=== PATIENT | female | born 1955 | race Caucasian/White ===

== ENCOUNTER 2016-11-13 17:12 | Inpatient (IN) ==
[2016-11-13] MEDS ORDERED: DEXTROSE 50% 25 GM/50 ML VIAL IV PRN (19:58)
[2016-11-13] MEDS ORDERED: GLUCAGON 1 MG VIAL IM PRN (19:58)
[2016-11-13] MEDS ORDERED: guaiFENesin/DM ER 600-30 MG TABLET PO PRN (19:58)
[2016-11-13] MEDS ORDERED: ACETAMINOPHEN 325 MG TABLET PO PRN (19:58)
[2016-11-13] MEDS ORDERED: ALBUTEROL 2.5 MG/3 ML NEB RESP TX PRN (19:58)
[2016-11-13 20:35] LABS: Basophils # 0.1 10*3/uL (0.0-0.2); Basophils % 0.6 % (0.0-0.8); Eosinophils # 0.1 10*3/uL (0.0-0.87); Eosinophils % 1.4 % (0.00-10.9); Hematocrit 41.1 VOL% (35.7-47.0); Hemoglobin 12.6 GM/DL (12.0-16.0); Immature Granulocytes % 0.5 %; Immature Granulocytes Absolute 0.05 #; Lymphocytes # 2.4 10*3/uL (1.4-4.0); Lymphocytes % 25.4 % (21.3-54.2); Mean Corpuscular HGB Conc 30.7 GM/DL (32-36); Mean Corpuscular Hemoglobin 25 PG (27-34); Mean Corpuscular Volume 82.9 FL (87-102); Mean Platelet Volume 9.3 FL (9.6-12.0); Monocytes # 0.7 10*3/uL (0.11-0.8); Monocytes % 7.3 % (1.7-12.7); Neutrophils # 6.2 10*3/uL (1.4-7.4); Neutrophils % 64.8 % (38.7-73.9); Platelet Count 362 T/CUMM (130-400); Red Blood Count 4.96 MC/CUMM (3.8-5.5); Red Cell Distribution Width 13.3 % (9.3-17.3); White Blood Count 9.5 T/CUMM (4-12)
[2016-11-13 21:02] LABS: Calcium 9.8 MG/DL (8.5-10.1); Potassium 4.2 MMOL/L (3.5-5.1)
--- NOTE | 2016-11-13 21:11 | XRay Report ---
XR chest 1V portable Indication: Shortness of breath. Chest one view: Comparison 01/26/16. Mild cardiomegaly, prominent pulmonary vascular structures, tortuous thoracic aorta and pulmonary hypoinflation are noted. No focal infiltrate is seen. There are some degree of atelectasis present. Impression: Bibasilar atelectasis. Mild CHF. PROCEDURE INTERPRETED AT [facility] DEPARTMENT OF RADIOLOGY Final Report Signed by: Ramy Laird M.D.
--- NOTE | 2016-11-13 21:40 | Hospitalist History & Physical ---
Assessment and Plan (1) Hypertension Status: Chronic Current Visit: No (2) Hyperlipidemia Status: Chronic Current Visit: No (3) Chest pain Status: Acute Current Visit: No (4) Diabetes Status: Chronic Current Visit: No (5) Acute exacerbation of chronic obstructive airways disease Status: Chronic Assessment and plan: Plan for this patient #1 the patient service #2 scheduled breathing treatments next #3 low-dose steroids 3 Accu-Cheks #5 sliding scale as needed #6 IV antibiotics 7 cough suppressant #8 check serial cardiac enzymes Current Visit: No History of Present Illness Chief complaint: sent from Dr. Daly's office to hospital History of present illness: Ms. Roy is a 61 year old female past medical history significant for anxiety , cardiomyopathy, congestive heart failure, COPD, coronary artery disease, depression and diabetes who was in her normal state of health until the past 10 days. According to what I can gather from Dr. Daly patient is noncompliant. She's been feeling poorly for at least 10 days and coughing up productive sputum but has not sought medical attention. Patient has prominent wheezing and when she saw Dr. Daly today she could hardly get her words out and Dr. Dr. Daly contacted me and wanted to have patient admitted to the hospital. Patient is being admitted for acute exacerbation of her condition COPD. Patient did give a history of some chest pain that was sharp 3 days ago and did take 3 nitros. I've ordered labs and x-ray and I'm going to admit the patient our service Home Medications Medication Instructions Recorded Confirmed Type ALPRAZolam [Alprazolam] 1 mg PO QID PRN 05/26/15 01/25/16 History FLUoxetine [PROzac] 40 mg PO QAM 05/26/15 01/25/16 History Clopidogrel [Plavix] 75 mg PO DAILY #30 tablet 06/06/15 01/25/16 Rx HYDROcodone/ACETAMIN 10-325 [Solon 10 mg PO Q6HR PRN 07/14/15 01/25/16 History 10-325] Nitroglycerin [Nitroglycerin SL 0.4 mg SL Q5M PRN 07/14/15 01/25/16 History Tab] metFORMIN [Glucophage] 1,000 mg PO BID W/MEALS #0 07/15/15 01/25/16 Rx Biotin 1 mg PO DAILY 10/21/15 01/25/16 History Budesonide/Formoterol 160-4.5 2 puff INH BID 10/21/15 01/25/16 History [Symbicort 160-4.5] FLUoxetine [PROzac] 20 mg PO BEDTIME 10/21/15 01/25/16 History Terbinafine HCl [Terbinafine 1% 1 applic TOP BID 10/21/15 01/25/16 History Cream] Aspirin EC Tab 325 mg PO DAILY tablet 11/02/15 01/25/16 Rx Atorvastatin [Lipitor] 20 mg PO BEDTIME tablet 11/02/15 01/25/16 Rx Benzonatate [Tessalon] 100 mg PO TID capsule 11/02/15 01/25/16 Rx Bisacodyl Tab [Dulcolax Tab] 5 mg PO DAILY tablet 11/02/15 01/25/16 Rx Docusate Sodium Cap [Colace Cap] 200 mg PO DAILY capsule 11/02/15 01/25/16 Rx Fexofenadine [Jordyn] 180 mg PO DAILY tablet 11/02/15 01/25/16 Rx Gabapentin Cap/Tab [Neurontin 600 mg PO Q4HR tablet 11/02/15 01/25/16 Rx Cap/Tab] HYDROcodone/ACETAMIN 10-325 [Solon 1 tablet PO Q6H PRN #0 tablet 11/02/15 Rx 10-325] Insulin Regular [HumuLIN R] See Protocol SUBCUT ACHS injection 11/02/15 Rx Losartan [Cozaar] 25 mg PO DAILY tablet 11/02/15 01/25/16 Rx Magnesium Oxide 400 mg PO BID tablet 11/02/15 01/25/16 Rx Pantoprazole Tab [Protonix Tab] 40 mg PO DAILY tablet 11/02/15 01/25/16 Rx Polyethylene Glycol Powder 17 gm PO DAILY powder 11/02/15 01/25/16 Rx [Miralax] Potassium Iodide Oral Soln [Sski] 600 mg PO TID bottle 11/02/15 01/25/16 Rx Sodium Phosphate Enema [Fleet 133 ml RECTAL DAILY PRN #0 bottle 11/02/15 Rx Enema] Spironolactone [Aldactone] 25 mg PO DAILY tablet 11/02/15 01/25/16 Rx Theophylline ER Tab 300 mg PO BID W/MEALS tablet 11/02/15 01/25/16 Rx Cefuroxime Tab [Ceftin] 500 mg PO BID #8 tablet 01/29/16 Rx Furosemide Tab [Lasix Tab] 80 mg PO BID DIURETIC #60 tablet 01/29/16 Rx Ipratropium/Albuterol Inhaler 1 puff INH QID #1 inhaler 01/29/16 Rx [Combivent Respimat Inhaler] methylPREDNISolone TAB [Medrol] 8 mg PO 0800 #15 tablet 01/29/16 Rx Allergies Allergy/AdvReac Type Severity Reaction Status Date / Time nylon sutures Allergy RASH Uncoded 06/14/15 12:04 plastic tape Allergy RASH Uncoded 06/14/15 12:04 Medical,Surgical,& Family Hx - Medical History Cardio: History of: CHF, CAD, Hypertension, MD, Cardiovascular Problems No history of: Aneurysm, Cardiac Dysrhythmia, Cerebrovascular Disease, Congenital Heart Disease, Pacemaker, PVD, Valvular Heart Disease Psychological: History of: Anxiety Disorders, Depression Neurology: No history of: Seizures Endocrine: History of: Diabetes Mellitus (IDDM), Dyslipidemia Rheumatology: No history of;: Fibromyalgia, Gout, Myasthenia Gravis, Rheumatoid Arthritis, Rheumatological Problems Respiratory: History of: COPD No history of: Asthma, Bronchitis, Intubation, Obstructive Sleep Apnea, Pulmonary Embolism, Pulmonary Hypertension, Pneumonia, Lung Cancer, Respiratory Problems Gastrointestinal: History of: GERD, GI Problems (Peptic Ulcer) No history of: Bowel Obstruction, Clostridium Difficile, Crohn's Disease, Diverticulitis/ Diverticulosis, Esophageal Varices, Gastrointestinal Bleed, Hemorrhoids, Hematochezia, Hepatitis, Liver Problems, Pancreatitis, Polyps, Ulcerative Colitis, Gastrointestinal Cancer Musculoskeletal: History of: Back/Neck Problems (chronic back pain) No history of: Degenerative Disk Disease, Herniated Disk, Osteoporosis, Musculoskeletal Cancer, Musculoskeletal Problems - Surgical History Cardiac Surgeries: Sugical HX of: Cardiac Catheterization (stents) Patient Denies: Femoral-Popliteal Bypass Graft, Cardiac Surgery, Carotid Endarterectomy, Internal Defibrillator, Vascular Access Devices Thoracic Surgeries: Patient denies;: Kidney (Renal Surgery), Lithotripsy, Nephrectomy, Lobectomy Neurologic Surgeries: Patient denies: Neurologic Surgery HEENT Surgeries: Patient denies: Carotid Endarterectomy Abdominal Surgeries: Patient denies: Abdominal Surgery, Appendectomy, Cholecystectomy, Colonoscopy , Gastric Bypass Surgery, EGD, Hernia Repair, Splenectomy Reproductive Surgeries: Surgical HX of;: Breast Surgery (Breast Reduction), Hysterectomy Patient denies;: Section, Cystoscopy, Dilation and Curettage, Genitourinary Surgery, Gynecologic Surgery, Tubal Ligation Orthopedic Surgeries: Surgical HX of;: Orthopedic Surgery (knee surgery) - Family History Family History: Reports;: Family Diabetes (Mother), Family Heart Disease (Mother ), Family Hypertension (Father) - Social History Smoking Status: Former smoker Frequency of Alcohol Use: None Type of Drug Use: None 12 point system: reviewed and no additional remarkable complaints except as stated Exam - Constitutional General appearance: over weight - Head Head exam: Present: normal inspection - Eye Eye exam: Present: EOMI Pupils: Present: ROSETTA - ENT ENT exam: Present: normal exam - Neck Neck exam: Present: normal inspection - Respiratory Respiratory exam: Present: prolonged expiratory phase, wheezes - Cardiovascular Cardiovascular exam: Present: regular rate and rhythm - GI/Abdominal GI/Abdominal exam: Present: normal bowel sounds - Extremities Exam Extremities exam: Present: normal inspection - Back Exam Back exam: Present: normal inspection - Neurological Exam Neurological exam: Present: alert, oriented X3 - Psychiatric Psychiatric exam: Present: normal affect Results - Labs CBC & BMP: 11/13/16 20:13 11/13/16 20:13
[2016-11-13] MEDS ORDERED: SODIUM PHOSPHATE ENEMA 133 ML BOTTLE RECTAL PRN (22:01)
[2016-11-13] MEDS: methylPREDNISolone SOD SUC 40 MG/1 ML VIAL IV SCH (23:02)
[2016-11-13] MEDS: INSULIN REGULAR 100 UNIT/ML SUBCUT SCH (23:02)
[2016-11-13] MEDS: cefTRIAXone 1,000 MG in SODIUM CHLORIDE 0.9% 100 ML IV SCH (23:02)
[2016-11-13 23:33] LABS: Troponin I Only < 0.015 NG/ML (0.00-0.045)
[2016-11-13] MEDS: AZITHROMYCIN INJ 500 MG in SODIUM CHLORIDE 0.9% 250 ML IV SCH (23:44)
[2016-11-13] MEDS: ENOXAPARIN 40 MG/0.4 ML SYRINGE SUBCUT SCH (23:45)
[2016-11-14] MEDS: ALBUTEROL/IPRATROPIUM 3 ML NEB RESP TX SCH ×4 (00:10→20:11)
[2016-11-14] MEDS: traZODone 50 MG TABLET PO PRN (00:18)
[2016-11-14] MEDS: GABAPENTIN 600 MG TABLET PO SCH ×4 (00:18→17:13)
[2016-11-14 03:33] LABS: Basophils % 0.5 % (0.0-0.8); Eosinophils % 0.5 % (0.00-10.9); Hematocrit 39.8 VOL% (35.7-47.0); Hemoglobin 12.3 GM/DL (12.0-16.0); Immature Granulocytes % 0.7 %; Immature Granulocytes Absolute 0.06 #; Lymphocytes # 0.8 10*3/uL (1.4-4.0); Lymphocytes % 9.7 % (21.3-54.2); Mean Corpuscular HGB Conc 30.9 GM/DL (32-36); Mean Corpuscular Hemoglobin 25 PG (27-34); Mean Corpuscular Volume 80.1 FL (87-102); Mean Platelet Volume 9.7 FL (9.6-12.0); Monocytes # 0.2 10*3/uL (0.11-0.8); Monocytes % 1.8 % (1.7-12.7); Neutrophils # 7.3 10*3/uL (1.4-7.4); Neutrophils % 86.8 % (38.7-73.9); Platelet Count 359 T/CUMM (130-400); Red Blood Count 4.97 MC/CUMM (3.8-5.5); Red Cell Distribution Width 13.4 % (9.3-17.3); White Blood Count 8.5 T/CUMM (4-12)
[2016-11-14 03:43] LABS: Risk Ratio 4.43; VLDL CHOLESTEROL 21.2 MG/DL
[2016-11-14 03:48] LABS: Troponin I Only < 0.015 NG/ML (0.00-0.045)
[2016-11-14 03:55] LABS: Calcium 9.7 MG/DL (8.5-10.1); Osmolality,Calculated 287.1 MOS/KG (273-304); Potassium 4.7 MMOL/L (3.5-5.1)
[2016-11-14] MEDS ORDERED: methylPREDNISolone 4 MG TABLET PO SCH (08:00)
--- NOTE | 2016-11-14 08:09 | Ultrasound Report ---
Referring physician: Ramy Adam Exam: Bilateral lower extremity venous ultrasound Date: November 14, 2016 Comparison: Bilateral lower extremity venous ultrasound January 25, 2016 Reason: Edema and pain in legs Technique: Duplex scan of the bilateral lower extremity veins was performed using B-Mode/grayscale imaging and Doppler spectral analysis and color flow. Ultrasound images were captured and stored. Findings: There is no evidence of thrombus within the left or right common femoral veins, saphenous veins, superficial femoral veins or popliteal veins. Normal compression and augmentation are present throughout. Normal color flow and spectral analysis are observed. Impression: No evidence of deep venous thrombosis within either lower extremity. PROCEDURE INTERPRETED AT [facility] DEPARTMENT OF RADIOLOGY Final Report Signed by: Dr. Magaly Nicholas
[2016-11-14] MEDS ORDERED: PANTOPRAZOLE 40 MG TABLET PO SCH (09:00)
[2016-11-14] MEDS: POLYETHYLENE GLYCOL POWDER 17 GM PACK PO SCH (09:01)
[2016-11-14] MEDS: TERBINAFINE 1% CREAM 12 GM TUBE TOP SCH ×2 (09:02→21:23)
[2016-11-14] MEDS: THEOPHYLLINE ER 300 MG TABLET PO SCH ×2 (09:02→17:13)
[2016-11-14] MEDS: methylPREDNISolone SOD SUC 40 MG/1 ML VIAL IV SCH ×2 (09:02→21:23)
[2016-11-14] MEDS: CLOPIDOGREL 75 MG TABLET PO SCH (09:03)
[2016-11-14] MEDS: DOCUSATE SODIUM 100 MG CAPSULE PO SCH (09:03)
[2016-11-14] MEDS: PANTOPRAZOLE 40 MG TABLET PO SCH (09:03)
[2016-11-14] MEDS: FEXOFENADINE 180 MG TABLET PO SCH (09:03)
[2016-11-14] MEDS: ASPIRIN EC 325 MG TABLET PO SCH (09:03)
[2016-11-14] MEDS: LOSARTAN 25 MG TABLET PO SCH (09:03)
[2016-11-14] MEDS: SPIRONOLACTONE 25 MG TABLET PO SCH (09:04)
[2016-11-14] MEDS: BISACODYL 5 MG TABLET PO SCH (09:04)
[2016-11-14] MEDS: MAGNESIUM OXIDE 400 MG TABLET PO SCH ×2 (09:04→21:23)
[2016-11-14] MEDS: FUROSEMIDE 80 MG TABLET PO SCH ×2 (09:04→15:19)
[2016-11-14] MEDS: ESCITALOPRAM 10 MG TABLET PO SCH (09:04)
[2016-11-14] MEDS: NEBIVOLOL 10 MG TABLET PO SCH (09:04)
[2016-11-14] MEDS: POTASSIUM IODIDE ORAL SOLN 1,000 MG/ML BOTTLE PO SCH ×3 (09:06→21:26)
[2016-11-14] MEDS: FLUoxetine 20 MG CAPSULE PO SCH ×2 (09:19→21:23)
[2016-11-14] MEDS: MULTIVITAMIN (BEROCCA) TABLET PO SCH (09:19)
[2016-11-14] MEDS: INSULIN REGULAR 100 UNIT/ML SUBCUT SCH ×4 (09:19→21:22)
[2016-11-14] MEDS: BUDESONIDE/FORMOTEROL 160-4.5 INHALER 6 GM INH SCH ×2 (09:21→21:26)
--- NOTE | 2016-11-14 10:20 | EKG Report ---
Stationary ECG Study [facility] Test Date: 11/14/2016 8:50:37 AM Pat Name: JOSTIN BOWER Department: Room: 277 Gender: F Merchandising Representative: ZULEMA : 1955 Requested by: Ramy Adam Order Number: [id number] Reading MD: BECCA HUBBARD Intervals [place] Rate: 82 P: 66 ND: 210 QRS: 86 QRSD: 105 T: 52 QT: 397 QTc: 436 Interpretive Statements SINUS RHYTHM WITH PROLONGED ND INTERVAL LATERAL MYOCARDIAL INFARCTION, PROBABLY OLD Electronically Signed On 11-14-16 18:12:45 TYPEWRITER OPERATOR AUTOMATIC by BECCA HUBBARD [email or web address]
--- NOTE | 2016-11-14 11:22 | Hospitalist Progress Note ---
Assessment and Plan (1) Hypertension Status: Chronic Current Visit: No (2) Hyperlipidemia Status: Chronic Current Visit: No (3) Chest pain Status: Acute Current Visit: No (4) Diabetes Status: Chronic Current Visit: No (5) Acute exacerbation of chronic obstructive airways disease Status: Chronic Assessment and plan: Plan for this patient #1 the patient service #2 scheduled breathing treatments next #3 low-dose steroids 3 Accu-Cheks #5 sliding scale as needed #6 IV antibiotics 7 cough suppressant #8 check serial cardiac enzymes 11/14/16 and he was standard treatment for COPD including steroids antibiotics and scheduled breathing treatments. She's made a slight improvement since last night. Hopefully she will continue to improve if she doesn't we'll consider consult to pulmonary for assistance Current Visit: No Hospitalist: Subjective Interval history: She reports maybe feeling a little bit better Exam - Constitutional Vitals: Period Temp Pulse Resp BP Sys/Callahan Pulse Ox Last 24 Hr 96.3 F-98.3 F 70-84 18-22 117-136/53-71 88-96 - Constitutional General appearance: over weight - Head Head exam: Present: normal inspection - Eye Eye exam: Present: EOMI Pupils: Present: ROSETTA - ENT ENT exam: Present: normal exam - Neck Neck exam: Present: normal inspection - Respiratory Respiratory exam: Present: prolonged expiratory phase, wheezes - Cardiovascular Cardiovascular exam: Present: regular rate and rhythm - GI/Abdominal GI/Abdominal exam: Present: normal bowel sounds - Extremities Exam Extremities exam: Present: normal inspection - Back Exam Back exam: Present: normal inspection - Neurological Exam Neurological exam: Present: alert, oriented X3 - Psychiatric Psychiatric exam: Present: normal affect Results - Labs CBC & BMP: 11/14/16 02:25 11/14/16 02:25
[2016-11-14] MEDS: ATORVASTATIN 20 MG TABLET PO SCH (21:23)
[2016-11-14] MEDS: ALPRAZolam 0.5 MG TABLET PO PRN (21:23)
[2016-11-14] MEDS: cefTRIAXone 1,000 MG in SODIUM CHLORIDE 0.9% 100 ML IV SCH ×2 (21:24→22:13)
[2016-11-14] MEDS: AZITHROMYCIN INJ 500 MG in SODIUM CHLORIDE 0.9% 250 ML IV SCH (22:45)
[2016-11-14] MEDS: ENOXAPARIN 40 MG/0.4 ML SYRINGE SUBCUT SCH (23:10)
[2016-11-15] MEDS: ALBUTEROL/IPRATROPIUM 3 ML NEB RESP TX SCH ×4 (00:35→19:56)
[2016-11-15] MEDS: GABAPENTIN 600 MG TABLET PO SCH ×4 (00:35→17:09)
[2016-11-15] MEDS: INSULIN REGULAR 100 UNIT/ML SUBCUT SCH ×4 (08:56→21:56)
[2016-11-15] MEDS: POLYETHYLENE GLYCOL POWDER 17 GM PACK PO SCH (09:23)
[2016-11-15] MEDS: POTASSIUM IODIDE ORAL SOLN 1,000 MG/ML BOTTLE PO SCH ×3 (09:25→21:57)
[2016-11-15] MEDS: methylPREDNISolone SOD SUC 40 MG/1 ML VIAL IV SCH ×2 (09:27→21:57)
[2016-11-15] MEDS: BUDESONIDE/FORMOTEROL 160-4.5 INHALER 6 GM INH SCH ×2 (09:27→21:57)
[2016-11-15] MEDS: LOSARTAN 25 MG TABLET PO SCH (09:28)
[2016-11-15] MEDS: NEBIVOLOL 10 MG TABLET PO SCH (09:28)
[2016-11-15] MEDS: THEOPHYLLINE ER 300 MG TABLET PO SCH ×2 (09:28→17:09)
[2016-11-15] MEDS: DOCUSATE SODIUM 100 MG CAPSULE PO SCH (09:28)
[2016-11-15] MEDS: CLOPIDOGREL 75 MG TABLET PO SCH (09:29)
[2016-11-15] MEDS: FLUoxetine 20 MG CAPSULE PO SCH ×2 (09:29→21:55)
[2016-11-15] MEDS: ESCITALOPRAM 10 MG TABLET PO SCH (09:29)
[2016-11-15] MEDS: ASPIRIN EC 325 MG TABLET PO SCH (09:29)
[2016-11-15] MEDS: FEXOFENADINE 180 MG TABLET PO SCH (09:29)
[2016-11-15] MEDS: FUROSEMIDE 80 MG TABLET PO SCH ×2 (09:29→15:43)
[2016-11-15] MEDS: MAGNESIUM OXIDE 400 MG TABLET PO SCH ×2 (09:29→21:56)
[2016-11-15] MEDS: BISACODYL 5 MG TABLET PO SCH (09:29)
[2016-11-15] MEDS: TERBINAFINE 1% CREAM 12 GM TUBE TOP SCH ×2 (09:30→21:57)
[2016-11-15] MEDS: PANTOPRAZOLE 40 MG TABLET PO SCH (09:30)
[2016-11-15] MEDS: SPIRONOLACTONE 25 MG TABLET PO SCH (09:30)
[2016-11-15] MEDS: MULTIVITAMIN (BEROCCA) TABLET PO SCH (09:30)
[2016-11-15] MEDS: ALPRAZolam 0.5 MG TABLET PO PRN ×2 (09:40→15:42)
--- NOTE | 2016-11-15 14:13 | Hospitalist Progress Note ---
Assessment and Plan (1) Hypertension Status: Chronic Current Visit: No (2) Hyperlipidemia Status: Chronic Current Visit: No (3) Chest pain Status: Acute Current Visit: No (4) Diabetes Status: Chronic Current Visit: No (5) Acute exacerbation of chronic obstructive airways disease Status: Chronic Assessment and plan: Plan for this patient #1 the patient service #2 scheduled breathing treatments next #3 low-dose steroids 3 Accu-Cheks #5 sliding scale as needed #6 IV antibiotics 7 cough suppressant #8 check serial cardiac enzymes 11/14/16 and he was standard treatment for COPD including steroids antibiotics and scheduled breathing treatments. She's made a slight improvement since last night. Hopefully she will continue to improve if she doesn't we'll consider consult to pulmonary for assistance 11/15/16 continue with current treatment. If she doesn't make significant improvement tomorrow we will get pulmonary to see her for evaluation Current Visit: No Hospitalist: Subjective Interval history: Patient still has significant wheezing. She says that overall she is improving Exam - Constitutional Vitals: Period Temp Pulse Resp BP Sys/Callahan Pulse Ox Last 24 Hr 96.3 F-97.2 F 67-88 2-20 101-163/46-82 90-98 - Constitutional General appearance: over weight - Head Head exam: Present: normal inspection - Eye Eye exam: Present: EOMI Pupils: Present: ROSETTA - ENT ENT exam: Present: normal exam - Neck Neck exam: Present: normal inspection - Respiratory Respiratory exam: Present: prolonged expiratory phase, wheezes - Cardiovascular Cardiovascular exam: Present: regular rate and rhythm - GI/Abdominal GI/Abdominal exam: Present: normal bowel sounds - Extremities Exam Extremities exam: Present: normal inspection - Back Exam Back exam: Present: normal inspection - Neurological Exam Neurological exam: Present: alert, oriented X3 - Psychiatric Psychiatric exam: Present: normal affect Results - Labs CBC & BMP: 11/14/16 02:25 11/14/16 02:25
[2016-11-15] MEDS: ATORVASTATIN 20 MG TABLET PO SCH (21:55)
[2016-11-15] MEDS: traZODone 50 MG TABLET PO PRN (21:55)
[2016-11-15] MEDS: BENZONATATE 100 MG CAPSULE PO PRN (21:56)
[2016-11-15] MEDS: cefTRIAXone 1,000 MG in SODIUM CHLORIDE 0.9% 100 ML IV SCH (21:56)
[2016-11-15] MEDS: AZITHROMYCIN INJ 500 MG in SODIUM CHLORIDE 0.9% 250 ML IV SCH (21:57)
[2016-11-15] MEDS: ENOXAPARIN 40 MG/0.4 ML SYRINGE SUBCUT SCH (21:57)
[2016-11-16] MEDS: ALPRAZolam 0.5 MG TABLET PO PRN ×4 (00:43→21:50)
[2016-11-16] MEDS: GABAPENTIN 600 MG TABLET PO SCH ×5 (00:43→23:14)
[2016-11-16] MEDS: ALBUTEROL/IPRATROPIUM 3 ML NEB RESP TX SCH ×4 (00:53→19:29)
[2016-11-16] MEDS: BENZONATATE 100 MG CAPSULE PO PRN ×2 (05:57→21:50)
[2016-11-16] MEDS: methylPREDNISolone SOD SUC 40 MG/1 ML VIAL IV SCH ×2 (08:32→21:51)
[2016-11-16] MEDS: BUDESONIDE/FORMOTEROL 160-4.5 INHALER 6 GM INH SCH ×2 (08:33→21:57)
[2016-11-16] MEDS: INSULIN REGULAR 100 UNIT/ML SUBCUT SCH ×4 (08:33→21:51)
[2016-11-16] MEDS: POTASSIUM IODIDE ORAL SOLN 1,000 MG/ML BOTTLE PO SCH ×3 (08:33→21:56)
[2016-11-16] MEDS: POLYETHYLENE GLYCOL POWDER 17 GM PACK PO SCH (08:33)
[2016-11-16] MEDS: NEBIVOLOL 10 MG TABLET PO SCH (08:35)
[2016-11-16] MEDS: CLOPIDOGREL 75 MG TABLET PO SCH (08:36)
[2016-11-16] MEDS: THEOPHYLLINE ER 300 MG TABLET PO SCH ×2 (08:36→17:16)
[2016-11-16] MEDS: MULTIVITAMIN (BEROCCA) TABLET PO SCH (08:36)
[2016-11-16] MEDS: FLUoxetine 20 MG CAPSULE PO SCH ×2 (08:36→21:50)
[2016-11-16] MEDS: DOCUSATE SODIUM 100 MG CAPSULE PO SCH (08:36)
[2016-11-16] MEDS: LOSARTAN 25 MG TABLET PO SCH (08:37)
[2016-11-16] MEDS: ESCITALOPRAM 10 MG TABLET PO SCH (08:37)
[2016-11-16] MEDS: PANTOPRAZOLE 40 MG TABLET PO SCH (08:37)
[2016-11-16] MEDS: TERBINAFINE 1% CREAM 12 GM TUBE TOP SCH ×2 (08:37→21:52)
[2016-11-16] MEDS: FEXOFENADINE 180 MG TABLET PO SCH (08:37)
[2016-11-16] MEDS: BISACODYL 5 MG TABLET PO SCH (08:37)
[2016-11-16] MEDS: MAGNESIUM OXIDE 400 MG TABLET PO SCH ×2 (08:37→21:51)
[2016-11-16] MEDS: ASPIRIN EC 325 MG TABLET PO SCH (08:38)
[2016-11-16] MEDS: SPIRONOLACTONE 25 MG TABLET PO SCH (08:38)
[2016-11-16] MEDS: FUROSEMIDE 80 MG TABLET PO SCH ×2 (08:38→15:39)
--- NOTE | 2016-11-16 11:10 | Hospitalist Progress Note ---
Assessment and Plan - Time spent with patient Time spent with patient: Less than 30 minutes (due to assessment, plan and documentation.) (1) Acute exacerbation of chronic obstructive airways disease Status: Chronic Assessment and plan: continue duonebs, solumedrol, iv abx o2 prn. susan dee Current Visit: No (2) Diabetes Status: Chronic Current Visit: No Hospitalist: Subjective Interval history: Ms. Roy is seen lying in bed today. She still is winded, and looks ill. She states that she gets very dyspneic on exertion and is very weak. Sugars are elevated due to sugars. She is on sliding scale for that. She states that she has not had a BM despite miralax and stool softeners. I will order her some MOM today. She is complaining bitterly of cough. She states Robitussin DM isn't working very much. I will order some tessalon perles to see if this helps. We will continue to follow and monitor her progress. Labs in AM. Exam - Constitutional Vitals: Period Temp Pulse Resp BP Sys/Callahan Pulse Ox Last 24 Hr 96.1 F-98.2 F 66-91 16-28 105-163/43-82 91-100 General appearance: over weight - Head Head exam: Present: normal inspection, normocephalic - Eye Eye exam: Present: EOMI. Absent: scleral icterus Pupils: Present: ROSETTA, normal accommodation - ENT ENT exam: Present: normal exam, normal oropharynx - Neck Neck exam: Present: normal inspection. Absent: lymphadenopathy - Respiratory Respiratory exam: Present: prolonged expiratory phase, wheezes. Absent: accessory muscle use - Cardiovascular Cardiovascular exam: Present: regular rate and rhythm - GI/Abdominal GI/Abdominal exam: Present: normal bowel sounds, soft. Absent: tenderness - Extremities Exam Extremities exam: Present: normal inspection. Absent: edema - Back Exam Back exam: Present: normal inspection. Absent: muscle spasm - Neurological Exam Neurological exam: Present: alert, oriented X3 - Psychiatric Psychiatric exam: Present: normal affect, normal mood - Skin Skin exam: Present: normal color, warm, dry, intact Results - Labs CBC & BMP: 11/14/16 02:25 11/14/16 02:25 Lab Results: I have reviewed the past 24 hour labs
[2016-11-16] MEDS ORDERED: MAGNESIUM HYDROXIDE SUSP 30 ML UDCUP PO PRN (11:12)
[2016-11-16] MEDS: ATORVASTATIN 20 MG TABLET PO SCH (21:51)
[2016-11-16] MEDS: traZODone 50 MG TABLET PO PRN (21:51)
[2016-11-16] MEDS: cefTRIAXone 1,000 MG in SODIUM CHLORIDE 0.9% 100 ML IV SCH (21:52)
[2016-11-16] MEDS: ENOXAPARIN 40 MG/0.4 ML SYRINGE SUBCUT SCH (21:57)
[2016-11-16] MEDS: AZITHROMYCIN INJ 500 MG in SODIUM CHLORIDE 0.9% 250 ML IV SCH (23:14)
[2016-11-17] MEDS: ALBUTEROL/IPRATROPIUM 3 ML NEB RESP TX SCH ×4 (01:16→20:24)
[2016-11-17 04:54] LABS: Basophils % 0.1 % (0.0-0.8); Hemoglobin 12.2 GM/DL (12.0-16.0); Lymphocytes % 9.7 % (21.3-54.2); Mean Corpuscular HGB Conc 32.1 GM/DL (32-36); Mean Corpuscular Hemoglobin 25 PG (27-34); Mean Platelet Volume 9.8 FL (9.6-12.0); Monocytes # 0.4 10*3/uL (0.11-0.8); Monocytes % 3.5 % (1.7-12.7); Neutrophils # 8.6 10*3/uL (1.4-7.4); Neutrophils % 85.7 % (38.7-73.9); Platelet Count 375 T/CUMM (130-400); Red Blood Count 4.81 MC/CUMM (3.8-5.5); Red Cell Distribution Width 13.7 % (9.3-17.3)
[2016-11-17] MEDS: GABAPENTIN 600 MG TABLET PO SCH ×3 (05:03→17:03)
[2016-11-17] MEDS: BENZONATATE 100 MG CAPSULE PO PRN ×2 (05:03→21:25)
[2016-11-17 05:22] LABS: Calcium 9.5 MG/DL (8.5-10.1); Magnesium 2.6 MG/DL (1.8-2.4)
[2016-11-17 05:26] LABS: Albumin 3.4 G/DL (3.4-5.0); Bilirubin,Total 0.8 MG/DL (0.2-1.0); Calcium 9.8 MG/DL (8.5-10.1); Osmolality,Calculated 293.5 MOS/KG (273-304); Potassium 4.8 MMOL/L (3.5-5.1); Total Protein 6.9 G/DL (6.4-8.3)
[2016-11-17] MEDS: DOCUSATE SODIUM 100 MG CAPSULE PO SCH (09:57)
[2016-11-17] MEDS: ASPIRIN EC 325 MG TABLET PO SCH (09:57)
[2016-11-17] MEDS: ALPRAZolam 0.5 MG TABLET PO PRN ×2 (09:57→22:21)
[2016-11-17] MEDS: LOSARTAN 25 MG TABLET PO SCH (09:57)
[2016-11-17] MEDS: NEBIVOLOL 10 MG TABLET PO SCH (09:57)
[2016-11-17] MEDS: CLOPIDOGREL 75 MG TABLET PO SCH (09:57)
[2016-11-17] MEDS: MULTIVITAMIN (BEROCCA) TABLET PO SCH (09:57)
[2016-11-17] MEDS: THEOPHYLLINE ER 300 MG TABLET PO SCH ×2 (09:58→17:03)
[2016-11-17] MEDS: MAGNESIUM OXIDE 400 MG TABLET PO SCH ×2 (09:58→21:25)
[2016-11-17] MEDS: PANTOPRAZOLE 40 MG TABLET PO SCH (09:58)
[2016-11-17] MEDS: SPIRONOLACTONE 25 MG TABLET PO SCH (09:58)
[2016-11-17] MEDS: BISACODYL 5 MG TABLET PO SCH (09:58)
[2016-11-17] MEDS: POLYETHYLENE GLYCOL POWDER 17 GM PACK PO SCH (09:59)
[2016-11-17] MEDS: FUROSEMIDE 80 MG TABLET PO SCH ×2 (09:59→17:02)
[2016-11-17] MEDS: FEXOFENADINE 180 MG TABLET PO SCH (09:59)
[2016-11-17] MEDS: FLUoxetine 20 MG CAPSULE PO SCH ×2 (09:59→21:25)
[2016-11-17] MEDS: INSULIN REGULAR 100 UNIT/ML SUBCUT SCH ×4 (10:01→21:23)
[2016-11-17] MEDS: TERBINAFINE 1% CREAM 12 GM TUBE TOP SCH ×2 (10:02→21:27)
[2016-11-17] MEDS: BUDESONIDE/FORMOTEROL 160-4.5 INHALER 6 GM INH SCH ×2 (10:02→21:23)
[2016-11-17] MEDS: methylPREDNISolone SOD SUC 40 MG/1 ML VIAL IV SCH ×2 (10:02→21:24)
[2016-11-17] MEDS: POTASSIUM IODIDE ORAL SOLN 1,000 MG/ML BOTTLE PO SCH ×3 (10:02→21:23)
[2016-11-17] MEDS: ESCITALOPRAM 10 MG TABLET PO SCH (10:03)
--- NOTE | 2016-11-17 12:09 | Hospitalist Progress Note ---
Assessment and Plan - Time spent with patient Time spent with patient: Less than 30 minutes (1) Acute exacerbation of chronic obstructive airways disease Status: Chronic Assessment and plan: continue duonebs, solumedrol, iv abx o2 prn. add mucinex to help with secretions Current Visit: No (2) Diabetes Status: Chronic Current Visit: No (3) Constipation Status: Acute Assessment and plan: she has had miralax and colace without a good BM I have ordered lactulose for her q 6 hrs prn Current Visit: No Hospitalist: Subjective Interval history: Ms. Roy is seen today sitting in bed writing checks for bills. She looks as though she feels better today than yesterday. She had RT place a water bottle for humidified O2. She states that she is feeling some better. She is still course, and having trouble with her secretions. She has been given stool softeners and Miralax and has not had a BM. She doesn't want MOM. I have ordered lactulose q6 6 PRN for constipation. Will add Mucinex to see if this will help. Hope for discharge in next 2-3 days. Labs in AM. Exam - Constitutional Vitals: Period Temp Pulse Resp BP Sys/Clalahan Pulse Ox Last 24 Hr 96.4 F-97.7 F 71-89 16-22 120-157/57-89 92-99 General appearance: no acute distress, over weight - Head Head exam: Present: normal inspection, normocephalic - Eye Eye exam: Present: EOMI. Absent: scleral icterus Pupils: Present: ROSETTA, normal accommodation - ENT ENT exam: Present: normal exam, normal oropharynx - Neck Neck exam: Present: normal inspection. Absent: lymphadenopathy - Respiratory Respiratory exam: Present: other (course). Absent: accessory muscle use - Cardiovascular Cardiovascular exam: Present: regular rate and rhythm - GI/Abdominal GI/Abdominal exam: Present: normal bowel sounds, soft. Absent: tenderness - Extremities Exam Extremities exam: Present: normal inspection. Absent: edema - Back Exam Back exam: Present: normal inspection. Absent: muscle spasm - Neurological Exam Neurological exam: Present: alert, oriented X3 - Psychiatric Psychiatric exam: Present: normal affect, normal mood - Skin Skin exam: Present: normal color, warm, dry, intact Results - Labs CBC & BMP: 11/17/16 04:15 11/17/16 04:15 Lab Results: I have reviewed the past 24 hour labs
[2016-11-17] MEDS: LACTULOSE 20 GM/30 ML UDCUP PO SCH ×2 (12:27→18:19)
[2016-11-17] MEDS: ENOXAPARIN 40 MG/0.4 ML SYRINGE SUBCUT SCH (21:24)
[2016-11-17] MEDS: ATORVASTATIN 20 MG TABLET PO SCH (21:25)
[2016-11-17] MEDS: traZODone 50 MG TABLET PO PRN (21:25)
[2016-11-17] MEDS: cefTRIAXone 1,000 MG in SODIUM CHLORIDE 0.9% 100 ML IV SCH (21:26)
[2016-11-17] MEDS: AZITHROMYCIN INJ 500 MG in SODIUM CHLORIDE 0.9% 250 ML IV SCH (22:38)
[2016-11-18] MEDS: LACTULOSE 20 GM/30 ML UDCUP PO SCH ×5 (00:32→23:21)
[2016-11-18] MEDS: GABAPENTIN 600 MG TABLET PO SCH ×5 (00:32→23:21)
[2016-11-18] MEDS: ALBUTEROL/IPRATROPIUM 3 ML NEB RESP TX SCH ×4 (01:02→20:52)
[2016-11-18] MEDS: ONDANSETRON 4 MG/2 ML VIAL IV PRN (05:08)
[2016-11-18 05:25] LABS: Basophils % 0.2 % (0.0-0.8); Hematocrit 42.2 VOL% (35.7-47.0); Hemoglobin 13.1 GM/DL (12.0-16.0); Immature Granulocytes % 0.8 %; Immature Granulocytes Absolute 0.15 #; Lymphocytes # 0.5 10*3/uL (1.4-4.0); Lymphocytes % 2.7 % (21.3-54.2); Mean Corpuscular Hemoglobin 25 PG (27-34); Mean Corpuscular Volume 80.4 FL (87-102); Mean Platelet Volume 9.6 FL (9.6-12.0); Monocytes # 0.8 10*3/uL (0.11-0.8); Monocytes % 4.3 % (1.7-12.7); Neutrophils # 16.4 10*3/uL (1.4-7.4); Platelet Count 369 T/CUMM (130-400); Red Blood Count 5.25 MC/CUMM (3.8-5.5); Red Cell Distribution Width 13.7 % (9.3-17.3); White Blood Count 17.8 T/CUMM (4-12)
[2016-11-18 05:58] LABS: Albumin 3.5 G/DL (3.4-5.0); Bilirubin,Total 0.8 MG/DL (0.2-1.0); Calcium 9.9 MG/DL (8.5-10.1); Osmolality,Calculated 293.3 MOS/KG (273-304); Potassium 4.5 MMOL/L (3.5-5.1)
[2016-11-18 06:00] LABS: Lymphocytes 3 % (20-55); Segmented Neutrophils 96 % (50-85); Total Cells Counted 100
[2016-11-18 06:01] LABS: Hypochromasia 1+; Ovalocytes Slight; Platelet Estimate Adequate
[2016-11-18] MEDS: POTASSIUM IODIDE ORAL SOLN 1,000 MG/ML BOTTLE PO SCH ×3 (09:17→21:40)
[2016-11-18] MEDS: MULTIVITAMIN (BEROCCA) TABLET PO SCH (09:18)
[2016-11-18] MEDS: POLYETHYLENE GLYCOL POWDER 17 GM PACK PO SCH (09:18)
[2016-11-18] MEDS: THEOPHYLLINE ER 300 MG TABLET PO SCH ×2 (09:18→17:16)
[2016-11-18] MEDS: INSULIN REGULAR 100 UNIT/ML SUBCUT SCH ×4 (09:18→21:37)
[2016-11-18] MEDS: methylPREDNISolone SOD SUC 40 MG/1 ML VIAL IV SCH ×2 (09:18→21:35)
[2016-11-18] MEDS: DOCUSATE SODIUM 100 MG CAPSULE PO SCH (09:19)
[2016-11-18] MEDS: LOSARTAN 25 MG TABLET PO SCH (09:19)
[2016-11-18] MEDS: PANTOPRAZOLE 40 MG TABLET PO SCH (09:19)
[2016-11-18] MEDS: NEBIVOLOL 10 MG TABLET PO SCH (09:19)
[2016-11-18] MEDS: FUROSEMIDE 80 MG TABLET PO SCH ×2 (09:19→15:49)
[2016-11-18] MEDS: CLOPIDOGREL 75 MG TABLET PO SCH (09:19)
[2016-11-18] MEDS: FLUoxetine 20 MG CAPSULE PO SCH ×2 (09:19→21:34)
[2016-11-18] MEDS: FEXOFENADINE 180 MG TABLET PO SCH (09:19)
[2016-11-18] MEDS: ASPIRIN EC 325 MG TABLET PO SCH (09:20)
[2016-11-18] MEDS: ESCITALOPRAM 10 MG TABLET PO SCH (09:20)
[2016-11-18] MEDS: BUDESONIDE/FORMOTEROL 160-4.5 INHALER 6 GM INH SCH ×2 (09:20→21:40)
[2016-11-18] MEDS: MAGNESIUM OXIDE 400 MG TABLET PO SCH ×2 (09:20→21:33)
[2016-11-18] MEDS: BISACODYL 5 MG TABLET PO SCH (09:20)
[2016-11-18] MEDS: SPIRONOLACTONE 25 MG TABLET PO SCH (09:20)
--- NOTE | 2016-11-18 16:53 | Hospitalist Progress Note ---
Assessment and Plan (1) Acute exacerbation of chronic obstructive airways disease Status: Chronic Current Visit: No (2) Chronic systolic CHF (congestive heart failure) Status: Acute Current Visit: Yes (3) Insulin dependent diabetes mellitus Status: Acute Current Visit: Yes (4) Hypertension Status: Acute Assessment and plan: Plan: 11/18: Taper steroids, likely change her antibiotics to by mouth in the morning and possibly discharge. Encourage out of bed to chair/ambulation as tolerated. Current Visit: Yes Hospitalist: Subjective Interval history: Ms. Roy is breathing more comfortably. She is able to take her oxygen off and ambulate to the bathroom. She had some concern about a "knot on the belly. " This seems to coincide with the location where she is receiving Lovenox injections. Otherwise she has no complaints. Exam - Constitutional Vitals: Period Temp Pulse Resp BP Sys/Callahan Pulse Ox Last 24 Hr 96.4 F-99.5 F 72-86 18-22 114-148/58-76 90-97 Exam: EXAM: CONSTITUTIONAL: Morbidly obese, non toxic, NAD HEENT: NC, AT, OP benign, ROSETTA, EOMI CV: RRR no m/g/r RESP: Distant breath sounds, prolonged Phase, otherwise clear GI: abd soft, NT, ND, +bowel sounds INTEGUMENTARY: no lesions or rash EXTREMITIES: no c/c/e NEURO: no focal deficits PSYCH: unremarkable, A/O x3 Results - Labs CBC & BMP: 11/18/16 04:35 11/18/16 04:35 Lab Results: I have reviewed the past 24 hour labs
[2016-11-18] MEDS: TERBINAFINE 1% CREAM 12 GM TUBE TOP SCH ×2 (17:18→21:41)
[2016-11-18] MEDS: ATORVASTATIN 20 MG TABLET PO SCH (21:34)
[2016-11-18] MEDS: cefTRIAXone 1,000 MG in SODIUM CHLORIDE 0.9% 100 ML IV SCH (21:37)
[2016-11-18] MEDS: ENOXAPARIN 40 MG/0.4 ML SYRINGE SUBCUT SCH (21:38)
[2016-11-18] MEDS: AZITHROMYCIN INJ 500 MG in SODIUM CHLORIDE 0.9% 250 ML IV SCH (22:14)
[2016-11-19] MEDS: ALBUTEROL/IPRATROPIUM 3 ML NEB RESP TX SCH ×4 (00:57→20:37)
[2016-11-19 06:00] LABS: Basophils % 0.1 % (0.0-0.8); Hematocrit 41.5 VOL% (35.7-47.0); Hemoglobin 13.2 GM/DL (12.0-16.0); Immature Granulocytes % 1.7 %; Immature Granulocytes Absolute 0.16 #; Lymphocytes # 0.8 10*3/uL (1.4-4.0); Lymphocytes % 7.8 % (21.3-54.2); Mean Corpuscular HGB Conc 31.8 GM/DL (32-36); Mean Corpuscular Hemoglobin 25 PG (27-34); Mean Corpuscular Volume 78.6 FL (87-102); Mean Platelet Volume 9.7 FL (9.6-12.0); Monocytes # 0.5 10*3/uL (0.11-0.8); Monocytes % 4.8 % (1.7-12.7); Neutrophils # 8.2 10*3/uL (1.4-7.4); Neutrophils % 85.6 % (38.7-73.9); Platelet Count 356 T/CUMM (130-400); Red Blood Count 5.28 MC/CUMM (3.8-5.5); White Blood Count 9.6 T/CUMM (4-12)
[2016-11-19 06:22] LABS: Calcium 9.5 MG/DL (8.5-10.1); Magnesium 2.5 MG/DL (1.8-2.4); Osmolality,Calculated 286.7 MOS/KG (273-304)
[2016-11-19] MEDS: LACTULOSE 20 GM/30 ML UDCUP PO SCH ×2 (06:34→13:43)
[2016-11-19] MEDS: GABAPENTIN 600 MG TABLET PO SCH ×3 (06:35→17:57)
[2016-11-19] MEDS: methylPREDNISolone SOD SUC 40 MG/1 ML VIAL IV SCH (10:35)
[2016-11-19] MEDS: INSULIN REGULAR 100 UNIT/ML SUBCUT SCH ×4 (10:36→21:41)
[2016-11-19] MEDS: TERBINAFINE 1% CREAM 12 GM TUBE TOP SCH ×2 (10:41→22:41)
[2016-11-19] MEDS: BUDESONIDE/FORMOTEROL 160-4.5 INHALER 6 GM INH SCH ×2 (10:41→22:33)
[2016-11-19] MEDS: ONDANSETRON 4 MG/2 ML VIAL IV PRN ×3 (10:45→21:34)
[2016-11-19] MEDS: THEOPHYLLINE ER 300 MG TABLET PO SCH ×2 (11:47→17:57)
[2016-11-19] MEDS: NEBIVOLOL 10 MG TABLET PO SCH (11:47)
[2016-11-19] MEDS: FLUoxetine 20 MG CAPSULE PO SCH ×2 (11:47→21:41)
[2016-11-19] MEDS: MULTIVITAMIN (BEROCCA) TABLET PO SCH (11:47)
[2016-11-19] MEDS: LOSARTAN 25 MG TABLET PO SCH (11:48)
[2016-11-19] MEDS: SPIRONOLACTONE 25 MG TABLET PO SCH (11:48)
[2016-11-19] MEDS: PANTOPRAZOLE 40 MG TABLET PO SCH (11:48)
[2016-11-19] MEDS: FEXOFENADINE 180 MG TABLET PO SCH (11:48)
[2016-11-19] MEDS: ASPIRIN EC 325 MG TABLET PO SCH (11:49)
[2016-11-19] MEDS: DOCUSATE SODIUM 100 MG CAPSULE PO SCH (11:49)
[2016-11-19] MEDS: FUROSEMIDE 80 MG TABLET PO SCH ×2 (11:49→17:57)
[2016-11-19] MEDS: BISACODYL 5 MG TABLET PO SCH (11:49)
[2016-11-19] MEDS: ESCITALOPRAM 10 MG TABLET PO SCH (11:50)
[2016-11-19] MEDS: CLOPIDOGREL 75 MG TABLET PO SCH (11:50)
[2016-11-19] MEDS: MAGNESIUM OXIDE 400 MG TABLET PO SCH ×2 (11:50→21:41)
[2016-11-19] MEDS: POLYETHYLENE GLYCOL POWDER 17 GM PACK PO SCH (11:51)
[2016-11-19] MEDS: POTASSIUM IODIDE ORAL SOLN 1,000 MG/ML BOTTLE PO SCH (11:51)
--- NOTE | 2016-11-19 14:00 | Hospitalist Progress Note ---
Assessment and Plan (1) Acute exacerbation of chronic obstructive airways disease Status: Chronic Current Visit: No (2) Chronic systolic CHF (congestive heart failure) Status: Acute Current Visit: Yes (3) Insulin dependent diabetes mellitus Status: Acute Current Visit: Yes (4) Acute worsening of stage 3 chronic kidney disease Status: Acute Current Visit: Yes (5) Nausea Status: Acute Current Visit: Yes (6) Hypertension Status: Acute Assessment and plan: Plan: 11/18: Taper steroids, likely change her antibiotics to by mouth in the morning and possibly discharge. Encourage out of bed to chair/ambulation as tolerated. 11/19: Change to oral steroids in the morning. Tomorrow she will of had 7 days of IV antibiotics which time we can discontinue. We'll check an abdominal x- ray regarding her nausea vomiting abdominal pain, and recent constipation. Nausea may be in part due to medication. We'll stop her potassium iodide solution for now. Continue laxative as needed. We'll hold off Chronulac for now as a spray be contributing to increased gas and bloating. Current Visit: Yes Hospitalist: Subjective Interval history: Ms. Rosenbaum does not complain about shortness of breath. Her complaint today is nausea and vomiting with mild abdominal pain, as well as constipation. She did have a bowel movement yesterday and is passing gas. She denies shortness of breath or chest pain. Exam - Constitutional Vitals: Period Temp Pulse Resp BP Sys/Callahan Pulse Ox Last 24 Hr 96.6 F-97.9 F 72-88 18-20 105-144/57-95 91-97 Exam: EXAM: CONSTITUTIONAL: Morbidly obese, non toxic, NAD HEENT: NC, AT, OP benign, ROSETTA, EOMI CV: RRR no m/g/r RESP: Distant breath sounds, prolonged expiratory phase, otherwise clear GI: abd soft, NT, ND, +bowel sounds INTEGUMENTARY: no lesions or rash EXTREMITIES: no c/c/e NEURO: no focal deficits PSYCH: unremarkable, A/O x3 Results - Labs CBC & BMP: 11/19/16 05:30 11/19/16 05:30 Lab Results: I have reviewed the past 24 hour labs - Diagnostic Findings Procedure: X-ray: pending
--- NOTE | 2016-11-19 14:51 | XRay Report ---
Exam: XR abdomen complete w decub Date: 11/19/2016 2:14 PM Comparison: 10/28/2015 Indication: Generalized abdominal pain, nausea Technique: Supine and erect abdomen Findings: Progressive gaseous distention of bowel especially the colon where there is increased fecal material. No free air is identified. Degenerative changes are noted. Impression: Progressive gaseous distention of bowel especially colon which may be related to increased fecal material consistent with constipation. It is difficult to exclude ileus, etc. PROCEDURE INTERPRETED AT [facility] DEPARTMENT OF RADIOLOGY Final Report Signed by: Dr. Stacey Bettencourt
[2016-11-19] MEDS: cefTRIAXone 1,000 MG in SODIUM CHLORIDE 0.9% 100 ML IV SCH (21:38)
[2016-11-19] MEDS: ENOXAPARIN 40 MG/0.4 ML SYRINGE SUBCUT SCH (21:41)
[2016-11-19] MEDS: ATORVASTATIN 20 MG TABLET PO SCH (21:41)
[2016-11-19] MEDS: ALPRAZolam 0.5 MG TABLET PO PRN (21:41)
[2016-11-19] MEDS: AZITHROMYCIN INJ 500 MG in SODIUM CHLORIDE 0.9% 250 ML IV SCH (22:40)
[2016-11-20] MEDS: GABAPENTIN 600 MG TABLET PO SCH ×5 (01:05→23:59)
[2016-11-20] MEDS: ALBUTEROL/IPRATROPIUM 3 ML NEB RESP TX SCH ×4 (02:34→20:28)
[2016-11-20] MEDS: ONDANSETRON 4 MG/2 ML VIAL IV PRN ×3 (02:52→20:19)
[2016-11-20 05:45] LABS: PT Patient Result 10.2 SECS
[2016-11-20 06:05] LABS: Calcium 9.8 MG/DL (8.5-10.1); Osmolality,Calculated 287.3 MOS/KG (273-304); Potassium 3.9 MMOL/L (3.5-5.1)
[2016-11-20] MEDS: INSULIN REGULAR 100 UNIT/ML SUBCUT SCH ×4 (09:11→20:18)
[2016-11-20] MEDS: DOCUSATE SODIUM 100 MG CAPSULE PO SCH (09:13)
[2016-11-20] MEDS: NEBIVOLOL 10 MG TABLET PO SCH (09:13)
[2016-11-20] MEDS: CLOPIDOGREL 75 MG TABLET PO SCH (09:13)
[2016-11-20] MEDS: MULTIVITAMIN (BEROCCA) TABLET PO SCH (09:13)
[2016-11-20] MEDS: SPIRONOLACTONE 25 MG TABLET PO SCH (09:14)
[2016-11-20] MEDS: predniSONE 20 MG TABLET PO SCH (09:14)
[2016-11-20] MEDS: FLUoxetine 20 MG CAPSULE PO SCH ×2 (09:14→20:18)
[2016-11-20] MEDS: THEOPHYLLINE ER 300 MG TABLET PO SCH ×2 (09:14→17:16)
[2016-11-20] MEDS: LOSARTAN 25 MG TABLET PO SCH (09:15)
[2016-11-20] MEDS: ASPIRIN EC 325 MG TABLET PO SCH (09:15)
[2016-11-20] MEDS: FUROSEMIDE 80 MG TABLET PO SCH ×2 (09:15→17:16)
[2016-11-20] MEDS: PANTOPRAZOLE 40 MG TABLET PO SCH (09:15)
[2016-11-20] MEDS: FEXOFENADINE 180 MG TABLET PO SCH (09:16)
[2016-11-20] MEDS: TERBINAFINE 1% CREAM 12 GM TUBE TOP SCH ×2 (09:16→20:19)
[2016-11-20] MEDS: MAGNESIUM OXIDE 400 MG TABLET PO SCH ×2 (09:16→20:18)
[2016-11-20] MEDS: BISACODYL 5 MG TABLET PO SCH (09:16)
[2016-11-20] MEDS: ESCITALOPRAM 10 MG TABLET PO SCH (09:16)
[2016-11-20] MEDS: ALPRAZolam 0.5 MG TABLET PO PRN ×2 (09:17→20:18)
[2016-11-20] MEDS: POLYETHYLENE GLYCOL POWDER 17 GM PACK PO SCH (09:17)
[2016-11-20] MEDS: BUDESONIDE/FORMOTEROL 160-4.5 INHALER 6 GM INH SCH ×2 (09:17→20:19)
[2016-11-20] MEDS ORDERED: METOCLOPRAMIDE 10 MG/2 ML VIAL IV ONE (12:40)
--- NOTE | 2016-11-20 12:41 | Hospitalist Progress Note ---
Assessment and Plan (1) Acute exacerbation of chronic obstructive airways disease Status: Chronic Current Visit: No (2) Chronic systolic CHF (congestive heart failure) Status: Acute Current Visit: Yes (3) Insulin dependent diabetes mellitus Status: Acute Current Visit: Yes (4) Acute worsening of stage 3 chronic kidney disease Status: Acute Current Visit: Yes (5) Nausea Status: Acute Current Visit: Yes (6) Constipation Status: Acute Current Visit: Yes (7) Hypertension Status: Acute Assessment and plan: Plan: 11/18: Taper steroids, likely change her antibiotics to by mouth in the morning and possibly discharge. Encourage out of bed to chair/ambulation as tolerated. 11/19: Change to oral steroids in the morning. Tomorrow she will of had 7 days of IV antibiotics which time we can discontinue. We'll check an abdominal x- ray regarding her nausea vomiting abdominal pain, and recent constipation. Nausea may be in part due to medication. We'll stop her potassium iodide solution for now. Continue laxative as needed. We'll hold off Chronulac for now as a spray be contributing to increased gas and bloating. 11/20: DC antibiotics as she's had a week of treatment. Continue steroid taper. Continue fleets enema and if needed can try soapsuds enema. We'll change to clear liquid diet to see if this is more tolerable for her. Current Visit: Yes Hospitalist: Subjective Interval history: His Kirill continues to have nausea and constipation. From a respiratory standpoint she seems to be doing well. She is sitting comfortably on the chair without oxygen appears comfortable. We will try enema to see if this relieves some constipation seen on her abdominal film. I think once this resolves we can consider discharge. Exam - Constitutional Vitals: Period Temp Pulse Resp BP Sys/Callahan Pulse Ox Last 24 Hr 96.0 F-98 F 68-84 18-25 102-143/60-80 92-100 Exam: EXAM: CONSTITUTIONAL: Morbidly obese, non toxic, NAD HEENT: NC, AT, OP benign, ROSETTA, EOMI CV: RRR no m/g/r RESP: Distant breath sounds, prolonged expiratory phase, otherwise clear GI: abd soft, NT, ND, +bowel sounds INTEGUMENTARY: no lesions or rash EXTREMITIES: no c/c/e NEURO: no focal deficits PSYCH: unremarkable, A/O x3 Results - Labs CBC & BMP: 11/19/16 05:30 11/20/16 05:08 Lab Results: I have reviewed the past 24 hour labs - Diagnostic Findings Procedure: X-ray: image reviewed by me, report reviewed by me
[2016-11-20] MEDS ORDERED: SODIUM PHOSPHATE ENEMA 133 ML BOTTLE RECTAL ONE (12:42)
[2016-11-20] MEDS ORDERED: PROMETHAZINE 25 MG/1 ML VIAL IM PRN (15:50)
[2016-11-20] MEDS: BENZONATATE 100 MG CAPSULE PO PRN (20:18)
[2016-11-20] MEDS: ATORVASTATIN 20 MG TABLET PO SCH (20:18)
[2016-11-20] MEDS: traZODone 50 MG TABLET PO PRN (20:18)
[2016-11-20] MEDS: ENOXAPARIN 40 MG/0.4 ML SYRINGE SUBCUT SCH ×2 (20:19→21:38)
[2016-11-21] MEDS: ALBUTEROL/IPRATROPIUM 3 ML NEB RESP TX SCH ×3 (00:30→12:14)
[2016-11-21 05:24] LABS: Basophils % 0.2 % (0.0-0.8); Eosinophils # 0.1 10*3/uL (0.0-0.87); Eosinophils % 0.5 % (0.00-10.9); Hematocrit 41.3 VOL% (35.7-47.0); Immature Granulocytes % 1.4 %; Lymphocytes # 3.3 10*3/uL (1.4-4.0); Lymphocytes % 22.3 % (21.3-54.2); Mean Corpuscular HGB Conc 31.5 GM/DL (32-36); Mean Corpuscular Hemoglobin 25 PG (27-34); Mean Corpuscular Volume 79.1 FL (87-102); Mean Platelet Volume 9.8 FL (9.6-12.0); Monocytes # 1.2 10*3/uL (0.11-0.8); Monocytes % 8.3 % (1.7-12.7); Neutrophils % 67.3 % (38.7-73.9); Platelet Count 368 T/CUMM (130-400); Red Blood Count 5.22 MC/CUMM (3.8-5.5); White Blood Count 14.8 T/CUMM (4-12)
[2016-11-21 06:00] LABS: Calcium 9.3 MG/DL (8.5-10.1); Osmolality,Calculated 281.5 MOS/KG (273-304); Potassium 3.4 MMOL/L (3.5-5.1)
[2016-11-21] MEDS: GABAPENTIN 600 MG TABLET PO SCH ×2 (06:42→13:02)
[2016-11-21] MEDS: INSULIN REGULAR 100 UNIT/ML SUBCUT SCH ×2 (08:25→12:37)
[2016-11-21] MEDS: FEXOFENADINE 180 MG TABLET PO SCH (08:47)
[2016-11-21] MEDS: ASPIRIN EC 325 MG TABLET PO SCH (08:48)
[2016-11-21] MEDS: NEBIVOLOL 10 MG TABLET PO SCH (08:48)
[2016-11-21] MEDS: THEOPHYLLINE ER 300 MG TABLET PO SCH (08:48)
[2016-11-21] MEDS: MULTIVITAMIN (BEROCCA) TABLET PO SCH (08:48)
[2016-11-21] MEDS: predniSONE 20 MG TABLET PO SCH (08:49)
[2016-11-21] MEDS: ALPRAZolam 0.5 MG TABLET PO PRN (08:49)
[2016-11-21] MEDS: DOCUSATE SODIUM 100 MG CAPSULE PO SCH (08:49)
[2016-11-21] MEDS: CLOPIDOGREL 75 MG TABLET PO SCH (08:49)
[2016-11-21] MEDS: FLUoxetine 20 MG CAPSULE PO SCH (08:49)
[2016-11-21] MEDS: LOSARTAN 25 MG TABLET PO SCH (08:50)
[2016-11-21] MEDS: FUROSEMIDE 80 MG TABLET PO SCH (08:50)
[2016-11-21] MEDS: MAGNESIUM OXIDE 400 MG TABLET PO SCH (08:50)
[2016-11-21] MEDS: TERBINAFINE 1% CREAM 12 GM TUBE TOP SCH (08:50)
[2016-11-21] MEDS: SPIRONOLACTONE 25 MG TABLET PO SCH (08:50)
[2016-11-21] MEDS: BISACODYL 5 MG TABLET PO SCH (08:50)
[2016-11-21] MEDS: ESCITALOPRAM 10 MG TABLET PO SCH (08:50)
[2016-11-21] MEDS: BUDESONIDE/FORMOTEROL 160-4.5 INHALER 6 GM INH SCH (08:51)
[2016-11-21] MEDS: POLYETHYLENE GLYCOL POWDER 17 GM PACK PO SCH (08:51)
[2016-11-21] MEDS: PANTOPRAZOLE 40 MG TABLET PO SCH (08:51)
[2016-11-21 12:45] VITALS: BP 134/84
--- NOTE | 2016-11-21 13:08 | Discharge Summary ---
Hospital Course - Hospital Course Hospital Course: Ms. Roy was admitted with an acute COPD exacerbation. She completed 7 days of IV antibiotics and will go home on a steroid taper. He her courses, K by abdominal pain caused by market constipation, to which she responded well to cathartics and enemas. On the day of discharge we discussed the importance of smoking cessation and adherence to her medical regimen. She is already on home oxygen. She has enough of her home medicines. We will provide her prescription for a steroid taper. - Time spent with patient Time with patient DS: Greater than 30 minutes Time spent discussing smoking cessation with patient: 3 to 10 minutes Diagnosis - Discharge Diagnosis (1) Acute exacerbation of chronic obstructive airways disease Status: Chronic (2) Chronic systolic CHF (congestive heart failure) Status: Acute (3) Insulin dependent diabetes mellitus Status: Acute (4) Acute worsening of stage 3 chronic kidney disease Status: Resolved (5) Nausea Status: Resolved (6) Constipation Status: Resolved (7) Hypertension Status: Acute Specialty Discharge - Follow Up or Referrals Follow up with: Krysta Celaya M.D. [Primary Care Provider] - (As needed) - Speciality Discharge Instructions Hospitalist Instructions: Stop smoking Discharge Plan - Discharge Data Disposition: Disch To Home/Self Care Condition at Discharge: Stable - Discharge Medications New Albuterol Neb [Proventil Neb] 2.5 mg RESP TX BID #0 nebulization solution predniSONE TAB [PredniSONE] 10 mg PO DAILY #9 tablet Continue FLUoxetine [PROzac] 40 mg PO QAM ALPRAZolam [Alprazolam] 1 mg PO QID PRN PRN Reason: Anxiety Clopidogrel [Plavix] 75 mg PO DAILY #30 tablet Nitroglycerin [Nitroglycerin SL Tab] 0.4 mg SL Q5M PRN PRN Reason: Chest Pain HYDROcodone/ACETAMIN 10-325 [Picher 10-325] 10 mg PO Q6HR PRN PRN Reason: Pain metFORMIN [Glucophage] 1,000 mg PO BID W/MEALS #0 Terbinafine HCl [Terbinafine 1% Cream] 1 applic TOP BID Budesonide/Formoterol 160-4.5 [Symbicort 160-4.5] 2 puff INH BID Biotin 1 mg PO DAILY FLUoxetine [PROzac] 20 mg PO BEDTIME Spironolactone [Aldactone] 25 mg PO DAILY tablet Fexofenadine [Jordyn] 180 mg PO DAILY tablet Aspirin EC Tab 325 mg PO DAILY tablet Docusate Sodium Cap [Colace Cap] 200 mg PO DAILY capsule Losartan [Cozaar] 25 mg PO DAILY tablet Bisacodyl Tab [Dulcolax Tab] 5 mg PO DAILY tablet Sodium Phosphate Enema [Fleet Enema] 133 ml RECTAL DAILY PRN #0 bottle PRN Reason: Constipation Insulin Regular [HumuLIN R] See Protocol SUBCUT ACHS injection Atorvastatin [Lipitor] 20 mg PO BEDTIME tablet Magnesium Oxide 400 mg PO BID tablet Polyethylene Glycol Powder [Miralax] 17 gm PO DAILY powder Gabapentin Cap/Tab [Neurontin Cap/Tab] 600 mg PO Q4HR tablet HYDROcodone/ACETAMIN 10-325 [Picher 10-325] 1 tablet PO Q6H PRN #0 tablet PRN Reason: Pain Moderate (4-7) Pantoprazole Tab [Protonix Tab] 40 mg PO DAILY tablet Benzonatate [Tessalon] 100 mg PO TID capsule Theophylline ER Tab 300 mg PO BID W/MEALS tablet Furosemide Tab [Lasix Tab] 80 mg PO BID DIURETIC #60 tablet Ipratropium/Albuterol Inhaler [Combivent Respimat Inhaler] 1 puff INH QID #1 inhaler Escitalopram [Lexapro] 10 mg PO DAILY Nebivolol HCl [Bystolic] 20 mg PO DAILY Discontinued Potassium Iodide Oral Soln [Sski] 600 mg PO TID bottle methylPREDNISolone TAB [Medrol] 8 mg PO 0800 #15 tablet Cefuroxime Tab [Ceftin] 500 mg PO BID #8 tablet - Follow Up or Referral - Forms/Instructions Exam - Constitutional Vitals: Period Temp Pulse Resp BP Sys/Callahan Pulse Ox Last 24 Hr 96.9 F-99.6 F 62-81 16-22 89-134/54-84 90-99 Exam: EXAM: CONSTITUTIONAL: Morbidly obese, non toxic, NAD HEENT: NC, AT, OP benign, ROSETTA, EOMI CV: RRR no m/g/r RESP: Distant breath sounds, prolonged expiratory phase, otherwise clear GI: abd soft, NT, ND, +bowel sounds INTEGUMENTARY: no lesions or rash EXTREMITIES: no c/c/e NEURO: no focal deficits PSYCH: unremarkable, A/O x3 Discharge Results Labs on day of discharge: Labs from last 24 hours 11/21/16 11/21/16 11/21/16 12:13 07:29 04:41 WBC RBC Hgb Hct MCV MCH MCHC RDW Plt Count MPV Neut % (Auto) Lymph % (Auto) [place] % (Auto) Eos % (Auto) Baso % (Auto) Neut # (Auto) Lymph # (Auto) [place] # (Auto) Eos # (Auto) Baso # (Auto) Immature Gran % Nucleated RBC % Immature Gran # Nucleated RBCs # Sodium 139 Potassium 3.4 L Chloride 97 L Carbon Dioxide 31 Anion Gap 14.4 BUN 22 H Creatinine 1.10 H GFR Calculation 62 BUN/Creatinine Ratio 20.00 Glucose 141 H POC Glucose 183 H 120 H Calculated Osmolality 281.5 Calcium 9.3 11/21/16 11/20/16 11/20/16 04:41 19:56 16:28 WBC 14.8 H D RBC 5.22 Hgb 13.0 Hct 41.3 MCV 79.1 L MCH 25 L MCHC 31.5 L RDW 14.0 Plt Count 368 MPV 9.8 Neut % (Auto) 67.3 Lymph % (Auto) 22.3 [place] % (Auto) 8.3 Eos % (Auto) 0.5 Baso % (Auto) 0.2 Neut # (Auto) 10.0 H Lymph # (Auto) 3.3 [place] # (Auto) 1.2 H Eos # (Auto) 0.1 Baso # (Auto) 0.0 Immature Gran % 1.4 Nucleated RBC % 0.0 Immature Gran # 0.20 Nucleated RBCs # 0.00 Sodium Potassium Chloride Carbon Dioxide Anion Gap BUN Creatinine GFR Calculation BUN/Creatinine Ratio Glucose POC Glucose 181 H 220 H Calculated Osmolality Calcium DS: Provider Date of admission: 11/13/16 19:58 Primary care physician: Krysta Celaya M.D. Attending physician on admission: Ramy Adam MD Discharging clinician: Estuardo Steward DO Expected date of discharge: 11/21/16
== END 2016-11-21 14:06 | disposition home or self-care (01) | DRG 140 ==
LOC: N.TELES 19:18 → SUATTDRO 19:18
PROVIDERS: ADMIT Internal Medicine; ATTEND Internal Medicine

== ENCOUNTER 2017-04-30 16:18 | Inpatient (IN) ==
--- NOTE | 2017-04-30 17:36 | Emergency Department Note ---
Matthew Zabala Brittany, am scribing for, and in the presence of, Stephanie Whelan DO 17:33. ITip Debra, DO, personally performed the services described in this documentation, ascribed by Yvonne Castro in my presence, and it is both accurate and complete [id number] . Arrival - Arrival Chief Complaint: Shortness of Breath Stated Complaint: SOB ED Nursing Triage Note: Patient to ER 10 with a complaint of shortness of breath. Started around 1400 this afternoon. Productive cough with thick white sputum. Rales noted. Patient also complains of right lower quadrant pain. Patient sent to the ER from Dr Wooten office. Mode of Arrival: Stretcher Limitations: No Limitations Source: Patient, RN Notes Reviewed - History of Present Illness HPI Narrative: Patient is a 61 y/o white female presenting to the ED by EMS from Dr. Celaya's office for further evaluation of SOB. Patient c/o SOB which onset around 1400 this afternoon. Patient reports having an associated productive cough, with thick white sputum. She states that while being evaluated at Dr. Celaya's office she was found to have a weight gain of 20 lbs. She notes that she has been noncompliant with taking her Lasix. She was instructed to take 80 mg BID, but only has been taking once a day. Patient states that she has been having some weakness and sleeping more than usual. Patient denies having any chest pain , N/V, diaphoresis, or fever,chills. She has no other complaint/pain. PMHx significant for HTN, LA, CHF, CAD, Anxiety Disorders, Depression, IDDM, Dyslipidemia, COPD, GERD, Peptic Ulcer, Chronic Back Pain, Cardiac Catheterization. Onset (ago): hour(s) (3) Consistency: constant Date of Last Menstrual Period: Hysterectomy Allergies/Adverse Reactions: Allergies Allergy/AdvReac Type Severity Reaction Status Date / Time nylon sutures Allergy RASH Uncoded 06/14/15 12:04 plastic tape Allergy RASH Uncoded 06/14/15 12:04 Home Medications: Home Medications Medication Instructions Recorded Confirmed Type ALPRAZolam [Alprazolam] 1 mg PO QID PRN 05/26/15 11/13/16 History FLUoxetine [PROzac] 40 mg PO QAM 05/26/15 11/13/16 History Clopidogrel [Plavix] 75 mg PO DAILY #30 tablet 06/06/15 11/13/16 Rx HYDROcodone/ACETAMIN 10-325 [[place] 10 mg PO Q6HR PRN 07/14/15 11/13/16 History 10-325] Nitroglycerin [Nitroglycerin SL 0.4 mg SL Q5M PRN 07/14/15 11/13/16 History Tab] metFORMIN [Glucophage] 1,000 mg PO BID W/MEALS #0 07/15/15 11/13/16 Rx Biotin 1 mg PO DAILY 10/21/15 11/13/16 History Budesonide/Formoterol 160-4.5 2 puff INH BID 10/21/15 11/13/16 History [Symbicort 160-4.5] FLUoxetine [PROzac] 20 mg PO BEDTIME 10/21/15 11/13/16 History Terbinafine HCl [Terbinafine 1% 1 applic TOP BID 10/21/15 11/13/16 History Cream] Aspirin EC Tab 325 mg PO DAILY tablet 11/02/15 11/13/16 Rx Atorvastatin [Lipitor] 20 mg PO BEDTIME tablet 11/02/15 11/13/16 Rx Benzonatate [Tessalon] 100 mg PO TID capsule 11/02/15 11/13/16 Rx Bisacodyl Tab [Dulcolax Tab] 5 mg PO DAILY tablet 11/02/15 11/13/16 Rx Docusate Sodium Cap [Colace Cap] 200 mg PO DAILY capsule 11/02/15 11/13/16 Rx Fexofenadine [Jordyn] 180 mg PO DAILY tablet 11/02/15 11/13/16 Rx Gabapentin Cap/Tab [Neurontin 600 mg PO Q4HR tablet 11/02/15 11/13/16 Rx Cap/Tab] HYDROcodone/ACETAMIN 10-325 [[place] 1 tablet PO Q6H PRN #0 tablet 11/02/15 Rx 10-325] Insulin Regular [HumuLIN R] See Protocol SUBCUT ACHS injection 11/02/15 Rx Losartan [Cozaar] 25 mg PO DAILY tablet 11/02/15 11/13/16 Rx Magnesium Oxide 400 mg PO BID tablet 11/02/15 11/13/16 Rx Pantoprazole Tab [Protonix Tab] 40 mg PO DAILY tablet 11/02/15 11/13/16 Rx Polyethylene Glycol Powder 17 gm PO DAILY powder 11/02/15 11/13/16 Rx [Miralax] Sodium Phosphate Enema [Fleet 133 ml RECTAL DAILY PRN #0 bottle 11/02/15 Rx Enema] Spironolactone [Aldactone] 25 mg PO DAILY tablet 11/02/15 11/13/16 Rx Theophylline ER Tab 300 mg PO BID W/MEALS tablet 11/02/15 11/13/16 Rx Furosemide Tab [Lasix Tab] 80 mg PO BID DIURETIC #60 tablet 01/29/16 11/13/16 Rx Ipratropium/Albuterol Inhaler 1 puff INH QID #1 inhaler 01/29/16 11/13/16 Rx [Combivent Respimat Inhaler] Escitalopram [Lexapro] 10 mg PO DAILY 11/13/16 11/13/16 History Nebivolol HCl [Bystolic] 20 mg PO DAILY 11/13/16 11/13/16 History Albuterol Neb [Proventil Neb] 2.5 mg RESP TX BID #0 nebulization 11/21/16 Rx solution predniSONE TAB [PredniSONE] 10 mg PO DAILY #9 tablet 11/21/16 Rx Review of System - Review of System 12 point system: reviewed and no additional remarkable complaints except as stated - Review of System Constitutional: Absent: chills, fever Eyes: Absent: vision change Head/Ears/Nose/Throat: Absent: nasal drainage, sore throat Respiratory: Present: cough, respiratory distress Cardiovascular: Absent: chest pain, palpitations Gastrointestinal: Absent: abdominal pain, nausea, vomiting, diarrhea, constipation Genitourinary female: Absent: dysuria, frequency, urgency Musculoskeletal: Absent: arm pain, back pain, leg pain, neck pain Skin: Absent: rash Neurological: Absent: headache Psychiatric: Absent: anxiety, depression Medical,Surgical,& Family Hx - Medical History Cardio: History of: CHF, CAD, Hypertension, LA, Cardiovascular Problems No history of: Aneurysm, Cardiac Dysrhythmia, Cerebrovascular Disease, Congenital Heart Disease, Pacemaker, PVD, Valvular Heart Disease Psychological: History of: Anxiety Disorders, Depression Neurology: No history of: Seizures Endocrine: History of: Diabetes Mellitus (IDDM), Dyslipidemia Rheumatology: No history of;: Fibromyalgia, Gout, Myasthenia Gravis, Rheumatoid Arthritis, Rheumatological Problems Respiratory: History of: COPD No history of: Asthma, Bronchitis, Intubation, Obstructive Sleep Apnea, Pulmonary Embolism, Pulmonary Hypertension, Pneumonia, Lung Cancer, Respiratory Problems Gastrointestinal: History of: GERD, GI Problems (Peptic Ulcer) No history of: Bowel Obstruction, Clostridium Difficile, Crohn's Disease, Diverticulitis/ Diverticulosis, Esophageal Varices, Gastrointestinal Bleed, Hemorrhoids, Hematochezia, Hepatitis, Liver Problems, Pancreatitis, Polyps, Ulcerative Colitis, Gastrointestinal Cancer Musculoskeletal: History of: Back/Neck Problems (chronic back pain) No history of: Degenerative Disk Disease, Herniated Disk, Osteoporosis, Musculoskeletal Cancer, Musculoskeletal Problems - Surgical History Cardiac Surgeries: Sugical HX of: Cardiac Catheterization (stents) Patient Denies: Femoral-Popliteal Bypass Graft, Cardiac Surgery, Carotid Endarterectomy, Internal Defibrillator, Vascular Access Devices Thoracic Surgeries: Patient denies;: Kidney (Renal Surgery), Lithotripsy, Nephrectomy, Lobectomy Neurologic Surgeries: Patient denies: Neurologic Surgery HEENT Surgeries: Patient denies: Carotid Endarterectomy Abdominal Surgeries: Patient denies: Abdominal Surgery, Appendectomy, Cholecystectomy, Colonoscopy , Gastric Bypass Surgery, EGD, Hernia Repair, Splenectomy Reproductive Surgeries: Surgical HX of;: Breast Surgery (Breast Reduction), Hysterectomy Patient denies;: Section, Cystoscopy, Dilation and Curettage, Genitourinary Surgery, Gynecologic Surgery, Tubal Ligation Orthopedic Surgeries: Surgical HX of;: Orthopedic Surgery (knee surgery) - Family History Family History: Reports;: Family Diabetes (Mother), Family Heart Disease (Mother ), Family Hypertension (Father) - Social History Smoking Status: Former smoker Exam Vital Signs: Vital Signs Temperature 97.5 F L 04/30/17 16:30 Pulse Rate 64 04/30/17 16:35 Respiratory Rate 20 04/30/17 16:35 Blood Pressure 152/94 04/30/17 16:30 - General General appearance: alert, in no apparent distress, obese - Head Head exam: Present: atraumatic, normocephalic, normal inspection - Eye Eye exam: Present: normal appearance, PERRL, EOMI - ENT ENT exam: Present: normal exam, normal oropharynx - Neck Neck exam: Present: normal inspection, full ROM, trachea midline - Chest Chest inspection: Present: normal inspection, symmetric chest wall rise - Respiratory Respiratory exam: Present: wheezes (inspiratory and expiratory wheezes bilaterally). Absent: normal lung sounds bilaterally - Cardiovascular Cardiovascular exam: Present: regular rate, normal rhythm, normal heart sounds - Abdominal Exam Abdominal exam: Present: soft, normal bowel sounds. Absent: tenderness - Extremities Exam Extremities exam: Present: pedal edema (+1 to +2 pitting edema bilaterally). Absent: normal inspection - Back Exam Back exam: Present: normal inspection - Neurological Exam Neurological exam: Present: alert, oriented X3, CN II-XII intact. Absent: motor sensory deficit - Psychiatric Psychiatric exam: Present: normal affect, normal mood - Skin Skin exam: Present: warm, dry Course Course Narrative: spoke with hospitalist who will admit pt Results - Labs CBC & BMP: 04/30/17 18:05 04/30/17 18:05 Lab Results: I have reviewed the patients labs Labs: Laboratory Tests 04/30/17 04/30/17 18:05 18:05 WBC 7.7 RBC 4.45 Hgb 11.6 L Hct 35.7 MCV 80.2 L MCH 26 L Plt Count 270 MPV 9.4 L INR 1.0 PT Patient/Control Mix 10.0 Circ Anticoag PTT 26.3 - EKG EKG results: interpreted by ERMD - Diagnostic Findings Procedure: Chest x-ray: report reviewed by me (Stable moderate cardiomegaly. There is mild nonspecific reticular pattern throughout the bilateral lungs suspicious for interstitial pulmonary edema. Interstitial pneumonia and other interstitial lung disease may have similar appearance. Visualized osseous and surrounding soft tissue structures appear grossly unchanged.) Disposition Clinical Impression: Congestive heart failure, Asthma with exacerbation Case discussed with: patient, patient's family Disposition: Still a Patient Condition: Stable Time of Disposition: 18:00
[2017-04-30 18:10] LABS: Basophils # 0.1 10*3/uL (0.0-0.2); Basophils % 0.7 % (0.0-0.8); Eosinophils # 0.2 10*3/uL (0.0-0.87); Eosinophils % 2.2 % (0.00-10.9); Hematocrit 35.7 VOL% (35.7-47.0); Hemoglobin 11.6 GM/DL (12.0-16.0); Immature Granulocytes % 0.4 %; Immature Granulocytes Absolute 0.03 #; Lymphocytes # 2.4 10*3/uL (1.4-4.0); Lymphocytes % 31.6 % (21.3-54.2); Mean Corpuscular HGB Conc 32.5 GM/DL (32-36); Mean Corpuscular Hemoglobin 26 PG (27-34); Mean Corpuscular Volume 80.2 FL (87-102); Mean Platelet Volume 9.4 FL (9.6-12.0); Monocytes # 0.6 10*3/uL (0.11-0.8); Neutrophils # 4.4 10*3/uL (1.4-7.4); Neutrophils % 57.1 % (38.7-73.9); Platelet Count 270 T/CUMM (130-400); Red Blood Count 4.45 MC/CUMM (3.8-5.5); Red Cell Distribution Width 14.2 % (9.3-17.3); White Blood Count 7.7 T/CUMM (4-12)
[2017-04-30 18:21] LABS: Partial Thromboplastin Time 26.3 SECS (0-40)
--- NOTE | 2017-04-30 18:28 | XRay Report ---
XR chest 1V portable Indication: SOB Comparison: Chest x-ray dated November 13, 2016 Technique: Single frontal view of the chest. Findings: Stable moderate cardiomegaly. There is mild nonspecific reticular pattern throughout the bilateral lungs suspicious for interstitial pulmonary edema. Interstitial pneumonia and other interstitial lung disease may have similar appearance. Visualized osseous and surrounding soft tissue structures appear grossly unchanged. IMPRESSION: As above. PROCEDURE INTERPRETED AT [facility] DEPARTMENT OF RADIOLOGY Final Report Signed by: Dr Alexander Merchant
[2017-04-30] MEDS ORDERED: FUROSEMIDE 40 MG/4 ML VIAL IV STA (18:34)
[2017-04-30] MEDS ORDERED: ASPIRIN EC 325 MG TABLET PO STA (18:40)
[2017-04-30 18:44] LABS: Albumin 3.2 G/DL (3.4-5.0); Bilirubin,Total 0.4 MG/DL (0.2-1.0); Calcium 9.2 MG/DL (8.5-10.1); Osmolality,Calculated 277.5 MOS/KG (273-304); Potassium 4.3 MMOL/L (3.5-5.1)
[2017-04-30] MEDS ORDERED: FUROSEMIDE 100 MG/10 ML VIAL ONE (18:53)
[2017-04-30] MEDS ORDERED: ASPIRIN 325 MG TABLET ONE (18:53)
[2017-04-30 18:55] LABS: Troponin I Only < 0.015 NG/ML (0.00-0.045)
--- NOTE | 2017-04-30 18:55 | Hospitalist History & Physical ---
<Kimani Myrick - Last Filed: 04/30/17 18:42> Assessment and Plan - Time spent with patient Time spent with patient: Less than 30 minutes Time spent discussing smoking cessation with patient: 3 to 10 minutes (1) Chronic systolic CHF (congestive heart failure) Status: Acute Assessment and plan: Chest x-ray shows evidence supportive of interstitial pulmonary edema. BNP is pending. Admit to telemetry. Diurese with IV Lasix. Consult cardiology. Current Visit: No (2) Chest pain Status: Resolved Assessment and plan: Intermittent chest pain radiates to back. EKG is unremarkable for any ST elevations. Troponins are pending. Current Visit: No (3) s/p coronary PCI Problem details: PCI with stenting and some POBA of the left anterior descending artery Status: Acute Current Visit: No (4) Peripheral edema Status: Acute Assessment and plan: Bilateral lower extremity edema. IV Lasix. Current Visit: No (5) Hypertension Status: Acute Assessment and plan: Continue home meds. Current Visit: No (6) Insulin dependent diabetes mellitus Status: Acute Assessment and plan: Sliding-scale insulin per protocol. Continue home meds. Current Visit: No (7) Tobacco use Status: Chronic Assessment and plan: Patient reports smoking 1 pack per week. She does voice a desire to quit. Current Visit: No (8) Medical non-compliance Status: Chronic Current Visit: No History of Present Illness Chief complaint: Shortness of breath, chest pain History of present illness: Ms. Roy is a 61 year old obese white female with past medical history significant for hypertension, diabetes mellitus, CAD with stent placement, CHF and tobacco use who presents to the [place] ED from her primary care doctor for further evaluation of shortness of breath and chest pain with onset this morning. The patient is reportedly noncompliant with her medications. She was seen at Dr. Celaya's office this morning for routine follow-up when she was found to be severely short of breath. Patient reports that she was initially short of breath at the office, then developed intermittent chest pain which radiated to her back. She confirms shortness of breath, intermittent chest pain with continued radiation that is reproducible to palpation, bilateral lower extremity edema. She denies blurry vision, change in appetite, abdominal pain, dysuria. Labs are remarkable for glucose 108, alk phos 125. EKG is unremarkable. CXR is suspicious for interstitial pulmonary edema. After discussion with Dr. Whelan and Dr. Gil, the patient will be admitted to the hospital medicine service for further evaluation and treatment. She is a full code. Home meds have been reviewed and reconciled. Home Medications Medication Instructions Recorded Confirmed Type ALPRAZolam [Alprazolam] 1 mg PO QID PRN 05/26/15 11/13/16 History Clopidogrel [Plavix] 75 mg PO DAILY #30 tablet 06/06/15 11/13/16 Rx Nitroglycerin [Nitroglycerin SL 0.4 mg SL Q5M PRN 07/14/15 11/13/16 History Tab] metFORMIN [Glucophage] 1,000 mg PO BID W/MEALS #0 07/15/15 11/13/16 Rx Budesonide/Formoterol 160-4.5 2 puff INH BID 10/21/15 11/13/16 History [Symbicort 160-4.5] FLUoxetine [PROzac] 20 mg PO BEDTIME 10/21/15 11/13/16 History Aspirin EC Tab 325 mg PO DAILY tablet 11/02/15 11/13/16 Rx Atorvastatin [Lipitor] 20 mg PO BEDTIME tablet 11/02/15 11/13/16 Rx Gabapentin Cap/Tab [Neurontin 600 mg PO Q4HR tablet 11/02/15 11/13/16 Rx Cap/Tab] HYDROcodone/ACETAMIN 10-325 [[place] 1 tablet PO Q6H PRN #0 tablet 11/02/15 Rx 10-325] Insulin Regular [HumuLIN R] See Protocol SUBCUT ACHS injection 11/02/15 Rx Losartan [Cozaar] 25 mg PO DAILY tablet 11/02/15 11/13/16 Rx Magnesium Oxide 400 mg PO BID tablet 11/02/15 11/13/16 Rx Pantoprazole Tab [Protonix Tab] 40 mg PO DAILY tablet 11/02/15 11/13/16 Rx Furosemide Tab [Lasix Tab] 80 mg PO BID DIURETIC #60 tablet 01/29/16 11/13/16 Rx Ipratropium/Albuterol Inhaler 1 puff INH QID #1 inhaler 01/29/16 11/13/16 Rx [Combivent Respimat Inhaler] Nebivolol HCl [Bystolic] 20 mg PO DAILY 11/13/16 11/13/16 History Albuterol Neb [Proventil Neb] 2.5 mg RESP TX BID #0 nebulization 11/21/16 Rx solution predniSONE TAB [PredniSONE] 10 mg PO QAM 04/30/17 History Allergies Allergy/AdvReac Type Severity Reaction Status Date / Time nylon sutures Allergy RASH Uncoded 06/14/15 12:04 plastic tape Allergy RASH Uncoded 06/14/15 12:04 Medical,Surgical,& Family Hx - Medical History Cardio: History of: CHF, CAD, Hypertension, PA, Cardiovascular Problems No history of: Aneurysm, Cardiac Dysrhythmia, Cerebrovascular Disease, Congenital Heart Disease, Pacemaker, PVD, Valvular Heart Disease Psychological: History of: Anxiety Disorders, Depression Neurology: No history of: Seizures Endocrine: History of: Diabetes Mellitus (IDDM), Dyslipidemia Rheumatology: No history of;: Fibromyalgia, Gout, Myasthenia Gravis, Rheumatoid Arthritis, Rheumatological Problems Respiratory: History of: COPD No history of: Asthma, Bronchitis, Intubation, Obstructive Sleep Apnea, Pulmonary Embolism, Pulmonary Hypertension, Pneumonia, Lung Cancer, Respiratory Problems Gastrointestinal: History of: GERD, GI Problems (Peptic Ulcer) No history of: Bowel Obstruction, Clostridium Difficile, Crohn's Disease, Diverticulitis/ Diverticulosis, Esophageal Varices, Gastrointestinal Bleed, Hemorrhoids, Hematochezia, Hepatitis, Liver Problems, Pancreatitis, Polyps, Ulcerative Colitis, Gastrointestinal Cancer Musculoskeletal: History of: Back/Neck Problems (chronic back pain) No history of: Degenerative Disk Disease, Herniated Disk, Osteoporosis, Musculoskeletal Cancer, Musculoskeletal Problems - Surgical History Cardiac Surgeries: Sugical HX of: Cardiac Catheterization (stents) Patient Denies: Femoral-Popliteal Bypass Graft, Cardiac Surgery, Carotid Endarterectomy, Internal Defibrillator, Vascular Access Devices Thoracic Surgeries: Patient denies;: Kidney (Renal Surgery), Lithotripsy, Nephrectomy, Lobectomy Neurologic Surgeries: Patient denies: Neurologic Surgery HEENT Surgeries: Patient denies: Carotid Endarterectomy Abdominal Surgeries: Patient denies: Abdominal Surgery, Appendectomy, Cholecystectomy, Colonoscopy , Gastric Bypass Surgery, EGD, Hernia Repair, Splenectomy Reproductive Surgeries: Surgical HX of;: Breast Surgery (Breast Reduction), Hysterectomy Patient denies;: Section, Cystoscopy, Dilation and Curettage, Genitourinary Surgery, Gynecologic Surgery, Tubal Ligation Orthopedic Surgeries: Surgical HX of;: Orthopedic Surgery (knee surgery) - Family History Family History: Reports;: Family Diabetes (Mother), Family Heart Disease (Mother ), Family Hypertension (Father) - Social History Smoking Status: Current some day smoker (1 pk per week) Time spent discussing smoking cessation with patient: 3 to 10 minutes Frequency of Alcohol Use: None Type of Drug Use: None Marital Status: Single Lives With:: Alone Functional capacity: independent ambulation 12 point system: reviewed and no additional remarkable complaints except as stated Exam - Constitutional Vitals: Period Temp Pulse Resp BP Sys/Callahan Pulse Ox Last 24 Hr 97.5 F-97.5 F 63-64 18-20 152-152/94-94 Exam: General appearance: morbidly obese, no acute distress - Head Head exam: Present: normocephalic, atraumatic - Eye Eye exam: Present: EOMI. Absent: conjunctival injection, nystagmus Pupils: Present: ROSETTA, normal accommodation - ENT ENT exam: Present: normal exam, normal external ear exam - Neck Neck exam: Present: normal inspection. Absent: lymphadenopathy, tenderness, thyromegaly - Respiratory Respiratory exam: Present: decreased breath sounds, wheezing - Cardiovascular Cardiovascular exam: Present: regular rate and rhythm. Absent: carotid bruit, gallop, rubs - GI/Abdominal GI/Abdominal exam: Present: normal bowel sounds. Absent: ascites, distended, mass - Extremities Exam Extremities exam: Present: normal inspection, normal capillary refill, bilateral LE edema - Back Exam Back exam: Absent: CVA tenderness (L), CVA tenderness (R) - Neurological Exam Neurological exam: Present: alert, oriented X3, CN II-XII intact, reflexes normal - Psychiatric Psychiatric exam: Present: normal affect, normal mood - Skin Skin exam: Present: normal color, warm, dry Results - Labs CBC & BMP: 04/30/17 18:05 Lab Results: I have reviewed the past 24 hour labs - EKG EKG results: interpreted by ERMD - Diagnostic Findings Procedure: Chest x-ray: image reviewed by me, report reviewed by me ( interstitial pulmonary edema) <Tamie Gil - Last Filed: 04/30/17 20:49> Assessment and Plan (1) COPD exacerbation Status: Acute Assessment and plan: duoneb, IV steroids, levaquin Current Visit: Yes (2) Chest pain Status: Acute Assessment and plan: serial troponins, ekg NSR no st changes, consult Cardiology in am Current Visit: No (3) Chronic systolic CHF (congestive heart failure) Status: Acute Assessment and plan: BNP within normal range. Lasix given in ER, echo from 01/2016 ef 40% with grade 1/4 diastolic dysfunction, PAP 44, needs to be compliant with cpap. Current Visit: No (4) Hypertension Status: Acute Assessment and plan: cont losartan and bystolic Current Visit: No (5) YOSHI (obstructive sleep apnea) Status: Acute Assessment and plan: cpap at night Current Visit: Yes (6) Morbid obesity Status: Acute Assessment and plan: needs to lose weight Current Visit: Yes (7) Diabetes Status: Chronic Assessment and plan: hold metformin ISC, Current Visit: No History of Present Illness History of present illness: Ms. Roy is a 61 year old female seen and examined. Agree with above. History and physical reviewed and edited. - Constitutional Constitutional: Present: fatigue. Absent: fever(s), headache(s) - EENT Eyes: Absent: blurry vision, diplopia Ears: Absent: decreased hearing, ear discharge Nose, mouth and throat: Present: sore throat. Absent: headache(s) - Cardiovascular Cardiovascular: Present: chest pain at rest, chest pain with activity, dyspnea, dyspnea on exertion, edema - Respiratory Respiratory: Present: cough, dyspnea, dyspnea on exertion, wheezing, snoring. Absent: change in phlegm color - Gastrointestinal Gastrointestinal: Absent: abdominal pain, constipation, diarrhea, nausea, vomiting - Genitourinary Genitourinary: Absent: difficulty urinating, dysuria - Musculoskeletal Musculoskeletal: Absent: arthralgias, joint swelling - Neurological Neurological: Absent: headache(s), syncope - Psychiatric Psychiatric: Present: anxiety, depression - Endocrine Endocrine: Present: fatigue, heat intolerance. Absent: cold intolerance - Hematologic/Lymphatic Hematologic/Lymphatic: Absent: easy bleeding, easy bruising Exam - Constitutional Vitals: Period Temp Pulse Resp BP Sys/Callahan Pulse Ox Last 24 Hr 97.5 F-97.5 F 60-64 18-22 141-152/72-94 100-100 Results - Labs CBC & BMP: 04/30/17 18:05 04/30/17 18:05 - Diagnostic Findings Procedure: Ultrasound: report reviewed by me (no dvt )
--- NOTE | 2017-04-30 19:47 | Ultrasound Report ---
US venous doppler LE BI Indication: Swelling. Comparison: November 14, 2016. Technique: Grayscale, spectral, and color Doppler interrogation of the bilateral lower extremity veins was performed. Augmentation and compression was performed. Findings: Grayscale, color Doppler, and pulsed Doppler evaluation of the veins of the bilateral lower extremity demonstrates no evidence of deep venous thrombosis. IMPRESSION: No evidence of deep venous thrombosis in either lower extremity. PROCEDURE INTERPRETED AT [facility] DEPARTMENT OF RADIOLOGY Final Report Signed by: Dr Alexander Merchant
[2017-04-30] MEDS ORDERED: ONDANSETRON 4 MG/2 ML VIAL IV PRN (20:15)
[2017-04-30] MEDS ORDERED: GLUCAGON 1 MG VIAL IM PRN (20:15)
[2017-04-30] MEDS ORDERED: DEXTROSE 50% 25 GM/50 ML VIAL IV PRN (20:15)
[2017-04-30] MEDS ORDERED: ALPRAZolam 0.5 MG TABLET PO PRN (20:15)
[2017-04-30] MEDS ORDERED: ACETAMINOPHEN 325 MG TABLET PO PRN (20:15)
[2017-04-30] MEDS: ALBUTEROL/IPRATROPIUM 3 ML NEB RESP TX SCH (20:31)
[2017-04-30 20:40] LABS: Magnesium 1.9 MG/DL (1.8-2.4); Thyroid Stimulating Hormone 0.839 uIU/ml (0.358-3.74)
[2017-04-30] MEDS ORDERED: ATORVASTATIN 20 MG TABLET PO SCH (21:00)
[2017-04-30] MEDS ORDERED: ALBUTEROL 2.5 MG/3 ML NEB RESP TX SCH (21:00)
[2017-04-30 21:20] LABS: Apearance,Urine CLEAR (Clear); Bilirubin,Urine Negative (Negative); Blood, Urine Negative (Negative); Glucose,Urine (UA) Negative (Negative); Hyaline Casts,Urine 4 /LPF (0-3); Ketones,Urine Negative (Negative); Nitrite,Urine Negative (Negative); Protein,Urine Negative; Urine Color Colorless (Yellow); Urine Specific Gravity 1.003 (1.001-1.035); Urine Urobilinogen < 2.0 EU/DL (0.2-1.0); WBC,Urine 1 /HPF (0-6)
[2017-04-30] MEDS ORDERED: ALBUTEROL 2.5 MG/3 ML NEB RESP TX PRN (21:23)
[2017-04-30] MEDS: THEOPHYLLINE ER 300 MG TABLET PO SCH (21:49)
[2017-04-30] MEDS: FLUoxetine 20 MG CAPSULE PO SCH (21:49)
[2017-04-30] MEDS: MAGNESIUM OXIDE 400 MG TABLET PO SCH (21:49)
[2017-04-30] MEDS: GABAPENTIN 600 MG TABLET PO SCH (21:49)
[2017-04-30] MEDS: ENOXAPARIN 40 MG/0.4 ML SYRINGE SUBCUT SCH (21:49)
[2017-04-30] MEDS: methylPREDNISolone SOD SUC 40 MG/1 ML VIAL IV SCH (21:50)
[2017-04-30] MEDS: LEVOFLOXACIN INJ 750 MG in PREMIX 1 EACH IV SCH (21:51)
[2017-04-30] MEDS ORDERED: GABAPENTIN 600 MG TABLET PO SCH (22:00)
[2017-04-30 22:24] LABS: Basophils # 0.1 10*3/uL (0.0-0.2); Basophils % 0.8 % (0.0-0.8); Eosinophils # 0.2 10*3/uL (0.0-0.87); Eosinophils % 2.2 % (0.00-10.9); Hematocrit 38.4 VOL% (35.7-47.0); Hemoglobin 12.6 GM/DL (12.0-16.0); Immature Granulocytes % 0.4 %; Immature Granulocytes Absolute 0.03 #; Lymphocytes # 2.8 10*3/uL (1.4-4.0); Lymphocytes % 35.3 % (21.3-54.2); Mean Corpuscular HGB Conc 32.8 GM/DL (32-36); Mean Corpuscular Hemoglobin 26 PG (27-34); Mean Corpuscular Volume 80.3 FL (87-102); Mean Platelet Volume 9.8 FL (9.6-12.0); Monocytes # 0.7 10*3/uL (0.11-0.8); Monocytes % 8.5 % (1.7-12.7); Neutrophils # 4.1 10*3/uL (1.4-7.4); Neutrophils % 52.8 % (38.7-73.9); Platelet Count 309 T/CUMM (130-400); Red Blood Count 4.78 MC/CUMM (3.8-5.5); Red Cell Distribution Width 14.3 % (9.3-17.3); White Blood Count 7.8 T/CUMM (4-12)
[2017-04-30] MEDS: INSULIN REGULAR 100 UNIT/ML SUBCUT SCH (22:27)
[2017-04-30] MEDS: BUDESONIDE/FORMOTEROL 160-4.5 INHALER 6 GM INH SCH (22:32)
[2017-04-30] MEDS: TERBINAFINE 1% CREAM 12 GM TUBE TOP SCH (22:32)
[2017-05-01] MEDS: ALBUTEROL/IPRATROPIUM 3 ML NEB RESP TX SCH ×4 (00:48→19:50)
[2017-05-01] MEDS: methylPREDNISolone SOD SUC 40 MG/1 ML VIAL IV SCH ×4 (02:23→20:39)
--- NOTE | 2017-05-01 02:34 | EKG Report ---
Please refer to the EKG image. Final interpretation is pending.
--- NOTE | 2017-05-01 02:37 | EKG Report ---
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
--- NOTE | 2017-05-01 02:38 | EKG Report ---
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
[2017-05-01 05:17] LABS: Basophils % 0.4 % (0.0-0.8); Eosinophils % 0.2 % (0.00-10.9); Hematocrit 38.4 VOL% (35.7-47.0); Hemoglobin 12.5 GM/DL (12.0-16.0); Immature Granulocytes % 0.6 %; Immature Granulocytes Absolute 0.05 #; Lymphocytes # 0.6 10*3/uL (1.4-4.0); Lymphocytes % 7.6 % (21.3-54.2); Mean Corpuscular HGB Conc 32.6 GM/DL (32-36); Mean Corpuscular Hemoglobin 26 PG (27-34); Mean Platelet Volume 10.1 FL (9.6-12.0); Monocytes # 0.2 10*3/uL (0.11-0.8); Monocytes % 1.9 % (1.7-12.7); Neutrophils # 7.4 10*3/uL (1.4-7.4); Neutrophils % 89.3 % (38.7-73.9); Platelet Count 299 T/CUMM (130-400); Red Blood Count 4.86 MC/CUMM (3.8-5.5); Red Cell Distribution Width 14.1 % (9.3-17.3); White Blood Count 8.3 T/CUMM (4-12)
[2017-05-01 05:54] LABS: Risk Ratio 5.26; VLDL CHOLESTEROL 23.8 MG/DL
[2017-05-01] MEDS: INSULIN REGULAR 100 UNIT/ML SUBCUT SCH ×4 (08:37→20:38)
[2017-05-01] MEDS: POLYETHYLENE GLYCOL POWDER 17 GM PACK PO SCH (08:37)
[2017-05-01] MEDS: BISACODYL 5 MG TABLET PO SCH (08:38)
[2017-05-01] MEDS: DOCUSATE SODIUM 100 MG CAPSULE PO SCH (08:38)
[2017-05-01] MEDS: FUROSEMIDE 40 MG/4 ML VIAL IV SCH ×2 (08:38→16:41)
[2017-05-01] MEDS: CLOPIDOGREL 75 MG TABLET PO SCH (08:38)
[2017-05-01] MEDS: GABAPENTIN 600 MG TABLET PO SCH ×4 (08:39→20:41)
[2017-05-01] MEDS: ESCITALOPRAM 10 MG TABLET PO SCH (08:39)
[2017-05-01] MEDS: FEXOFENADINE 180 MG TABLET PO SCH (08:39)
[2017-05-01] MEDS: THEOPHYLLINE ER 300 MG TABLET PO SCH ×2 (08:39→17:30)
[2017-05-01] MEDS: LOSARTAN 25 MG TABLET PO SCH (08:39)
[2017-05-01] MEDS: MAGNESIUM OXIDE 400 MG TABLET PO SCH ×3 (08:39→20:41)
[2017-05-01] MEDS: NEBIVOLOL 10 MG TABLET PO SCH (08:39)
[2017-05-01] MEDS: ASPIRIN EC 325 MG TABLET PO SCH (08:40)
[2017-05-01] MEDS: PANTOPRAZOLE 40 MG TABLET PO SCH (08:40)
[2017-05-01] MEDS: TERBINAFINE 1% CREAM 12 GM TUBE TOP SCH ×2 (08:44→21:00)
[2017-05-01] MEDS: BUDESONIDE/FORMOTEROL 160-4.5 INHALER 6 GM INH SCH ×2 (08:44→21:47)
--- NOTE | 2017-05-01 10:53 | Hospitalist Progress Note ---
<Kimani Myrick - Last Filed: 05/01/17 10:46> Assessment and Plan - Time spent with patient Time spent with patient: Less than 30 minutes (1) COPD exacerbation Status: Acute Assessment and plan: Continue duonebs, IV steroids and levaquin Current Visit: Yes (2) Chronic systolic CHF (congestive heart failure) Status: Chronic Assessment and plan: 05/01- BNP wnl. Contiue lasix and CPAP compliance. Chest x-ray shows evidence supportive of interstitial pulmonary edema. BNP is pending. Admit to telemetry. Diurese with IV Lasix. Consult cardiology. Current Visit: Yes (3) Hypertension Status: Acute Assessment and plan: 05/01 -continue losartan and Bystolic Continue home meds. Current Visit: No (4) Peripheral edema Status: Acute Assessment and plan: 05/01 - this is better today with diuresis and CALLIE hoses. Bilateral lower extremity edema. IV Lasix. Current Visit: No (5) Insulin dependent diabetes mellitus Status: Acute Assessment and plan: 05/01 - continue SSI and hold metformin Sliding-scale insulin per protocol. Continue home meds. Current Visit: No (6) Chest pain Status: Resolved Assessment and plan: 05/01 -this is now resolved Intermittent chest pain radiates to back. EKG is unremarkable for any ST elevations. Troponins are pending. Current Visit: No (7) YOSHI (obstructive sleep apnea) Status: Chronic Assessment and plan: Continue home CPAP at night. Current Visit: Yes (8) Morbid obesity Status: Chronic Assessment and plan: Patient needs to lose weight Current Visit: Yes (9) Tobacco use Status: Chronic Assessment and plan: Patient reports smoking 1 pack per week. She does voice a desire to quit. Current Visit: No (10) Medical non-compliance Status: Chronic Current Visit: No Hospitalist: Subjective Interval history: Patient was seen and examined today in her room. She was awake, alert and sitting up in bed in no apparent distress. She reports no acute events overnight. Her son was not able to bring her home CPAP last night, but she did use a loaner CPAP. On exam, she is still wheezing. We have encouraged her to use her Symbicort and to continue breathing treatments along with IV steroids and levaquin. Exam - Constitutional Vitals: Period Temp Pulse Resp BP Sys/Callahan Pulse Ox Last 24 Hr 96.4 F-97.9 F 55-79 16-22 116-156/50-94 88-100 Exam: General appearance: morbidly obese, no acute distress - Head Head exam: Present: normocephalic, atraumatic - Eye Eye exam: Present: EOMI. Absent: conjunctival injection, nystagmus Pupils: Present: ROSETTA, normal accommodation - ENT ENT exam: Present: normal exam, normal external ear exam - Neck Neck exam: Present: normal inspection. Absent: lymphadenopathy, tenderness, thyromegaly - Respiratory Respiratory exam: Present: decreased breath sounds, wheezing - Cardiovascular Cardiovascular exam: Present: regular rate and rhythm. Absent: carotid bruit, gallop, rubs - GI/Abdominal GI/Abdominal exam: Present: normal bowel sounds. Absent: ascites, distended, mass - Extremities Exam Extremities exam: Present: normal inspection, normal capillary refill, bilateral LE edema - Back Exam Back exam: Absent: CVA tenderness (L), CVA tenderness (R) - Neurological Exam Neurological exam: Present: alert, oriented X3, CN II-XII intact, reflexes normal - Psychiatric Psychiatric exam: Present: normal affect, normal mood - Skin Skin exam: Present: normal color, warm, dry Results - Labs CBC & BMP: 05/01/17 03:14 04/30/17 18:05 Lab Results: I have reviewed the past 24 hour labs <Tamie Gil - Last Filed: 05/01/17 16:56> Assessment and Plan (1) COPD exacerbation Status: Acute Assessment and plan: patient improving, less sob today Current Visit: Yes (2) Chest pain Status: Acute Assessment and plan: serial troponins negative, Cardiology will do heart cath in am Current Visit: Yes (3) Chronic systolic CHF (congestive heart failure) Status: Chronic Assessment and plan: BNP 223. decrease lasix 40 mg IV once a day. Echo ordered. Current Visit: Yes (4) Hypertension Status: Acute Assessment and plan: controlled Current Visit: No (5) YOSHI (obstructive sleep apnea) Status: Chronic Assessment and plan: Dr Bellamy has seen patient Current Visit: Yes (6) Morbid obesity Status: Chronic Current Visit: Yes (7) Diabetes Status: Chronic Assessment and plan: bs not controlled due to steroids, hgb A1c 6.4 Current Visit: Yes Hospitalist: Subjective Interval history: patient seen and examined. Note reviewed and edited. Exam - Constitutional Vitals: Period Temp Pulse Resp BP Sys/Callahan Pulse Ox Last 24 Hr 96.4 F-97.9 F 55-87 16-22 116-156/50-94 88-100 Exam: no back exam, no neck exam, no ENT. Results - Labs CBC & BMP: 05/01/17 03:14 04/30/17 18:05
--- NOTE | 2017-05-01 12:43 | Sleep Medicine Progress Note ---
Assessment and Plan (1) YOSHI (obstructive sleep apnea) Status: Chronic Assessment and plan: This patient has excellent compliance with her current BiPAP therapy and has good control documented on compliance follow-up. She will continue on present BiPAP therapy. No further intervention necessary from a sleep medicine standpoint. Call if needed. Thank you for notifying us of her admission. Current Visit: Yes Sleep Medicine Subjective Interval history: Sleep medicine was notified of Ms. Roy's admission. We follow her in the sleep clinic for moderate obstructive sleep apnea, previously been diagnosed with an AHI of 20.5. She had undergone titration with BiPAP in January of this year and had good results at /. She was just recently seen in sleep clinic follow-up on 04/18/2017 and did have excellent compliance at 93% for over 4 hours and a 96% nightly usage rate. Her average AHI was 4. She was admitted with chest pain and shortness of breath. She did not bring her BiPAP machine with her for this hospitalization but a BiPAP machine was provided for her and was placed on her regular settings of . She did sleep with it last night for over 7 hours and had an average AHI of 3.1. She will just need to continue to use BiPAP with these settings while hospitalized and if her family brings her machine, she can switch to using her BiPAP machine. Exam (Progress Note) - Constitutional Vitals: Period Temp Pulse Resp BP Sys/Callahan Pulse Ox Last 24 Hr 96.4 F-97.9 F 55-80 16-22 116-156/50-94 88-100 Exam: Patient alert and responsive. She recognized me and answered all questions appropriately. She does sound hoarse. Results - Labs CBC & BMP: 05/01/17 03:14 04/30/17 18:05 Lab Results: I have reviewed the past 24 hour labs
[2017-05-01] MEDS ORDERED: POTASSIUM CHLORIDE RIDER 10 MEQ in PREMIX 1 EACH IV PRN (15:00)
[2017-05-01] MEDS ORDERED: MAGNESIUM SULF RIDER 2 GM in PREMIX 1 EACH IV PRN (15:00)
--- NOTE | 2017-05-01 15:03 | Cardiology Consult Note ---
I, Dominga Camacho RN, am scribing for, and in the presence of, Emir Velazquez MD 15:03. Assessment and Plan - Time spent with patient Time spent with patient: Greater than 30 minutes (Due to assessment, planning, documentation, medication review) (1) Chest pain Status: Acute Assessment and plan: 1. 61-year-old BMI 51 WF smoker with hypertension, diabetes, untreated dyslipidemia, YOSHI, ischemic cardiomyopathy status post mid LAD stent occlusion due to noncompliance with Plavix, with several months of increased dyspnea on exertion episodes of chest discomfort with exertional component. She has been out of Plavix for some time (first she said she took her last pill yesterday then she said a few days ago, that her family said was longer than that) 2. I addressed her LDL in the 160s and she then reported that she thought she was out of her cholesterol medicine for over a month. Restart high intensity statin therapy. 3. Given her chest discomfort is "just like I had before my stent but not as bad", and her increasing dyspnea on exertion I think heart catheterization is indicated to define her coronary anatomy with intervention is appropriate. 4. Active wheezing on examination; I discussed with her at length rapidly to stop all smoking. I shared my concern for her that she will be confined to wheelchair or worse within a year or 2 due to advancement of COPD or catastrophic vascular event, if she does not stop all smoking. 5. Long history of noncompliance; she reports she is missed multiple doctor appointments "because I only have 12 visits" 6. She is essentially ruled out for myocardial infarction is no acute EKG changes. 7. Ejection fraction was severely reduced after LAD stent thrombosis May 2015, but her EF improved to about 40% by echo in 2016. 8. She is followed by Dr. Daly Current Visit: Yes (2) Chronic systolic CHF (congestive heart failure) Status: Chronic Current Visit: Yes (3) Morbid obesity Status: Chronic Current Visit: Yes (4) YOSHI (obstructive sleep apnea) Status: Chronic Current Visit: Yes (5) Diabetes Status: Chronic Current Visit: Yes (6) Dyslipidemia Status: Chronic Current Visit: Yes (7) Hypertension Status: Chronic Current Visit: Yes History of Present Illness - Data of Consult Patient: known to practice within the last 3 years Consult date: 04/30/17 Requesting Physician: Tamie Gil Primary care physician: Krysta Celaya - Consult Narrative Reason for consult: Chest pain History of present illness: 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 Daly PCP: Dr. Celaya Ms. Roy is a 61 year old female who is routinely followed by Dr. Daly. She most recently saw her in the office in October of this year. She has a history of anxiety, ischemic cardiomyopathy, CHF, COPD, CAD, depression, YOSHI ( uses CPAP nightly), IDDM, GERD, dyslipidemia, and hypertension. She had a heart cath May 26, 2015 with PCI of the proximal and mid left anterior descending artery and balloon angioplasty of the more mid to distal left anterior descending artery. Her most recent heart cath July 15, 2015, showed patent LAD stents with residual moderate coronary artery disease. Echocardiogram done January 25, 2016 with ejection fraction 40%. Other surgical history includes breast reduction, hysterectomy, tonsillectomy, left knee, and left ankle. Family history is positive for father with hypertension, mother with heart disease hypertension and diabetes, and siblings with hypertension heart disease and diabetes. She reports she currently smokes 3 cigarettes a day and has smoked for about 15 years. Ms. Rosenbaum reports she has not been following up with her primary doctor because she was out of visits and not have money for office visits. Her visits started over this month and she saw her primary doctor April 30 who sent her to the emergency department. She reports about 2 months ago the equipment [employer] picked up her portable oxygen tank because she did have a prescription for it. She has continued to use her CPAP since that time. Over the last 2 months her shortness of breath has increased from her normal state. She has been extremely short of breath even at rest. She reports since her last heart cath in 2014 she has continued to have ongoing left-sided sharp chest pain. It radiates down her left arm and she rates it usually an 8 on a scale of 1-10. She notes no triggers that bring it on, but states usually she can rest and it will go away. Last week she had an episode that was worse than normal and she did take nitroglycerin 2 and lay down to rest. She states at that time it did go away. Her most recent chest pain was yesterday. She describes it as being the same as described above and states that it did go away with rest. She also reports that she has had a good bit of swelling to her lower extremities bilaterally. She was given Lasix 80 mg IV 1 dose in the emergency department and started on 40 mg IV twice daily. She reports she had good urine output from this and says that her legs are less swollen than on admission. Her blood pressure was elevated on admission at 152/94, it has improved throughout the night, this morning it is 116/67. Troponin has been negative 3. BNP was 223. EKG on admission showed sinus bradycardia with heart rate of 58. Chest x-ray showed stable moderate cardiomegaly with bilateral lung myers being suspicious for interstitial pulmonary edema or interstitial pneumonia. Venous Doppler was negative for DVT in either lower extremity. This morning she is seen sitting up in bed with oxygen in use via nasal cannula. She is noted to be quite tachypneic, but states her breathing is improved from yesterday. She denies any chest pain, palpitations, or dizziness at this time. monitor tech currently shows sinus rhythm with heart rates in the 70s. CC: Tamie Gil MD - Home Medications and Allergies Home Medications: Home Medications Medication Instructions Recorded Confirmed Type Clopidogrel [Plavix] 75 mg PO DAILY #30 tablet 06/06/15 05/01/17 Rx Nitroglycerin [Nitroglycerin SL 0.4 mg SL Q5M PRN 07/14/15 05/01/17 History Tab] metFORMIN [Glucophage] 1,000 mg PO BID W/MEALS #0 07/15/15 05/01/17 Rx Budesonide/Formoterol 160-4.5 2 puff INH BID 10/21/15 05/01/17 History [Symbicort 160-4.5] FLUoxetine [PROzac] 20 mg PO BEDTIME 10/21/15 05/01/17 History Aspirin EC Tab 325 mg PO DAILY tablet 11/02/15 05/01/17 Rx Atorvastatin [Lipitor] 20 mg PO BEDTIME tablet 11/02/15 11/13/16 Rx HYDROcodone/ACETAMIN 10-325 [Kuna 1 tablet PO Q6H PRN #0 tablet 11/02/15 Rx 10-325] Insulin Regular [HumuLIN R] See Protocol SUBCUT ACHS injection 11/02/15 Rx Losartan [Cozaar] 25 mg PO DAILY tablet 11/02/15 05/01/17 Rx Pantoprazole Tab [Protonix Tab] 40 mg PO DAILY tablet 11/02/15 11/13/16 Rx Furosemide Tab [Lasix Tab] 80 mg PO BID DIURETIC #60 tablet 01/29/16 05/01/17 Rx Ipratropium/Albuterol Inhaler 1 puff INH QID #1 inhaler 01/29/16 11/13/16 Rx [Combivent Respimat Inhaler] Nebivolol HCl [Bystolic] 20 mg PO DAILY 11/13/16 05/01/17 History Albuterol Neb [Proventil Neb] 2.5 mg RESP TX BID #0 nebulization 11/21/16 Rx solution predniSONE TAB [PredniSONE] 10 mg PO QAM 04/30/17 History ALPRAZolam [Xanax] 0.5 mg PO BID 05/01/17 05/01/17 History Cyanocobalamin (Vitamin B-12) 2,000 mcg PO DAILY 05/01/17 05/01/17 History [Vitamin B-12] Cyclobenzaprine [Flexeril] 10 mg PO TID 05/01/17 05/01/17 History Escitalopram [Lexapro] 10 mg PO DAILY 05/01/17 05/01/17 History Gabapentin Cap/Tab [Neurontin 600 mg PO QID 05/01/17 05/01/17 History Cap/Tab] Glimepiride 2 mg PO DAILY 05/01/17 05/01/17 History Insulin Glargine [Lantus] 10 unit SUBCUT BID 05/01/17 05/01/17 History Magnesium Oxide 400 mg PO DAILY 05/01/17 05/01/17 History Omeprazole 20 mg PO AC BREAKFAST 05/01/17 05/01/17 History Potassium Chloride [K-Tab ER] 20 meq PO DAILY W/BREAKFAST 05/01/17 05/01/17 History Theophylline ER Cap (24 Hr) 300 mg PO BID 05/01/17 05/01/17 History [Elian-24] Allergies/Adverse Reactions: Allergies Allergy/AdvReac Type Severity Reaction Status Date / Time nylon sutures Allergy RASH Uncoded 06/14/15 12:04 plastic tape Allergy RASH Uncoded 06/14/15 12:04 - Constitutional Constitutional: Present: as per HPI - EENT Eyes: Present: blurry vision, requires corrective lense Ears: Present: decreased hearing. Absent: ear pain, tinnitus Nose, mouth and throat: Present: headache(s), hoarseness, neck pain. Absent: dysphagia, epistaxis, sore throat - Cardiovascular Cardiovascular: Present: chest pain with activity, diaphoresis, dyspnea, dyspnea on exertion, edema, radiating jaw, neck or arm pain, orthopnea. Absent : lightheadedness, palpitations - Respiratory Respiratory: Present: dyspnea, dyspnea on exertion. Absent: cough, hemoptysis, wheezing - Gastrointestinal Gastrointestinal: Absent: abdominal pain, constipation, diarrhea, hematemesis, hematochezia, melena, nausea, vomiting - Genitourinary Genitourinary: Present: dysuria, hematuria - Musculoskeletal Musculoskeletal: Present: back pain, limited range of motion, muscle weakness - Neurological Neurological: Present: frequent falls, headache(s). Absent: abnormal gait, confusion, syncope - Psychiatric Psychiatric: Present: anxiety, depression - Endocrine Endocrine: Present: fatigue - Hematologic/Lymphatic Hematologic/Lymphatic: Present: easy bruising. Absent: easy bleeding Medical,Surgical,& Family Hx - Medical History Cardio: History of: CHF, CAD, Hypertension, NE Psychological: History of: Anxiety Disorders, Depression Endocrine: History of: Diabetes Mellitus (IDDM), Dyslipidemia Respiratory: History of: COPD Gastrointestinal: History of: GERD, GI Problems (Peptic Ulcer) Musculoskeletal: History of: Back/Neck Problems (chronic back pain) - Surgical History Cardiac Surgeries: Sugical HX of: Cardiac Catheterization (stents) HEENT Surgeries: Surgical HX of: Tonsilectomy & Adenoidectomy Reproductive Surgeries: Surgical HX of;: Breast Surgery (Breast Reduction), Hysterectomy Orthopedic Surgeries: Surgical HX of;: Orthopedic Surgery (Left knee, left ankle ) - Family History Family History: Reports;: Family Diabetes (Mother's siblings), Family Heart Disease (Mother's siblings), Family Hypertension (Father mother siblings) - Social History Smoking Status: Current every day smoker (Smokes 3 cigarettes a day for about 15 years) Have you smoked in the last 12 months: Yes Time spent discussing smoking cessation with patient: 3 to 10 minutes Frequency of Alcohol Use: None Type of Drug Use: None Marital Status: Lives With:: Children Functional capacity: uses cane/walker Physical Examination Vital Signs Temp Pulse Resp BP 97.5 F L 63 18 152/94 04/30/17 16:20 04/30/17 16:20 04/30/17 16:20 04/30/17 16:20 General: Present: Appears Well, No Apparent Distress HEENT: Present: PERRL, Mucus Membranes Moist Neck: Present: Supple Neck, Midline Trachea, No Bruit Cardiac: Present: Reg Rate and Rhythm, No Murmur, Bradycardia Lungs: Present: Decreased Breath Sounds, Oxygen (Via nasal cannula) Neuro: Absent: Resting Tremor, Essential Tremor Abdomen: Present: Soft, Active Bowel Sounds, Non-Tender. Absent: Distended Skin: Present: Rash (Heat rash under breasts and around abdomen). Absent: Suspicious Lesions, Wound Gait: Present: Poor Gait Extremities: Present: Normal Upper Extr. Pulses, Normal Lower Extr. Pulses, +2 Edema (Bilateral lower extremity). Absent: Normal Gait Result/EKG - Labs CBC & BMP: 05/01/17 03:14 04/30/17 18:05 Lab Results: I have reviewed the past 24 hour labs Labs: Laboratory Results - last 24 hr 04/30/17 04/30/17 04/30/17 18:05 18:05 18:05 WBC 7.7 RBC 4.45 Hgb 11.6 L Hct 35.7 MCV 80.2 L MCH 26 L MCHC 32.5 RDW 14.2 Plt Count 270 MPV 9.4 L Neut % (Auto) 57.1 Lymph % (Auto) 31.6 Garrett % (Auto) 8.0 Eos % (Auto) 2.2 Baso % (Auto) 0.7 Neut # (Auto) 4.4 Lymph # (Auto) 2.4 Garrett # (Auto) 0.6 Eos # (Auto) 0.2 Baso # (Auto) 0.1 Immature Gran % 0.4 Nucleated RBC % 0.0 Immature Gran # 0.03 Nucleated RBCs # 0.00 INR 1.0 PT Patient/Control Mix 10.0 Circ Anticoag PTT 26.3 Sodium 139 Potassium 4.3 Chloride 106 Carbon Dioxide 26 Anion Gap 11.3 BUN 13 Creatinine 0.90 GFR Calculation 82 BUN/Creatinine Ratio 14.00 Glucose 108 H POC Glucose Hemoglobin A1c Calculated Osmolality 277.5 Calcium 9.2 Magnesium Total Bilirubin 0.40 AST 13 ALT 19 Alkaline Phosphatase 125 H Total Creatine Kinase CK-MB (CK-2) Troponin I B-Natriuretic Peptide Total Protein 6.0 L Albumin 3.2 L Globulin 2.8 Albumin/Globulin Ratio 1.1 Triglycerides Cholesterol LDL Cholesterol VLDL Cholesterol HDL Cholesterol Heart Disease Risk Ratio Free T4 TSH 3rd Generation Urine Color Urine Appearance Urine pH Ur Specific Belen Urine Protein Urine Glucose (UA) Urine Ketones Urine Blood Urine Nitrate Urine Bilirubin Urine Urobilinogen Urine Leukocytes Urine WBC Hyaline Casts Ur Culture Indicated? 04/30/17 04/30/17 04/30/17 18:05 18:05 18:05 WBC RBC Hgb Hct MCV MCH MCHC RDW Plt Count MPV Neut % (Auto) Lymph % (Auto) Garrett % (Auto) Eos % (Auto) Baso % (Auto) Neut # (Auto) Lymph # (Auto) Garrett # (Auto) Eos # (Auto) Baso # (Auto) Immature Gran % Nucleated RBC % Immature Gran # Nucleated RBCs # INR PT Patient/Control Mix Circ Anticoag PTT Sodium Potassium Chloride Carbon Dioxide Anion Gap BUN Creatinine GFR Calculation BUN/Creatinine Ratio Glucose POC Glucose Hemoglobin A1c Calculated Osmolality Calcium Magnesium Total Bilirubin AST ALT Alkaline Phosphatase Total Creatine Kinase 62 CK-MB (CK-2) < 1.0 Troponin I < 0.015 B-Natriuretic Peptide 223 H Total Protein Albumin Globulin Albumin/Globulin Ratio Triglycerides Cholesterol LDL Cholesterol VLDL Cholesterol HDL Cholesterol Heart Disease Risk Ratio Free T4 1.02 TSH 3rd Generation Urine Color Urine Appearance Urine pH Ur Specific Belen Urine Protein Urine Glucose (UA) Urine Ketones Urine Blood Urine Nitrate Urine Bilirubin Urine Urobilinogen Urine Leukocytes Urine WBC Hyaline Casts Ur Culture Indicated? 04/30/17 04/30/17 04/30/17 18:05 20:24 20:54 WBC RBC Hgb Hct MCV MCH MCHC RDW Plt Count MPV Neut % (Auto) Lymph % (Auto) Garrett % (Auto) Eos % (Auto) Baso % (Auto) Neut # (Auto) Lymph # (Auto) Garrett # (Auto) Eos # (Auto) Baso # (Auto) Immature Gran % Nucleated RBC % Immature Gran # Nucleated RBCs # INR PT Patient/Control Mix Circ Anticoag PTT Sodium Potassium Chloride Carbon Dioxide Anion Gap BUN Creatinine GFR Calculation BUN/Creatinine Ratio Glucose POC Glucose 113 H Hemoglobin A1c Calculated Osmolality Calcium Magnesium 1.9 Total Bilirubin AST ALT Alkaline Phosphatase Total Creatine Kinase CK-MB (CK-2) Troponin I B-Natriuretic Peptide Total Protein Albumin Globulin Albumin/Globulin Ratio Triglycerides Cholesterol LDL Cholesterol VLDL Cholesterol HDL Cholesterol Heart Disease Risk Ratio Free T4 TSH 3rd Generation 0.839 Urine Color Colorless Urine Appearance Clear Urine pH 5.0 Ur Specific Belen 1.003 Urine Protein Negative Urine Glucose (UA) Negative Urine Ketones Negative Urine Blood Negative Urine Nitrate Negative Urine Bilirubin Negative Urine Urobilinogen < 2.0 H Urine Leukocytes Negative Urine WBC 1 Hyaline Casts 4 Ur Culture Indicated? Not indicated 04/30/17 04/30/17 04/30/17 21:27 21:27 21:27 WBC 7.8 RBC 4.78 Hgb 12.6 Hct 38.4 MCV 80.3 L MCH 26 L MCHC 32.8 RDW 14.3 Plt Count 309 MPV 9.8 Neut % (Auto) 52.8 Lymph % (Auto) 35.3 Garrett % (Auto) 8.5 Eos % (Auto) 2.2 Baso % (Auto) 0.8 Neut # (Auto) 4.1 Lymph # (Auto) 2.8 Garrett # (Auto) 0.7 Eos # (Auto) 0.2 Baso # (Auto) 0.1 Immature Gran % 0.4 Nucleated RBC % 0.0 Immature Gran # 0.03 Nucleated RBCs # 0.00 INR PT Patient/Control Mix Circ Anticoag PTT Sodium Potassium Chloride Carbon Dioxide Anion Gap BUN Creatinine GFR Calculation BUN/Creatinine Ratio Glucose POC Glucose Hemoglobin A1c 6.4 H Calculated Osmolality Calcium Magnesium Total Bilirubin AST ALT Alkaline Phosphatase Total Creatine Kinase CK-MB (CK-2) Troponin I < 0.015 B-Natriuretic Peptide Total Protein Albumin Globulin Albumin/Globulin Ratio Triglycerides Cholesterol LDL Cholesterol VLDL Cholesterol HDL Cholesterol Heart Disease Risk Ratio Free T4 TSH 3rd Generation Urine Color Urine Appearance Urine pH Ur Specific Belen Urine Protein Urine Glucose (UA) Urine Ketones Urine Blood Urine Nitrate Urine Bilirubin Urine Urobilinogen Urine Leukocytes Urine WBC Hyaline Casts Ur Culture Indicated? 04/30/17 05/01/17 05/01/17 23:42 03:14 03:14 WBC 8.3 RBC 4.86 Hgb 12.5 Hct 38.4 MCV 79.0 L MCH 26 L MCHC 32.6 RDW 14.1 Plt Count 299 MPV 10.1 Neut % (Auto) 89.3 H Lymph % (Auto) 7.6 L Garrett % (Auto) 1.9 Eos % (Auto) 0.2 Baso % (Auto) 0.4 Neut # (Auto) 7.4 Lymph # (Auto) 0.6 L Garrett # (Auto) 0.2 Eos # (Auto) 0.0 Baso # (Auto) 0.0 Immature Gran % 0.6 Nucleated RBC % 0.0 Immature Gran # 0.05 Nucleated RBCs # 0.00 INR PT Patient/Control Mix Circ Anticoag PTT Sodium Potassium Chloride Carbon Dioxide Anion Gap BUN Creatinine GFR Calculation BUN/Creatinine Ratio Glucose POC Glucose Hemoglobin A1c Calculated Osmolality Calcium Magnesium Total Bilirubin AST ALT Alkaline Phosphatase Total Creatine Kinase CK-MB (CK-2) Troponin I < 0.015 B-Natriuretic Peptide Total Protein Albumin Globulin Albumin/Globulin Ratio Triglycerides 119 Cholesterol 242 H LDL Cholesterol 166.0 VLDL Cholesterol 23.8 HDL Cholesterol 46 Heart Disease Risk Ratio 5.26 Free T4 TSH 3rd Generation Urine Color Urine Appearance Urine pH Ur Specific Belen Urine Protein Urine Glucose (UA) Urine Ketones Urine Blood Urine Nitrate Urine Bilirubin Urine Urobilinogen Urine Leukocytes Urine WBC Hyaline Casts Ur Culture Indicated? 05/01/17 07:22 WBC RBC Hgb Hct MCV MCH MCHC RDW Plt Count MPV Neut % (Auto) Lymph % (Auto) Garrett % (Auto) Eos % (Auto) Baso % (Auto) Neut # (Auto) Lymph # (Auto) Garrett # (Auto) Eos # (Auto) Baso # (Auto) Immature Gran % Nucleated RBC % Immature Gran # Nucleated RBCs # INR PT Patient/Control Mix Circ Anticoag PTT Sodium Potassium Chloride Carbon Dioxide Anion Gap BUN Creatinine GFR Calculation BUN/Creatinine Ratio Glucose POC Glucose 231 H Hemoglobin A1c Calculated Osmolality Calcium Magnesium Total Bilirubin AST ALT Alkaline Phosphatase Total Creatine Kinase CK-MB (CK-2) Troponin I B-Natriuretic Peptide Total Protein Albumin Globulin Albumin/Globulin Ratio Triglycerides Cholesterol LDL Cholesterol VLDL Cholesterol HDL Cholesterol Heart Disease Risk Ratio Free T4 TSH 3rd Generation Urine Color Urine Appearance Urine pH Ur Specific Belen Urine Protein Urine Glucose (UA) Urine Ketones Urine Blood Urine Nitrate Urine Bilirubin Urine Urobilinogen Urine Leukocytes Urine WBC Hyaline Casts Ur Culture Indicated? - Diagnostic Findings Procedure: Chest x-ray: report reviewed by me - EKG EKG results: interpreted by me EKG shows: sinus rhythm Marcus Zabala Randall Scott, MD, personally performed the services described in this documentation, ascribed by Dominga aCmacho RN in my presence, and it is both accurate and complete 503 .
[2017-05-01] MEDS ORDERED: metFORMIN 500 MG TABLET PO SCH (17:00)
[2017-05-01] MEDS: CYANOCOBALAMIN 500 MCG TABLET PO SCH (17:29)
[2017-05-01] MEDS: THEOPHYLLINE ER (24 HR) 300 MG CAPSULE PO SCH (20:40)
[2017-05-01] MEDS: ENOXAPARIN 40 MG/0.4 ML SYRINGE SUBCUT SCH (20:40)
[2017-05-01] MEDS: ATORVASTATIN 80 MG TABLET PO SCH (20:41)
[2017-05-01] MEDS: CYCLOBENZAPRINE 10 MG TABLET PO SCH (20:41)
[2017-05-01] MEDS: FLUoxetine 20 MG CAPSULE PO SCH (20:41)
[2017-05-01] MEDS: LEVOFLOXACIN INJ 750 MG in PREMIX 1 EACH IV SCH (20:52)
[2017-05-01] MEDS: ALPRAZolam 0.5 MG TABLET PO SCH (21:26)
[2017-05-01] MEDS: INSULIN GLARGINE 100 UNIT/ML SUBCUT SCH (21:26)
[2017-05-02] MEDS: ALBUTEROL/IPRATROPIUM 3 ML NEB RESP TX SCH ×4 (01:06→18:58)
[2017-05-02] MEDS: methylPREDNISolone SOD SUC 40 MG/1 ML VIAL IV SCH ×4 (02:07→20:50)
[2017-05-02 04:55] LABS: Basophils % 0.1 % (0.0-0.8); Hemoglobin 11.8 GM/DL (12.0-16.0); Immature Granulocytes Absolute 0.14 #; Lymphocytes # 0.8 10*3/uL (1.4-4.0); Lymphocytes % 5.6 % (21.3-54.2); Mean Corpuscular HGB Conc 32.8 GM/DL (32-36); Mean Corpuscular Hemoglobin 26 PG (27-34); Mean Corpuscular Volume 78.8 FL (87-102); Mean Platelet Volume 10.2 FL (9.6-12.0); Monocytes # 0.4 10*3/uL (0.11-0.8); Monocytes % 3.3 % (1.7-12.7); Neutrophils # 12.2 10*3/uL (1.4-7.4); Platelet Count 330 T/CUMM (130-400); Red Blood Count 4.57 MC/CUMM (3.8-5.5); Red Cell Distribution Width 14.1 % (9.3-17.3); White Blood Count 13.5 T/CUMM (4-12)
[2017-05-02 05:27] LABS: Calcium 9.7 MG/DL (8.5-10.1); Magnesium 2.2 MG/DL (1.8-2.4); Osmolality,Calculated 282.1 MOS/KG (273-304); Potassium 4.1 MMOL/L (3.5-5.1)
[2017-05-02] MEDS ORDERED: SODIUM CHLORIDE 0.45% 1,000 ML IV SCH (07:00)
[2017-05-02] MEDS: ASPIRIN EC 325 MG TABLET PO SCH ×2 (07:48→08:07)
[2017-05-02] MEDS: LOSARTAN 25 MG TABLET PO SCH ×2 (07:48→08:08)
[2017-05-02] MEDS: CLOPIDOGREL 75 MG TABLET PO SCH ×2 (07:49→08:09)
[2017-05-02] MEDS: NEBIVOLOL 10 MG TABLET PO SCH ×2 (07:49→08:07)
[2017-05-02] MEDS: PANTOPRAZOLE 40 MG TABLET PO SCH ×2 (07:50→08:09)
--- NOTE | 2017-05-02 07:56 | EKG Report ---
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
[2017-05-02] MEDS ORDERED: DIAZEPAM 5 MG TABLET PO ONE (08:00)
[2017-05-02] MEDS ORDERED: diphenhydrAMINE CAP 25 MG CAPSULE PO ONE (08:00)
[2017-05-02] MEDS: INSULIN REGULAR 100 UNIT/ML SUBCUT SCH ×4 (08:07→20:50)
[2017-05-02] MEDS: CYCLOBENZAPRINE 10 MG TABLET PO SCH ×3 (08:08→20:52)
[2017-05-02] MEDS: MAGNESIUM OXIDE 400 MG TABLET PO SCH ×2 (08:09→10:30)
[2017-05-02] MEDS: GABAPENTIN 600 MG TABLET PO SCH ×4 (08:09→20:52)
[2017-05-02] MEDS: THEOPHYLLINE ER (24 HR) 300 MG CAPSULE PO SCH (08:10)
[2017-05-02] MEDS ORDERED: HEPARIN/NACL 0.9% 2 UNITS/ML 1,000 ML IV ONE (08:12)
[2017-05-02] MEDS ORDERED: VERAPAMIL 5 MG/2 ML VIAL ONE (08:12)
[2017-05-02] MEDS ORDERED: LIDOCAINE 1% 20 ML VIAL ONE (08:12)
[2017-05-02] MEDS ORDERED: NITROGLYCERIN DRIP 50 MG/250 ML BOTTLE IV ONE (08:12)
[2017-05-02] MEDS ORDERED: MIDAZOLAM 2 MG/2 ML VIAL ONE (08:17)
[2017-05-02] MEDS ORDERED: HYDROmorphone 2 MG/1 ML VIAL ONE ×2 (08:17→09:18)
[2017-05-02] MEDS ORDERED: ENOXAPARIN 60 MG/0.6 ML SYRINGE ONE (08:22)
[2017-05-02] MEDS ORDERED: BIVALIRUDIN 250 MG VIAL IV ONE (08:59)
[2017-05-02] MEDS ORDERED: PANTOPRAZOLE 40 MG TABLET PO SCH (09:00)
[2017-05-02] MEDS: INSULIN GLARGINE 100 UNIT/ML SUBCUT SCH ×2 (09:31→20:51)
[2017-05-02] MEDS ORDERED: CLOPIDOGREL 300 MG TABLET ONE (09:39)
[2017-05-02] MEDS ORDERED: SODIUM CHLORIDE 0.9% 1,000 ML IV SCH (10:00)
--- NOTE | 2017-05-02 10:03 | Cardiac Catheterization ---
Date of Procedure:: 05/02/17 Procedure: CLINICAL HISTORY: The patient has a history of known coronary artery disease with previous stenting. She has had recurrent anginal symptoms and increasing dyspnea recently and is now undergoing cardiac catheterization for definitive coronary artery assessment possible revascularization. PROCEDURES PERFORMED: 1. Right radial percutaneous arteriotomy 2. Left heart catheterization 3. Resting hemodynamics 4. Left ventriculography. 5. Coronary arteriography 6. Hemoband placement 7. Successful percutaneous coronary intervention to the proximal right coronary artery with a 3.0 x 12 mm Xience alpine drug-eluting stent. 8. Successful percutaneous coronary intervention to the mid right coronary artery with a 3.0 x 18 mm Xience alpine drug-eluting stent. 9. Intracoronary nitroglycerin administration. DESCRIPTION OF PROCEDURE: After obtaining informed consent, the patient was taken to the screedman/laborer, prepped and draped in the usual sterile manner. We accessed the right radial artery using modified Seldinger technique in the usual fashion. We placed a 6-Yi slim sheath without difficulty. We then used a Tig catheter to engage the left main coronary artery to perform angiography in multiple orthogonal views. We had to use a AR-1 to engage the right coronary artery to perform angiography. We exchanged catheters over a long J-wire because the patient had very tortuous and difficult brachiocephalic anatomy. There appeared to be high-grade lesion in the proximal right coronary artery. I did give a dose of 200 mcg of intracoronary nitroglycerin to make sure this was not spasm. There was no improvement with nitroglycerin. We then proceeded to percutaneous coronary intervention on the right coronary artery. We engage this vessel with a WRP interventional guide. We then passed a PT Graphix wire beyond the area of stenosis in the vessel. We then perform primary stenting of the proximal vessel with a 3.0 x 12 mm Xience alpine drug- eluting stent. Follow-up angiography showed an excellent result, but there was significant residual stenosis in the mid vessel. We attempted to perform primary stenting with a 3.0 x 18 mm Xience alpine drug-eluting stent but could not cross the lesion. We performed balloon angioplasty with a 2.5 x 20 mm trek angioplasty balloon. We again tried to cross with the stent but were unable to cross. There appeared to be a waste on the angioplasty balloon, so we went back in and inflated to approximately 20 naif of pressure which finally opened the vessel adequately. We were then able to place a 3.0 x 18 mm Xience alpine drug-eluting stent. An excellent angiographic result was achieved. There were no problems or complications during the procedure. We then used an angled pigtail catheter to perform a left heart catheterization with left ventriculogram and pressure measurement in the usual fashion. After removing the catheter, we placed a HemoBand and removed the sheath without difficulty. There were no problems during the case. HEMODYNAMICS: Please see the accompanying data sheet. CORONARIES: The left main coronary artery is a large-caliber vessel which bifurcates into the left anterior descending left circumflex was coronary arteries. The left main coronary artery is angiographically free of significant obstructive disease. The left circumflex coronary artery is a moderate-sized vessel which gives off a moderate size bifurcating first obtuse marginal and a small to moderate-sized posterior lateral branch. There is a 40% stenosis in the midsegment of the circumflex coronary artery. The inferior branch of the obtuse marginal has a long area of up to 80% stenosis. This is unchanged from previous catheterizations. The left anterior descending is a moderate caliber vessel which gives off a moderate-sized diagonal branch. The previously placed stent in the LAD is widely patent. There is some diffuse moderate disease in the mid to distal vessel of up to 40-50% but this is stable from previous catheterization. The first diagonal branch is quite tortuous and has an area of high-grade stenosis of 80-90%. I think this would be a difficult vessel for intervention. The right coronary artery is a moderate-sized vessel which gives off the posterior descending artery and the posterior lateral branch. There is a 80-90 % stenosis in the proximal vessel which did not improve with intracoronary nitroglycerin. There is also a long area of up to 80% stenosis in the mid vessel. LEFT VENTRICULOGRAPHY: Left ventriculogram shows left ventricular ejection fraction of approximately 30-35% with anteroapical hypokinesis IMPRESSION: 1. Successful percutaneous coronary intervention to the proximal and right coronary artery with a 3.0 x 12 mm Xience alpine drug-eluting stent. 2. Successful percutaneous coronary intervention to the mid right coronary artery with a 3.0 x 18 mm Xience alpine drug-eluting stent. 3. The previously placed left anterior descending stent is widely patent. 4. There is residual disease in the branch of the obtuse marginal and the diagonal as described above. I suspect both of these would be somewhat difficult interventions. 5. Severe ischemic cardiomyopathy. PLAN: The patient will be transferred back to her room for recovery in postintervention monitoring and management. We will continue medical therapy and risk factor modification. Anesthesia: minimal conscious sedation Surgeon / Physician: Ruddy Mensah Estimated blood loss: minimal Condition: stable Disposition: floor - Medications / Follow-up
[2017-05-02] MEDS: FUROSEMIDE 40 MG/4 ML VIAL IV SCH (10:28)
[2017-05-02] MEDS: THEOPHYLLINE ER 300 MG TABLET PO SCH ×2 (10:28→16:03)
[2017-05-02] MEDS: DOCUSATE SODIUM 100 MG CAPSULE PO SCH (10:29)
[2017-05-02] MEDS: CYANOCOBALAMIN 500 MCG TABLET PO SCH (10:29)
[2017-05-02] MEDS: ALPRAZolam 0.5 MG TABLET PO SCH ×2 (10:30→22:06)
[2017-05-02] MEDS: ESCITALOPRAM 10 MG TABLET PO SCH (10:30)
[2017-05-02] MEDS: GLIMEPIRIDE 2 MG TABLET PO SCH (10:30)
[2017-05-02] MEDS: BISACODYL 5 MG TABLET PO SCH (10:31)
[2017-05-02] MEDS: POLYETHYLENE GLYCOL POWDER 17 GM PACK PO SCH (10:31)
[2017-05-02] MEDS: FEXOFENADINE 180 MG TABLET PO SCH (10:31)
[2017-05-02] MEDS: TERBINAFINE 1% CREAM 12 GM TUBE TOP SCH ×2 (10:34→20:53)
[2017-05-02] MEDS: BUDESONIDE/FORMOTEROL 160-4.5 INHALER 6 GM INH SCH ×2 (10:34→20:56)
--- NOTE | 2017-05-02 10:47 | EKG Report ---
Stationary ECG Study [facility] Test Date: 05/02/2017 10:48:53 AM Pat Name: JOSTIN BOWER Department: Room: 265 Gender: F Dump Grader: : 1955 Requested by: Erica Fox Order Number: [id number] Reading MD: SHEELA GUILLEN Intervals [place] Rate: 65 P: 56 [place]: 197 QRS: 75 QRSD: 96 T: 53 QT: 412 QTc: 423 Interpretive Statements SINUS RHYTHM POSSIBLE CANNOT RULE OUT ANTERIOR MYOCARDIAL INFARCTION, PROBABLY OLD Electronically Signed On 05-04-17 15:48:15 CDT by SHEELA GUILLEN [email or web address]
--- NOTE | 2017-05-02 11:30 | ECHO Report ---
Laura Roy Exam Date: 05/02/2017 07:13 Referring Physician: Technologist: cherrie Mabry ARDMS, RVT Age: 61 Ht (in): 59 Wt (lb): 252 Gender: F Exam Location: [facility] Echo Indications: Chest pain, unspecified, Essential (primary) hypertension, COPD, YOSHI, IDDM, Edema, Morbid obesity, Smoker BP: 106 / 60 HR: 78 Rhythm: Sinus Technical Quality: Very difficult IMPRESSIONS Technically very difficult study Probably normal chamber sizes Reasonable LV function with ejection fraction estimated to be 45-65% (apex not well seen) No significant valvular abnormality noted MEASUREMENTS (Male / Female) Normal Values 2D ECHO LV Diastolic Diameter PLAX 4.6 cm 4.2 - 5.9 / 3.9 - 5.3 cm LV Systolic Diameter PLAX 2.8 cm LV Fractional Shortening PLAX 39.0 % IVS Diastolic Thickness 1.1 cm 0.6 - 1.0 / 0.6 - 0.9 cm LVPW Diastolic Thickness 1.1 cm 0.6 - 1.0 / 0.6 - 0.9 cm RV Internal Dim ED PLAX 3.1 cm Aortic Root Diameter 3.8 cm LA Systolic Diameter LX 3.5 cm 3.0 - 4.0 / 2.7 - 3.8 cm FINDINGS Left Ventricle Normal left ventricular cavity size. Mild left ventricular hypertrophy. Left ventricular ejection fraction is estimated at 55%. Right Ventricle The right ventricle is normal in size and function. Right Atrium The right atrium is normal in size. Left Atrium The left atrium is normal in size. Mitral Valve Morphologically normal mitral valve. Trace mitral valve regurgitation. Aortic Valve Morphologically normal aortic valve without significant sclerosis or stenosis. There is no aortic regurgitation. Tricuspid Valve Morphologically normal tricuspid valve without significant stenosis or regurgitation. Pulmonary artery systolic pressure is normal. Pulmonic Valve Pulmonic valve not well visualized. Pericardium Normal pericardium without effusion. Aorta Normal ascending aorta dimension. Emir Velazquez (Electronically Signed) Final Date: 02 May 2017 11:29
--- NOTE | 2017-05-02 15:20 | Hospitalist Progress Note ---
Assessment and Plan (1) COPD exacerbation Status: Acute Assessment and plan: cont duonebs, steroids, Levaquin Current Visit: Yes (2) Chest pain Status: Acute Assessment and plan: Status post heart cath put 2 stents in RCA Current Visit: Yes (3) Chronic systolic CHF (congestive heart failure) Status: Chronic Assessment and plan: Echocardiogram showed an EF of 55% with no diastolic dysfunction. Current Visit: Yes (4) Hypertension Status: Acute Assessment and plan: controlled Current Visit: No (5) YOSHI (obstructive sleep apnea) Status: Chronic Assessment and plan: cont bipap at night Current Visit: Yes (6) Morbid obesity Status: Chronic Assessment and plan: needs to lose weight Current Visit: Yes (7) Diabetes Status: Chronic Assessment and plan: bs alittle high due to steroids, hgb A1c 6.4 Current Visit: Yes Hospitalist: Subjective Interval history: Dr. Mensah a heart cath today in place 2 stents to the right coronary artery. Patient feels a little better today but still very out of breath. We talked a little bit more about weight loss but it will be difficult for her to lose weight. Dr. Bellamy has seen her and reported that she was very compliant with her BiPAP therapy. Exam - Constitutional Vitals: Period Temp Pulse Resp BP Sys/Callahan Pulse Ox Last 24 Hr 96.7 F-97.9 F 58-87 16-20 105-149/51-79 92-99 Exam: Heart Rate-[RRR] Lungs-[diminished, tight some wheezing] GI-[+bs soft, NT] Ext-[trace edema] Neuro [Motor 5/5], [alert and oriented times 3] psych [normal mood and affect] General [no acute distress] Results - Labs CBC & BMP: 05/02/17 03:39 05/02/17 03:39 Lab Results: I have reviewed the past 24 hour labs
[2017-05-02] MEDS: LEVOFLOXACIN INJ 750 MG in PREMIX 1 EACH IV SCH (20:50)
[2017-05-02] MEDS: FLUoxetine 20 MG CAPSULE PO SCH (20:52)
[2017-05-02] MEDS: ATORVASTATIN 80 MG TABLET PO SCH (20:52)
[2017-05-02] MEDS: ENOXAPARIN 40 MG/0.4 ML SYRINGE SUBCUT SCH (20:53)
[2017-05-03] MEDS: ALBUTEROL/IPRATROPIUM 3 ML NEB RESP TX SCH ×4 (00:38→20:48)
[2017-05-03] MEDS: methylPREDNISolone SOD SUC 40 MG/1 ML VIAL IV SCH ×2 (02:09→09:21)
[2017-05-03 05:27] LABS: Basophils % 0.1 % (0.0-0.8); Hematocrit 34.1 VOL% (35.7-47.0); Immature Granulocytes % 1.2 %; Immature Granulocytes Absolute 0.17 #; Lymphocytes # 0.6 10*3/uL (1.4-4.0); Lymphocytes % 4.3 % (21.3-54.2); Mean Corpuscular HGB Conc 32.3 GM/DL (32-36); Mean Corpuscular Hemoglobin 26 PG (27-34); Mean Corpuscular Volume 80.2 FL (87-102); Monocytes # 0.5 10*3/uL (0.11-0.8); Monocytes % 3.8 % (1.7-12.7); Neutrophils # 12.7 10*3/uL (1.4-7.4); Neutrophils % 90.6 % (38.7-73.9); Platelet Count 352 T/CUMM (130-400); Red Blood Count 4.25 MC/CUMM (3.8-5.5); Red Cell Distribution Width 14.5 % (9.3-17.3); White Blood Count 14.1 T/CUMM (4-12)
[2017-05-03 05:53] LABS: Band Neutrophils 1 % (0-10); Hypochromasia 1+; Lymphocytes 3 % (20-55); Segmented Neutrophils 95 % (50-85); Total Cells Counted 100
[2017-05-03 05:54] LABS: Microcytosis 1+; Ovalocytes Slight; Platelet Estimate Normal
[2017-05-03 06:09] LABS: Blood Urea Nitrogen 35 MG/DL (7-18); Calcium 9.5 MG/DL (8.5-10.1); Glucose 277 MG/DL (74-106); Osmolality,Calculated 285.2 MOS/KG (273-304); Potassium 4.4 MMOL/L (3.5-5.1); Sodium 134 MMOL/L (136-145)
[2017-05-03 06:10] LABS: Troponin I Only 0.106 NG/ML (0.00-0.045)
--- NOTE | 2017-05-03 07:19 | EKG Report ---
Stationary ECG Study [facility] Test Date: 05/03/2017 7:20:55 AM Pat Name: JOSTIN BOWER Department: Room: 265 Gender: F Route Cdl Driver: ODALIS : 1955 Requested by: Erica Fox Order Number: [id number] Reading MD: SEHELA GUILLEN Intervals [place] Rate: 75 P: 72 [place]: 192 QRS: 80 QRSD: 113 T: 71 QT: 425 QTc: 453 Interpretive Statements SINUS RHYTHM Electronically Signed On 05-04-17 16:01:32 CDT by SHEELA GUILLEN [email or web address]
[2017-05-03] MEDS: INSULIN GLARGINE 100 UNIT/ML SUBCUT SCH ×2 (09:19→21:39)
[2017-05-03] MEDS: INSULIN REGULAR 100 UNIT/ML SUBCUT SCH ×4 (09:19→21:39)
[2017-05-03] MEDS: CYANOCOBALAMIN 500 MCG TABLET PO SCH (09:21)
[2017-05-03] MEDS: FUROSEMIDE 40 MG/4 ML VIAL IV SCH (09:21)
[2017-05-03] MEDS: NEBIVOLOL 10 MG TABLET PO SCH (09:22)
[2017-05-03] MEDS: DOCUSATE SODIUM 100 MG CAPSULE PO SCH (09:22)
[2017-05-03] MEDS: ESCITALOPRAM 10 MG TABLET PO SCH (09:22)
[2017-05-03] MEDS: THEOPHYLLINE ER 300 MG TABLET PO SCH ×2 (09:22→16:53)
[2017-05-03] MEDS: FEXOFENADINE 180 MG TABLET PO SCH (09:22)
[2017-05-03] MEDS: MAGNESIUM OXIDE 400 MG TABLET PO SCH (09:23)
[2017-05-03] MEDS: GLIMEPIRIDE 2 MG TABLET PO SCH (09:23)
[2017-05-03] MEDS: CLOPIDOGREL 75 MG TABLET PO SCH (09:23)
[2017-05-03] MEDS: GABAPENTIN 600 MG TABLET PO SCH ×4 (09:23→21:37)
[2017-05-03] MEDS: PANTOPRAZOLE 40 MG TABLET PO SCH (09:23)
[2017-05-03] MEDS: CYCLOBENZAPRINE 10 MG TABLET PO SCH ×3 (09:23→21:37)
[2017-05-03] MEDS: LOSARTAN 25 MG TABLET PO SCH (09:23)
[2017-05-03] MEDS: ALPRAZolam 0.5 MG TABLET PO SCH ×2 (09:23→21:36)
[2017-05-03] MEDS: BISACODYL 5 MG TABLET PO SCH (09:23)
[2017-05-03] MEDS: TERBINAFINE 1% CREAM 12 GM TUBE TOP SCH ×2 (09:24→21:40)
[2017-05-03] MEDS: ASPIRIN EC 325 MG TABLET PO SCH (09:24)
[2017-05-03] MEDS: POLYETHYLENE GLYCOL POWDER 17 GM PACK PO SCH (09:24)
[2017-05-03] MEDS: BUDESONIDE/FORMOTEROL 160-4.5 INHALER 6 GM INH SCH ×2 (09:25→21:40)
[2017-05-03] MEDS ORDERED: BISACODYL 5 MG TABLET PO PRN (10:51)
[2017-05-03] MEDS ORDERED: MAGNESIUM HYDROXIDE SUSP 30 ML UDCUP PO ONE (10:51)
--- NOTE | 2017-05-03 12:24 | Cardiology Progress Note ---
<Moriah Prescott E - Last Filed: 05/03/17 12:24> Assessment and Plan - Time spent with patient Time spent with patient: Less than 30 minutes (1) Chest pain Status: Acute Assessment and plan: See plan of care listed below. Current Visit: Yes (2) Coronary artery disease involving [place] coronary artery Problem details: Status post PCI to mid LAD with subsequent in stent thrombosis from medication noncompliance. Status: Chronic Assessment and plan: See plan of care listed below. Current Visit: Yes (3) Chronic systolic CHF (congestive heart failure) Status: Chronic Current Visit: Yes (4) Hypertension Status: Chronic Assessment and plan: See plan of care listed below. Current Visit: Yes (5) Dyslipidemia Status: Chronic Assessment and plan: See plan of care listed below. Current Visit: Yes (6) Diabetes Status: Chronic Assessment and plan: See plan of care listed below. Current Visit: Yes (7) YOSHI (obstructive sleep apnea) Status: Chronic Assessment and plan: See plan of care listed below. Current Visit: Yes (8) Morbid obesity Status: Chronic Assessment and plan: See plan of care listed below. Current Visit: Yes (9) COPD exacerbation Status: Acute Assessment and plan: See plan of care listed below. Current Visit: Yes Cardiology - PN: Subj Interval history: [employer] Science Teacher: Dr. Daly PCP: Dr. Celaya SUMMARY: Ms. Roy is a 61 year old female who has a history of anxiety, ischemic cardiomyopathy, CHF, COPD, CAD, depression, YOSHI (uses CPAP nightly), IDDM, GERD, dyslipidemia, and hypertension. She was sent to the emergency department by her primary doctor on April 30 for further evaluation of increased dyspnea on exertion, episodes of chest discomfort with exertional component. She has been out of her Plavix for quite some time. She has a long history of noncompliance. She ruled out for OK but given her chest discomfort and increasing dyspnea on exertion, she was taken for left heart cath where she received successful drug-eluting stents to the proximal and mid RCA. She was found to have an EF of approximately 30-35% with anteroapical hypokinesis. MAY 03, 2017 UPDATE: She is somewhat improved but still very out of breath. Her right radial cath site is open to air and looks good. Right radial pulse is 2+. Vital signs are stable. Creatinine 1.4 today, troponin mildly bumped following PCI. ASSESSMENT/PLAN: 1. CHEST PAIN - She is now status post proximal and mid RCA stents. 2. CAD - Continue DAPT with aspirin and plavix. Continue beta alistair, ARB, and statin. 3. CHRONIC SYSTOLIC CHF - Echocardiogram from 05/02/2017 reveals EF 55% with mild LVH, much improved from previous. Ejection fraction was severely reduced after LAD stent thrombosis May 2015, but her EF improved to about 40% by echo in 2016. 4. HYPERTENSION - Currently well controlled. Will continue to monitor and adjust accordingly. 5. DYSLIPIDEMIA - Continue lipid lowering agent. 6. DIABETES MELLITUS - She is on Accu-Cheks before meals and at bedtime with sliding scale insulin. Will defer further management to hospital medicine. 7. OBSTRUCTIVE SLEEP APNEA - She has been seen by sleep medicine and is reported to have excellent compliance with her current BiPAP therapy has good control documented on compliance follow-up. 8. MORBID OBESITY - Chronic. 9. COPD EXACERBATION - She is on duonebs, steroids, and Levaquin. Exam (Progress Note) - Constitutional Vitals: Period Temp Pulse Resp BP Sys/Callahan Pulse Ox Last 24 Hr 96.3 F-97.9 F 68-86 16-20 97-127/47-75 94-99 Exam: General: Present: Appears Well, No Apparent Distress. Pleasant and cooperative. Appears comfortable. HEENT: Present: PERRL, Normocephaly, atraumatic. Mucus Membranes Moist. No jaundice noted. Conjunctiva moist and clear, sclerae anicteric Neck: Present: Supple Neck, Midline Trachea, No Masses, No Bruit, No tenderness Cardiac: Present: Regular Rate and Rhythm, No Murmur Lungs: Present: mild expiratory wheezes, otherwise clear to auscultation bilaterally, no rhonchi, rales. Neuro: Present: Awake, alert, and oriented x3. Moves all extremities well without hemiparesis or paralysis. Grossly Intact. Absent: Resting Tremor, Essential Tremor Abdomen: Present: Soft, Active Bowel Sounds, No Masses, Non-Tender, nondistended. No abdominal bruit or thrill noted. Skin: Present: Clear. Absent: Rash, No skin breakdown. Back: Normal inspection, no vertebral tenderness. Musculoskeletal: Present: No Fluid Collection, No Pain, Normal Range of Motion Extremities: Present: Normal Gait, No Clubbing, No Cyanosis, Upper Extr. Pulses 2+, Lower Extr. Pulses 2+, No edema. Capillary refill less than 3 seconds. Right radial cath site: no active bleeding or bruising, open to air, pulse 2+. Result/EKG - Labs CBC & BMP: 05/03/17 03:30 05/03/17 03:30 Lab Results: I have reviewed the past 24 hour labs Labs: Laboratory Results - last 24 hr 05/02/17 05/02/17 05/03/17 15:27 19:14 03:30 WBC 14.1 H RBC 4.25 Hgb 11.0 L Hct 34.1 L MCV 80.2 L MCH 26 L MCHC 32.3 RDW 14.5 Plt Count 352 MPV 10.0 Neut % (Auto) 90.6 H Lymph % (Auto) 4.3 L [place] % (Auto) 3.8 Eos % (Auto) 0.0 Baso % (Auto) 0.1 Neut # (Auto) 12.7 H Lymph # (Auto) 0.6 L [place] # (Auto) 0.5 Eos # (Auto) 0.0 Baso # (Auto) 0.0 Total Counted 100 Immature Gran % 1.2 Nucleated RBC % 0.0 Immature Gran # 0.17 Segmented Neutrophils 95 H Band Neutrophils 1 Lymphocytes 3 L Monocytes 1 L Nucleated RBCs # 0.00 Platelet Estimate Normal Hypochromasia 1+ Microcytosis 1+ Ovalocytes Slight Sodium Potassium Chloride Carbon Dioxide Anion Gap BUN Creatinine GFR Calculation BUN/Creatinine Ratio Glucose POC Glucose 185 H 292 H Calculated Osmolality Calcium Total Creatine Kinase CK-MB (CK-2) Troponin I 05/03/17 05/03/17 05/03/17 03:30 07:29 11:51 WBC RBC Hgb Hct MCV MCH MCHC RDW Plt Count MPV Neut % (Auto) Lymph % (Auto) [place] % (Auto) Eos % (Auto) Baso % (Auto) Neut # (Auto) Lymph # (Auto) [place] # (Auto) Eos # (Auto) Baso # (Auto) Total Counted Immature Gran % Nucleated RBC % Immature Gran # Segmented Neutrophils Band Neutrophils Lymphocytes Monocytes Nucleated RBCs # Platelet Estimate Hypochromasia Microcytosis Ovalocytes Sodium 134 L Potassium 4.4 Chloride 96 L Carbon Dioxide 26 Anion Gap 16.4 H BUN 35 H D Creatinine 1.40 H GFR Calculation 48 BUN/Creatinine Ratio 25.00 H Glucose 277 H POC Glucose 245 H 305 H Calculated Osmolality 285.2 Calcium 9.5 Total Creatine Kinase 151 D CK-MB (CK-2) 3.1 Troponin I 0.106 H D - EKG EKG results: interpreted by me, sinus rhythm <Emir Velazquez - Last Filed: 05/03/17 15:19> Assessment and Plan (1) Chest pain Status: Acute Current Visit: Yes (2) Chronic systolic CHF (congestive heart failure) Status: Chronic Current Visit: Yes (3) Morbid obesity Status: Chronic Current Visit: Yes (4) YOSHI (obstructive sleep apnea) Status: Chronic Current Visit: Yes (5) Diabetes Status: Chronic Current Visit: Yes (6) Dyslipidemia Status: Chronic Current Visit: Yes (7) Hypertension Status: Chronic Current Visit: Yes Exam (Progress Note) - Constitutional Vitals: Period Temp Pulse Resp BP Sys/Callahan Pulse Ox Last 24 Hr 96.3 F-97.8 F 74-86 16-20 97-126/47-75 94-99 Result/EKG - Labs CBC & BMP: 05/03/17 03:30 05/03/17 03:30 Labs: Laboratory Results - last 24 hr 05/02/17 05/02/17 05/03/17 15:27 19:14 03:30 WBC 14.1 H RBC 4.25 Hgb 11.0 L Hct 34.1 L MCV 80.2 L MCH 26 L MCHC 32.3 RDW 14.5 Plt Count 352 MPV 10.0 Neut % (Auto) 90.6 H Lymph % (Auto) 4.3 L [place] % (Auto) 3.8 Eos % (Auto) 0.0 Baso % (Auto) 0.1 Neut # (Auto) 12.7 H Lymph # (Auto) 0.6 L [place] # (Auto) 0.5 Eos # (Auto) 0.0 Baso # (Auto) 0.0 Total Counted 100 Immature Gran % 1.2 Nucleated RBC % 0.0 Immature Gran # 0.17 Segmented Neutrophils 95 H Band Neutrophils 1 Lymphocytes 3 L Monocytes 1 L Nucleated RBCs # 0.00 Platelet Estimate Normal Hypochromasia 1+ Microcytosis 1+ Ovalocytes Slight Sodium Potassium Chloride Carbon Dioxide Anion Gap BUN Creatinine GFR Calculation BUN/Creatinine Ratio Glucose POC Glucose 185 H 292 H Calculated Osmolality Calcium Total Creatine Kinase CK-MB (CK-2) Troponin I 05/03/17 05/03/17 05/03/17 03:30 07:29 11:51 WBC RBC Hgb Hct MCV MCH MCHC RDW Plt Count MPV Neut % (Auto) Lymph % (Auto) [place] % (Auto) Eos % (Auto) Baso % (Auto) Neut # (Auto) Lymph # (Auto) [place] # (Auto) Eos # (Auto) Baso # (Auto) Total Counted Immature Gran % Nucleated RBC % Immature Gran # Segmented Neutrophils Band Neutrophils Lymphocytes Monocytes Nucleated RBCs # Platelet Estimate Hypochromasia Microcytosis Ovalocytes Sodium 134 L Potassium 4.4 Chloride 96 L Carbon Dioxide 26 Anion Gap 16.4 H BUN 35 H D Creatinine 1.40 H GFR Calculation 48 BUN/Creatinine Ratio 25.00 H Glucose 277 H POC Glucose 245 H 305 H Calculated Osmolality 285.2 Calcium 9.5 Total Creatine Kinase 151 D CK-MB (CK-2) 3.1 Troponin I 0.106 H D
--- NOTE | 2017-05-03 13:58 | Hospitalist Progress Note ---
Assessment and Plan (1) COPD exacerbation Status: Acute Assessment and plan: cont duonebs, increased steroids, Levaquin, asking Dr. Bryson to see her. Also on her p.o. theophylline Current Visit: Yes (2) Chest pain Status: Acute Assessment and plan: Status post heart cath put 2 stents in RCA Current Visit: Yes (3) Chronic systolic CHF (congestive heart failure) Status: Chronic Assessment and plan: Echocardiogram showed an EF of 55% with no diastolic dysfunction, doubt she really has congestive heart failure. Had to stop Lasix due to dehydration to the kidneys.. Current Visit: Yes (4) Hypertension Status: Acute Assessment and plan: controlled Current Visit: No (5) YOSHI (obstructive sleep apnea) Status: Chronic Assessment and plan: cont bipap at night Current Visit: Yes (6) Morbid obesity Status: Chronic Assessment and plan: needs to lose weight Current Visit: Yes (7) Diabetes Status: Chronic Assessment and plan: bs alittle high due to steroids, hgb A1c 6.4 Current Visit: Yes Hospitalist: Subjective Interval history: Patient seems worse today. She does not feel good she does not seem to be able to breathe well. She did wear her bPAP last night. I have asked Dr. Bryson from pulmonary to see her. I will also increase her steroids. She is still very constipated and has not had a bowel movement in several days. Exam - Constitutional Vitals: Period Temp Pulse Resp BP Sys/Callahan Pulse Ox Last 24 Hr 96.3 F-97.8 F 74-86 16-20 97-126/47-75 94-99 Exam: Heart Rate-[RRR] Lungs-[diminished, tight some wheezing] GI-[+bs soft, NT] Ext-[no edema] Neuro [Motor 5/5], [alert and oriented times 3] psych [normal mood and affect] General [mild acute distress] Results - Labs CBC & BMP: 05/03/17 03:30 05/03/17 03:30 Lab Results: I have reviewed the past 24 hour labs
--- NOTE | 2017-05-03 14:08 | EKG Report ---
Stationary ECG Study [facility] Test Date: 05/03/2017 2:10:10 PM Pat Name: JOSTIN BOWER Department: Room: 265 Gender: F Campus Administrator: : 1955 Requested by: Tamie Liriano Order Number: [id number] Reading MD: SHEELA GUILLEN Intervals [place] Rate: 77 P: 51 [place]: 185 QRS: 55 QRSD: 105 T: 46 QT: 432 QTc: 464 Interpretive Statements SINUS RHYTHM LOW QRS VOLTAGE IN PRECORDIAL LEADS Electronically Signed On 05-04-17 16:10:53 CDT by SHEELA GUILLEN [email or web address]
[2017-05-03] MEDS: methylPREDNISolone SOD SUC 125 MG/2 ML VIAL IV SCH ×2 (14:55→21:37)
--- NOTE | 2017-05-03 15:44 | Pulmonology Consult Note ---
Assessment and Plan (1) Ischemic cardiomyopathy Status: Acute Assessment and plan: The patient had a cardiac catheterization and has an ischemic cardiomyopathy. Ejection fraction was about 35%. Current Visit: Yes (2) Hypertension Status: Chronic Assessment and plan: The patient's blood pressure is under control. Current Visit: Yes (3) Hyperlipidemia Status: Chronic Assessment and plan: She will continue present medicines. Current Visit: No (4) Diabetes Status: Chronic Assessment and plan: Her glucose is around 300 while she is on steroids. Current Visit: Yes (5) Tobacco use Status: Chronic Assessment and plan: I will put her on a nicotine patch. Current Visit: No (6) YOSHI (obstructive sleep apnea) Status: Chronic Assessment and plan: The patient apparently was using BiPAP fairly regularly. Current Visit: Yes (7) COPD exacerbation Status: Acute Assessment and plan: The patient is having more shortness of breath and this certainly may be related to her COPD. She says she was taken Breo at one time and it helped a lot. She can probably start this back up when she goes home. She is getting some steroids and bronchodilators now. Current Visit: Yes History of Present Illness Chief complaint: Shortness of breath History of present illness: Ms. Roy is a 61 year old white female that has a history of having COPD along with coronary artery disease and is obese with obstructive sleep apnea she is a diabetic with hypertension and hyperlipidemia. She came into the emergency room with worsening shortness of breath and some vague chest pain. She went to the catheterization lab and had 2 stents placed in her right coronary artery. She has had a previous stent in the LAD that was open. She has an ejection fraction of 35%. She did fairly well with the procedure. She is still short of breath. She has continues to smoke up until admission. I think she may run out of some of her medicines also. She used to see Dr. Nguyễn but has not seen anybody since last year. She apparently has used oxygen in the past and feels like she needs it when she exerts herself any. Home Medications Medication Instructions Recorded Confirmed Type Clopidogrel [Plavix] 75 mg PO DAILY #30 tablet 06/06/15 05/01/17 Rx Nitroglycerin [Nitroglycerin SL 0.4 mg SL Q5M PRN 07/14/15 05/01/17 History Tab] metFORMIN [Glucophage] 1,000 mg PO BID W/MEALS #0 07/15/15 05/01/17 Rx Budesonide/Formoterol 160-4.5 2 puff INH BID 10/21/15 05/01/17 History [Symbicort 160-4.5] FLUoxetine [PROzac] 20 mg PO BEDTIME 10/21/15 05/01/17 History Aspirin EC Tab 325 mg PO DAILY tablet 11/02/15 05/01/17 Rx Atorvastatin [Lipitor] 20 mg PO BEDTIME tablet 11/02/15 11/13/16 Rx HYDROcodone/ACETAMIN 10-325 [[place] 1 tablet PO Q6H PRN #0 tablet 11/02/15 Rx 10-325] Insulin Regular [HumuLIN R] See Protocol SUBCUT ACHS injection 11/02/15 Rx Losartan [Cozaar] 25 mg PO DAILY tablet 11/02/15 05/01/17 Rx Pantoprazole Tab [Protonix Tab] 40 mg PO DAILY tablet 11/02/15 11/13/16 Rx Furosemide Tab [Lasix Tab] 80 mg PO BID DIURETIC #60 tablet 01/29/16 05/01/17 Rx Ipratropium/Albuterol Inhaler 1 puff INH QID #1 inhaler 01/29/16 11/13/16 Rx [Combivent Respimat Inhaler] Nebivolol HCl [Bystolic] 20 mg PO DAILY 11/13/16 05/01/17 History Albuterol Neb [Proventil Neb] 2.5 mg RESP TX BID #0 nebulization 11/21/16 Rx solution predniSONE TAB [PredniSONE] 10 mg PO QAM 04/30/17 History ALPRAZolam [Xanax] 0.5 mg PO BID 05/01/17 05/01/17 History Cyanocobalamin (Vitamin B-12) 2,000 mcg PO DAILY 05/01/17 05/01/17 History [Vitamin B-12] Cyclobenzaprine [Flexeril] 10 mg PO TID 05/01/17 05/01/17 History Escitalopram [Lexapro] 10 mg PO DAILY 05/01/17 05/01/17 History Gabapentin Cap/Tab [Neurontin 600 mg PO QID 05/01/17 05/01/17 History Cap/Tab] Glimepiride 2 mg PO DAILY 05/01/17 05/01/17 History Insulin Glargine [Lantus] 10 unit SUBCUT BID 05/01/17 05/01/17 History Magnesium Oxide 400 mg PO DAILY 05/01/17 05/01/17 History Omeprazole 20 mg PO AC BREAKFAST 05/01/17 05/01/17 History Potassium Chloride [K-Tab ER] 20 meq PO DAILY W/BREAKFAST 05/01/17 05/01/17 History Theophylline ER Cap (24 Hr) 300 mg PO BID 05/01/17 05/01/17 History [Elian-24] Allergies Allergy/AdvReac Type Severity Reaction Status Date / Time nylon sutures Allergy RASH Uncoded 06/14/15 12:04 plastic tape Allergy RASH Uncoded 06/14/15 12:04 - Constitutional Constitutional: Present: chills, fatigue, weight gain. Absent: night sweats - EENT Eyes: Absent: loss of vision Ears: Present: decreased hearing Nose, mouth and throat: Absent: dysphagia, headache(s), sinus pressure - Cardiovascular Cardiovascular: Present: chest pain at rest, chest pain with activity, dyspnea, dyspnea on exertion, edema, orthopnea - Respiratory Respiratory: Present: cough, dyspnea, wheezing. Absent: hemoptysis, change in phlegm color - Gastrointestinal Gastrointestinal: Present: abdominal pain, constipation. Absent: dysphagia, heartburn, nausea, vomiting - Genitourinary Genitourinary: Absent: difficulty urinating, dysuria, hematuria, urinary frequency - Musculoskeletal Musculoskeletal: Present: arthralgias, back pain. Absent: muscle weakness - Neurological Neurological: Absent: abnormal speech, focal weakness, paresthesias - Psychiatric Psychiatric: Absent: anxiety, depression - Endocrine Endocrine: Absent: cold intolerance, heat intolerance, polydipsia - Hematologic/Lymphatic Hematologic/Lymphatic: Absent: easy bruising Exam (Pulmonay) H&P - Constitutional Vitals: Period Temp Pulse Resp BP Sys/Callahan Pulse Ox Last 24 Hr 96.3 F-97.8 F 74-86 16-20 99-126/47-75 94-99 General appearance: no acute distress (She is mildly tachypneic lying in bed.), over weight - Head Head exam: Present: normal inspection, normocephalic - Eye Eye exam: Present: EOMI. Absent: nystagmus, scleral icterus Pupils: Present: ROSETTA - ENT ENT exam: Present: normal exam - Neck Neck exam: Present: normal inspection. Absent: lymphadenopathy, thyromegaly - Respiratory Respiratory exam: Present: decreased breath sounds, prolonged expiratory phase, rhonchi - Cardiovascular Cardiovascular exam: Present: regular rate and rhythm. Absent: gallop, systolic murmur - GI/Abdominal GI/Abdominal exam: Present: distended, hypoactive bowel sounds, soft. Absent: organomegaly, tenderness - Extremities Exam Extremities exam: Present: edema (She has trace ankle edema). Absent: calf tenderness - Neurological Exam Neurological exam: Present: alert, oriented X3, CN II-XII intact - Psychiatric Psychiatric exam: Present: normal affect, normal mood - Skin Skin exam: Present: warm, dry Medical,Surgical,& Family Hx - Medical History Cardio: History of: CHF, CAD, Hypertension, MA, Cardiovascular Problems No history of: Aneurysm, Cardiac Dysrhythmia, Cerebrovascular Disease, Congenital Heart Disease, Pacemaker, PVD, Valvular Heart Disease Psychological: History of: Anxiety Disorders, Depression Neurology: No history of: Seizures Endocrine: History of: Diabetes Mellitus (IDDM), Dyslipidemia Rheumatology: No history of;: Fibromyalgia, Gout, Myasthenia Gravis, Rheumatoid Arthritis, Rheumatological Problems Respiratory: History of: COPD No history of: Asthma, Bronchitis, Intubation, Obstructive Sleep Apnea, Pulmonary Embolism, Pulmonary Hypertension, Pneumonia, Lung Cancer, Respiratory Problems Gastrointestinal: History of: GERD, GI Problems (Peptic Ulcer) No history of: Bowel Obstruction, Clostridium Difficile, Crohn's Disease, Diverticulitis/ Diverticulosis, Esophageal Varices, Gastrointestinal Bleed, Hemorrhoids, Hematochezia, Hepatitis, Liver Problems, Pancreatitis, Polyps, Ulcerative Colitis, Gastrointestinal Cancer Musculoskeletal: History of: Back/Neck Problems (chronic back pain) No history of: Amputation, Degenerative Disk Disease, Herniated Disk, Osteoporosis, Musculoskeletal Cancer, Musculoskeletal Problems - Surgical History Cardiac Surgeries: Sugical HX of: Cardiac Catheterization (stents) Patient Denies: Femoral-Popliteal Bypass Graft, Cardiac Surgery, Carotid Endarterectomy, Internal Defibrillator, Vascular Access Devices Thoracic Surgeries: Patient denies;: Kidney (Renal Surgery), Lithotripsy, Nephrectomy, Lobectomy Neurologic Surgeries: Patient denies: Neurologic Surgery HEENT Surgeries: Surgical HX of: Tonsilectomy & Adenoidectomy Patient denies: Carotid Endarterectomy Abdominal Surgeries: Patient denies: Abdominal Surgery, Appendectomy, Cholecystectomy, Colonoscopy , Gastric Bypass Surgery, EGD, Hernia Repair, Splenectomy Reproductive Surgeries: Surgical HX of;: Breast Surgery (Breast Reduction), Hysterectomy Patient denies;: Section, Cystoscopy, Dilation and Curettage, Genitourinary Surgery, Gynecologic Surgery, Tubal Ligation Orthopedic Surgeries: Surgical HX of;: Orthopedic Surgery (Left knee, left ankle ) Patient denies;: Implanted Devices - Family History Family History: Reports;: Family Diabetes (Mother's siblings), Family Heart Disease (Mother's siblings), Family Hypertension (Father mother siblings) - Social History Smoking Status: Current every day smoker (Smokes 3 cigarettes a day for about 15 years) Frequency of Alcohol Use: None Type of Drug Use: None Results - Labs CBC & BMP: 05/03/17 03:30 05/03/17 03:30 - Diagnostic Findings Procedure: Chest x-ray: image reviewed by me, report reviewed by me (Chest x- ray shows mild cardiomegaly but no overt heart failure. There does not like COPD changes)
[2017-05-03] MEDS: NICOTINE 14 MG/24 HR PATCH TRANSDERM SCH (16:52)
[2017-05-03] MEDS: ENOXAPARIN 40 MG/0.4 ML SYRINGE SUBCUT SCH (21:36)
[2017-05-03] MEDS: ATORVASTATIN 80 MG TABLET PO SCH (21:37)
[2017-05-03] MEDS: LEVOFLOXACIN INJ 750 MG in PREMIX 1 EACH IV SCH (21:38)
[2017-05-04] MEDS: ALBUTEROL/IPRATROPIUM 3 ML NEB RESP TX SCH ×3 (01:04→12:59)
[2017-05-04] MEDS: methylPREDNISolone SOD SUC 125 MG/2 ML VIAL IV SCH ×3 (02:19→14:20)
[2017-05-04] MEDS: POLYETHYLENE GLYCOL POWDER 17 GM PACK PO SCH (08:29)
[2017-05-04] MEDS: NICOTINE 14 MG/24 HR PATCH TRANSDERM SCH (08:29)
[2017-05-04] MEDS: NEBIVOLOL 10 MG TABLET PO SCH (08:31)
[2017-05-04] MEDS: PANTOPRAZOLE 40 MG TABLET PO SCH (08:31)
[2017-05-04] MEDS: GABAPENTIN 600 MG TABLET PO SCH ×2 (08:31→12:57)
[2017-05-04] MEDS: CYANOCOBALAMIN 500 MCG TABLET PO SCH (08:31)
[2017-05-04] MEDS: GLIMEPIRIDE 2 MG TABLET PO SCH (08:31)
[2017-05-04] MEDS: LOSARTAN 25 MG TABLET PO SCH (08:32)
[2017-05-04] MEDS: ALPRAZolam 0.5 MG TABLET PO SCH (08:32)
[2017-05-04] MEDS: THEOPHYLLINE ER 300 MG TABLET PO SCH (08:32)
[2017-05-04] MEDS: CLOPIDOGREL 75 MG TABLET PO SCH (08:32)
[2017-05-04] MEDS: ESCITALOPRAM 10 MG TABLET PO SCH (08:32)
[2017-05-04] MEDS: MAGNESIUM OXIDE 400 MG TABLET PO SCH (08:32)
[2017-05-04] MEDS: ASPIRIN EC 325 MG TABLET PO SCH (08:32)
[2017-05-04] MEDS: FEXOFENADINE 180 MG TABLET PO SCH (08:32)
[2017-05-04] MEDS: INSULIN REGULAR 100 UNIT/ML SUBCUT SCH ×2 (08:34→12:57)
[2017-05-04] MEDS: TERBINAFINE 1% CREAM 12 GM TUBE TOP SCH (08:34)
[2017-05-04] MEDS: BUDESONIDE/FORMOTEROL 160-4.5 INHALER 6 GM INH SCH (08:35)
[2017-05-04] MEDS: INSULIN GLARGINE 100 UNIT/ML SUBCUT SCH (08:48)
[2017-05-04] MEDS: CYCLOBENZAPRINE 10 MG TABLET PO SCH (08:48)
[2017-05-04] MEDS: BISACODYL 5 MG TABLET PO SCH (08:48)
--- NOTE | 2017-05-04 11:03 | Pulmonology Progress Note ---
Pulmonary - PN: Subj Interval history: The patient is a 61-year-old white lady that has COPD she is overweight with sleep apnea. She is a diabetic with hypertension and hyperlipidemia. She has no heart disease. She had some stents done this week has an ejection fraction of 35%. She comes in with shortness of breath but she seems better today. She still is short of breath at times but is stable. She says she wants to try to go home. Exam (Progress Note) - Constitutional Vitals: Period Temp Pulse Resp BP Sys/Callahan Pulse Ox Last 24 Hr 96.6 F-97.9 F 78-97 16-20 96-126/48-67 92-99 Exam: General appearance: no acute distress (She looks more comfortable today with less shortness of breath. ) - Head Head exam: Present: normal inspection, normocephalic - Eye Eye exam: Present: EOMI. Absent: nystagmus, scleral icterus Pupils: Present: ROSETTA - ENT ENT exam: Present: normal exam - Neck Neck exam: Present: normal inspection. Absent: lymphadenopathy, thyromegaly - Respiratory Respiratory exam: Present: She has fair breath sounds bilaterally but she is not wheezing. She is moving air okay. - Cardiovascular Cardiovascular exam: Present: regular rate and rhythm. Absent: gallop, systolic murmur - GI/Abdominal GI/Abdominal exam: Present: distended, hypoactive bowel sounds, soft. Absent: organomegaly, tenderness - Extremities Exam Extremities exam: Present: edema (She has trace ankle edema). Absent: calf tenderness - Neurological Exam Neurological exam: Present: alert, oriented X3, CN II-XII intact - Psychiatric Psychiatric exam: Present: normal affect, normal mood - Skin Skin exam: Present: warm, dry Results - Labs CBC & BMP: 05/03/17 03:30 05/03/17 03:30 Assessment and Plan (1) Ischemic cardiomyopathy Status: Acute Assessment and plan: The patient had a cardiac catheterization and has an ischemic cardiomyopathy. Ejection fraction was about 35%. She certainly will need to watch for heart failure. Current Visit: Yes (2) Hypertension Status: Chronic Assessment and plan: The patient's blood pressure is under control. Current Visit: Yes (3) Hyperlipidemia Status: Chronic Assessment and plan: She will continue present medicines. Current Visit: No (4) Diabetes Status: Chronic Assessment and plan: Her glucose is around 288 and she is getting some steroids. Current Visit: Yes (5) Tobacco use Status: Chronic Assessment and plan: I will put her on a nicotine patch. Current Visit: No (6) YOSHI (obstructive sleep apnea) Status: Chronic Assessment and plan: The patient apparently was using BiPAP fairly regularly. Current Visit: Yes (7) COPD exacerbation Status: Acute Assessment and plan: The patient is having more shortness of breath and this certainly may be related to her COPD. She says she was taken Breo at one time and it helped a lot. She can probably start this back up when she goes home. She is getting some steroids and bronchodilators now. She says she is feeling better and she can go home and we can follow her in the office. Current Visit: Yes Specialty Discharge - Follow Up or Referrals
--- NOTE | 2017-05-04 11:19 | Discharge Summary ---
<Kimani Myrick - Last Filed: 05/04/17 11:09> Hospital Course - Hospital Course Hospital Course: Ms. Alegria is a 61-year-old obese white female with past medical history significant for hypertension, diabetes, CAD with stent placement, COPD and tobacco use who presented to the [facility] ED on 04/30/2017 from her primary care doctor for further evaluation of shortness of breath and chest pain with onset that morning. Patient is notoriously noncompliant with her medications. At a doctor's visit that morning she was found to be severely short of breath and transferred to our service for further evaluation and treatment. On admission, chest x-ray was suspicious for interstitial pulmonary edema consistent with acute on chronic systolic congestive heart failure, labs were remarkable for glucose of 108, however her EKG was unremarkable. During hospitalization she was seen by cardiology, pulmonology and sleep medicine. Given her chest discomfort and increasing NAM the patient underwent a left heart catheterization on 05/02/2017. [facility] impressions were as follows: 1. Successful percutaneous coronary intervention to the proximal and right coronary artery with a 3.0 x 12 mm Xience alpine drug-eluting stent. 2. Successful percutaneous coronary intervention to the mid right coronary artery with a 3.0 x 18 mm Xience alpine drug-eluting stent. 3. The previously placed left anterior descending stent is widely patent. 4. There is residual disease in the branch of the obtuse marginal and the diagonal as described above. I suspect both of these would be somewhat difficult interventions. 5. Severe ischemic cardiomyopathy with ef of 30%. Echocardiogram revealed reasonable LV function with ejection fraction estimated to be 45-65% without any significant valvular abnormalities present. Patient was evaluated by sleep medicine who commented that the patient has excellent compliance with her current BiPAP therapy and has good control documented on compliance follow-up. She should continue on present BiPAP therapy. Pulmonology saw the patient for management of COPD exacerbation. Patient was continued on steroids and bronchodilators while hospitalized. She can restart symbicort once discharged. Patient blood sugar was noted to be little elevated due to steroid usage. Hemoglobin A1c was documented to be 6.4. Dr. Pearson was consulted and has seen her. Venous Dopplers were negative. Patient continues to be extremely short of breath. We had to stop her Lasix due to dehydration affecting her kidneys. She will continue on Lasix tomorrow. I am doing a chest CT just to make sure she does not have a PE and to look at the architecture of her lungs. She is morbidly obese which is contributing to her shortness of breath. at this time the patient has reached maximum benefit from hospitalization and is stable for discharge. She is to follow-up with cardiology in 1-2 weeks for incision check. She is to follow with her PCP in 1- 2 weeks. Patient seen and examined hospital course reviewed and edited. - Time spent with patient Time with patient DS: Greater than 30 minutes Diagnosis - Discharge Diagnosis (1) COPD exacerbation Status: Acute (2) Chronic systolic CHF (congestive heart failure) Status: Chronic (3) Hypertension Status: Acute (4) Peripheral edema Status: Acute (5) Insulin dependent diabetes mellitus Status: Acute (6) YOSHI (obstructive sleep apnea) Status: Chronic (7) Morbid obesity Status: Chronic (8) Tobacco use Status: Chronic (9) Medical non-compliance Status: Chronic Specialty Discharge - Follow Up or Referrals Discharge Plan - Discharge Data Disposition: Home Health Service - Discharge Medications New Albuterol/Ipratropium Neb [Duoneb] 3 ml RESP TX RT Q6H #120 vial Continue Clopidogrel [Plavix] 75 mg PO DAILY #30 tablet Budesonide/Formoterol 160-4.5 [Symbicort 160-4.5] 2 puff INH BID FLUoxetine [PROzac] 20 mg PO BEDTIME Aspirin EC Tab 325 mg PO DAILY tablet Losartan [Cozaar] 25 mg PO DAILY tablet Atorvastatin [Lipitor] 20 mg PO BEDTIME tablet HYDROcodone/ACETAMIN 10-325 [[place] 10-325] 1 tablet PO Q6H PRN #0 tablet PRN Reason: Pain Moderate (4-7) Pantoprazole Tab [Protonix Tab] 40 mg PO DAILY tablet Ipratropium/Albuterol Inhaler [Combivent Respimat Inhaler] 1 puff INH QID #1 inhaler Nebivolol HCl [Bystolic] 20 mg PO DAILY Cyclobenzaprine [Flexeril] 10 mg PO TID Potassium Chloride [K-Tab ER] 20 meq PO DAILY W/BREAKFAST Theophylline ER Cap (24 Hr) [Elian-24] 300 mg PO BID Cyanocobalamin (Vitamin B-12) [Vitamin B-12] 2,000 mcg PO DAILY Magnesium Oxide 400 mg PO DAILY Gabapentin Cap/Tab [Neurontin Cap/Tab] 600 mg PO QID ALPRAZolam [Xanax] 0.5 mg PO BID Escitalopram [Lexapro] 10 mg PO DAILY Glimepiride 2 mg PO DAILY Changed Insulin Glargine [Lantus] 15 unit SUBCUT BID #100 ml predniSONE TAB [PredniSONE] 20 mg PO QAM #20 tablet Furosemide Tab [Lasix Tab] 40 mg PO BID DIURETIC #60 tablet Discontinued Nitroglycerin [Nitroglycerin SL Tab] 0.4 mg SL Q5M PRN PRN Reason: Chest Pain metFORMIN [Glucophage] 1,000 mg PO BID W/MEALS #0 Insulin Regular [HumuLIN R] See Protocol SUBCUT ACHS injection Albuterol Neb [Proventil Neb] 2.5 mg RESP TX BID #0 nebulization solution Omeprazole 20 mg PO AC BREAKFAST - Follow Up or Referral Follow Up: Krysta Celaya M.D. [Primary Care Provider] - 1 Week Lee Pearson MD [Physician] - 2 Weeks - Forms/Instructions Instructions: Heart Failure (INNA)[facility] Cardiac Catheterization Instructions -Radial Artery Exam - Constitutional Vitals: Period Temp Pulse Resp BP Sys/Callahan Pulse Ox Last 24 Hr 96.6 F-97.9 F 78-97 16-20 96-126/48-67 92-99 Discharge Results Labs on day of discharge: Labs from last 24 hours 05/04/17 05/03/17 05/03/17 07:58 19:38 15:31 POC Glucose 288 H 257 H 263 H 05/03/17 11:51 POC Glucose 305 H DS: Provider Date of admission: 04/30/17 18:27 Primary care physician: Krysta Celaya M.D. Attending physician on admission: Ramy Adam MD Consults: 04/30/17 20:15 Consult to Physician [CONS] Routine Comment: chest pain Consulting Provider: Emir Velazquez When should Consulting Provider be notified: In am Consult to Specialist Group: Cardiology Person Notified: autumn Date Notified: 05/01/17 Time Notified: 08:55 04/30/17 20:48 Consult to Sleep Center [CONS] Routine Reason for Sleep Center: Technologist Assist Consult Comment: verify compliance 05/03/17 10:52 Consult to Physician [CONS] Routine Comment: copd exacerbation Consulting Provider: Lee Pearson When should Consulting Provider be notified: Now Consult Notification Comment: left message at 10:35 05/04/17 11:14 Consult to Case Mgmt/Social Srvs [CONS] Routine Reason for Case Mgmt/Social Srvs: Home Health 05/04/17 11:15 Consult to Case Mgmt/Social Srvs [CONS] Routine Reason for Case Mgmt/Social Srvs: Equipment Consult Comment: bedside commode,shower chair, lightweight wheel chair for home use 05/04/17 11:16 Consult to Case Mgmt/Social Srvs [CONS] Routine Reason for Case Mgmt/Social Srvs: Equipment Consult Comment: O2 at 2lpm for home use Discharging clinician: Kimani GOMEZ Expected date of discharge: 05/04/17 <Tamie Gil - Last Filed: 05/04/17 12:34> Hospital Course - Time spent with patient Time with patient DS: Greater than 30 minutes (50 min) Diagnosis - Discharge Diagnosis (1) COPD exacerbation Status: Acute (2) Chest pain Status: Acute (3) Chronic systolic CHF (congestive heart failure) Status: Chronic (4) Hypertension Status: Acute (5) YOSHI (obstructive sleep apnea) Status: Chronic (6) Morbid obesity Status: Chronic (7) Diabetes Status: Chronic Discharge Plan - Discharge Data Condition at Discharge: Stable Discharge Diet: diabetic diet Activity: resume usual activities as tolerated, wear oxygen at all times Hygiene: no restrictions Weight Bearing at Discharge: full weight bearing - Forms/Instructions Additional Discharge Instructions: discharge home after I review chest ct. Fluid restrictions 1500 ml daily, no salt. Oxygen at 2 liters NC Exam - Constitutional General appearance: no acute distress, morbidly obese - Respiratory Respiratory exam: Present: clear to auscultation bilaterally, decreased breath sounds, wheezes - Cardiovascular Cardiovascular exam: Present: regular rate and rhythm. Absent: systolic murmur - GI/Abdominal GI/Abdominal exam: Present: normal bowel sounds, soft. Absent: tenderness - Extremities Exam Extremities exam: Present: normal capillary refill, edema - Neurological Exam Neurological exam: Present: alert, oriented X3 - Psychiatric Psychiatric exam: Present: normal affect, normal mood
[2017-05-04 12:28] VITALS: BP 133/79
--- NOTE | 2017-05-04 14:01 | CT Report ---
History: Shortness of breath Date: 05/04/2017 Study: CT chest with IV contrast with pulmonary embolus technique Comparison exam: No previous similar study Spiral CT sections were obtained through the lungs following the IV administration of 80 mL of Omnipaque 350 without immediate complication. Multiplanar reconstruction images are also evaluated. There is no discrete filling defect within the pulmonary arterial tree to suggest acute pulmonary embolic disease. There is no thoracic aortic aneurysm or dissection. There is prominent coronary artery calcification with calcification of the left main, left anterior descending, left circumflex, and right coronary arteries. There is no pleural or pericardial effusion. There is no mediastinal mass. There is no mediastinal lymphadenopathy. There is some occasional mild scattered bilateral strandy and hazy subsegmental atelectasis or scarring. There is a calcified granuloma measuring 8 mm in the right lower lobe. There is mild to moderate thoracic spondylosis. There is no definite acute abnormality of the partially visualized upper abdomen. Impression: No evidence of acute pulmonary embolic disease. There is prominent coronary artery calcification Minor scattered subsegmental atelectasis and/or scarring in the lungs PROCEDURE INTERPRETED AT [facility] DEPARTMENT OF RADIOLOGY Final Report Signed by: Dr. Danette Santana
== END 2017-05-04 16:10 | disposition home health service (06) | DRG 175 ==
LOC: EDUNIT# → EDBD → N.ED 16:18 → SUATTDRO 18:27 → N.EDINP 18:27 → N.TELES 19:34
PROVIDERS: ADMIT Internal Medicine; ATTEND Internal Medicine
PROC: CLCCHCL (ICD-10-PCS; 2017-05-02 08:45)

== ENCOUNTER 2017-06-05 15:59 | Inpatient (IN) ==
[2017-06-05] MEDS ORDERED: ONDANSETRON 4 MG/2 ML VIAL IV STA (16:52)
[2017-06-05] MEDS ORDERED: ASPIRIN 325 MG TABLET PO STA (16:52)
[2017-06-05] MEDS ORDERED: METOPROLOL TARTRATE 5 MG/5 ML VIAL IV STA (16:52)
[2017-06-05] MEDS ORDERED: NITROGLYCERIN 2% OINT 1 INCH/GM PACK TOP STA (16:54)
--- NOTE | 2017-06-05 16:57 | EKG Report ---
Stationary ECG Study [facility] ER Test Date: 06/05/2017 4:52:44 PM Pat Name: JOSTIN BOWER Department: Room: Gender: F Respiratory Physician: ANOOP Cohen : [id number] Requested by: Baljinder Roberts Order Number: [id number] Reading MD: BETHANY AWAD Intervals Webb Rate: 65 P: 58 MI: 192 QRS: 28 QRSD: 108 T: 18 QT: 397 QTc: 409 Interpretive Statements SINUS RHYTHM WITH SINUS ARRHYTHMIA POSSIBLE ANTEROLATERAL MYOCARDIAL INFARCTION, OLD Electronically Signed On 06-06-17 07:11:45 CDT by BETHANY AWAD [email or web address]
--- NOTE | 2017-06-05 16:58 | Emergency Department Note ---
Arrival - Arrival Chief Complaint: Chest Pain Stated Complaint: chest pains/sob/left arm pain ED Nursing Triage Note: CP OFF/ON FOR PAST WEEK WITH INCREASED SOB, +NAUSEA,+ DIAPHORESIS Mode of Arrival: Wheelchair Limitations: No Limitations Source: Patient Time Seen by Provider: 06/05/17 16:52 - History of Present Illness HPI Narrative: This 61-year-old white female presents with a history of high left chest pain associated with shortness of breath and diaphoresis. Patient denies nausea or vomiting in association with this nor any wheezing, cough, chills, fever, or purulence. Patient has a history of coronary artery disease with multiple stents most recently per Dr. Mensah in the last month. She states she has been compliant with her medication but has had increasing breathlessness over the last several days leading up to the incident today. At no time has she had any chest pain since the stent was placed until today. Onset (ago): hour(s) (Patient presents 8 hours post onset of symptoms) Allergies/Adverse Reactions: Allergies Allergy/AdvReac Type Severity Reaction Status Date / Time nylon sutures Allergy RASH Uncoded 06/05/17 16:38 plastic tape Allergy RASH Uncoded 06/05/17 16:38 Home Medications: Home Medications Medication Instructions Recorded Confirmed Type Budesonide/Formoterol 160-4.5 2 puff INH BID 10/21/15 06/05/17 History [Symbicort 160-4.5] Ipratropium/Albuterol Inhaler 1 puff INH QID #1 inhaler 01/29/16 06/05/17 Rx [Combivent Respimat Inhaler] Nebivolol HCl [Bystolic] 20 mg PO QAM 11/13/16 06/05/17 History Cyanocobalamin (Vitamin B-12) 2,000 mcg PO QAM 05/01/17 06/05/17 History [Vitamin B-12] Cyclobenzaprine [Flexeril] 10 mg PO TID PRN 05/01/17 06/05/17 History Gabapentin Cap/Tab [Neurontin 600 mg PO QID 05/01/17 06/05/17 History Cap/Tab] Glimepiride 2 mg PO QAM 05/01/17 06/05/17 History Albuterol/Ipratropium Neb [Duoneb] 3 ml RESP TX RT Q6H #120 vial 05/04/17 Rx Furosemide Tab [Lasix Tab] 40 mg PO BID DIURETIC #60 tablet 05/04/17 06/05/17 Rx Albuterol Inhaler [Proventil 2 puff INH Q4H PRN 06/05/17 06/05/17 History Inhaler] Aspirin EC Tab 325 mg PO QAM 06/05/17 06/05/17 History Atorvastatin [Lipitor] 40 mg PO BEDTIME 06/05/17 06/05/17 History Clopidogrel [Plavix] 75 mg PO QAM 06/05/17 06/05/17 History Fluoxetine HCl [Prozac] 40 mg PO BEDTIME 06/05/17 06/05/17 History HYDROcodone/ACETAMIN 10-325 [[place] 1 tablet PO BID 06/05/17 06/05/17 History 10-325] Insulin Glargine [Lantus] 15 unit SUBCUT QPM 06/05/17 06/05/17 History Insulin Glargine,Hum.rec.anlog 10 unit SUBCUT QAM 06/05/17 06/05/17 History [Lantus SoloStar] Losartan Potassium 100 mg PO QAM 06/05/17 06/05/17 History Omeprazole 20 mg PO QAM 06/05/17 06/05/17 History Potassium Chloride Cap/Tab [K Dur] 20 meq PO QAM 06/05/17 06/05/17 History Review of System - Review of System 12 point system: reviewed and no additional remarkable complaints except as stated - Review of System Constitutional: Present: as per HPI Respiratory: Present: as per HPI Cardiovascular: Present: as per HPI Gastrointestinal: Present: as per HPI Medical,Surgical,& Family Hx - Medical History Cardio: History of: CHF, CAD, Hypertension, GA, Cardiovascular Problems No history of: Aneurysm, Cardiac Dysrhythmia, Cerebrovascular Disease, Congenital Heart Disease, Pacemaker, PVD, Valvular Heart Disease Psychological: History of: Anxiety Disorders, Depression Neurology: No history of: Seizures Endocrine: History of: Diabetes Mellitus (IDDM), Dyslipidemia Rheumatology: No history of;: Fibromyalgia, Gout, Myasthenia Gravis, Rheumatoid Arthritis, Rheumatological Problems Respiratory: History of: COPD No history of: Asthma, Bronchitis, Intubation, Obstructive Sleep Apnea, Pulmonary Embolism, Pulmonary Hypertension, Pneumonia, Lung Cancer, Respiratory Problems Gastrointestinal: History of: GERD, GI Problems (Peptic Ulcer) No history of: Bowel Obstruction, Clostridium Difficile, Crohn's Disease, Diverticulitis/ Diverticulosis, Esophageal Varices, Gastrointestinal Bleed, Hemorrhoids, Hematochezia, Hepatitis, Liver Problems, Pancreatitis, Polyps, Ulcerative Colitis, Gastrointestinal Cancer Musculoskeletal: History of: Back/Neck Problems (chronic back pain) No history of: Amputation, Degenerative Disk Disease, Herniated Disk, Osteoporosis, Musculoskeletal Cancer, Musculoskeletal Problems - Surgical History Cardiac Surgeries: Sugical HX of: Cardiac Catheterization (stents) Patient Denies: Femoral-Popliteal Bypass Graft, Cardiac Surgery, Carotid Endarterectomy, Internal Defibrillator, Vascular Access Devices Thoracic Surgeries: Patient denies;: Kidney (Renal Surgery), Lithotripsy, Nephrectomy, Lobectomy Neurologic Surgeries: Patient denies: Neurologic Surgery HEENT Surgeries: Surgical HX of: Tonsilectomy & Adenoidectomy Patient denies: Carotid Endarterectomy Abdominal Surgeries: Patient denies: Abdominal Surgery, Appendectomy, Cholecystectomy, Colonoscopy , Gastric Bypass Surgery, EGD, Hernia Repair, Splenectomy Reproductive Surgeries: Surgical HX of;: Breast Surgery (Breast Reduction), Hysterectomy Patient denies;: Section, Cystoscopy, Dilation and Curettage, Genitourinary Surgery, Gynecologic Surgery, Tubal Ligation Orthopedic Surgeries: Surgical HX of;: Orthopedic Surgery (Left knee, left ankle ) Patient denies;: Implanted Devices - Family History Family History: Reports;: Family Diabetes (Mother's siblings), Family Heart Disease (Mother's siblings), Family Hypertension (Father mother siblings) - Social History Smoking Status: Current every day smoker Exam Physical Examination: GENERAL: Morbidly obese white female in no acute distress. HEENT: Normocephalic. No trauma. Moist mucous membranes. EOMI. PERRLA. ENT NML NECK: Supple. No adenopathy. CARDIAC: Regular. No murmurs. Heart rate 85 CHEST: Clear to auscultation. No respiratory distress. O2 sat 97% ABDOMEN: Soft. Nontender. Active bowel sounds. EXTREMITIES: No trauma. Normal ROM. No pedal edema. SKIN: No diaphoresis. No rash. NEURO: Alert. Neuro intact no focal deficits. Vital Signs: Vital Signs Temperature 98.1 F 06/05/17 17:10 Pulse Rate 64 06/05/17 17:10 Respiratory Rate 18 06/05/17 17:11 Blood Pressure 139/104 06/05/17 17:10 O2 Sat by Pulse Oximetry 94 L 06/05/17 17:35 Course - Reevaluation(s) Reevaluation #1: Discussed with patient need for hospitalization given her symptoms. - Consultations Consultation #1: Discussed with Dr. Cantu who will admit per Dr. Mensah for further evaluation and treatment. Results - Labs CBC & BMP: 06/05/17 17:56 06/05/17 17:56 Labs: I reviewed the laboratory noted the negative cardiac's excepting for the elevated BMP. - Impressions EKG: Sinus rhythm at 65 with normal [place] interval and QRS duration with diffuse nonspecific ST changes but no acute injury pattern noted. 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 - Diagnostic Findings Procedure: Chest x-ray: image reviewed by me, report reviewed by me ( Cardiomegaly with basilar atelectasis.) Disposition Clinical Impression: Angina, Coronary atherosclerosis, Asthma, Congestive failure, Diabetes Case discussed with: patient, patient's family Disposition: Still a Patient Condition: Guarded Time of Disposition: 19:30
[2017-06-05] MEDS ORDERED: METOPROLOL TARTRATE 5 MG/5 ML VIAL IV ONE (17:03)
[2017-06-05] MEDS ORDERED: ONDANSETRON 4 MG/2 ML VIAL ONE (17:03)
[2017-06-05] MEDS ORDERED: ASPIRIN 325 MG TABLET ONE (17:03)
[2017-06-05] MEDS ORDERED: NITROGLYCERIN 2% OINT 1 INCH/GM PACK TOP ONE (17:03)
--- NOTE | 2017-06-05 17:31 | XRay Report ---
XR chest 2V Indication: Chest pain. Chest 2 views: Comparison 04/30/2017. Morbid obesity, mild cardiomegaly, tortuous thoracic aorta, left perihilar and bibasilar atelectasis appears unchanged. No new infiltrates are shown. Pleural spaces remain clear. Impression: Left perihilar and bibasilar atelectasis. Cardiomegaly without overt CHF. These findings are chronic. PROCEDURE INTERPRETED AT [facility] DEPARTMENT OF RADIOLOGY Final Report Signed by: Ramy Laird M.D.
[2017-06-05 18:06] LABS: Basophils # 0.1 10*3/uL (0.0-0.2); Basophils % 0.7 % (0.0-0.8); Eosinophils # 0.1 10*3/uL (0.0-0.87); Eosinophils % 1.5 % (0.00-10.9); Hematocrit 36.4 VOL% (35.7-47.0); Immature Granulocytes % 0.5 %; Immature Granulocytes Absolute 0.04 #; Lymphocytes # 2.2 10*3/uL (1.4-4.0); Lymphocytes % 29.5 % (21.3-54.2); Mean Corpuscular Hemoglobin 26 PG (27-34); Mean Corpuscular Volume 80.2 FL (87-102); Mean Platelet Volume 9.3 FL (9.6-12.0); Monocytes # 0.6 10*3/uL (0.11-0.8); Monocytes % 7.9 % (1.7-12.7); Neutrophils # 4.5 10*3/uL (1.4-7.4); Neutrophils % 59.9 % (38.7-73.9); Platelet Count 301 T/CUMM (130-400); Red Blood Count 4.54 MC/CUMM (3.8-5.5); Red Cell Distribution Width 14.6 % (9.3-17.3); White Blood Count 7.5 T/CUMM (4-12)
[2017-06-05 18:27] LABS: PT Patient Result 10.7 SECS; Partial Thromboplastin Time 27.3 SECS (0-40)
[2017-06-05 18:33] LABS: Alanine Aminotransferase 19 U/L (13-56); Albumin 3.7 G/DL (3.4-5.0); Alkaline Phosphatase 132 U/L (45-117); Aspartate Amino Transferase 12 U/L (0-37); Blood Urea Nitrogen 12 MG/DL (7-18); Calcium 9.2 MG/DL (8.5-10.1); Glucose 63 MG/DL (74-106); Osmolality,Calculated 278.3 MOS/KG (273-304); Potassium 3.6 MMOL/L (3.5-5.1); Sodium 141 MMOL/L (136-145); Total Protein 6.9 G/DL (6.4-8.3); Troponin I Only < 0.015 NG/ML (0.00-0.045)
[2017-06-05 18:52] LABS: Apearance,Urine CLEAR (Clear); Bilirubin,Urine Negative (Negative); Blood, Urine Negative (Negative); Glucose,Urine (UA) Negative (Negative); Ketones,Urine Negative (Negative); Mucus,Urine Occasional /LPF (Occasional); Nitrite,Urine Negative (Negative); Protein,Urine Negative; RBC,Urine <1 /HPF (0-4); Urine Color Colorless (Yellow); Urine Specific Gravity 1.004 (1.001-1.035); Urine Urobilinogen < 2.0 EU/DL (0.2-1.0); WBC,Urine <1 /HPF (0-6)
[2017-06-05] MEDS ORDERED: FUROSEMIDE 40 MG/4 ML VIAL IV STA (19:36)
[2017-06-05] MEDS ORDERED: HYDROmorphone 2 MG/1 ML VIAL IV PRN (19:42)
[2017-06-05] MEDS ORDERED: ONDANSETRON 4 MG/2 ML VIAL IV PRN (19:42)
[2017-06-05] MEDS ORDERED: GLUCAGON 1 MG VIAL IM PRN (19:42)
[2017-06-05] MEDS ORDERED: DEXTROSE 50% 25 GM/50 ML SYRINGE IV PRN (19:42)
[2017-06-05] MEDS ORDERED: ALBUTEROL/IPRATROPIUM 3 ML NEB RESP TX PRN (19:42)
[2017-06-05] MEDS ORDERED: FUROSEMIDE 40 MG/4 ML VIAL ONE (20:55)
[2017-06-05] MEDS: THEOPHYLLINE ER (24 HR) 300 MG CAPSULE PO SCH (22:40)
[2017-06-05] MEDS: GABAPENTIN 600 MG TABLET PO SCH (22:40)
[2017-06-05] MEDS: ALPRAZolam 0.5 MG TABLET PO PRN (22:40)
[2017-06-05] MEDS: INSULIN REGULAR 100 UNIT/ML SUBCUT SCH (22:41)
[2017-06-05] MEDS: ESCITALOPRAM 10 MG TABLET PO SCH (22:41)
--- NOTE | 2017-06-06 06:51 | EKG Report ---
Stationary ECG Study [facility] Test Date: 06/06/2017 5:27:15 AM Pat Name: JOSTIN BOWER Department: Room: 286 Gender: F Sand Mixer: : [id number] Requested by: Baljinder Roberts Order Number: [id number] Reading MD: KYLIE BROWN Intervals [place] Rate: 61 P: 27 DE: 199 QRS: 17 QRSD: 101 T: -2 QT: 420 QTc: 423 Interpretive Statements SINUS RHYTHM NONSPECIFIC T WAVE ABNORMALITY Electronically Signed On 06-06-17 12:21:27 CDT by KYLIE BROWN [email or web address]
[2017-06-06] MEDS: NEBIVOLOL 10 MG TABLET PO SCH (08:14)
[2017-06-06] MEDS: THEOPHYLLINE ER (24 HR) 300 MG CAPSULE PO SCH ×2 (08:14→20:33)
[2017-06-06] MEDS: GABAPENTIN 600 MG TABLET PO SCH ×3 (08:14→20:33)
[2017-06-06] MEDS: CLOPIDOGREL 75 MG TABLET PO SCH (08:15)
[2017-06-06] MEDS: GLIMEPIRIDE 2 MG TABLET PO SCH (08:15)
[2017-06-06] MEDS: ASPIRIN 325 MG TABLET PO SCH (08:15)
[2017-06-06] MEDS: INSULIN REGULAR 100 UNIT/ML SUBCUT SCH ×4 (08:15→20:32)
--- NOTE | 2017-06-06 10:11 | Cardiology History & Physical ---
<Christine Stephens - Last Filed: 06/06/17 10:19> Assessment and Plan - Time spent with patient Time spent with patient: Greater than 30 minutes (1) Chest pain Status: Acute Assessment and plan: SEE PLAN OF CARE LISTED BELOW. Current Visit: Yes (2) Shortness of breath Status: Acute Assessment and plan: SEE PLAN OF CARE LISTED BELOW. Current Visit: Yes (3) CAD (coronary artery disease) Status: Chronic Assessment and plan: SEE PLAN OF CARE LISTED BELOW. Current Visit: Yes (4) Tobacco abuse Status: Chronic Assessment and plan: SEE PLAN OF CARE LISTED BELOW. Current Visit: Yes (5) Ischemic cardiomyopathy Status: Chronic Assessment and plan: SEE PLAN OF CARE LISTED BELOW. Current Visit: Yes (6) COPD (chronic obstructive pulmonary disease) Status: Chronic Assessment and plan: SEE PLAN OF CARE LISTED BELOW. Current Visit: Yes (7) GERD (gastroesophageal reflux disease) Status: Chronic Assessment and plan: SEE PLAN OF CARE LISTED BELOW. Current Visit: Yes (8) Diabetes Status: Chronic Assessment and plan: SEE PLAN OF CARE LISTED BELOW. Current Visit: No (9) Hyperlipidemia Status: Chronic Assessment and plan: SEE PLAN OF CARE LISTED BELOW. Current Visit: No (10) Hypertension Status: Chronic Assessment and plan: SEE PLAN OF CARE LISTED BELOW. Current Visit: No (11) YOSHI (obstructive sleep apnea) Status: Chronic Assessment and plan: SEE PLAN OF CARE LISTED BELOW. Current Visit: No (12) Obesity Status: Chronic Assessment and plan: SEE PLAN OF CARE LISTED BELOW. Current Visit: No (13) On home oxygen therapy Status: Chronic Assessment and plan: SEE PLAN OF CARE LISTED BELOW. 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 Celaya Ms. Roy is a 61 year old female with known history of coronary artery disease, routinely followed by Dr. Daly. She has cardiac risk factors significant for known CAD, hypertension, diabetes, dyslipidemia, obesity, sedentary lifestyle, family history of coronary artery disease (mother and siblings) and current every day smoker. She has a history of anxiety, ischemic cardiomyopathy, CHF, COPD, CAD, depression, YOSHI (uses CPAP nightly), IDDM, GERD , dyslipidemia, and hypertension. She had a heart cath May 26, 2015 with PCI of the proximal and mid left anterior descending artery and balloon angioplasty of the more mid to distal left anterior descending artery. Echocardiogram done January 25, 2016 with ejection fraction 40%. She was just recently hospitalized and underwent heart catheterization May 02, 2017. At that time, she received successful PCI to proximal RCA and PCI to mid RCA. The previously placed LAD stent widely patent. Severe ischemic cardiopathy noted with ejection fraction 30-35% with anterior apical hypokinesis. She was discharged home on dual antiplatelet therapy, aspirin and Plavix. She reports absolute compliance with both of these medications since discharge. Patient presented to [facility] yesterday with complaints of shortness of breath and intermittent chest pain. Patient reports that her home health nurse came to see her yesterday. She apparently did not look well and was encouraged to come to the emergency department for further evaluation. She reports that she was very diaphoretic and short of breath. She reports that she has had worsening dyspnea on exertion over the past couple of weeks. She reports that she can only walk a few steps without becoming very short of breath and having to take a rest break. She does have chronic dyspnea and has home oxygen. However, she has noted a significant decline. She complains of intermittent chest pain over the past week. She reports that this has occurred with both rest and exertion. Only the last 2-3 minutes. Usually relieved with rest, oxygen and/or nitroglycerin. Accompanied by shortness of breath. She is unable to characterize her pain. Radiates to left arm. Reports arm numbness. She does report absolute compliance with dual antiplatelet therapy. She reports on Sunday she attempted to mop her kitchen. She developed chest pain and shortness of breath. She was unable to complete her task. After resting and laying down this pain was relieved. She also confirms bilateral lower extremity swelling and chronic orthopnea. Upon exam, her chest is very tender to palpation. However, she reports is not the same pain she came to the emergency room with. She reports that her chest discomfort is very different from when she underwent PCI in April. Patient has been admitted to cardiology service. She has been housed on the telemetry unit. Patient was seen and examined on the telemetry unit. She is currently without complaints of chest pain, heaviness and tightness. EKG does not reveal VA. Cardiac biomarkers negative thus far. She continues to be mildly short of breath. Upon exam, no wheezing auscultated. Chest x-ray reveals chronic cardiomegaly without overt heart failure. BNP only mildly elevated at 200. She does have edema to bilateral lower extremities. I will order venous Dopplers of lower extremities. Patient symptoms are concerning for angina. EKG does not reveal VA. Cardiac biomarkers negative so far. Patient just recently received PCI in April. After discussing with Dr. Daly, we will set patient up for repeat catheterization in order to formally rule out in- stent thrombosis. Risk and benefits of this procedure were reviewed with the patient. We will keep patient n.p.o. and perform heart catheterization this afternoon. Continue dual antiplatelet therapy, beta blockade, nitrates and lipid-lowering agent. Continue to cycle cardiac biomarkers and EKGs. Will further discuss with Dr. Daly in aware additional recommendations. ASSESSMENT/PLAN: 1. SHORTNESS OF BREATH - No overt heart failure noted. Patient will undergo heart catheterization later today per Dr. Jordana Daly. N.p.o. D-dimer ordered. Continue breathing treatments. 2. CHEST PAIN - Patient symptoms are concerning for angina. EKG does not reveal VA. Cardiac biomarkers negative so far. Patient just recently received PCI in April. After discussing with Dr. Daly, we will set patient up for repeat catheterization in order to formally rule out in-stent thrombosis. Risk and benefits of this procedure were reviewed with the patient. We will keep patient n.p.o. and perform heart catheterization this afternoon. Continue dual antiplatelet therapy, beta blockade, nitrates and lipid-lowering agent. Continue to cycle cardiac biomarkers and EKGs. 3. HISTORY OF CAD - As above. 4. CURRENT EVERYDAY SMOKER - Smoking cessation encouraged. 5. DYSLIPIDEMIA - We will continue lipid-lowering agent. Lipid panel in the morning. 6. HYPERTENSION - Under well control. Continue current plan of care. 7. DIABETES - Sliding scale insulin. Accu-Cheks before meals and at bedtime. 8. OBESITY - Weight loss encouraged via dietary restriction and regular exercise. 9. ISCHEMIC CARDIOMYOPATHY - Most recent heart catheterization revealed EF of 30-35%. Continue ARB and beta blockade. No overt heart failure noted this hospitalization. 10. COPD - No wheezing auscultated. Continue breathing treatments. 11. OBSTRUCTIVE SLEEP APNEA - Continue CPAP nightly. 12. GERD - Continue PPI. Home Medications Medication Instructions Recorded Confirmed Type Budesonide/Formoterol 160-4.5 2 puff INH BID 10/21/15 06/05/17 History [Symbicort 160-4.5] Ipratropium/Albuterol Inhaler 1 puff INH QID #1 inhaler 01/29/16 06/05/17 Rx [Combivent Respimat Inhaler] Nebivolol HCl [Bystolic] 20 mg PO QAM 11/13/16 06/05/17 History Cyanocobalamin (Vitamin B-12) 2,000 mcg PO QAM 05/01/17 06/05/17 History [Vitamin B-12] Cyclobenzaprine [Flexeril] 10 mg PO TID PRN 05/01/17 06/05/17 History Gabapentin Cap/Tab [Neurontin 600 mg PO QID 05/01/17 06/05/17 History Cap/Tab] Glimepiride 2 mg PO QAM 05/01/17 06/05/17 History Albuterol/Ipratropium Neb [Duoneb] 3 ml RESP TX RT Q6H #120 vial 05/04/17 Rx Furosemide Tab [Lasix Tab] 40 mg PO BID DIURETIC #60 tablet 05/04/17 06/05/17 Rx Albuterol Inhaler [Proventil 2 puff INH Q4H PRN 06/05/17 06/05/17 History Inhaler] Aspirin EC Tab 325 mg PO QAM 06/05/17 06/05/17 History Atorvastatin [Lipitor] 40 mg PO BEDTIME 06/05/17 06/05/17 History Clopidogrel [Plavix] 75 mg PO QAM 06/05/17 06/05/17 History Fluoxetine HCl [Prozac] 40 mg PO BEDTIME 06/05/17 06/05/17 History HYDROcodone/ACETAMIN 10-325 [[place] 1 tablet PO BID 06/05/17 06/05/17 History 10-325] Insulin Glargine [Lantus] 15 unit SUBCUT QPM 06/05/17 06/05/17 History Insulin Glargine,Hum.rec.anlog 10 unit SUBCUT QAM 06/05/17 06/05/17 History [Lantus SoloStar] Losartan Potassium 100 mg PO QAM 06/05/17 06/06/17 History Omeprazole 20 mg PO QAM 06/05/17 06/05/17 History Potassium Chloride Cap/Tab [K Dur] 20 meq PO QAM 06/05/17 06/05/17 History Allergies Allergy/AdvReac Type Severity Reaction Status Date / Time nylon sutures Allergy RASH Uncoded 06/05/17 16:38 plastic tape Allergy RASH Uncoded 06/05/17 16:38 - Constitutional Constitutional: Present: as per HPI, excessive sweating, fatigue, lethargy, malaise, weakness. Absent: fever(s), frequent falls - Cardiovascular Cardiovascular: Present: as per HPI, chest pain at rest, chest pain with activity, diaphoresis, dyspnea, dyspnea on exertion, edema, radiating jaw, neck or arm pain, orthopnea, PND. Absent: palpitations - Respiratory Respiratory: Present: as per HPI, cough, dyspnea, dyspnea on exertion, wheezing. Absent: pain on inspiration, change in phlegm color - Gastrointestinal Gastrointestinal: Present: as per HPI. Absent: abdominal pain, change in bowel habits, coffee ground emesis, hematemesis, hematochezia, loose stools, melena, nausea, vomiting - Neurological Neurological: Present: as per HPI, numbness. Absent: abnormal gait, abnormal speech, behavioral changes, dizziness, syncope Medical,Surgical,& Family Hx - Medical History Cardio: History of: CHF, CAD, Hypertension, VA, Cardiovascular Problems Psychological: History of: Anxiety Disorders, Depression Endocrine: History of: Diabetes Mellitus (IDDM), Dyslipidemia Respiratory: History of: COPD, Obstructive Sleep Apnea Gastrointestinal: History of: GERD, GI Problems (Peptic Ulcer) Musculoskeletal: History of: Back/Neck Problems (chronic back pain) - Surgical History Cardiac Surgeries: Sugical HX of: Cardiac Catheterization (stents) HEENT Surgeries: Surgical HX of: Tonsilectomy & Adenoidectomy Reproductive Surgeries: Surgical HX of;: Breast Surgery (Breast Reduction), Hysterectomy Orthopedic Surgeries: Surgical HX of;: Orthopedic Surgery (Left knee, left ankle ) - Family History Family History: Reports;: Family Diabetes (Mother's siblings), Family Heart Disease (Mother's siblings), Family Hypertension (Father mother siblings) - Social History Smoking Status: Current every day smoker Frequency of Alcohol Use: None Type of Drug Use: Unknown Lives With:: Alone Functional capacity: independent ambulation Cardiology Physical Exam - Constitutional Vitals: Vital Signs Temp Pulse Resp BP Pulse Ox 98.4 F 62 19 143/73 95 06/06/17 08:00 06/06/17 08:00 06/06/17 07:32 06/06/17 08:00 06/05/17 21:08 Intake and Output 06/05/17 06/06/17 06/06/17 22:59 06:59 14:59 Output Total 1000 / 1000 Balance -1000 / -1000 Output: Urine 1000 / 1000 Other: Voiding Method Bedside Commode Weight 263 lb 4 oz Exam: General: Appears well with no apparent distress. Pleasant and cooperative. Appears comfortable. HEENT: PERRL, normocephalic, atraumatic. Mucous membranes moist. No jaundice noted. Conjunctiva moist and clear, sclerae anicteric Neck: No JVD/HJR, no thyromegaly or lymphadenopathy noted. No carotid bruit appreciated Cardiac: Regular rate and rhythm. Lungs: Decreased breath sounds. Oxygen via nasal cannula Abdomen: Soft, bowel sounds normoactive. Nontender and nondistended. No abdominal bruit or thrill noted. No masses noted. Extremities: No clubbing, cyanosis noted. 1+ lower extremity edema. Upper extremity pulses 2+. Lower extremity pulses 2+. Capillary refill less than 3 seconds. Skin: No unusual lesions or rashes. No skin breakdown appreciated. Neuro: Awake, alert and oriented 3. Moves all extremities well without hemiparesis or paralysis. No essential tremor is appreciated. Result/EKG - Labs CBC & BMP: 06/05/17 17:56 06/05/17 17:56 Lab Results: I have reviewed the past 24 hour labs Labs: Laboratory Results - last 24 hr 06/05/17 06/05/17 06/05/17 17:22 17:56 17:56 WBC RBC Hgb Hct MCV MCH MCHC RDW Plt Count MPV Neut % (Auto) Lymph % (Auto) Kerr % (Auto) Eos % (Auto) Baso % (Auto) Neut # (Auto) Lymph # (Auto) Kerr # (Auto) Eos # (Auto) Baso # (Auto) Immature Gran % Nucleated RBC % Immature Gran # Nucleated RBCs # Immature Plt Fraction INR 1.0 PT Patient/Control Mix 10.7 Circ Anticoag PTT 27.3 Sodium Potassium Chloride Carbon Dioxide Anion Gap BUN Creatinine GFR Calculation BUN/Creatinine Ratio Glucose POC Glucose Calculated Osmolality Calcium Total Bilirubin AST ALT Alkaline Phosphatase Total Creatine Kinase CK-MB (CK-2) Troponin I B-Natriuretic Peptide 283 H Total Protein Albumin Globulin Albumin/Globulin Ratio Urine Color Colorless Urine Appearance Clear Urine pH 5.0 Ur Specific [place] 1.004 Urine Protein Negative Urine Glucose (UA) Negative Urine Ketones Negative Urine Blood Negative Urine Nitrate Negative Urine Bilirubin Negative Urine Urobilinogen < 2.0 H Urine Leukocytes Negative Urine RBC <1 Urine WBC <1 Urine Mucus Occasional Ur Culture Indicated? Not indicated 06/05/17 06/05/17 06/05/17 17:56 17:56 22:24 WBC 7.5 RBC 4.54 Hgb 12.0 Hct 36.4 MCV 80.2 L MCH 26 L MCHC 33.0 RDW 14.6 Plt Count 301 MPV 9.3 L Neut % (Auto) 59.9 Lymph % (Auto) 29.5 Kerr % (Auto) 7.9 Eos % (Auto) 1.5 Baso % (Auto) 0.7 Neut # (Auto) 4.5 Lymph # (Auto) 2.2 Kerr # (Auto) 0.6 Eos # (Auto) 0.1 Baso # (Auto) 0.1 Immature Gran % 0.5 Nucleated RBC % 0.0 Immature Gran # 0.04 Nucleated RBCs # 0.00 Immature Plt Fraction 0.0 INR PT Patient/Control Mix Circ Anticoag PTT Sodium 141 Potassium 3.6 Chloride 106 Carbon Dioxide 28 Anion Gap 10.6 BUN 12 Creatinine 0.90 GFR Calculation 80 BUN/Creatinine Ratio 13.00 Glucose 63 L POC Glucose 187 H Calculated Osmolality 278.3 Calcium 9.2 Total Bilirubin 1.50 H AST 12 ALT 19 Alkaline Phosphatase 132 H Total Creatine Kinase 53 CK-MB (CK-2) < 1.0 Troponin I < 0.015 B-Natriuretic Peptide Total Protein 6.9 Albumin 3.7 Globulin 3.2 Albumin/Globulin Ratio 1.1 Urine Color Urine Appearance Urine pH Ur Specific [place] Urine Protein Urine Glucose (UA) Urine Ketones Urine Blood Urine Nitrate Urine Bilirubin Urine Urobilinogen Urine Leukocytes Urine RBC Urine WBC Urine Mucus Ur Culture Indicated? 06/06/17 06/06/17 06/06/17 00:24 05:58 08:07 WBC RBC Hgb Hct MCV MCH MCHC RDW Plt Count MPV Neut % (Auto) Lymph % (Auto) Kerr % (Auto) Eos % (Auto) Baso % (Auto) Neut # (Auto) Lymph # (Auto) Kerr # (Auto) Eos # (Auto) Baso # (Auto) Immature Gran % Nucleated RBC % Immature Gran # Nucleated RBCs # Immature Plt Fraction INR PT Patient/Control Mix Circ Anticoag PTT Sodium Potassium Chloride Carbon Dioxide Anion Gap BUN Creatinine GFR Calculation BUN/Creatinine Ratio Glucose POC Glucose 132 H 87 107 H Calculated Osmolality Calcium Total Bilirubin AST ALT Alkaline Phosphatase Total Creatine Kinase CK-MB (CK-2) Troponin I B-Natriuretic Peptide Total Protein Albumin Globulin Albumin/Globulin Ratio Urine Color Urine Appearance Urine pH Ur Specific [place] Urine Protein Urine Glucose (UA) Urine Ketones Urine Blood Urine Nitrate Urine Bilirubin Urine Urobilinogen Urine Leukocytes Urine RBC Urine WBC Urine Mucus Ur Culture Indicated? 06/06/17 08:24 WBC RBC Hgb Hct MCV MCH MCHC RDW Plt Count MPV Neut % (Auto) Lymph % (Auto) Kerr % (Auto) Eos % (Auto) Baso % (Auto) Neut # (Auto) Lymph # (Auto) Kerr # (Auto) Eos # (Auto) Baso # (Auto) Immature Gran % Nucleated RBC % Immature Gran # Nucleated RBCs # Immature Plt Fraction INR PT Patient/Control Mix Circ Anticoag PTT Sodium Potassium Chloride Carbon Dioxide Anion Gap BUN Creatinine GFR Calculation BUN/Creatinine Ratio Glucose POC Glucose Calculated Osmolality Calcium Total Bilirubin AST ALT Alkaline Phosphatase Total Creatine Kinase CK-MB (CK-2) Troponin I B-Natriuretic Peptide 200 H Total Protein Albumin Globulin Albumin/Globulin Ratio Urine Color Urine Appearance Urine pH Ur Specific [place] Urine Protein Urine Glucose (UA) Urine Ketones Urine Blood Urine Nitrate Urine Bilirubin Urine Urobilinogen Urine Leukocytes Urine RBC Urine WBC Urine Mucus Ur Culture Indicated? <Jordana Daly - Last Filed: 06/06/17 13:16> History of Present Illness History of present illness: I have personally interviewed and examined the patient, reviewed the chart and discussed medical decision-making with practitioner Angelo. I have read this note and agree with the documentation herein. Cardiology Physical Exam - Constitutional Vitals: Vital Signs Temp Pulse Resp BP Pulse Ox 98.4 F 62 19 143/73 95 06/06/17 08:00 06/06/17 08:00 06/06/17 07:32 06/06/17 08:00 06/05/17 21:08 Intake and Output 06/05/17 06/06/17 06/06/17 23:59 07:59 15:59 Output Total 1000 / 1000 Balance -1000 / -1000 Output: Urine 1000 / 1000 Other: Voiding Method Bedside Commode Weight 119.408 kg Result/EKG - Labs CBC & BMP: 06/05/17 17:56 06/05/17 17:56 Labs: Laboratory Results - last 24 hr 06/05/17 06/05/17 06/05/17 17:22 17:56 17:56 WBC RBC Hgb Hct MCV MCH MCHC RDW Plt Count MPV Neut % (Auto) Lymph % (Auto) Kerr % (Auto) Eos % (Auto) Baso % (Auto) Neut # (Auto) Lymph # (Auto) Kerr # (Auto) Eos # (Auto) Baso # (Auto) Immature Gran % Nucleated RBC % Immature Gran # Nucleated RBCs # Immature Plt Fraction INR 1.0 PT Patient/Control Mix 10.7 D-Dimer, Quantitative Circ Anticoag PTT 27.3 Sodium Potassium Chloride Carbon Dioxide Anion Gap BUN Creatinine GFR Calculation BUN/Creatinine Ratio Glucose POC Glucose Calculated Osmolality Calcium Total Bilirubin AST ALT Alkaline Phosphatase Total Creatine Kinase CK-MB (CK-2) Troponin I B-Natriuretic Peptide 283 H Total Protein Albumin Globulin Albumin/Globulin Ratio Triglycerides Cholesterol LDL Cholesterol VLDL Cholesterol HDL Cholesterol Heart Disease Risk Ratio Urine Color Colorless Urine Appearance Clear Urine pH 5.0 Ur Specific [place] 1.004 Urine Protein Negative Urine Glucose (UA) Negative Urine Ketones Negative Urine Blood Negative Urine Nitrate Negative Urine Bilirubin Negative Urine Urobilinogen < 2.0 H Urine Leukocytes Negative Urine RBC <1 Urine WBC <1 Urine Mucus Occasional Ur Culture Indicated? Not indicated Blood Type Antibody Screen 06/05/17 06/05/17 06/05/17 17:56 17:56 22:24 WBC 7.5 RBC 4.54 Hgb 12.0 Hct 36.4 MCV 80.2 L MCH 26 L MCHC 33.0 RDW 14.6 Plt Count 301 MPV 9.3 L Neut % (Auto) 59.9 Lymph % (Auto) 29.5 Kerr % (Auto) 7.9 Eos % (Auto) 1.5 Baso % (Auto) 0.7 Neut # (Auto) 4.5 Lymph # (Auto) 2.2 Kerr # (Auto) 0.6 Eos # (Auto) 0.1 Baso # (Auto) 0.1 Immature Gran % 0.5 Nucleated RBC % 0.0 Immature Gran # 0.04 Nucleated RBCs # 0.00 Immature Plt Fraction 0.0 INR PT Patient/Control Mix D-Dimer, Quantitative Circ Anticoag PTT Sodium 141 Potassium 3.6 Chloride 106 Carbon Dioxide 28 Anion Gap 10.6 BUN 12 Creatinine 0.90 GFR Calculation 80 BUN/Creatinine Ratio 13.00 Glucose 63 L POC Glucose 187 H Calculated Osmolality 278.3 Calcium 9.2 Total Bilirubin 1.50 H AST 12 ALT 19 Alkaline Phosphatase 132 H Total Creatine Kinase 53 CK-MB (CK-2) < 1.0 Troponin I < 0.015 B-Natriuretic Peptide Total Protein 6.9 Albumin 3.7 Globulin 3.2 Albumin/Globulin Ratio 1.1 Triglycerides Cholesterol LDL Cholesterol VLDL Cholesterol HDL Cholesterol Heart Disease Risk Ratio Urine Color Urine Appearance Urine pH Ur Specific [place] Urine Protein Urine Glucose (UA) Urine Ketones Urine Blood Urine Nitrate Urine Bilirubin Urine Urobilinogen Urine Leukocytes Urine RBC Urine WBC Urine Mucus Ur Culture Indicated? Blood Type Antibody Screen 06/06/17 06/06/17 06/06/17 00:24 05:58 08:07 WBC RBC Hgb Hct MCV MCH MCHC RDW Plt Count MPV Neut % (Auto) Lymph % (Auto) Kerr % (Auto) Eos % (Auto) Baso % (Auto) Neut # (Auto) Lymph # (Auto) Kerr # (Auto) Eos # (Auto) Baso # (Auto) Immature Gran % Nucleated RBC % Immature Gran # Nucleated RBCs # Immature Plt Fraction INR PT Patient/Control Mix D-Dimer, Quantitative Circ Anticoag PTT Sodium Potassium Chloride Carbon Dioxide Anion Gap BUN Creatinine GFR Calculation BUN/Creatinine Ratio Glucose POC Glucose 132 H 87 107 H Calculated Osmolality Calcium Total Bilirubin AST ALT Alkaline Phosphatase Total Creatine Kinase CK-MB (CK-2) Troponin I B-Natriuretic Peptide Total Protein Albumin Globulin Albumin/Globulin Ratio Triglycerides Cholesterol LDL Cholesterol VLDL Cholesterol HDL Cholesterol Heart Disease Risk Ratio Urine Color Urine Appearance Urine pH Ur Specific [place] Urine Protein Urine Glucose (UA) Urine Ketones Urine Blood Urine Nitrate Urine Bilirubin Urine Urobilinogen Urine Leukocytes Urine RBC Urine WBC Urine Mucus Ur Culture Indicated? Blood Type Antibody Screen 06/06/17 06/06/17 06/06/17 08:24 11:14 11:14 WBC RBC Hgb Hct MCV MCH MCHC RDW Plt Count MPV Neut % (Auto) Lymph % (Auto) Kerr % (Auto) Eos % (Auto) Baso % (Auto) Neut # (Auto) Lymph # (Auto) Kerr # (Auto) Eos # (Auto) Baso # (Auto) Immature Gran % Nucleated RBC % Immature Gran # Nucleated RBCs # Immature Plt Fraction INR PT Patient/Control Mix D-Dimer, Quantitative <= 0.5 Circ Anticoag PTT Sodium Potassium Chloride Carbon Dioxide Anion Gap BUN Creatinine GFR Calculation BUN/Creatinine Ratio Glucose POC Glucose Calculated Osmolality Calcium Total Bilirubin AST ALT Alkaline Phosphatase Total Creatine Kinase CK-MB (CK-2) Troponin I B-Natriuretic Peptide 200 H Total Protein Albumin Globulin Albumin/Globulin Ratio Triglycerides Cholesterol LDL Cholesterol VLDL Cholesterol HDL Cholesterol Heart Disease Risk Ratio Urine Color Urine Appearance Urine pH Ur Specific [place] Urine Protein Urine Glucose (UA) Urine Ketones Urine Blood Urine Nitrate Urine Bilirubin Urine Urobilinogen Urine Leukocytes Urine RBC Urine WBC Urine Mucus Ur Culture Indicated? Blood Type O POSITIVE Antibody Screen Negative 06/06/17 06/06/17 11:15 11:20 WBC RBC Hgb Hct MCV MCH MCHC RDW Plt Count MPV Neut % (Auto) Lymph % (Auto) [place] % (Auto) Eos % (Auto) Baso % (Auto) Neut # (Auto) Lymph # (Auto) Kerr # (Auto) Eos # (Auto) Baso # (Auto) Immature Gran % Nucleated RBC % Immature Gran # Nucleated RBCs # Immature Plt Fraction INR PT Patient/Control Mix D-Dimer, Quantitative Circ Anticoag PTT Sodium Potassium Chloride Carbon Dioxide Anion Gap BUN Creatinine GFR Calculation BUN/Creatinine Ratio Glucose POC Glucose Calculated Osmolality Calcium Total Bilirubin AST ALT Alkaline Phosphatase Total Creatine Kinase 49 CK-MB (CK-2) < 1.0 Troponin I < 0.015 B-Natriuretic Peptide Total Protein Albumin Globulin Albumin/Globulin Ratio Triglycerides 139 Cholesterol 164 LDL Cholesterol 103.0 VLDL Cholesterol 27.8 HDL Cholesterol 47 Heart Disease Risk Ratio 3.49 Urine Color Urine Appearance Urine pH Ur Specific [place] Urine Protein Urine Glucose (UA) Urine Ketones Urine Blood Urine Nitrate Urine Bilirubin Urine Urobilinogen Urine Leukocytes Urine RBC Urine WBC Urine Mucus Ur Culture Indicated? Blood Type Antibody Screen
[2017-06-06] MEDS ORDERED: DIAZEPAM 5 MG TABLET PO ONE ×2 (10:41→12:00)
[2017-06-06] MEDS ORDERED: MAGNESIUM SULF RIDER 2 GM in PREMIX 1 EACH IV PRN (10:41)
[2017-06-06] MEDS ORDERED: diphenhydrAMINE CAP 25 MG CAPSULE PO ONE ×2 (10:41→12:00)
[2017-06-06] MEDS ORDERED: POTASSIUM CHLORIDE RIDER 10 MEQ in PREMIX 1 EACH IV PRN (10:41)
--- NOTE | 2017-06-06 10:44 | History and Physical Update ---
Sedation H&P Update - History and Physical H&P was reviewed, the patient examined and there: are no changes in the patients condition since last H&P was completed. - Dictation Physical: refer to H&P completed by admitting physician - Physical Exam Mental Status: alert and oriented Heart: regular rate and rhythm Lung: clear to auscultation Abdomen: within normal limits Vitals: within normal limits - Sedation Plan for Sedation: moderate Patient Consent: Procedure disscussed with patient and patinet has consented., Risks and benefits were discussed with patient,including infection,, bleeding, injury to surrounding structures, seizure, temporary nerve, Patient understands and accepts potential risks/benefits and agrees to, proceed. ASA Class: IV Airway Assessment: Class II: Soft palate, uvula, fauces visible
[2017-06-06] MEDS ORDERED: CYCLOBENZAPRINE 10 MG TABLET PO PRN (11:01)
[2017-06-06] MEDS ORDERED: NITROGLYCERIN SL 0.4 MG TABLET SL PRN (11:08)
[2017-06-06] MEDS: PANTOPRAZOLE 40 MG TABLET PO SCH (11:51)
[2017-06-06] MEDS ORDERED: LIDOCAINE 1% 20 ML VIAL ONE (12:16)
[2017-06-06] MEDS ORDERED: HEPARIN/NACL 0.9% 2 UNITS/ML 1,000 ML IV ONE (12:16)
[2017-06-06 12:17] LABS: Risk Ratio 3.49; VLDL CHOLESTEROL 27.8 MG/DL
[2017-06-06 12:19] LABS: Troponin I Only < 0.015 NG/ML (0.00-0.045)
[2017-06-06] MEDS ORDERED: MIDAZOLAM 2 MG/2 ML VIAL ONE ×2 (12:20→12:53)
[2017-06-06] MEDS ORDERED: fentaNYL 100 MCG/2 ML VIAL ONE (12:20)
[2017-06-06] MEDS: SODIUM CHLORIDE 0.45% 1,000 ML IV SCH (12:23)
[2017-06-06] MEDS ORDERED: MORPHINE 10 MG/1 ML VIAL ONE (13:10)
--- NOTE | 2017-06-06 13:33 | Cardiology Operative Report ---
Date of Procedure:: 06/06/17 Pre-op diagnosis: Coronary artery disease, shortness of breath, chest pain Post-op diagnosis: other (Stable coronary artery disease) Procedure: 1. Selective left and right coronary angiography. 2. Left heart catheterization with left ventriculogram. 3. Right iliac angiography to rule out vascular complications. 4. Application of mynx to the right femoral arteriotomy site. Impression: 1. Stable coronary artery disease with patent stents in the mid LAD, proximal and mid right coronary arteries. 2. Right dominant coronary arteries. 3. Ejection fraction 40-45 %. 4. Mild atherosclerotic vascular disease of the right iliac artery without evidence of vascular complications. 5. Of note, the right subclavian artery was noted to be tortuous on prior radial approach. Plan: 1. Medical management. 2. Noncardiac workup if symptoms. Equipment: Diagnostic 6 Mexican JL4, JR4, pigtail catheters. Hemodynamics: Aortic pressure 125/72 mmHg, left ventricular pressure 124/4 mmHg, LVEDP 9 mmHg Sedation: Versed 3 Milgram's, fentanyl 75 mcg Procedure: After informed consent was obtained the patient was prepped and draped in sterile fashion. The right groin was infiltrated with 1% lidocaine and the right femoral artery was accessed via modified Seldinger technique using a micropuncture needle and a 6 Mexican femoral arterial sheath was placed. All catheter exchanges were performed over a guidewire under fluoroscopic guidance. Diagnostic 6 Mexican JL4 and JR4 catheters were advanced to the left and right coronary arteries respectively and multiple cineangiograms were performed in varying degrees of obliquity and angulation. Thereafter a pigtail catheter was advanced into the left ventricle where hemodynamics were obtained followed by left ventriculogram. At conclusion of the procedure right iliac angiography was performed to rule out vascular complications. A mynx hemostasis device was then applied to the right femoral arteriotomy site. Findings: 1. The left main artery is angiographically normal. 2. The left anterior descending artery extends to the apex and wraps around. There is a stent in the mid segment that is patent. There is perivascular calcification of the proximal segment. The remainder of the vessel has mild to moderate luminal irregularities with up to 50% stenosis in the mid segment. 3. There is an intermediate ramus branch that is small, free of significant disease. 4. The circumflex artery is a nondominant vessel. It gives rise to a single branching marginal artery. There is perivascular calcification of the proximal to mid segment. There are mild to moderate luminal irregularities throughout the vessel. 5. The right coronary artery is a dominant vessel. There are patent stents in the proximal and mid segments. There is mild residual coronary atherosclerosis. 6. Ejection fraction is 40-45 % with inferior wall hypokinesis. 7. No significant mitral regurgitation. 8. No significant aortic stenosis. 9. The right iliac artery has mild atheromatous disease but is without evidence of vascular complications. Contrast use: Omnipaque 64 cc Fluoro time: 1.6 minutes Complications: none Specimens removed: none Devices implanted: Mynx Anesthesia: moderate conscious sedation Surgeon / Physician: Jordana Daly Drawer In Jacquard Loom: none (Elizabeth lund) Estimated blood loss: minimal Specimens: none sent Condition: stable Disposition: floor
[2017-06-06] MEDS: FUROSEMIDE 80 MG TABLET PO SCH (16:38)
--- NOTE | 2017-06-06 19:15 | Ultrasound Report ---
US venous doppler LE BI Indication: Lower extremity edema. BILATERAL LOWER EXTREMITY VENOUS ULTRASOUND Comparison: At least 8 prior negative ultrasounds, most recent 04/30/2017. Findings: Graded grayscale compression, color Doppler and pulsed Doppler ultrasound evaluation of the venous structures performed. Normal compressibility, augmentation and color saturation is present within bilateral common femoral, superficial femoral, popliteal and proximal greater saphenous veins. Impression: No evidence of DVT either lower extremity. PROCEDURE INTERPRETED AT [facility] DEPARTMENT OF RADIOLOGY Final Report Signed by: Ramy Laird M.D.
[2017-06-06 20:16] LABS: Troponin I Only < 0.015 NG/ML (0.00-0.045)
[2017-06-06] MEDS: ESCITALOPRAM 10 MG TABLET PO SCH (20:33)
[2017-06-06] MEDS: ALPRAZolam 0.5 MG TABLET PO PRN (20:33)
[2017-06-06] MEDS: BUDESONIDE/FORMOTEROL 160-4.5 INHALER 6 GM INH SCH (20:34)
[2017-06-06] MEDS ORDERED: ATORVASTATIN 80 MG TABLET PO SCH (21:00)
[2017-06-06] MEDS ORDERED: ATORVASTATIN 40 MG TABLET PO SCH (21:00)
[2017-06-07 05:31] LABS: Basophils # 0.1 10*3/uL (0.0-0.2); Basophils % 0.8 % (0.0-0.8); Eosinophils # 0.1 10*3/uL (0.0-0.87); Eosinophils % 1.7 % (0.00-10.9); Hematocrit 35.4 VOL% (35.7-47.0); Hemoglobin 11.4 GM/DL (12.0-16.0); Immature Granulocytes % 0.5 %; Immature Granulocytes Absolute 0.03 #; Lymphocytes % 30.9 % (21.3-54.2); Mean Corpuscular HGB Conc 32.2 GM/DL (32-36); Mean Corpuscular Hemoglobin 26 PG (27-34); Mean Corpuscular Volume 80.5 FL (87-102); Mean Platelet Volume 9.4 FL (9.6-12.0); Monocytes # 0.6 10*3/uL (0.11-0.8); Monocytes % 9.8 % (1.7-12.7); Neutrophils # 3.6 10*3/uL (1.4-7.4); Neutrophils % 56.3 % (38.7-73.9); Platelet Count 295 T/CUMM (130-400); Red Cell Distribution Width 14.4 % (9.3-17.3); White Blood Count 6.4 T/CUMM (4-12)
[2017-06-07 05:59] LABS: Calcium 9.3 MG/DL (8.5-10.1); Magnesium 2.1 MG/DL (1.8-2.4); Osmolality,Calculated 280.4 MOS/KG (273-304); Potassium 4.2 MMOL/L (3.5-5.1)
[2017-06-07] MEDS ORDERED: ENOXAPARIN 40 MG/0.4 ML SYRINGE SUBCUT SCH (07:30)
--- NOTE | 2017-06-07 08:22 | EKG Report ---
Stationary ECG Study [facility] Test Date: 06/07/2017 7:49:01 AM Pat Name: JOSTIN BOWER Department: Room: 286 Gender: F Utilization Review Coordinator: ZULEMA : 1955 Requested by: Christine Stephens Order Number: [id number] Reading MD: KYLIE BROWN Intervals [place] Rate: 63 P: 49 SD: 190 QRS: 58 QRSD: 108 T: 23 QT: 449 QTc: 456 Interpretive Statements SINUS RHYTHM LOW QRS VOLTAGE IN PRECORDIAL LEADS POSSIBLE LATERAL MYOCARDIAL INFARCTION, OF INDETERMINATE AGE YEARS Electronically Signed On 06-08-17 07:00:32 CDT by KYLIE BROWN [email or web address]
[2017-06-07] MEDS ORDERED: POTASSIUM CHLORIDE 20 MEQ TABLET PO SCH (09:00)
[2017-06-07] MEDS ORDERED: CYANOCOBALAMIN 500 MCG TABLET PO SCH (09:00)
[2017-06-07] MEDS ORDERED: NON-FORMULARY MEDICATION (Nebivolol Hcl [Bystolic] 20 MG) PO SCH (09:00)
[2017-06-07] MEDS ORDERED: LOSARTAN 50 MG TABLET PO SCH (09:00)
[2017-06-07] MEDS: NEBIVOLOL 10 MG TABLET PO SCH (09:02)
[2017-06-07] MEDS: GLIMEPIRIDE 2 MG TABLET PO SCH (09:02)
[2017-06-07] MEDS: INSULIN REGULAR 100 UNIT/ML SUBCUT SCH ×3 (09:02→16:35)
[2017-06-07] MEDS: CLOPIDOGREL 75 MG TABLET PO SCH (09:03)
[2017-06-07] MEDS: FUROSEMIDE 80 MG TABLET PO SCH ×2 (09:03→16:34)
[2017-06-07] MEDS: ASPIRIN 325 MG TABLET PO SCH (09:03)
[2017-06-07] MEDS: GABAPENTIN 600 MG TABLET PO SCH ×2 (09:03→14:55)
[2017-06-07] MEDS: BUDESONIDE/FORMOTEROL 160-4.5 INHALER 6 GM INH SCH (09:04)
[2017-06-07] MEDS: PANTOPRAZOLE 40 MG TABLET PO SCH (09:04)
[2017-06-07] MEDS: THEOPHYLLINE ER (24 HR) 300 MG CAPSULE PO SCH (09:04)
[2017-06-07] MEDS: SODIUM CHLORIDE 0.45% 1,000 ML IV SCH (09:04)
--- NOTE | 2017-06-07 11:00 | Cardiology Progress Note ---
<Christine Stephens - Last Filed: 06/07/17 10:48> Assessment and Plan (1) Chest pain Status: Acute Assessment and plan: SEE PLAN OF CARE LISTED BELOW. Current Visit: Yes (2) Shortness of breath Status: Acute Assessment and plan: SEE PLAN OF CARE LISTED BELOW. Current Visit: Yes (3) CAD (coronary artery disease) Status: Chronic Assessment and plan: SEE PLAN OF CARE LISTED BELOW. Current Visit: Yes (4) Tobacco abuse Status: Chronic Assessment and plan: SEE PLAN OF CARE LISTED BELOW. Current Visit: Yes (5) Ischemic cardiomyopathy Status: Chronic Assessment and plan: SEE PLAN OF CARE LISTED BELOW. Current Visit: Yes (6) COPD (chronic obstructive pulmonary disease) Status: Chronic Assessment and plan: SEE PLAN OF CARE LISTED BELOW. Current Visit: Yes (7) GERD (gastroesophageal reflux disease) Status: Chronic Assessment and plan: SEE PLAN OF CARE LISTED BELOW. Current Visit: Yes (8) Diabetes Status: Chronic Assessment and plan: SEE PLAN OF CARE LISTED BELOW. Current Visit: No (9) Hyperlipidemia Status: Chronic Assessment and plan: SEE PLAN OF CARE LISTED BELOW. Current Visit: No (10) Hypertension Status: Chronic Assessment and plan: SEE PLAN OF CARE LISTED BELOW. Current Visit: No (11) YOSHI (obstructive sleep apnea) Status: Chronic Assessment and plan: SEE PLAN OF CARE LISTED BELOW. Current Visit: No (12) Obesity Status: Chronic Assessment and plan: SEE PLAN OF CARE LISTED BELOW. Current Visit: No (13) On home oxygen therapy Status: Chronic Assessment and plan: SEE PLAN OF CARE LISTED BELOW. Current Visit: Yes (14) Allergic reaction to contrast dye Status: Chronic Assessment and plan: SEE PLAN OF CARE LISTED BELOW. Current Visit: Yes (15) Tenderness of lower extremity Status: Acute Assessment and plan: SEE PLAN OF CARE LISTED BELOW. Current Visit: Yes (16) Abdominal bloating Status: Acute Assessment and plan: SEE PLAN OF CARE LISTED BELOW. Current Visit: Yes Cardiology - PN: Subj Interval history: Recreation Facility Manager: Dr. Daly PCP: Dr. Belia LUTHER Ms. Roy is a 61 year old female with known history of coronary artery disease, routinely followed by Dr. Daly. She has cardiac risk factors significant for known CAD, hypertension, diabetes, dyslipidemia, obesity, sedentary lifestyle, family history of coronary artery disease (mother and siblings) and current every day smoker. She has a history of anxiety, ischemic cardiomyopathy, CHF, COPD, CAD, depression, YOSHI (uses CPAP nightly), IDDM, GERD , dyslipidemia, and hypertension. She had a heart cath May 26, 2015 with PCI of the proximal and mid left anterior descending artery and balloon angioplasty of the more mid to distal left anterior descending artery. Echocardiogram done January 25, 2016 with ejection fraction 40%. She was just recently hospitalized and underwent heart catheterization May 02, 2017. At that time, she received successful PCI to proximal RCA and PCI to mid RCA. The previously placed LAD stent widely patent. Severe ischemic cardiopathy noted with ejection fraction 30-35% with anterior apical hypokinesis. She was discharged home on dual antiplatelet therapy, aspirin and Plavix. She reports absolute compliance with both of these medications since discharge. Patient presented to [facility] yesterday with complaints of shortness of breath and intermittent chest pain. Patient's chest pain was concerning for angina. Therefore, she underwent repeat heart catheterization yesterday evening with Dr. Jordana Daly with the following impressions noted: IMPRESSION: 1. Stable coronary artery disease with patent stents in the mid LAD, proximal and mid right coronary arteries. 2. Right dominant coronary arteries. 3. Ejection fraction 40-45 %. 4. Mild atherosclerotic vascular disease of the right iliac artery without evidence of vascular complications. 5. Of note, the right subclavian artery was noted to be tortuous on prior radial approach. PLAN: 1. Medical management. 2. Noncardiac workup if symptoms. JUNE 07, 2017 UPDATE: I have seen and examined Ms. Roy along with Dr. Jordana Daly. She is doing well post catheterization. Right groin soft without bleeding, hematoma and bruit. Distal pulses present. Right groin precautions reviewed with the patient. She verbalizes understanding. Patient is complaining of abdominal bloating and tenderness after meals. At this point, we will order abdominal ultrasound and KUB. Patient may be candidate for follow-up with GI as an outpatient. She also had complaints of severe itching yesterday and overnight. She now reports that this is resolved. Suspect that patient did have reaction to contrast yesterday. This will need to be noted for future procedures that require IV contrast. Dr. Percy Pearson was consulted today for her worsening dyspnea. She is well known to him. She continues to complain of shortness of breath, significantly with exertion. D-dimer was negative. No overt heart failure noted. Heart catheterization yesterday did not reveal any obstructive coronary artery disease. We will await pulmonary's recommendations. Patient may be eligible for discharge later this afternoon. ASSESSMENT/PLAN: 1. SHORTNESS OF BREATH - Etiology undetermined. No overt heart failure noted. Negative d-dimer. Coronary arteries unchanged per heart catheterization yesterday. Patient is well-known to Dr. Pearson. He will be consulted today. Will await his recommendations. She may be eligible for discharge later this afternoon. 2. CHEST PAIN - No ACS. Heart catheterization yesterday did not reveal any changes from previous catheterization. Continue dual antiplatelet therapy, beta blockade, nitrates and lipid-lowering agent. 3. HISTORY OF CAD - As above. 4. CURRENT EVERYDAY SMOKER - Smoking cessation encouraged. 5. DYSLIPIDEMIA - Lipid panel reviewed. LDL not at goal. LDL 103. Will increase lipid-lowering agent. Repeat lipid panel in 4-6 weeks. 6. HYPERTENSION - Under well control. Continue current plan of care. 7. DIABETES - Sliding scale insulin. Accu-Cheks before meals and at bedtime. 8. OBESITY - Weight loss encouraged via dietary restriction and regular exercise. 9. ISCHEMIC CARDIOMYOPATHY - Most recent heart catheterization revealed EF of 30-35%. Continue ARB and beta blockade. No overt heart failure noted this hospitalization. 10. COPD, HOME OXYGEN- No wheezing auscultated. Continue breathing treatments. 11. OBSTRUCTIVE SLEEP APNEA - Continue CPAP nightly. 12. GERD - Continue PPI. 13. CONTRAST ALLERGY - Suspect that patient had reaction to contrast yesterday. This has now resolved. This needs to be noted for future procedures and IV contrast. 14. BILATERAL LOWER EXTREMITY TENDERNESS - Venous Doppler ultrasound of lower extremities was negative for DVT. 15. ABDOMINAL BLOATING - KUB and abdominal ultrasound ordered. Consider follow with GI as an outpatient. Exam (Progress Note) - Constitutional Vitals: Period Temp Pulse Resp BP Sys/Callahan Pulse Ox Last 24 Hr 97.2 F-98.4 F 55-66 17-20 106-132/55-86 92-100 Exam: General: Appears well with no apparent distress. Pleasant and cooperative. Appears comfortable. HEENT: PERRL, normocephalic, atraumatic. Mucous membranes moist. No jaundice noted. Conjunctiva moist and clear, sclerae anicteric Neck: No JVD/HJR, no thyromegaly or lymphadenopathy noted. No carotid bruit appreciated Cardiac: Regular rate and rhythm. Lungs: Decreased breath sounds, Clear. Oxygen via nasal cannula Abdomen: Bowel sounds normoactive. Tender to light palpation. No abdominal bruit or thrill noted. No masses noted. Extremities: No clubbing, cyanosis noted. 1+ lower extremity edema. Upper extremity pulses 2+. Lower extremity pulses 2+. Capillary refill less than 3 seconds. Right groin soft without bleeding, hematoma and bruit. Distal pulses 2+. Skin: No unusual lesions or rashes. No skin breakdown appreciated. Neuro: Awake, alert and oriented 3. Moves all extremities well without hemiparesis or paralysis. No essential tremor is appreciated. Result/EKG - Labs CBC & BMP: 06/07/17 04:45 06/07/17 04:45 Lab Results: I have reviewed the past 24 hour labs Labs: Laboratory Results - last 24 hr 06/06/17 06/06/17 06/06/17 11:14 11:14 11:15 WBC RBC Hgb Hct MCV MCH MCHC RDW Plt Count MPV Neut % (Auto) Lymph % (Auto) [place] % (Auto) Eos % (Auto) Baso % (Auto) Neut # (Auto) Lymph # (Auto) [place] # (Auto) Eos # (Auto) Baso # (Auto) Immature Gran % Nucleated RBC % Immature Gran # Nucleated RBCs # Immature Plt Fraction D-Dimer, Quantitative <= 0.5 Sodium Potassium Chloride Carbon Dioxide Anion Gap BUN Creatinine GFR Calculation BUN/Creatinine Ratio Glucose POC Glucose Calculated Osmolality Calcium Magnesium Total Creatine Kinase 49 CK-MB (CK-2) < 1.0 Troponin I < 0.015 Triglycerides Cholesterol LDL Cholesterol VLDL Cholesterol HDL Cholesterol Heart Disease Risk Ratio Blood Type O POSITIVE Antibody Screen Negative 06/06/17 06/06/17 06/06/17 11:20 15:53 19:13 WBC RBC Hgb Hct MCV MCH MCHC RDW Plt Count MPV Neut % (Auto) Lymph % (Auto) [place] % (Auto) Eos % (Auto) Baso % (Auto) Neut # (Auto) Lymph # (Auto) [place] # (Auto) Eos # (Auto) Baso # (Auto) Immature Gran % Nucleated RBC % Immature Gran # Nucleated RBCs # Immature Plt Fraction D-Dimer, Quantitative Sodium Potassium Chloride Carbon Dioxide Anion Gap BUN Creatinine GFR Calculation BUN/Creatinine Ratio Glucose POC Glucose 89 Calculated Osmolality Calcium Magnesium Total Creatine Kinase 46 CK-MB (CK-2) < 1.0 Troponin I < 0.015 Triglycerides 139 Cholesterol 164 LDL Cholesterol 103.0 VLDL Cholesterol 27.8 HDL Cholesterol 47 Heart Disease Risk Ratio 3.49 Blood Type Antibody Screen 06/06/17 06/07/17 06/07/17 19:51 04:45 04:45 WBC 6.4 RBC 4.40 Hgb 11.4 L Hct 35.4 L MCV 80.5 L MCH 26 L MCHC 32.2 RDW 14.4 Plt Count 295 MPV 9.4 L Neut % (Auto) 56.3 Lymph % (Auto) 30.9 [place] % (Auto) 9.8 Eos % (Auto) 1.7 Baso % (Auto) 0.8 Neut # (Auto) 3.6 Lymph # (Auto) 2.0 [place] # (Auto) 0.6 Eos # (Auto) 0.1 Baso # (Auto) 0.1 Immature Gran % 0.5 Nucleated RBC % 0.0 Immature Gran # 0.03 Nucleated RBCs # 0.00 Immature Plt Fraction 0.0 D-Dimer, Quantitative Sodium 140 Potassium 4.2 Chloride 101 Carbon Dioxide 31 Anion Gap 12.2 BUN 13 Creatinine 1.00 GFR Calculation 72 BUN/Creatinine Ratio 13.00 Glucose 140 H POC Glucose 216 H Calculated Osmolality 280.4 Calcium 9.3 Magnesium 2.1 Total Creatine Kinase CK-MB (CK-2) Troponin I Triglycerides Cholesterol LDL Cholesterol VLDL Cholesterol HDL Cholesterol Heart Disease Risk Ratio Blood Type Antibody Screen 06/07/17 07:29 WBC RBC Hgb Hct MCV MCH MCHC RDW Plt Count MPV Neut % (Auto) Lymph % (Auto) [place] % (Auto) Eos % (Auto) Baso % (Auto) Neut # (Auto) Lymph # (Auto) [place] # (Auto) Eos # (Auto) Baso # (Auto) Immature Gran % Nucleated RBC % Immature Gran # Nucleated RBCs # Immature Plt Fraction D-Dimer, Quantitative Sodium Potassium Chloride Carbon Dioxide Anion Gap BUN Creatinine GFR Calculation BUN/Creatinine Ratio Glucose POC Glucose 142 H Calculated Osmolality Calcium Magnesium Total Creatine Kinase CK-MB (CK-2) Troponin I Triglycerides Cholesterol LDL Cholesterol VLDL Cholesterol HDL Cholesterol Heart Disease Risk Ratio Blood Type Antibody Screen Specialty Discharge - Follow Up or Referrals Follow up with: Jordana Daly MD [Physician] - (2-3 weeks) <Jordana Daly - Last Filed: 06/07/17 11:46> Cardiology - PN: Subj Interval history: I have personally interviewed and examined the patient, reviewed the chart and discussed medical decision-making with practitioner Angelo. I have read this note and agree with the documentation herein. Exam (Progress Note) - Constitutional Vitals: Period Temp Pulse Resp BP Sys/Callahan Pulse Ox Last 24 Hr 97.2 F-98.4 F 55-66 17-20 106-132/55-86 92-100 Result/EKG - Labs CBC & BMP: 06/07/17 04:45 06/07/17 04:45 Labs: Laboratory Results - last 24 hr 06/06/17 06/06/17 06/06/17 11:14 11:14 11:15 WBC RBC Hgb Hct MCV MCH MCHC RDW Plt Count MPV Neut % (Auto) Lymph % (Auto) [place] % (Auto) Eos % (Auto) Baso % (Auto) Neut # (Auto) Lymph # (Auto) [place] # (Auto) Eos # (Auto) Baso # (Auto) Immature Gran % Nucleated RBC % Immature Gran # Nucleated RBCs # Immature Plt Fraction D-Dimer, Quantitative <= 0.5 Sodium Potassium Chloride Carbon Dioxide Anion Gap BUN Creatinine GFR Calculation BUN/Creatinine Ratio Glucose POC Glucose Calculated Osmolality Calcium Magnesium Total Creatine Kinase 49 CK-MB (CK-2) < 1.0 Troponin I < 0.015 Triglycerides Cholesterol LDL Cholesterol VLDL Cholesterol HDL Cholesterol Heart Disease Risk Ratio Blood Type O POSITIVE Antibody Screen Negative 06/06/17 06/06/17 06/06/17 11:20 15:53 19:13 WBC RBC Hgb Hct MCV MCH MCHC RDW Plt Count MPV Neut % (Auto) Lymph % (Auto) [place] % (Auto) Eos % (Auto) Baso % (Auto) Neut # (Auto) Lymph # (Auto) [place] # (Auto) Eos # (Auto) Baso # (Auto) Immature Gran % Nucleated RBC % Immature Gran # Nucleated RBCs # Immature Plt Fraction D-Dimer, Quantitative Sodium Potassium Chloride Carbon Dioxide Anion Gap BUN Creatinine GFR Calculation BUN/Creatinine Ratio Glucose POC Glucose 89 Calculated Osmolality Calcium Magnesium Total Creatine Kinase 46 CK-MB (CK-2) < 1.0 Troponin I < 0.015 Triglycerides 139 Cholesterol 164 LDL Cholesterol 103.0 VLDL Cholesterol 27.8 HDL Cholesterol 47 Heart Disease Risk Ratio 3.49 Blood Type Antibody Screen 06/06/17 06/07/17 06/07/17 19:51 04:45 04:45 WBC 6.4 RBC 4.40 Hgb 11.4 L Hct 35.4 L MCV 80.5 L MCH 26 L MCHC 32.2 RDW 14.4 Plt Count 295 MPV 9.4 L Neut % (Auto) 56.3 Lymph % (Auto) 30.9 [place] % (Auto) 9.8 Eos % (Auto) 1.7 Baso % (Auto) 0.8 Neut # (Auto) 3.6 Lymph # (Auto) 2.0 [place] # (Auto) 0.6 Eos # (Auto) 0.1 Baso # (Auto) 0.1 Immature Gran % 0.5 Nucleated RBC % 0.0 Immature Gran # 0.03 Nucleated RBCs # 0.00 Immature Plt Fraction 0.0 D-Dimer, Quantitative Sodium 140 Potassium 4.2 Chloride 101 Carbon Dioxide 31 Anion Gap 12.2 BUN 13 Creatinine 1.00 GFR Calculation 72 BUN/Creatinine Ratio 13.00 Glucose 140 H POC Glucose 216 H Calculated Osmolality 280.4 Calcium 9.3 Magnesium 2.1 Total Creatine Kinase CK-MB (CK-2) Troponin I Triglycerides Cholesterol LDL Cholesterol VLDL Cholesterol HDL Cholesterol Heart Disease Risk Ratio Blood Type Antibody Screen 06/07/17 06/07/17 07:29 11:28 WBC RBC Hgb Hct MCV MCH MCHC RDW Plt Count MPV Neut % (Auto) Lymph % (Auto) [place] % (Auto) Eos % (Auto) Baso % (Auto) Neut # (Auto) Lymph # (Auto) [place] # (Auto) Eos # (Auto) Baso # (Auto) Immature Gran % Nucleated RBC % Immature Gran # Nucleated RBCs # Immature Plt Fraction D-Dimer, Quantitative Sodium Potassium Chloride Carbon Dioxide Anion Gap BUN Creatinine GFR Calculation BUN/Creatinine Ratio Glucose POC Glucose 142 H 160 H Calculated Osmolality Calcium Magnesium Total Creatine Kinase CK-MB (CK-2) Troponin I Triglycerides Cholesterol LDL Cholesterol VLDL Cholesterol HDL Cholesterol Heart Disease Risk Ratio Blood Type Antibody Screen
--- NOTE | 2017-06-07 11:39 | Pulmonology Consult Note ---
Assessment and Plan (1) Coronary artery disease involving [place] coronary artery Problem details: Status post PCI to mid LAD with subsequent in stent thrombosis from medication noncompliance. Status: Chronic Assessment and plan: Patient had a repeat cath and everything looked okay. Current Visit: No (2) s/p coronary PCI Problem details: PCI with stenting and some POBA of the left anterior descending artery Status: Acute Assessment and plan: She recently had stents placed. Current Visit: No (3) Hypertension Status: Chronic Assessment and plan: Her blood pressure and heart rate have been stable. Current Visit: No (4) Diabetes Status: Chronic Assessment and plan: Her glucose is 160. Current Visit: No (5) Obesity Status: Chronic Assessment and plan: She certainly needs to try to lose weight. Current Visit: No (6) Tobacco use Status: Chronic Assessment and plan: She certainly needs to quit smoking if she thinks she is going to breathe better. Current Visit: No (7) Chronic obstructive pulmonary disease with bronchospasm Status: Acute Assessment and plan: We will continue with bronchodilator therapy. Will add steroids as she really has trouble. Actually she looks reasonably comfortable at present. She can probably go home and follow-up as an outpatient. Current Visit: No (8) YOSHI (obstructive sleep apnea) Status: Chronic Assessment and plan: She needs to use her CPAP at night. Current Visit: No History of Present Illness Chief complaint: Shortness of breath History of present illness: Ms. Roy is a 61 year old white female but does have a history of COPD along with coronary artery disease. She is overweight and deconditioned and has obstructive sleep apnea. In April she came in and had 2 stents placed. She came back with shortness of breath and chest aching and went to the [facility] yesterday. Apparently everything went well and her vessels are open. She has been a lifelong smoker. She says she is using her bronchodilators okay. Her shortness of breath is about like it usually is. She says she coughs and wheezes some. She has been having some epigastric discomfort. Otherwise she seems to be doing about the same. Home Medications Medication Instructions Recorded Confirmed Type Budesonide/Formoterol 160-4.5 2 puff INH BID 10/21/15 06/05/17 History [Symbicort 160-4.5] Ipratropium/Albuterol Inhaler 1 puff INH QID #1 inhaler 01/29/16 06/05/17 Rx [Combivent Respimat Inhaler] Nebivolol HCl [Bystolic] 20 mg PO QAM 11/13/16 06/05/17 History Cyanocobalamin (Vitamin B-12) 2,000 mcg PO QAM 05/01/17 06/05/17 History [Vitamin B-12] Cyclobenzaprine [Flexeril] 10 mg PO TID PRN 05/01/17 06/05/17 History Gabapentin Cap/Tab [Neurontin 600 mg PO QID 05/01/17 06/05/17 History Cap/Tab] Glimepiride 2 mg PO QAM 05/01/17 06/05/17 History Albuterol/Ipratropium Neb [Duoneb] 3 ml RESP TX RT Q6H #120 vial 05/04/17 Rx Furosemide Tab [Lasix Tab] 40 mg PO BID DIURETIC #60 tablet 05/04/17 06/05/17 Rx Albuterol Inhaler [Proventil 2 puff INH Q4H PRN 06/05/17 06/05/17 History Inhaler] Aspirin EC Tab 325 mg PO QAM 06/05/17 06/05/17 History Atorvastatin [Lipitor] 40 mg PO BEDTIME 06/05/17 06/05/17 History Clopidogrel [Plavix] 75 mg PO QAM 06/05/17 06/05/17 History Fluoxetine HCl [Prozac] 40 mg PO BEDTIME 06/05/17 06/05/17 History HYDROcodone/ACETAMIN 10-325 [Ray 1 tablet PO BID 06/05/17 06/05/17 History 10-325] Insulin Glargine [Lantus] 15 unit SUBCUT QPM 06/05/17 06/05/17 History Insulin Glargine,Hum.rec.anlog 10 unit SUBCUT QAM 06/05/17 06/05/17 History [Lantus SoloStar] Losartan Potassium 100 mg PO QAM 06/05/17 06/06/17 History Omeprazole 20 mg PO QAM 06/05/17 06/05/17 History Potassium Chloride Cap/Tab [K Dur] 20 meq PO QAM 06/05/17 06/05/17 History Allergies Allergy/AdvReac Type Severity Reaction Status Date / Time nylon sutures Allergy RASH Uncoded 06/05/17 16:38 plastic tape Allergy RASH Uncoded 06/05/17 16:38 - Constitutional Constitutional: Present: fatigue, weight gain. Absent: chills, fever(s) - EENT Eyes: Absent: loss of vision Ears: Present: decreased hearing Nose, mouth and throat: Absent: dysphagia, headache(s), nasal congestion, sinus pressure - Cardiovascular Cardiovascular: Present: chest pain at rest, dyspnea, edema, orthopnea. Absent : palpitations - Respiratory Respiratory: Present: cough, wheezing. Absent: hemoptysis, change in phlegm color - Gastrointestinal Gastrointestinal: Present: abdominal pain, constipation. Absent: dysphagia, nausea, vomiting - Genitourinary Genitourinary: Absent: difficulty urinating, dysuria, hematuria, urinary frequency - Musculoskeletal Musculoskeletal: Present: arthralgias, muscle weakness - Neurological Neurological: Absent: abnormal speech, focal weakness Exam (Pulmonay) H&P - Constitutional Vitals: Period Temp Pulse Resp BP Sys/Callahan Pulse Ox Last 24 Hr 97.2 F-98.4 F 55-66 17-20 106-132/55-86 92-100 General appearance: no acute distress (She looks comfortable sitting up in chair.), over weight - Head Head exam: Present: normal inspection, normocephalic - Eye Eye exam: Present: EOMI. Absent: scleral icterus Pupils: Present: ROSETTA - ENT ENT exam: Present: normal exam - Neck Neck exam: Present: normal inspection. Absent: lymphadenopathy, thyromegaly - Respiratory Respiratory exam: Present: decreased breath sounds, prolonged expiratory phase, rhonchi - Cardiovascular Cardiovascular exam: Present: regular rate and rhythm. Absent: gallop, JVD, systolic murmur - GI/Abdominal GI/Abdominal exam: Present: normal bowel sounds, soft, other (Obese). Absent: distended, organomegaly, tenderness - Extremities Exam Extremities exam: Present: edema (She has mild edema.). Absent: calf tenderness - Neurological Exam Neurological exam: Present: alert, oriented X3. Absent: CN II-XII intact - Psychiatric Psychiatric exam: Present: normal affect, normal mood - Skin Skin exam: Present: warm, dry Medical,Surgical,& Family Hx - Medical History Cardio: History of: CHF, CAD, Hypertension, [place], Cardiovascular Problems No history of: Aneurysm, Cardiac Dysrhythmia, Cerebrovascular Disease, Congenital Heart Disease, Pacemaker, PVD, Valvular Heart Disease Psychological: History of: Anxiety Disorders, Depression Neurology: No history of: Seizures Endocrine: History of: Diabetes Mellitus (IDDM), Dyslipidemia Rheumatology: No history of;: Fibromyalgia, Gout, Myasthenia Gravis, Rheumatoid Arthritis, Rheumatological Problems Respiratory: History of: COPD, Obstructive Sleep Apnea No history of: Asthma, Bronchitis, Intubation, Pulmonary Embolism, Pulmonary Hypertension, Pneumonia, Lung Cancer, Respiratory Problems Gastrointestinal: History of: GERD, GI Problems (Peptic Ulcer) No history of: Bowel Obstruction, Clostridium Difficile, Crohn's Disease, Diverticulitis/ Diverticulosis, Esophageal Varices, Gastrointestinal Bleed, Hemorrhoids, Hematochezia, Hepatitis, Liver Problems, Pancreatitis, Polyps, Ulcerative Colitis, Gastrointestinal Cancer Musculoskeletal: History of: Back/Neck Problems (chronic back pain) No history of: Amputation, Degenerative Disk Disease, Herniated Disk, Osteoporosis, Musculoskeletal Cancer, Musculoskeletal Problems - Surgical History Cardiac Surgeries: Sugical HX of: Cardiac Catheterization (stents) Patient Denies: Femoral-Popliteal Bypass Graft, Cardiac Surgery, Carotid Endarterectomy, Internal Defibrillator, Vascular Access Devices Thoracic Surgeries: Patient denies;: Kidney (Renal Surgery), Lithotripsy, Nephrectomy, Lobectomy Neurologic Surgeries: Patient denies: Neurologic Surgery HEENT Surgeries: Surgical HX of: Tonsilectomy & Adenoidectomy Patient denies: Carotid Endarterectomy Abdominal Surgeries: Patient denies: Abdominal Surgery, Appendectomy, Cholecystectomy, Colonoscopy , Gastric Bypass Surgery, EGD, Hernia Repair, Splenectomy Reproductive Surgeries: Surgical HX of;: Breast Surgery (Breast Reduction), Hysterectomy Patient denies;: Section, Cystoscopy, Dilation and Curettage, Genitourinary Surgery, Gynecologic Surgery, Tubal Ligation Orthopedic Surgeries: Surgical HX of;: Orthopedic Surgery (Left knee, left ankle ) Patient denies;: Implanted Devices - Family History Family History: Reports;: Family Diabetes (Mother's siblings), Family Heart Disease (Mother's siblings), Family Hypertension (Father mother siblings) - Social History Smoking Status: Current every day smoker Frequency of Alcohol Use: None Type of Drug Use: Unknown Results - Labs CBC & BMP: 06/07/17 04:45 06/07/17 04:45 - Diagnostic Findings Procedure: Chest x-ray: image reviewed by me, report reviewed by me (Chest x- ray shows COPD changes but no acute changes.) Specialty Discharge - Follow Up or Referrals Follow up with: Jordana Daly MD [Physician] - (2-3 weeks)
[2017-06-07 11:49] VITALS: BP 125/76
--- NOTE | 2017-06-07 12:42 | XRay Report ---
XR KUB Clinical Information: Abdominal Pain constipation Comparison: None Findings: Bowel gas pattern is nonspecific and within normal limits. No abnormally dilated small bowel loops are identified to suggest obstruction. There is no free air identified. Scattered fecal material is noted throughout colon, which is otherwise nondilated. No abnormal focal soft tissue masses or calcific densities are identified in the abdomen or pelvis. Calcified phleboliths noted within the pelvis. Lung bases appear predominantly clear. There is no acute osseous abnormality. No suspicious osseous lesions are identified. Impression: No acute radiographic abnormality in the abdomen. A moderate degree of fecal stasis/constipation is suspected. PROCEDURE INTERPRETED AT [facility] DEPARTMENT OF RADIOLOGY Final Report Signed by: Jus Jimenes
--- NOTE | 2017-06-07 12:48 | Ultrasound Report ---
History is abdominal pain Hepatic and splenic size and echotexture is normal. No gallstones or biliary ductal dilatation seen. The visualized pancreas is normal in size. The visualized IVC and aorta are normal in size. No renal hydronephrosis identified bilaterally. Impression: Unremarkable abdominal ultrasound. The Ultrasound images were captured and stored. PROCEDURE INTERPRETED AT [facility] [place] DEPARTMENT OF RADIOLOGY Final Report Signed by: Dr. Kimberly Marin
[2017-06-07] MEDS ORDERED: POLYETHYLENE GLYCOL POWDER 17 GM PACK PO SCH (14:00)
--- NOTE | 2017-06-07 14:13 | Discharge Summary ---
Hospital Course - Hospital Course Hospital Course: Assistant Nurse Manager: Dr. Daly PCP: Dr. Celaya JUNE 06, 2017: Ms. Roy is a 61 year old female with known history of coronary artery disease, routinely followed by Dr. Daly. She has cardiac risk factors significant for known CAD, hypertension, diabetes, dyslipidemia, obesity, sedentary lifestyle, family history of coronary artery disease (mother and siblings) and current every day smoker. She has a history of anxiety, ischemic cardiomyopathy, CHF, COPD, CAD, depression, YOSHI (uses CPAP nightly), IDDM, GERD, dyslipidemia, and hypertension. She had a heart cath May 26, 2015 with PCI of the proximal and mid left anterior descending artery and balloon angioplasty of the more mid to distal left anterior descending artery. Echocardiogram done January 25, 2016 with ejection fraction 40%. She was just recently hospitalized and underwent heart catheterization May 02, 2017. At that time, she received successful PCI to proximal RCA and PCI to mid RCA. The previously placed LAD stent widely patent. Severe ischemic cardiopathy noted with ejection fraction 30-35% with anterior apical hypokinesis. She was discharged home on dual antiplatelet therapy, aspirin and Plavix. She reports absolute compliance with both of these medications since discharge. Patient presented to [facility] yesterday with complaints of shortness of breath and intermittent chest pain. Patient reports that her home health nurse came to see her yesterday. She apparently did not look well and was encouraged to come to the emergency department for further evaluation. She reports that she was very diaphoretic and short of breath. She reports that she has had worsening dyspnea on exertion over the past couple of weeks. She reports that she can only walk a few steps without becoming very short of breath and having to take a rest break. She does have chronic dyspnea and has home oxygen. However, she has noted a significant decline. She complains of intermittent chest pain over the past week. She reports that this has occurred with both rest and exertion. Only the last 2-3 minutes. Usually relieved with rest, oxygen and/or nitroglycerin. Accompanied by shortness of breath. She is unable to characterize her pain. Radiates to left arm. Reports arm numbness. She does report absolute compliance with dual antiplatelet therapy. She reports on Sunday she attempted to mop her kitchen. She developed chest pain and shortness of breath. She was unable to complete her task. After resting and laying down this pain was relieved. She also confirms bilateral lower extremity swelling and chronic orthopnea. Upon exam, her chest is very tender to palpation. However, she reports is not the same pain she came to the emergency room with. She reports that her chest discomfort is very different from when she underwent PCI in April. Patient has been admitted to cardiology service. She has been housed on the telemetry unit. Patient was seen and examined on the telemetry unit. She is currently without complaints of chest pain, heaviness and tightness. EKG does not reveal MD. Cardiac biomarkers negative thus far. She continues to be mildly short of breath. Upon exam, no wheezing auscultated. Chest x-ray reveals chronic cardiomegaly without overt heart failure. BNP only mildly elevated at 200. She does have edema to bilateral lower extremities. I will order venous Dopplers of lower extremities. Patient symptoms are concerning for angina. EKG does not reveal MD. Cardiac biomarkers negative so far. Patient just recently received PCI in April. After discussing with Dr. Daly, we will set patient up for repeat catheterization in order to formally rule out in- stent thrombosis. Risk and benefits of this procedure were reviewed with the patient. We will keep patient n.p.o. and perform heart catheterization this afternoon. Continue dual antiplatelet therapy, beta blockade, nitrates and lipid-lowering agent. Continue to cycle cardiac biomarkers and EKGs. Will further discuss with Dr. Daly in aware additional recommendations. JUNE 07, 2017: Overnight patient has done well. We did get a pulmonology consult and we appreciate Dr. Pearson's help. He did add steroids and recommended continuing bronchodilator therapy. She had complaints of abdominal distention after eating. Underwent ultrasound of the abdomen and KUB. Both of which were basically unremarkable. She does have moderate constipation. Adding MiraLAX to take daily. Upon review with Robi, her nurse reports that Ms. Roy had simply not been taking any of her her medications at discharge including her Plavix. She has refills on all her medications at home but will verify that she has got to these prescriptions at discharge as well. She is agreeable for discharge. Having that she is met maximal medical therapy , patient is being discharged home in stable condition. She will be given a follow-up appointment with Dr. Daly in approximately 1 month. At that visit the following will be obtained: BMP, magnesium, CBC, EKG. Discharge medications include the following: Aspirin 325 mg orally daily Atorvastatin 80 mg orally each evening Budesonide/formoterol (Symbicort) 160-4.5 two inhalations twice daily Plavix 75 mg orally daily Lasix 40 mg orally twice daily Losartan 100 mg orally daily Bystolic 20 mg orally daily Prednisone 10mg BID x 1 week, then half tablet (5mg) orally BID x 1 week, then stop. MiraLAX 17 g 1 capful daily She will resume her other noncardiac preadmission medications I have personally interviewed and evaluated the patient, reviewed the chart and discussed medical decision-making with Practitioner Viviana. I have read this note and agree with her documentation here in. - Time spent with patient Time with patient DS: Greater than 30 minutes Diagnosis - Discharge Diagnosis (1) Hypertension Status: Chronic (2) Hyperlipidemia Status: Chronic (3) Chest pain Status: Resolved (4) Diabetes Status: Chronic (5) Obesity Status: Chronic (6) Dyslipidemia Status: Chronic (7) Chronic pain Status: Chronic (8) Tobacco use Status: Chronic (9) Medical non-compliance Status: Chronic (10) Constipation Status: Acute Specialty Discharge - Follow Up or Referrals Follow up with: Jordana Daly MD [Physician] - 1 Month (, BMP, magnesium, CBC and EKG 2016 LAB WORK AT 12:[address] DALY AT 1:00 PM ) Lee Pearson MD [Physician] - 1 Month (1 month 2016 AT 9:30 AM) Discharge Plan - Discharge Data Disposition: Disch To Home/Self Care Condition at Discharge: Stable Discharge Diet: heart healthy Activity: other (Post cath expectation) Hygiene: other (Post cath expectations) Weight Bearing at Discharge: other (Post cath expectations) Driving: other (Post cath expectations) Contact your physician if you experience:: fever over 101, Difficulty voiding, Redness or swelling, Nausea/Vomiting, Shortness of breath, Bleeding, pain uncontrolled by pain medications - Discharge Medications New Aspirin Tab 325 mg PO DAILY #30 tablet predniSONE [Prednisone] 10 mg PO BID #21 tab.ds.pk Continue Budesonide/Formoterol 160-4.5 [Symbicort 160-4.5] 2 puff INH BID Ipratropium/Albuterol Inhaler [Combivent Respimat Inhaler] 1 puff INH QID #1 inhaler Nebivolol HCl [Bystolic] 20 mg PO QAM Cyclobenzaprine [Flexeril] 10 mg PO TID PRN PRN Reason: MUSCLE SPASMS Cyanocobalamin (Vitamin B-12) [Vitamin B-12] 2,000 mcg PO QAM Clopidogrel [Plavix] 75 mg PO QAM Fluoxetine HCl [Prozac] 40 mg PO BEDTIME Losartan Potassium 100 mg PO QAM Omeprazole 20 mg PO QAM HYDROcodone/ACETAMIN 10-325 [[place] 10-325] 1 tablet PO BID Insulin Glargine,Hum.rec.anlog [Lantus SoloStar] 10 unit SUBCUT QAM Aspirin EC Tab 325 mg PO QAM Gabapentin Cap/Tab [Neurontin Cap/Tab] 600 mg PO QID Glimepiride 2 mg PO QAM Albuterol/Ipratropium Neb [Duoneb] 3 ml RESP TX RT Q6H #120 vial Furosemide Tab [Lasix Tab] 40 mg PO BID DIURETIC #60 tablet Albuterol Inhaler [Proventil Inhaler] 2 puff INH Q4H PRN PRN Reason: Shortness Of Breath/Wheezing Atorvastatin [Lipitor] 40 mg PO BEDTIME Potassium Chloride Cap/Tab [K Dur] 20 meq PO QAM Insulin Glargine [Lantus] 15 unit SUBCUT QPM - Follow Up or Referral Follow Up: Jordana Daly MD [Physician] - 1 Month (, BMP, magnesium, CBC and EKG 2016 LAB WORK AT 12:[address] DALY AT 1:00 PM ) Lee Pearson MD [Physician] - 1 Month (1 month 2016 AT 9:30 AM) - Forms/Instructions Additional Discharge Instructions: Please instruct patient to get a bottle of Miralax OTC and take one capful daily Exam - Constitutional Vitals: Period Temp Pulse Resp BP Sys/Callahan Pulse Ox Last 24 Hr 97.2 F-98.4 F 61-66 18-20 106-132/60-86 92-98 Exam: General: Appears well with no apparent distress. Pleasant and cooperative. Appears comfortable. HEENT: PERRL, normocephalic, atraumatic. Mucous membranes moist. No jaundice noted. Conjunctiva moist and clear, sclerae anicteric Neck: No JVD/HJR, no thyromegaly or lymphadenopathy noted. No carotid bruit appreciated Cardiac: Regular rate and rhythm. No obvious murmur rub or gallop Lungs: Decreased breath sounds, Clear. Oxygen via nasal cannula occasionally Abdomen: Bowel sounds normoactive. No abdominal bruit or thrill noted. No masses noted. Extremities: No clubbing, cyanosis noted. 1+ lower extremity edema. Upper extremity pulses 2+. Lower extremity pulses 2+. Capillary refill less than 3 seconds. Right groin soft without bleeding, hematoma and bruit. Distal pulses 2+. Skin: No unusual lesions or rashes. No skin breakdown appreciated. Neuro: Awake, alert and oriented 3. Moves all extremities well without hemiparesis or paralysis. No essential tremor is appreciated. Discharge Results Labs on day of discharge: Labs from last 24 hours 06/07/17 06/07/17 06/07/17 11:28 07:29 04:45 WBC RBC Hgb Hct MCV MCH MCHC RDW Plt Count MPV Neut % (Auto) Lymph % (Auto) [place] % (Auto) Eos % (Auto) Baso % (Auto) Neut # (Auto) Lymph # (Auto) [place] # (Auto) Eos # (Auto) Baso # (Auto) Immature Gran % Nucleated RBC % Immature Gran # Nucleated RBCs # Immature Plt Fraction Sodium 140 Potassium 4.2 Chloride 101 Carbon Dioxide 31 Anion Gap 12.2 BUN 13 Creatinine 1.00 GFR Calculation 72 BUN/Creatinine Ratio 13.00 Glucose 140 H POC Glucose 160 H 142 H Calculated Osmolality 280.4 Calcium 9.3 Magnesium 2.1 Total Creatine Kinase CK-MB (CK-2) Troponin I 06/07/17 06/06/17 06/06/17 04:45 19:51 19:13 WBC 6.4 RBC 4.40 Hgb 11.4 L Hct 35.4 L MCV 80.5 L MCH 26 L MCHC 32.2 RDW 14.4 Plt Count 295 MPV 9.4 L Neut % (Auto) 56.3 Lymph % (Auto) 30.9 [place] % (Auto) 9.8 Eos % (Auto) 1.7 Baso % (Auto) 0.8 Neut # (Auto) 3.6 Lymph # (Auto) 2.0 [place] # (Auto) 0.6 Eos # (Auto) 0.1 Baso # (Auto) 0.1 Immature Gran % 0.5 Nucleated RBC % 0.0 Immature Gran # 0.03 Nucleated RBCs # 0.00 Immature Plt Fraction 0.0 Sodium Potassium Chloride Carbon Dioxide Anion Gap BUN Creatinine GFR Calculation BUN/Creatinine Ratio Glucose POC Glucose 216 H Calculated Osmolality Calcium Magnesium Total Creatine Kinase 46 CK-MB (CK-2) < 1.0 Troponin I < 0.015 - Imaging and Cardiology Procedure: Chest x-ray: report reviewed by me, KUB x-ray: report reviewed by me , Ultrasound: report reviewed by me DS: Provider Date of admission: 06/05/17 19:41 Primary care physician: Krysta Celaya M.D. Attending physician on admission: Ruddy Mensah MD Consults: 06/06/17 13:18 Consult to Physician [CONS] Routine Comment: your patient, worsening SOB Consulting Provider: Lee Pearson Date Notified: 06/07/17 Time Notified: 09:00 Consult Notification Comment: Office notified on 06/06. Left message on 06/07- DrKeith to see pt today. Discharging clinician: Muriel Michelle NP Expected date of discharge: 06/07/17
== END 2017-06-07 16:34 | disposition home or self-care (01) | DRG 191 ==
LOC: N.ED 15:59 → OBSVTOIN 19:41 → N.EDINP 19:41 → INTOOBSV 19:41 → N.TELEN 20:23
PROVIDERS: ADMIT Internal Medicine Cardiovascular Disease; ATTEND Internal Medicine Cardiovascular Disease
PROC: CLCCHCL (ICD-10-PCS; 2017-06-06 12:45)

== ENCOUNTER 2017-07-18 12:23 | Inpatient (IN) ==
[2017-07-18] MEDS ORDERED: ONDANSETRON 4 MG/2 ML VIAL IV PRN (15:01)
[2017-07-18] MEDS ORDERED: ACETAMINOPHEN 325 MG TABLET PO PRN (15:01)
[2017-07-18] MEDS ORDERED: diphenhydrAMINE CAP 25 MG CAPSULE PO PRN (15:01)
[2017-07-18] MEDS ORDERED: DEXTROSE 50% 25 GM/50 ML VIAL IV PRN (15:02)
[2017-07-18] MEDS ORDERED: GLUCAGON 1 MG VIAL IM PRN (15:02)
[2017-07-18] MEDS ORDERED: ALBUTEROL 2.5 MG/3 ML NEB RESP TX PRN (15:06)
--- NOTE | 2017-07-18 15:19 | Order Completion Report ---
See report scanned to EMR
[2017-07-18] MEDS ORDERED: SODIUM CHLORIDE 0.9% 1,000 ML IV SCH (15:30)
[2017-07-18] MEDS ORDERED: ENOXAPARIN 40 MG/0.4 ML SYRINGE SUBCUT SCH (15:30)
--- NOTE | 2017-07-18 15:31 | Hospitalist History & Physical ---
Assessment and Plan - Time spent with patient Time spent with patient: Greater than 30 minutes (1) Asthma with exacerbation Status: Acute Assessment and plan: 61-year-old white female with history of hypertension, diabetes, CHF, CAD status post stents in April on Plavix, ischemic cardiomyopathy with an EF of 45% , hyperlipidemia, GERD, YOSHI on CPAP, tobacco abuse, and chronic pain admitted by the hospitalist service as a direct admit from Dr. Celaya's office with shortness of breath and wheezing. Patient's labs, x-rays, etc. are all pending. Will treat patient for asthma/COPD exacerbation and pneumonia as well. Will restart her home medications once medicines have been verified in the system. She will be on sliding scale insulin for her diabetes and will be monitored closely. We will consult Dr. Pearson from pulmonology since she is a patient of his. Will wait and see what her labs are to see if Dr. Daly from cardiology needs to be consulted as well. Will go ahead and get lower extremity ultrasound to rule out DVT due to her extensive peripheral edema. Dr. Bello will see and examine patient and further recommendations to follow. Current Visit: No (2) COPD exacerbation Status: Acute Current Visit: No (3) Chronic obstructive pulmonary disease with bronchospasm Status: Acute Current Visit: No (4) Peripheral edema Status: Acute Current Visit: No (5) s/p coronary PCI Problem details: PCI with stenting and some POBA of the left anterior descending artery Status: Acute Current Visit: No (6) CAD (coronary artery disease) Status: Chronic Current Visit: No (7) Chronic pain Status: Chronic Current Visit: No (8) Congestive heart failure Status: Chronic Current Visit: No Qualifiers: Congestive heart failure type: systolic Congestive heart failure chronicity : acute on chronic Qualified Code(s): I50.23 - Acute on chronic systolic ( congestive) heart failure (9) Diabetes Status: Chronic Current Visit: No (10) Dyslipidemia Status: Chronic Current Visit: No (11) Ischemic cardiomyopathy Status: Chronic Current Visit: No (12) Medical non-compliance Status: Chronic Current Visit: No (13) YOSHI (obstructive sleep apnea) Status: Chronic Current Visit: No (14) Tobacco abuse Status: Chronic Current Visit: No History of Present Illness Chief complaint: Shortness of breath and cough History of present illness: Ms. Roy is a 61 year old white female with history of hypertension, diabetes , chronic pain, CHF, medical noncompliance, CAD status post stents in April on Plavix, dyslipidemia, GERD, YOSHI on CPAP nightly, tobacco abuse, and ischemic cardiomyopathy with an EF of 40-45% direct admitted by the hospitalist from Dr. Celaya's office with shortness of breath and wheezing. Patient states she has been battling an upper respiratory infection with cough chest tightness and wheezing for approximately 1 week. She states she went to see Dr. Pearson from pulmonary for follow-up visit and he gave her a shot of something but she does not know what. She went to see Dr. Celaya this morning who listened to her chest and heard her wheezing and had her directly admitted to the hospital. Patient states she has been short of breath especially with activity, she cannot lie flat, cough with thick sputum production, and increased lower extremity edema. Patient states she is taking her medications as instructed but she does not know what they are. Patient was recently admitted in April with shortness of breath and chest pain where she underwent a left heart cath with stents placed. She is on Plavix. An echo at that time showed an EF of 30% . Patient was readmitted on 06/06/2017 where another left heart cath was performed that showed patent stents. Her EF at that time was 40-45%. Patient' s lab work and x-rays etc. are pending at this time. Upon exam, patient has moderate air trapping and bilateral moderate wheezing. She has 2+ pitting edema of bilateral lower extremities with left greater than the right. Home Medications Medication Instructions Recorded Confirmed Type Budesonide/Formoterol 160-4.5 2 puff INH BID 10/21/15 06/05/17 History [Symbicort 160-4.5] Ipratropium/Albuterol Inhaler 1 puff INH QID #1 inhaler 01/29/16 06/05/17 Rx [Combivent Respimat Inhaler] Nebivolol HCl [Bystolic] 20 mg PO QAM 11/13/16 06/05/17 History Cyanocobalamin (Vitamin B-12) 2,000 mcg PO QAM 05/01/17 06/05/17 History [Vitamin B-12] Cyclobenzaprine [Flexeril] 10 mg PO TID PRN 05/01/17 06/05/17 History Gabapentin Cap/Tab [Neurontin 600 mg PO QID 05/01/17 06/05/17 History Cap/Tab] Glimepiride 2 mg PO QAM 05/01/17 06/05/17 History Albuterol/Ipratropium Neb [Duoneb] 3 ml RESP TX RT Q6H #120 vial 05/04/17 Rx Furosemide Tab [Lasix Tab] 40 mg PO BID DIURETIC #60 tablet 05/04/17 06/05/17 Rx Albuterol Inhaler [Proventil 2 puff INH Q4H PRN 06/05/17 06/05/17 History Inhaler] Aspirin EC Tab 325 mg PO QAM 06/05/17 06/05/17 History Atorvastatin [Lipitor] 40 mg PO BEDTIME 06/05/17 06/05/17 History Clopidogrel [Plavix] 75 mg PO QAM 06/05/17 06/05/17 History Fluoxetine HCl [Prozac] 40 mg PO BEDTIME 06/05/17 06/05/17 History HYDROcodone/ACETAMIN 10-325 [[place] 1 tablet PO BID 06/05/17 06/05/17 History 10-325] Insulin Glargine [Lantus] 15 unit SUBCUT QPM 06/05/17 06/05/17 History Insulin Glargine,Hum.rec.anlog 10 unit SUBCUT QAM 06/05/17 06/05/17 History [Lantus SoloStar] Losartan Potassium 100 mg PO QAM 06/05/17 06/06/17 History Omeprazole 20 mg PO QAM 06/05/17 06/05/17 History Potassium Chloride Cap/Tab [K Dur] 20 meq PO QAM 06/05/17 06/05/17 History Aspirin Tab 325 mg PO DAILY #30 tablet 06/07/17 Rx predniSONE [Prednisone] 10 mg PO BID #21 tab.ds.pk 06/07/17 Rx Allergies Allergy/AdvReac Type Severity Reaction Status Date / Time nylon sutures Allergy RASH Uncoded 06/05/17 16:38 plastic tape Allergy RASH Uncoded 06/05/17 16:38 Medical,Surgical,& Family Hx - Medical History Cardio: History of: CHF, CAD, Hypertension, [place], Cardiovascular Problems No history of: Aneurysm, Cardiac Dysrhythmia, Cerebrovascular Disease, Congenital Heart Disease, Pacemaker, PVD, Valvular Heart Disease Psychological: History of: Anxiety Disorders, Depression Neurology: No history of: Seizures Endocrine: History of: Diabetes Mellitus (IDDM), Dyslipidemia Rheumatology: No history of;: Fibromyalgia, Gout, Myasthenia Gravis, Rheumatoid Arthritis, Rheumatological Problems Respiratory: History of: COPD, Obstructive Sleep Apnea No history of: Asthma, Bronchitis, Intubation, Pulmonary Embolism, Pulmonary Hypertension, Pneumonia, Lung Cancer, Respiratory Problems Gastrointestinal: History of: GERD, GI Problems (Peptic Ulcer) No history of: Bowel Obstruction, Clostridium Difficile, Crohn's Disease, Diverticulitis/ Diverticulosis, Esophageal Varices, Gastrointestinal Bleed, Hemorrhoids, Hematochezia, Hepatitis, Liver Problems, Pancreatitis, Polyps, Ulcerative Colitis, Gastrointestinal Cancer Musculoskeletal: History of: Back/Neck Problems (chronic back pain) No history of: Amputation, Degenerative Disk Disease, Herniated Disk, Osteoporosis, Musculoskeletal Cancer, Musculoskeletal Problems - Surgical History Cardiac Surgeries: Sugical HX of: Cardiac Catheterization (stents) Patient Denies: Femoral-Popliteal Bypass Graft, Cardiac Surgery, Carotid Endarterectomy, Internal Defibrillator, Vascular Access Devices Thoracic Surgeries: Patient denies;: Kidney (Renal Surgery), Lithotripsy, Nephrectomy, Lobectomy Neurologic Surgeries: Patient denies: Neurologic Surgery HEENT Surgeries: Surgical HX of: Tonsilectomy & Adenoidectomy Patient denies: Carotid Endarterectomy Abdominal Surgeries: Patient denies: Abdominal Surgery, Appendectomy, Cholecystectomy, Colonoscopy , Gastric Bypass Surgery, EGD, Hernia Repair, Splenectomy Reproductive Surgeries: Surgical HX of;: Breast Surgery (Breast Reduction), Hysterectomy Patient denies;: Section, Cystoscopy, Dilation and Curettage, Genitourinary Surgery, Gynecologic Surgery, Tubal Ligation Orthopedic Surgeries: Surgical HX of;: Orthopedic Surgery (Left knee, left ankle ) Patient denies;: Implanted Devices - Family History Family History: Reports;: Family Diabetes (Mother's siblings), Family Heart Disease (Mother's siblings), Family Hypertension (Father mother siblings) - Social History Smoking Status: Current every day smoker Frequency of Alcohol Use: None Type of Drug Use: None Marital Status: Single Lives With:: Children Functional capacity: independent ambulation 12 point system: reviewed and no additional remarkable complaints except as stated Exam - Constitutional Vitals: Period Temp Pulse Resp BP Sys/Callahan Pulse Ox Last 24 Hr 98.4 F 76 20-28 104/48 95 Exam: Constitutional System: No distress. No tremulousness. Head: Normocephalic, atraumatic. Ears, Nose and Throat System: No evidence of Otitis or Mastoiditis. No epistaxis or discharge Eyes System: Pupils equal, round, and reactive. Extraocular muscles intact. Neck: Supple, without adenopathy, No jugular venous distention. No thyromegaly, neck mass, or prior surgery apparent. Respiratory System: Chest bilateral wheezing to auscultation. And moderate air trapping Cardiovascular System: Heart with regular rate and rhythm. No murmur. GI System: Abdomen soft, nontender. Normo active bowel sounds present. Obese Musculoskeletal System: limbs with 2+ pedal edema. Left greater than right diminished distal pulses. Neurological System: No discernable sensory deficit. No aphasia Psychiatric System: Conversation is rational Results - Labs Labs: All labs are pending. - Impressions EKG is pending - Diagnostic Findings Procedure: Chest x-ray: pending Quality Measures - VTE Contraindication to Pharmacological VTE Prophylaxis: Already on Theraputic Agent , No Prophylaxis Needed
[2017-07-18 15:49] LABS: Basophils % 0.3 % (0.0-0.8); Hematocrit 36.7 VOL% (35.7-47.0); Hemoglobin 11.8 GM/DL (12.0-16.0); Immature Granulocytes % 1.3 %; Immature Granulocytes Absolute 0.11 #; Mean Corpuscular HGB Conc 32.2 GM/DL (32-36); Mean Corpuscular Hemoglobin 27 PG (27-34); Mean Corpuscular Volume 82.7 FL (87-102); Mean Platelet Volume 9.4 FL (9.6-12.0); Monocytes # 0.3 10*3/uL (0.11-0.8); Monocytes % 3.3 % (1.7-12.7); Neutrophils # 7.2 10*3/uL (1.4-7.4); Neutrophils % 83.1 % (38.7-73.9); Platelet Count 314 T/CUMM (130-400); Red Blood Count 4.44 MC/CUMM (3.8-5.5); Red Cell Distribution Width 14.5 % (9.3-17.3); White Blood Count 8.7 T/CUMM (4-12)
--- NOTE | 2017-07-18 16:03 | XRay Report ---
XR chest 2V Indication: SOB Comparison: Chest x-ray dated June 05, 2017 Technique: Frontal and lateral views of the chest. Findings: Continued moderate cardiomegaly. Chronic change of the lungs with scattered pulmonary scarring. No focal consolidation, pleural effusion, or pneumothorax. Visualized osseous and surrounding soft tissue structures appear grossly unchanged. IMPRESSION: Stable chest x-ray. Continued cardiomegaly without marilu pulmonary edema. PROCEDURE INTERPRETED AT [facility] DEPARTMENT OF RADIOLOGY Final Report Signed by: Dr Alexander Merchant
--- NOTE | 2017-07-18 16:08 | Ultrasound Report ---
Exam: US venous doppler LE BI Indication: Pain and swelling Date: 07/18/2017 3:19 PM Technique: [place] scale Doppler with color flow with spectral broadening was performed in routine fashion of the lower extremities per routine protocol Findings: The right common femoral, superficial femoral, popliteal and proximal saphenous saphenous veins are patent with normal waveform phasicity and augmentation as well as complete vessel compressibility. There is no evidence of popliteal or Isaac's cyst. The left common femoral, superficial femoral, popliteal and proximal saphenous saphenous veins are patent with normal waveform phasicity and augmentation as well as complete vessel compressibility. There is no evidence of popliteal or Isaac's cyst. Impression: No evidence of deep venous thrombosis within bilateral lower extremity Ultrasound images were captured and stored. PROCEDURE INTERPRETED AT [facility] DEPARTMENT OF RADIOLOGY Final Report Signed by: Jere Canchola MD
[2017-07-18 16:32] LABS: Albumin 3.6 G/DL (3.4-5.0); Bilirubin,Total 1.1 MG/DL (0.2-1.0); Calcium 9.3 MG/DL (8.5-10.1); Magnesium 2.2 MG/DL (1.8-2.4); Osmolality,Calculated 284.5 MOS/KG (273-304); Potassium 4.3 MMOL/L (3.5-5.1); Risk Ratio 2.14; Thyroid Stimulating Hormone 0.248 uIU/ml (0.358-3.74); Total Protein 6.6 G/DL (6.4-8.3); VLDL CHOLESTEROL 17.8 MG/DL
[2017-07-18] MEDS: LEVOFLOXACIN INJ 750 MG in PREMIX 1 EACH IV SCH (16:44)
[2017-07-18] MEDS: INSULIN LISPRO 100 UNIT/ML SUBCUT SCH (16:47)
[2017-07-18] MEDS: PANTOPRAZOLE 40 MG TABLET PO SCH (16:47)
[2017-07-18] MEDS: methylPREDNISolone SOD SUC 40 MG/1 ML VIAL IV SCH ×2 (16:48→21:22)
[2017-07-18] MEDS: ACETAMINOPHEN 325 MG TABLET PO PRN (17:15)
[2017-07-18] MEDS ORDERED: NITROGLYCERIN SL 0.4 MG TABLET SL PRN (18:03)
[2017-07-18] MEDS ORDERED: CYCLOBENZAPRINE 10 MG TABLET PO PRN (18:03)
[2017-07-18] MEDS: ALBUTEROL/IPRATROPIUM 3 ML NEB RESP TX SCH (19:44)
[2017-07-18] MEDS: INSULIN GLARGINE 100 UNIT/ML SUBCUT SCH (21:19)
[2017-07-18] MEDS: FUROSEMIDE 80 MG TABLET PO SCH (21:20)
[2017-07-18] MEDS: THEOPHYLLINE ER 300 MG TABLET PO SCH (21:21)
[2017-07-18] MEDS: FLUoxetine 20 MG CAPSULE PO SCH (21:21)
[2017-07-18] MEDS: ALPRAZolam 0.5 MG TABLET PO SCH (21:21)
[2017-07-18] MEDS: ATORVASTATIN 40 MG TABLET PO SCH (21:22)
[2017-07-18] MEDS: GABAPENTIN 600 MG TABLET PO SCH (21:22)
[2017-07-18] MEDS: BUDESONIDE/FORMOTEROL 160-4.5 INHALER 6 GM INH SCH (21:29)
[2017-07-19] MEDS: ALBUTEROL/IPRATROPIUM 3 ML NEB RESP TX SCH ×5 (01:12→23:47)
[2017-07-19] MEDS: methylPREDNISolone SOD SUC 40 MG/1 ML VIAL IV SCH ×4 (04:39→21:12)
[2017-07-19] MEDS ORDERED: NITROGLYCERIN SL 0.4 MG TABLET SL PRN (07:00)
[2017-07-19] MEDS: INSULIN GLARGINE 100 UNIT/ML SUBCUT SCH ×2 (08:27→21:11)
[2017-07-19] MEDS: INSULIN LISPRO 100 UNIT/ML SUBCUT SCH ×4 (08:28→21:11)
[2017-07-19] MEDS: CYANOCOBALAMIN 500 MCG TABLET PO SCH (08:31)
[2017-07-19] MEDS: THEOPHYLLINE ER 300 MG TABLET PO SCH ×2 (08:31→17:17)
[2017-07-19] MEDS: GABAPENTIN 600 MG TABLET PO SCH ×4 (08:31→21:15)
[2017-07-19] MEDS: ASPIRIN 325 MG TABLET PO SCH (08:31)
[2017-07-19] MEDS: GLIMEPIRIDE 2 MG TABLET PO SCH (08:31)
[2017-07-19] MEDS: NEBIVOLOL 10 MG TABLET PO SCH (08:31)
[2017-07-19] MEDS: ALPRAZolam 0.5 MG TABLET PO SCH ×2 (08:32→21:15)
[2017-07-19] MEDS: MAGNESIUM OXIDE 400 MG TABLET PO SCH (08:32)
[2017-07-19] MEDS: POTASSIUM CHLORIDE 20 MEQ TABLET PO SCH (08:32)
[2017-07-19] MEDS: CLOPIDOGREL 75 MG TABLET PO SCH (08:32)
[2017-07-19] MEDS: FUROSEMIDE 80 MG TABLET PO SCH ×2 (08:32→15:18)
[2017-07-19] MEDS: PANTOPRAZOLE 40 MG TABLET PO SCH (08:33)
[2017-07-19] MEDS: BUDESONIDE/FORMOTEROL 160-4.5 INHALER 6 GM INH SCH ×2 (08:59→21:14)
[2017-07-19] MEDS ORDERED: ESCITALOPRAM 10 MG TABLET PO SCH (09:00)
--- NOTE | 2017-07-19 09:14 | Pulmonology Consult Note ---
Assessment and Plan (1) Insulin dependent diabetes mellitus Status: Acute Assessment and plan: The patient's glucoses will be monitored. Current Visit: No (2) YOSHI (obstructive sleep apnea) Status: Chronic Assessment and plan: She does need to use CPAP at night. Current Visit: No (3) Morbid obesity Status: Chronic Assessment and plan: She is overweight and has had trouble losing weight. Current Visit: No (4) COPD exacerbation Status: Acute Assessment and plan: She feels like she has a URI and comes in with coughing and wheezing. She seems to be breathing okay at present. She will continue with antibiotics bronchodilators and steroids. Current Visit: No (5) Ischemic cardiomyopathy Status: Acute Assessment and plan: The patient has an ejection fraction of around 30-35% and could have some mild overload. Current Visit: No (6) Tobacco abuse Status: Chronic Assessment and plan: She certainly needs to quit smoking. Current Visit: No (7) GERD (gastroesophageal reflux disease) Status: Chronic Assessment and plan: She will continue with antireflux measures. Current Visit: No History of Present Illness Chief complaint: Shortness of breath History of present illness: Ms. Roy is a 61 year old white female that comes in yesterday after having several days of increased coughing and shortness of breath. She has numerous medical problems including coronary artery disease with an ischemic cardiomyopathy and has a component of COPD. She has diabetes, hypertension, hyperlipidemia, GE reflux, and obstructive sleep apnea. Unfortunately she still smokes cigarettes. She says she was coughing up a lot of sputum last week and having more wheezing. She has some sweats but no fever. She has shortness of breath all the time. She says she is using her nebulizer at home. Last week she was in the office with some mild wheezing and we did give her some Decadron and Depo-Medrol. At present she looks reasonably comfortable. Home Medications Medication Instructions Recorded Confirmed Type Budesonide/Formoterol 160-4.5 2 puff INH BID 10/21/15 07/18/17 History [Symbicort 160-4.5] Nebivolol HCl [Bystolic] 20 mg PO QAM 11/13/16 07/18/17 History Cyanocobalamin (Vitamin B-12) 2,000 mcg PO QAM 05/01/17 07/18/17 History [Vitamin B-12] Cyclobenzaprine [Flexeril] 10 mg PO TID PRN 05/01/17 07/18/17 History Gabapentin Cap/Tab [Neurontin 600 mg PO QID 05/01/17 07/18/17 History Cap/Tab] Glimepiride 2 mg PO QAM 05/01/17 07/18/17 History Furosemide Tab [Lasix Tab] 40 mg PO BID DIURETIC #60 tablet 05/04/17 07/18/17 Rx Atorvastatin [Lipitor] 40 mg PO BEDTIME 06/05/17 07/18/17 History Clopidogrel [Plavix] 75 mg PO QAM 06/05/17 07/18/17 History Fluoxetine HCl [Prozac] 40 mg PO BEDTIME 06/05/17 07/18/17 History HYDROcodone/ACETAMIN 10-325 [[place] 1 tablet PO Q6H PRN 06/05/17 07/18/17 History 10-325] Insulin Glargine [Lantus] 15 unit SUBCUT QAM 06/05/17 07/18/17 History Insulin Glargine,Hum.rec.anlog 10 unit SUBCUT QPM 06/05/17 07/18/17 History [Lantus SoloStar] Omeprazole 20 mg PO QAM 06/05/17 07/18/17 History Potassium Chloride Cap/Tab [K Dur] 20 meq PO QAM 06/05/17 07/18/17 History Aspirin Tab 325 mg PO DAILY #30 tablet 06/07/17 07/18/17 Rx ALPRAZolam [Xanax] 0.5 mg PO BID 07/18/17 07/18/17 History Escitalopram [Lexapro] 10 mg PO DAILY 07/18/17 07/18/17 History Guaifenesin/Dextromethorphan 10 ml PO Q4H PRN 07/18/17 07/18/17 History [Tussin Dm Liquid] Magnesium Oxide 400 mg PO DAILY 07/18/17 07/18/17 History Nitroglycerin [Nitroglycerin SL 0.4 mg SL DIRECTED PRN 07/18/17 07/18/17 History Tab] Theophylline ER Tab 300 mg PO BID W/MEALS 07/18/17 07/18/17 History Allergies Allergy/AdvReac Type Severity Reaction Status Date / Time nylon sutures Allergy RASH Uncoded 06/05/17 16:38 plastic tape Allergy RASH Uncoded 06/05/17 16:38 - Constitutional Constitutional: Present: chills, night sweats. Absent: fever(s), weight loss - EENT Eyes: Absent: loss of vision Ears: Absent: decreased hearing Nose, mouth and throat: Absent: dysphagia, headache(s) - Cardiovascular Cardiovascular: Present: dyspnea, edema, orthopnea. Absent: chest pain at rest - Respiratory Respiratory: Present: cough, dyspnea, wheezing, change in phlegm color. Absent : hemoptysis - Gastrointestinal Gastrointestinal: Absent: abdominal pain, change in bowel habits, dysphagia, nausea, vomiting - Genitourinary Genitourinary: Absent: dysuria, hematuria, urinary frequency - Musculoskeletal Musculoskeletal: Present: arthralgias, back pain - Neurological Neurological: Absent: abnormal speech, focal weakness, paresthesias - Psychiatric Psychiatric: Present: anxiety Exam (Pulmonay) H&P - Constitutional Vitals: Period Temp Pulse Resp BP Sys/Callahan Pulse Ox Last 24 Hr 97 F-98.4 F 70-79 18-28 104-142/48-76 92-98 General appearance: mild distress (She seems to be breathing comfortably at present.), over weight - Head Head exam: Present: normal inspection, normocephalic - Eye Eye exam: Present: EOMI. Absent: scleral icterus Pupils: Present: ROSET[place] - ENT ENT exam: Present: normal exam - Neck Neck exam: Absent: lymphadenopathy, thyromegaly - Respiratory Respiratory exam: Present: prolonged expiratory phase, wheezes. Absent: accessory muscle use - Cardiovascular Cardiovascular exam: Present: regular rate and rhythm. Absent: gallop, systolic murmur - GI/Abdominal GI/Abdominal exam: Present: normal bowel sounds, soft. Absent: distended, organomegaly, tenderness - Extremities Exam Extremities exam: Present: edema (She does have lower extremity edema.). Absent : calf tenderness - Back Exam Back exam: Present: normal inspection - Neurological Exam Neurological exam: Present: alert, oriented X3, CN II-XII intact - Psychiatric Psychiatric exam: Present: anxious - Skin Skin exam: Present: warm, dry Medical,Surgical,& Family Hx - Medical History Cardio: History of: CHF, CAD, Hypertension, [place], Cardiovascular Problems No history of: Aneurysm, Cardiac Dysrhythmia, Cerebrovascular Disease, Congenital Heart Disease, Pacemaker, PVD, Valvular Heart Disease Psychological: History of: Anxiety Disorders, Depression Neurology: No history of: Seizures Endocrine: History of: Diabetes Mellitus (IDDM), Dyslipidemia Rheumatology: No history of;: Fibromyalgia, Gout, Myasthenia Gravis, Rheumatoid Arthritis, Rheumatological Problems Respiratory: History of: COPD, Obstructive Sleep Apnea No history of: Asthma, Bronchitis, Intubation, Pulmonary Embolism, Pulmonary Hypertension, Pneumonia, Lung Cancer, Respiratory Problems Gastrointestinal: History of: GERD, GI Problems (Peptic Ulcer) No history of: Bowel Obstruction, Clostridium Difficile, Crohn's Disease, Diverticulitis/ Diverticulosis, Esophageal Varices, Gastrointestinal Bleed, Hemorrhoids, Hematochezia, Hepatitis, Liver Problems, Pancreatitis, Polyps, Ulcerative Colitis, Gastrointestinal Cancer Musculoskeletal: History of: Back/Neck Problems (chronic back pain) No history of: Amputation, Degenerative Disk Disease, Herniated Disk, Osteoporosis, Musculoskeletal Cancer, Musculoskeletal Problems - Surgical History Cardiac Surgeries: Sugical HX of: Cardiac Catheterization (stents) Patient Denies: Femoral-Popliteal Bypass Graft, Cardiac Surgery, Carotid Endarterectomy, Internal Defibrillator, Vascular Access Devices Thoracic Surgeries: Patient denies;: Kidney (Renal Surgery), Lithotripsy, Nephrectomy, Lobectomy Neurologic Surgeries: Patient denies: Neurologic Surgery HEENT Surgeries: Surgical HX of: Tonsilectomy & Adenoidectomy Patient denies: Carotid Endarterectomy Abdominal Surgeries: Patient denies: Abdominal Surgery, Appendectomy, Cholecystectomy, Colonoscopy , Gastric Bypass Surgery, EGD, Hernia Repair, Splenectomy Reproductive Surgeries: Surgical HX of;: Breast Surgery (Breast Reduction), Hysterectomy Patient denies;: Section, Cystoscopy, Dilation and Curettage, Genitourinary Surgery, Gynecologic Surgery, Tubal Ligation Orthopedic Surgeries: Surgical HX of;: Orthopedic Surgery (Left knee, left ankle ) Patient denies;: Implanted Devices - Family History Family History: Reports;: Family Diabetes (Mother's siblings), Family Heart Disease (Mother's siblings), Family Hypertension (Father mother siblings) - Social History Smoking Status: Current every day smoker Frequency of Alcohol Use: None Type of Drug Use: None Results - Labs CBC & BMP: 07/18/17 15:31 07/18/17 15:31 - Diagnostic Findings Procedure: Chest x-ray: image reviewed by me, report reviewed by me (Chest x- ray shows cardiomegaly. She may have slight increased markings consistent with mild overload. There is no definite consolidation.) Quality Measures - VTE Contraindication to Pharmacological VTE Prophylaxis: Already on Theraputic Agent , No Prophylaxis Needed Specialty Discharge - Follow Up or Referrals
[2017-07-19] MEDS ORDERED: DEXTROSE 50% 25 GM/50 ML VIAL IV PRN (12:41)
[2017-07-19] MEDS ORDERED: GLUCAGON 1 MG VIAL IM PRN (12:41)
--- NOTE | 2017-07-19 12:49 | Hospitalist Progress Note ---
Assessment and Plan - Time spent with patient Time spent with patient: Less than 30 minutes (1) Asthma with exacerbation Status: Acute Assessment and plan: 61-year-old white female with history of hypertension, diabetes, CHF, CAD status post stents in April on Plavix, ischemic cardiomyopathy with an EF of 45% , hyperlipidemia, GERD, YOSHI on CPAP, tobacco abuse, and chronic pain admitted by the hospitalist service as a direct admit from Dr. Celaya's office with shortness of breath and wheezing. Patient's labs, x-rays, etc. are all pending. Will treat patient for asthma/COPD exacerbation and pneumonia as well. Will restart her home medications once medicines have been verified in the system. She will be on sliding scale insulin for her diabetes and will be monitored closely. We will consult Dr. Pearson from pulmonology since she is a patient of his. Will wait and see what her labs are to see if Dr. Daly from cardiology needs to be consulted as well. Will go ahead and get lower extremity ultrasound to rule out DVT due to her extensive peripheral edema. Dr. Bello will see and examine patient and further recommendations to follow. 07/19/2017 patient seems a little worse today. She is coughing a lot and not sleeping well. She seems somewhat agitated. This could be due to steroids as well. She is afebrile and her vital signs are stable. Blood sugars are running from 225-351. She has moderate air trapping and expiratory wheezing that seems to be worse from yesterday. Will increase her duo nebs to q. 4 and add another for right now. Will get some nystatin for her complaints of itching under her breasts and fat folds. Will add some Robitussin AC for her cough. Continue her steroids to 40 mg every 6 hours. We will also add a nicotine patch since she is a smoker. Dr. Pearson has seen and examined patient and recommends continuing current plan of care. Patient also still has some lower extremity edema that seems to be improved from admission yesterday. She is on Lasix 40 mg p.o. twice daily as a home medicine and will continue this for now. If patient has been noncompliant with her medications that could be the reason for her pedal edema. Dr. Bello will see and examine patient and further recommendations to follow. Current Visit: No (2) COPD exacerbation Status: Acute Current Visit: No (3) Chronic obstructive pulmonary disease with bronchospasm Status: Acute Current Visit: No (4) Peripheral edema Status: Acute Current Visit: No (5) s/p coronary PCI Problem details: PCI with stenting and some POBA of the left anterior descending artery Status: Acute Current Visit: No (6) CAD (coronary artery disease) Status: Chronic Current Visit: No (7) Chronic pain Status: Chronic Current Visit: No (8) Congestive heart failure Status: Chronic Current Visit: No Qualifiers: Congestive heart failure type: systolic Congestive heart failure chronicity : acute on chronic Qualified Code(s): I50.23 - Acute on chronic systolic ( congestive) heart failure (9) Diabetes Status: Chronic Current Visit: No (10) Dyslipidemia Status: Chronic Current Visit: No (11) Ischemic cardiomyopathy Status: Chronic Current Visit: No (12) Medical non-compliance Status: Chronic Current Visit: No (13) YOSHI (obstructive sleep apnea) Status: Chronic Current Visit: No (14) Tobacco abuse Status: Chronic Current Visit: No Hospitalist: Subjective Interval history: Patient feels worse today. She states she has been coughing nonstop and she has not slept well. She did admit to not taking any of her medications prior to being sick. She states she ran out of almost half of them and never got them refilled. Exam - Constitutional Vitals: Period Temp Pulse Resp BP Sys/Callahan Pulse Ox Last 24 Hr 97 F-98.4 F 70-82 15-28 104-142/48-76 92-98 Exam: Constitutional System: Mildly agitated. No tremulousness. Head: Normocephalic, atraumatic. Ears, Nose and Throat System: No evidence of Otitis or Mastoiditis. No epistaxis or discharge Eyes System: Pupils equal, round, and reactive. Extraocular muscles intact. Neck: Supple, without adenopathy, No jugular venous distention. No thyromegaly, neck mass, or prior surgery apparent. Respiratory System: Chest bilateral wheezing to auscultation. And moderate air trapping worsened from yesterday Cardiovascular System: Heart with regular rate and rhythm. No murmur. GI System: Abdomen soft, nontender. Normo active bowel sounds present. Obese Musculoskeletal System: limbs with 2+ pedal edema. Left greater than right diminished distal pulses. Neurological System: No discernable sensory deficit. No aphasia Psychiatric System: Conversation is rational Results - Labs CBC & BMP: 07/18/17 15:31 07/18/17 15:31 Lab Results: I have reviewed the past 24 hour labs - Diagnostic Findings Procedure: Chest x-ray: report reviewed by me (Stable chest x-ray with cardiomegaly without marilu pulmonary edema. No focal consolidation, pleural effusion, or pneumothorax.), Ultrasound: report reviewed by me (Venous Doppler showed no evidence of DVT.) Quality Measures - VTE Contraindication to Pharmacological VTE Prophylaxis: Already on Theraputic Agent , No Prophylaxis Needed Specialty Discharge - Follow Up or Referrals
[2017-07-19] MEDS: NYSTATIN CREAM 15 GM TUBE TOP SCH ×2 (15:18→21:16)
[2017-07-19] MEDS: NICOTINE 21 MG/24 HR PATCH TRANSDERM SCH (15:19)
[2017-07-19] MEDS ORDERED: ALPRAZolam 0.5 MG TABLET PO ONE (17:23)
[2017-07-19] MEDS: guaiFENesin/CODEINE 5 ML LIQUID PO PRN (17:27)
[2017-07-19] MEDS: LEVOFLOXACIN INJ 750 MG in PREMIX 1 EACH IV SCH (21:09)
[2017-07-19] MEDS: FLUoxetine 20 MG CAPSULE PO SCH (21:15)
[2017-07-19] MEDS: ATORVASTATIN 40 MG TABLET PO SCH (21:15)
[2017-07-20] MEDS: methylPREDNISolone SOD SUC 40 MG/1 ML VIAL IV SCH ×4 (03:21→22:49)
[2017-07-20] MEDS: ALBUTEROL/IPRATROPIUM 3 ML NEB RESP TX SCH ×6 (03:54→23:40)
[2017-07-20 05:17] LABS: Calcium 9.9 MG/DL (8.5-10.1); Osmolality,Calculated 287.7 MOS/KG (273-304); Potassium 3.6 MMOL/L (3.5-5.1)
[2017-07-20] MEDS: INSULIN GLARGINE 100 UNIT/ML SUBCUT SCH ×2 (09:19→18:37)
[2017-07-20] MEDS: INSULIN LISPRO 100 UNIT/ML SUBCUT SCH ×4 (09:20→22:46)
[2017-07-20] MEDS: NICOTINE 21 MG/24 HR PATCH TRANSDERM SCH (09:22)
[2017-07-20] MEDS: ASPIRIN 325 MG TABLET PO SCH (09:23)
[2017-07-20] MEDS: GLIMEPIRIDE 2 MG TABLET PO SCH (09:23)
[2017-07-20] MEDS: CYANOCOBALAMIN 500 MCG TABLET PO SCH (09:24)
[2017-07-20] MEDS: MAGNESIUM OXIDE 400 MG TABLET PO SCH (09:24)
[2017-07-20] MEDS: GABAPENTIN 600 MG TABLET PO SCH ×4 (09:25→22:43)
[2017-07-20] MEDS: ALPRAZolam 0.5 MG TABLET PO SCH ×2 (09:25→22:43)
[2017-07-20] MEDS: FUROSEMIDE 80 MG TABLET PO SCH ×2 (09:25→14:59)
[2017-07-20] MEDS: CLOPIDOGREL 75 MG TABLET PO SCH (09:25)
[2017-07-20] MEDS: POTASSIUM CHLORIDE 20 MEQ TABLET PO SCH (09:26)
[2017-07-20] MEDS: NEBIVOLOL 10 MG TABLET PO SCH (09:26)
[2017-07-20] MEDS: NYSTATIN CREAM 15 GM TUBE TOP SCH ×2 (09:27→22:49)
[2017-07-20] MEDS: BUDESONIDE/FORMOTEROL 160-4.5 INHALER 6 GM INH SCH ×2 (09:27→23:17)
[2017-07-20] MEDS: THEOPHYLLINE ER 300 MG TABLET PO SCH ×2 (09:31→16:42)
[2017-07-20] MEDS: PANTOPRAZOLE 40 MG TABLET PO SCH (10:10)
--- NOTE | 2017-07-20 10:11 | Pulmonology Progress Note ---
Pulmonary - PN: Subj Interval history: Patient is a 61-year-old white lady that has significant coronary disease and COPD. She comes in with a flareup due to bronchitis. She still has hoarseness along with coughing and wheezing. She says she used her CPAP last night. She feels like she may be breathing a little better although she does not sound any better. She still is quite hoarse and has coughing and wheezing. She says she is voiding okay. She does not have any leg swelling now. Exam (Progress Note) - Constitutional Vitals: Period Temp Pulse Resp BP Sys/Callahan Pulse Ox Last 24 Hr 96.5 F-97.7 F 78-92 15-24 120-142/58-77 92-99 Exam: General appearance: mild distress (She is sitting up in a chair and looks reasonably comfortable. She is very hoarse.), over weight - Head Head exam: Present: normal inspection, normocephalic - Eye Eye exam: Present: EOMI. Absent: scleral icterus Pupils: Present: ROSETTA - ENT ENT exam: Present: normal exam, her voice is hoarse. - Neck Neck exam: Absent: lymphadenopathy, thyromegaly - Respiratory Respiratory exam: Present: She has fair air movement but she does have bilateral wheezing. - Cardiovascular Cardiovascular exam: Present: regular rate and rhythm. Absent: gallop, systolic murmur - GI/Abdominal GI/Abdominal exam: Present: normal bowel sounds, soft. Absent: distended, organomegaly, tenderness - Extremities Exam Extremities exam: Present: Her legs are nontender and not swollen now. - Back Exam Back exam: Present: normal inspection - Neurological Exam Neurological exam: Present: alert, oriented X3, CN II-XII intact - Psychiatric Psychiatric exam: Present: anxious - Skin Skin exam: Present: warm, dry Results - Labs CBC & BMP: 07/18/17 15:31 07/20/17 04:19 Assessment and Plan (1) Insulin dependent diabetes mellitus Status: Acute Assessment and plan: The patient's glucoses will be monitored. Her glucose is 247 this morning. Current Visit: No (2) YOSHI (obstructive sleep apnea) Status: Chronic Assessment and plan: She says she did use her CPAP last night and slept okay. Current Visit: No (3) Morbid obesity Status: Chronic Assessment and plan: She is overweight and has had trouble losing weight. Current Visit: No (4) COPD exacerbation Status: Acute Assessment and plan: She feels like she has a URI and comes in with coughing and wheezing. She continues to wheeze but says she is tolerating everything okay. She will continue with steroids and bronchodilator therapy. Current Visit: No (5) Ischemic cardiomyopathy Status: Acute Assessment and plan: The patient has an ejection fraction of around 30-35% and could have some mild overload. Her weight is down today. Current Visit: No (6) Tobacco abuse Status: Chronic Assessment and plan: She certainly needs to quit smoking. Current Visit: No (7) GERD (gastroesophageal reflux disease) Status: Chronic Assessment and plan: She will continue with antireflux measures. Current Visit: No Specialty Discharge - Follow Up or Referrals
[2017-07-20] MEDS ORDERED: LORazepam 1 MG TABLET PO PRN (15:35)
--- NOTE | 2017-07-20 15:35 | Hospitalist Progress Note ---
Assessment and Plan - Time spent with patient Time spent with patient: Less than 30 minutes (1) Asthma with exacerbation Status: Acute Assessment and plan: 61-year-old white female with history of hypertension, diabetes, CHF, CAD status post stents in April on Plavix, ischemic cardiomyopathy with an EF of 45% , hyperlipidemia, GERD, YOSHI on CPAP, tobacco abuse, and chronic pain admitted by the hospitalist service as a direct admit from Dr. Celaya's office with shortness of breath and wheezing. Patient's labs, x-rays, etc. are all pending. Will treat patient for asthma/COPD exacerbation and pneumonia as well. Will restart her home medications once medicines have been verified in the system. She will be on sliding scale insulin for her diabetes and will be monitored closely. We will consult Dr. Pearson from pulmonology since she is a patient of his. Will wait and see what her labs are to see if Dr. Daly from cardiology needs to be consulted as well. Will go ahead and get lower extremity ultrasound to rule out DVT due to her extensive peripheral edema. Dr. Bello will see and examine patient and further recommendations to follow. 07/19/2017 patient seems a little worse today. She is coughing a lot and not sleeping well. She seems somewhat agitated. This could be due to steroids as well. She is afebrile and her vital signs are stable. Blood sugars are running from 225-351. She has moderate air trapping and expiratory wheezing that seems to be worse from yesterday. Will increase her duo nebs to q. 4 and add another for right now. Will get some nystatin for her complaints of itching under her breasts and fat folds. Will add some Robitussin AC for her cough. Continue her steroids to 40 mg every 6 hours. We will also add a nicotine patch since she is a smoker. Dr. Pearson has seen and examined patient and recommends continuing current plan of care. Patient also still has some lower extremity edema that seems to be improved from admission yesterday. She is on Lasix 40 mg p.o. twice daily as a home medicine and will continue this for now. If patient has been noncompliant with her medications that could be the reason for her pedal edema. Dr. Bello will see and examine patient and further recommendations to follow. 07/20/2017 patient does not seem to be as agitated today or coughing as much as yesterday. She is afebrile and her vitals are stable. She has decreased lower extremity edema. She continues to have moderate air trapping and bilateral wheezing. She takes Xanax twice daily for agitation but went ahead and wrote her some Ativan as needed as well. Continue with antibiotics, bronchodilators, and steroids for now. Discussed the importance of smoking cessation for 8 minutes and importance of medical noncompliance. Dr. Rodriguez will see and examine patient and further recommendations to follow. Current Visit: No (2) COPD exacerbation Status: Acute Current Visit: No (3) Chronic obstructive pulmonary disease with bronchospasm Status: Acute Current Visit: No (4) Peripheral edema Status: Acute Current Visit: No (5) s/p coronary PCI Problem details: PCI with stenting and some POBA of the left anterior descending artery Status: Acute Current Visit: No (6) CAD (coronary artery disease) Status: Chronic Current Visit: No (7) Chronic pain Status: Chronic Current Visit: No (8) Congestive heart failure Status: Chronic Current Visit: No Qualifiers: Congestive heart failure type: systolic Congestive heart failure chronicity : acute on chronic Qualified Code(s): I50.23 - Acute on chronic systolic ( congestive) heart failure (9) Diabetes Status: Chronic Current Visit: No (10) Dyslipidemia Status: Chronic Current Visit: No (11) Ischemic cardiomyopathy Status: Chronic Current Visit: No (12) Medical non-compliance Status: Chronic Current Visit: No (13) YOSHI (obstructive sleep apnea) Status: Chronic Current Visit: No (14) Tobacco abuse Status: Chronic Current Visit: No Hospitalist: Subjective Interval history: Patient states she still does not feel well. She is still coughing but it seems to be less than yesterday. Exam - Constitutional Vitals: Period Temp Pulse Resp BP Sys/Callahan Pulse Ox Last 24 Hr 96.5 F-97.6 F 78-92 18-24 118-142/58-81 92-98 Exam: Constitutional System: Mildly agitated. No tremulousness. Head: Normocephalic, atraumatic. Ears, Nose and Throat System: No evidence of Otitis or Mastoiditis. No epistaxis or discharge Eyes System: Pupils equal, round, and reactive. Extraocular muscles intact. Neck: Supple, without adenopathy, No jugular venous distention. No thyromegaly, neck mass, or prior surgery apparent. Respiratory System: Chest bilateral wheezing to auscultation. And moderate air trapping Cardiovascular System: Heart with regular rate and rhythm. No murmur. GI System: Abdomen soft, nontender. Normo active bowel sounds present. Obese Musculoskeletal System: limbs with 1+ pedal edema. Left greater than right diminished distal pulses. Neurological System: No discernable sensory deficit. No aphasia Psychiatric System: Conversation is rational Results - Labs CBC & BMP: 07/18/17 15:31 07/20/17 04:19 Lab Results: I have reviewed the past 24 hour labs Quality Measures - VTE Contraindication to Pharmacological VTE Prophylaxis: Already on Theraputic Agent , No Prophylaxis Needed Specialty Discharge - Follow Up or Referrals
[2017-07-20] MEDS: LORazepam 0.5 MG TABLET PO PRN (16:42)
[2017-07-20] MEDS: FLUoxetine 20 MG CAPSULE PO SCH (22:43)
[2017-07-20] MEDS: guaiFENesin/CODEINE 5 ML LIQUID PO PRN (22:44)
[2017-07-20] MEDS: ATORVASTATIN 40 MG TABLET PO SCH (22:44)
[2017-07-20] MEDS: LEVOFLOXACIN INJ 750 MG in PREMIX 1 EACH IV SCH (22:53)
[2017-07-21] MEDS: methylPREDNISolone SOD SUC 40 MG/1 ML VIAL IV SCH ×4 (02:40→22:13)
[2017-07-21] MEDS: ALBUTEROL/IPRATROPIUM 3 ML NEB RESP TX SCH ×6 (03:06→23:21)
--- NOTE | 2017-07-21 07:46 | Pulmonology Progress Note ---
Pulmonary - PN: Subj Interval history: Patient is a 61-year-old white lady that has significant coronary disease and COPD. She comes in with a flareup due to bronchitis. She says she did fairly well last night. She does use her CPAP some. Today her hoarseness is better and her cough is better. She is tolerating her treatments well. Overall she looks like she is improving. Exam (Progress Note) - Constitutional Vitals: Period Temp Pulse Resp BP Sys/Callahan Pulse Ox Last 24 Hr 97 F-97.7 F 79-92 16-24 118-150/58-81 63-98 Exam: General appearance: no distress (She is sitting up in a chair and looks reasonably comfortable. She looks like she feels better.), over weight - Head Head exam: Present: normal inspection, normocephalic - Eye Eye exam: Present: EOMI. Absent: scleral icterus Pupils: Present: ROSETTA - ENT ENT exam: Present: normal exam, her voice is better. - Neck Neck exam: Absent: lymphadenopathy, thyromegaly - Respiratory Respiratory exam: Present: She has fair air movement her lungs sound better with less wheezing. - Cardiovascular Cardiovascular exam: Present: regular rate and rhythm. Absent: gallop, systolic murmur - GI/Abdominal GI/Abdominal exam: Present: normal bowel sounds, soft. Absent: distended, organomegaly, tenderness - Extremities Exam Extremities exam: Present: Her legs are nontender and not swollen now. - Back Exam Back exam: Present: normal inspection - Neurological Exam Neurological exam: Present: alert, oriented X3, CN II-XII intact - Psychiatric Psychiatric exam: Present: anxious - Skin Skin exam: Present: warm, dry Results - Labs CBC & BMP: 07/18/17 15:31 07/20/17 04:19 Assessment and Plan (1) Insulin dependent diabetes mellitus Status: Acute Assessment and plan: The patient's glucoses will be monitored. Her glucose is 246 this morning. Current Visit: No (2) YOSHI (obstructive sleep apnea) Status: Chronic Assessment and plan: She says she did use her CPAP last night and slept okay. She feels better today. Current Visit: No (3) Morbid obesity Status: Chronic Assessment and plan: She is overweight and has had trouble losing weight. Current Visit: No (4) COPD exacerbation Status: Acute Assessment and plan: She feels like she has a URI and comes in with coughing and wheezing. She is doing better today and is having less cough. Her wheezing is better. She probably needs 1 more day of treatment Current Visit: No (5) Ischemic cardiomyopathy Status: Acute Assessment and plan: The patient has an ejection fraction of around 30-35% and could have some mild overload. Her weight is down today. Current Visit: No (6) Tobacco abuse Status: Chronic Assessment and plan: She certainly needs to quit smoking. Current Visit: No (7) GERD (gastroesophageal reflux disease) Status: Chronic Assessment and plan: She will continue with antireflux measures. Current Visit: No Specialty Discharge - Follow Up or Referrals
[2017-07-21] MEDS ORDERED: PHENOL 1.4% THROAT SPRAY 177 ML BOTTLE PO PRN (08:49)
[2017-07-21] MEDS: CLOPIDOGREL 75 MG TABLET PO SCH (09:19)
[2017-07-21] MEDS: MAGNESIUM OXIDE 400 MG TABLET PO SCH (09:19)
[2017-07-21] MEDS: NICOTINE 21 MG/24 HR PATCH TRANSDERM SCH (09:19)
[2017-07-21] MEDS: CYANOCOBALAMIN 500 MCG TABLET PO SCH (09:20)
[2017-07-21] MEDS: THEOPHYLLINE ER 300 MG TABLET PO SCH ×2 (09:20→17:04)
[2017-07-21] MEDS: NEBIVOLOL 10 MG TABLET PO SCH (09:20)
[2017-07-21] MEDS: ALPRAZolam 0.5 MG TABLET PO SCH ×2 (09:20→22:03)
[2017-07-21] MEDS: POTASSIUM CHLORIDE 20 MEQ TABLET PO SCH (09:21)
[2017-07-21] MEDS: GABAPENTIN 600 MG TABLET PO SCH ×4 (09:21→22:03)
[2017-07-21] MEDS: FUROSEMIDE 80 MG TABLET PO SCH ×2 (09:21→15:39)
[2017-07-21] MEDS: GLIMEPIRIDE 2 MG TABLET PO SCH (09:22)
[2017-07-21] MEDS: INSULIN GLARGINE 100 UNIT/ML SUBCUT SCH ×2 (09:22→19:10)
[2017-07-21] MEDS: INSULIN LISPRO 100 UNIT/ML SUBCUT SCH ×4 (09:31→22:04)
[2017-07-21] MEDS: ASPIRIN 325 MG TABLET PO SCH (09:39)
[2017-07-21] MEDS: NYSTATIN CREAM 15 GM TUBE TOP SCH ×2 (09:41→22:20)
[2017-07-21] MEDS: BUDESONIDE/FORMOTEROL 160-4.5 INHALER 6 GM INH SCH ×2 (09:46→22:20)
[2017-07-21] MEDS: PANTOPRAZOLE 40 MG TABLET PO SCH (09:46)
--- NOTE | 2017-07-21 10:43 | Hospitalist Progress Note ---
Assessment and Plan - Time spent with patient Time spent with patient: Less than 30 minutes (1) Asthma with exacerbation Status: Acute Assessment and plan: 61-year-old white female with history of hypertension, diabetes, CHF, CAD status post stents in April on Plavix, ischemic cardiomyopathy with an EF of 45% , hyperlipidemia, GERD, YOSHI on CPAP, tobacco abuse, and chronic pain admitted by the hospitalist service as a direct admit from Dr. Celaya's office with shortness of breath and wheezing. Patient's labs, x-rays, etc. are all pending. Will treat patient for asthma/COPD exacerbation and pneumonia as well. Will restart her home medications once medicines have been verified in the system. She will be on sliding scale insulin for her diabetes and will be monitored closely. We will consult Dr. Pearson from pulmonology since she is a patient of his. Will wait and see what her labs are to see if Dr. Daly from cardiology needs to be consulted as well. Will go ahead and get lower extremity ultrasound to rule out DVT due to her extensive peripheral edema. Dr. Bello will see and examine patient and further recommendations to follow. 07/19/2017 patient seems a little worse today. She is coughing a lot and not sleeping well. She seems somewhat agitated. This could be due to steroids as well. She is afebrile and her vital signs are stable. Blood sugars are running from 225-351. She has moderate air trapping and expiratory wheezing that seems to be worse from yesterday. Will increase her duo nebs to q. 4 and add another for right now. Will get some nystatin for her complaints of itching under her breasts and fat folds. Will add some Robitussin AC for her cough. Continue her steroids to 40 mg every 6 hours. We will also add a nicotine patch since she is a smoker. Dr. Pearson has seen and examined patient and recommends continuing current plan of care. Patient also still has some lower extremity edema that seems to be improved from admission yesterday. She is on Lasix 40 mg p.o. twice daily as a home medicine and will continue this for now. If patient has been noncompliant with her medications that could be the reason for her pedal edema. Dr. Bello will see and examine patient and further recommendations to follow. 07/20/2017 patient does not seem to be as agitated today or coughing as much as yesterday. She is afebrile and her vitals are stable. She has decreased lower extremity edema. She continues to have moderate air trapping and bilateral wheezing. She takes Xanax twice daily for agitation but went ahead and wrote her some Ativan as needed as well. Continue with antibiotics, bronchodilators, and steroids for now. Discussed the importance of smoking cessation for 8 minutes and importance of medical noncompliance. Dr. Rodriguez will see and examine patient and further recommendations to follow. 07/21/2017 patient is less agitated today and she looks a lot more comfortable. She still has some wheezing bilaterally but is much improved from yesterday. She is afebrile and her vital signs are stable blood sugars look good. Went ahead and ordered some Flonase, humidified oxygen, and Chloraseptic to help with her nasal stuffiness and dryness and sore throat. Dr. Vizcarra will see and examine patient and further recommendations to follow. Current Visit: No (2) COPD exacerbation Status: Acute Current Visit: No (3) Chronic obstructive pulmonary disease with bronchospasm Status: Acute Current Visit: No (4) Peripheral edema Status: Acute Current Visit: No (5) s/p coronary PCI Problem details: PCI with stenting and some POBA of the left anterior descending artery Status: Acute Current Visit: No (6) CAD (coronary artery disease) Status: Chronic Current Visit: No (7) Chronic pain Status: Chronic Current Visit: No (8) Congestive heart failure Status: Chronic Current Visit: No Qualifiers: Congestive heart failure type: systolic Congestive heart failure chronicity : acute on chronic Qualified Code(s): I50.23 - Acute on chronic systolic ( congestive) heart failure (9) Diabetes Status: Chronic Current Visit: No (10) Dyslipidemia Status: Chronic Current Visit: No (11) Ischemic cardiomyopathy Status: Chronic Current Visit: No (12) Medical non-compliance Status: Chronic Current Visit: No (13) YOSHI (obstructive sleep apnea) Status: Chronic Current Visit: No (14) Tobacco abuse Status: Chronic Current Visit: No Hospitalist: Subjective Interval history: Patient looks and feels a lot better this morning. She is sitting up eating her breakfast and looks comfortable. She is a lot less agitated and she has decreased cough and hoarseness. She states she has a sore throat and some nasal stuffiness. Exam - Constitutional Vitals: Period Temp Pulse Resp BP Sys/Callahan Pulse Ox Last 24 Hr 97.1 F-97.8 F 79-92 16-24 118-150/62-81 63-98 Exam: Constitutional System: Mildly agitated. No tremulousness. Head: Normocephalic, atraumatic. Ears, Nose and Throat System: No evidence of Otitis or Mastoiditis. No epistaxis or discharge Eyes System: Pupils equal, round, and reactive. Extraocular muscles intact. Neck: Supple, without adenopathy, No jugular venous distention. No thyromegaly, neck mass, or prior surgery apparent. Respiratory System: Chest bilateral minimal wheezing to auscultation. Cardiovascular System: Heart with regular rate and rhythm. No murmur. GI System: Abdomen soft, nontender. Normo active bowel sounds present. Obese Musculoskeletal System: limbs with 1+ pedal edema. Left greater than right diminished distal pulses. Neurological System: No discernable sensory deficit. No aphasia Psychiatric System: Conversation is rational Results - Labs CBC & BMP: 07/18/17 15:31 07/20/17 04:19 Lab Results: I have reviewed the past 24 hour labs Quality Measures - VTE Contraindication to Pharmacological VTE Prophylaxis: Already on Theraputic Agent , No Prophylaxis Needed Specialty Discharge - Follow Up or Referrals
[2017-07-21] MEDS: FLUTICASONE 50 MCG NASAL SPRAY 16 GM BOTTLE BOTH NARES SCH ×2 (14:38→22:20)
[2017-07-21] MEDS: guaiFENesin/CODEINE 5 ML LIQUID PO PRN (17:08)
[2017-07-21] MEDS: ATORVASTATIN 40 MG TABLET PO SCH (22:02)
[2017-07-21] MEDS: FLUoxetine 20 MG CAPSULE PO SCH (22:03)
[2017-07-21] MEDS: LEVOFLOXACIN INJ 750 MG in PREMIX 1 EACH IV SCH (22:06)
[2017-07-22] MEDS: methylPREDNISolone SOD SUC 40 MG/1 ML VIAL IV SCH ×2 (02:33→08:49)
[2017-07-22] MEDS: ALBUTEROL/IPRATROPIUM 3 ML NEB RESP TX SCH ×5 (02:47→20:00)
[2017-07-22 04:44] LABS: Basophils % 0.2 % (0.0-0.8); Hematocrit 36.7 VOL% (35.7-47.0); Hemoglobin 12.2 GM/DL (12.0-16.0); Immature Granulocytes % 2.1 %; Immature Granulocytes Absolute 0.21 #; Lymphocytes # 0.5 10*3/uL (1.4-4.0); Lymphocytes % 4.5 % (21.3-54.2); Mean Corpuscular HGB Conc 33.2 GM/DL (32-36); Mean Corpuscular Hemoglobin 27 PG (27-34); Mean Corpuscular Volume 79.8 FL (87-102); Mean Platelet Volume 9.6 FL (9.6-12.0); Monocytes # 0.7 10*3/uL (0.11-0.8); Monocytes % 7.3 % (1.7-12.7); Neutrophils # 8.5 10*3/uL (1.4-7.4); Neutrophils % 85.9 % (38.7-73.9); Platelet Count 356 T/CUMM (130-400); Red Cell Distribution Width 14.5 % (9.3-17.3); White Blood Count 9.9 T/CUMM (4-12)
[2017-07-22 04:54] LABS: Calcium 9.9 MG/DL (8.5-10.1); Magnesium 2.3 MG/DL (1.8-2.4); Osmolality,Calculated 288.7 MOS/KG (273-304); Potassium 3.6 MMOL/L (3.5-5.1)
[2017-07-22 06:10] LABS: Band Neutrophils 2 % (0-10); Lymphocytes 3 % (20-55); Myelocytes 1 %; Segmented Neutrophils 91 % (50-85)
[2017-07-22 06:12] LABS: Hypochromasia 1+
[2017-07-22 06:13] LABS: Ovalocytes Few; Platelet Estimate Normal
[2017-07-22 06:14] LABS: Total Cells Counted 100
[2017-07-22] MEDS: INSULIN GLARGINE 100 UNIT/ML SUBCUT SCH ×2 (08:47→18:28)
[2017-07-22] MEDS: INSULIN LISPRO 100 UNIT/ML SUBCUT SCH ×4 (08:48→22:32)
[2017-07-22] MEDS: CLOPIDOGREL 75 MG TABLET PO SCH (08:49)
[2017-07-22] MEDS: NICOTINE 21 MG/24 HR PATCH TRANSDERM SCH (08:49)
[2017-07-22] MEDS: CYANOCOBALAMIN 500 MCG TABLET PO SCH (08:50)
[2017-07-22] MEDS: MAGNESIUM OXIDE 400 MG TABLET PO SCH (08:50)
[2017-07-22] MEDS: THEOPHYLLINE ER 300 MG TABLET PO SCH ×2 (08:50→16:41)
[2017-07-22] MEDS: ASPIRIN 325 MG TABLET PO SCH (08:50)
[2017-07-22] MEDS: PANTOPRAZOLE 40 MG TABLET PO SCH (08:50)
[2017-07-22] MEDS: NEBIVOLOL 10 MG TABLET PO SCH (08:50)
[2017-07-22] MEDS: POTASSIUM CHLORIDE 20 MEQ TABLET PO SCH (08:50)
[2017-07-22] MEDS: FUROSEMIDE 80 MG TABLET PO SCH ×2 (08:51→15:07)
[2017-07-22] MEDS: ALPRAZolam 0.5 MG TABLET PO SCH ×2 (08:51→22:31)
[2017-07-22] MEDS: GLIMEPIRIDE 2 MG TABLET PO SCH (08:51)
[2017-07-22] MEDS: DOCUSATE SODIUM 100 MG CAPSULE PO PRN (08:51)
[2017-07-22] MEDS: BUDESONIDE/FORMOTEROL 160-4.5 INHALER 6 GM INH SCH ×2 (09:03→22:34)
[2017-07-22] MEDS: NYSTATIN CREAM 15 GM TUBE TOP SCH ×2 (09:03→22:47)
[2017-07-22] MEDS: FLUTICASONE 50 MCG NASAL SPRAY 16 GM BOTTLE BOTH NARES SCH ×2 (09:03→22:33)
--- NOTE | 2017-07-22 09:12 | Pulmonology Progress Note ---
Pulmonary - PN: Subj Interval history: Patient is a 61-year-old white lady that has significant coronary disease and COPD. She comes in with a flareup due to bronchitis. She has been feeling better and had a reasonable night. She does have a mild nosebleed from her oxygen. Her hoarseness and her coughing are better. She feels like she is breathing better. Exam (Progress Note) - Constitutional Vitals: Period Temp Pulse Resp BP Sys/Callahan Pulse Ox Last 24 Hr 96.7 F-98.6 F 76-96 16-24 101-152/64-88 94-99 Exam: General appearance: no distress (She is sitting up in a chair and looks reasonably comfortable. She looks like she feels better.), over weight - Head Head exam: Present: normal inspection, normocephalic - Eye Eye exam: Present: EOMI. Absent: scleral icterus Pupils: Present: ROSETTA - ENT ENT exam: Present: normal exam, her voice is better. She has a slight nosebleed. - Neck Neck exam: Absent: lymphadenopathy, thyromegaly - Respiratory Respiratory exam: Present: She has good breath sounds bilaterally she is moving air fairly well. Her wheezing is much improved. - Cardiovascular Cardiovascular exam: Present: regular rate and rhythm. Absent: gallop, systolic murmur - GI/Abdominal GI/Abdominal exam: Present: normal bowel sounds, soft. Absent: distended, organomegaly, tenderness - Extremities Exam Extremities exam: Present: Her legs are nontender and not swollen now. - Back Exam Back exam: Present: normal inspection - Neurological Exam Neurological exam: Present: alert, oriented X3, CN II-XII intact - Psychiatric Psychiatric exam: Present: anxious - Skin Skin exam: Present: warm, dry Results - Labs CBC & BMP: 07/22/17 03:09 07/22/17 03:09 Assessment and Plan (1) Insulin dependent diabetes mellitus Status: Acute Assessment and plan: The patient's glucoses will be monitored. Her glucose is 209 this morning. Current Visit: No (2) OYSHI (obstructive sleep apnea) Status: Chronic Assessment and plan: She does use her CPAP at night. Current Visit: No (3) Morbid obesity Status: Chronic Assessment and plan: She is overweight and has had trouble losing weight. Current Visit: No (4) COPD exacerbation Status: Acute Assessment and plan: She feels like she has a URI and comes in with coughing and wheezing. She is doing better today and is having less cough. Her wheezing is better. She does appear stable and can probably go home soon. Current Visit: No (5) Ischemic cardiomyopathy Status: Acute Assessment and plan: The patient has an ejection fraction of around 30-35% and could have some mild overload. Her weight is down today. Current Visit: No (6) Tobacco abuse Status: Chronic Assessment and plan: She certainly needs to quit smoking. Current Visit: No (7) GERD (gastroesophageal reflux disease) Status: Chronic Assessment and plan: She will continue with antireflux measures. Current Visit: No Specialty Discharge - Follow Up or Referrals
[2017-07-22] MEDS: GABAPENTIN 600 MG TABLET PO SCH ×4 (09:22→22:31)
[2017-07-22] MEDS: predniSONE 20 MG TABLET PO SCH (10:27)
--- NOTE | 2017-07-22 11:57 | Hospitalist Progress Note ---
Assessment and Plan (1) COPD exacerbation Status: Acute Assessment and plan: Continue antibiotics, bronchodilators, corticosteroids. Dr. Pearson following. Current Visit: Yes (2) Insulin dependent diabetes mellitus Status: Acute Assessment and plan: Continue sliding scale insulin and Accu-Cheks. Current Visit: Yes (3) CAD (coronary artery disease) Status: Chronic Current Visit: No (4) GERD (gastroesophageal reflux disease) Status: Chronic Current Visit: Yes (5) Hypertension Status: Chronic Current Visit: Yes Qualifiers: Hypertension type: essential hypertension Qualified Code(s): I10 - Essential (primary) hypertension Hospitalist: Subjective Interval history: Patient seen and examined. No acute events overnight. Case discussed with nursing staff. Labs reviewed. She complains of a nosebleed overnight. This was self-limiting. She still has a cough. Shortness of breath and wheezing are improving. Exam - Constitutional Vitals: Period Temp Pulse Resp BP Sys/Callahan Pulse Ox Last 24 Hr 96.7 F-98.6 F 76-96 16-24 101-153/64-88 92-99 Exam: Constitutional System: No distress. No tremulousness. Morbidly obese white female Head: Normocephalic, atraumatic. Ears, Nose and Throat System: No pain or tenderness. No epistaxis or discharge Eyes System: Pupils equal, round, and reactive. Extraocular muscles intact. Neck: Supple, without adenopathy, No jugular venous distention. Respiratory System: Chest clear to auscultation after nebulizer treatment. She had expiratory wheezes prior to the treatment. Cardiovascular System: Heart with regular rate and rhythm. No murmur. GI System: Abdomen soft, nontender. Normo active bowel sounds present. Musculoskeletal System: limbs with no pedal edema. Full distal pulses. Normal capillary refill. Neurological System: No discernable sensory deficit. No aphasia Psychiatric System: Conversation is rational Results - Labs CBC & BMP: 07/22/17 03:09 07/22/17 03:09 Lab Results: I have reviewed the past 24 hour labs Quality Measures - VTE Contraindication to Pharmacological VTE Prophylaxis: Already on Theraputic Agent , No Prophylaxis Needed Specialty Discharge - Follow Up or Referrals
[2017-07-22] MEDS: guaiFENesin/CODEINE 5 ML LIQUID PO PRN ×2 (13:52→22:36)
[2017-07-22] MEDS: FLUoxetine 20 MG CAPSULE PO SCH (22:29)
[2017-07-22] MEDS: ATORVASTATIN 40 MG TABLET PO SCH (22:31)
[2017-07-22] MEDS: LEVOFLOXACIN INJ 750 MG in PREMIX 1 EACH IV SCH (22:40)
[2017-07-23] MEDS: ALBUTEROL/IPRATROPIUM 3 ML NEB RESP TX SCH ×7 (00:16→23:47)
[2017-07-23] MEDS: INSULIN LISPRO 100 UNIT/ML SUBCUT SCH ×4 (07:35→21:00)
--- NOTE | 2017-07-23 08:46 | Pulmonology Progress Note ---
Pulmonary - PN: Subj Interval history: Patient is a 61-year-old white lady that has significant coronary disease and COPD. She comes in with a flareup due to bronchitis. She has been feeling better and had a reasonable night. She says she feels better and her breathing is better. She is complaining of a sore mouth and may have some thrush. She looks like she has swelling of her left parotid gland also. Overall her breathing is stable Exam (Progress Note) - Constitutional Vitals: Period Temp Pulse Resp BP Sys/Callahan Pulse Ox Last 24 Hr 96.9 F-98.1 F 74-90 16-28 117-152/67-86 93-99 Exam: General appearance: no distress (She is sitting up in a chair and looks reasonably comfortable. She looks like she feels better.), over weight - Head Head exam: Present: normal inspection, normocephalic - Eye Eye exam: Present: EOMI. Absent: scleral icterus Pupils: Present: ROSETTA - ENT ENT exam: Present: normal exam, her voice is better. She does have mild swelling of the left parotid gland. She does have a little bit of thrush. - Neck Neck exam: Absent: lymphadenopathy, thyromegaly - Respiratory Respiratory exam: Present: She has good breath sounds bilaterally she is moving air fairly well. She has some mild rhonchi but is moving air fairly well. - Cardiovascular Cardiovascular exam: Present: regular rate and rhythm. Absent: gallop, systolic murmur - GI/Abdominal GI/Abdominal exam: Present: normal bowel sounds, soft. Absent: distended, organomegaly, tenderness - Extremities Exam Extremities exam: Present: Her legs are nontender and not swollen now. - Back Exam Back exam: Present: normal inspection - Neurological Exam Neurological exam: Present: alert, oriented X3, CN II-XII intact - Psychiatric Psychiatric exam: Present: anxious - Skin Skin exam: Present: warm, dry Results - Labs CBC & BMP: 07/22/17 03:09 07/22/17 03:09 Assessment and Plan (1) Insulin dependent diabetes mellitus Status: Acute Assessment and plan: The patient's glucoses will be monitored. Her glucose is 53 this morning. This is probably due to cutting back on steroids. Current Visit: Yes (2) YOSHI (obstructive sleep apnea) Status: Chronic Assessment and plan: She does use her CPAP at night. Current Visit: No (3) Morbid obesity Status: Chronic Assessment and plan: She is overweight and has had trouble losing weight. Current Visit: No (4) COPD exacerbation Status: Acute Assessment and plan: She feels like she has a URI and comes in with coughing and wheezing. She is doing better today and is having less cough. Her wheezing is better. She does appear stable and can probably go home soon. Current Visit: Yes (5) Ischemic cardiomyopathy Status: Acute Assessment and plan: The patient has an ejection fraction of around 30-35% and could have some mild overload. Her weight is down today. Current Visit: No (6) Tobacco abuse Status: Chronic Assessment and plan: She certainly needs to quit smoking. Current Visit: No (7) GERD (gastroesophageal reflux disease) Status: Chronic Assessment and plan: She will continue with antireflux measures. Current Visit: Yes Specialty Discharge - Follow Up or Referrals
[2017-07-23] MEDS: NICOTINE 21 MG/24 HR PATCH TRANSDERM SCH (09:33)
[2017-07-23] MEDS: GABAPENTIN 600 MG TABLET PO SCH ×4 (09:34→20:43)
[2017-07-23] MEDS: NYSTATIN 500,000 UNIT/5 ML UDCUP SWISH/SWAL SCH ×4 (09:34→20:43)
[2017-07-23] MEDS: PANTOPRAZOLE 40 MG TABLET PO SCH (09:35)
[2017-07-23] MEDS: FUROSEMIDE 80 MG TABLET PO SCH ×2 (09:35→17:05)
[2017-07-23] MEDS: ALPRAZolam 0.5 MG TABLET PO SCH ×2 (09:35→20:43)
[2017-07-23] MEDS: predniSONE 20 MG TABLET PO SCH (09:35)
[2017-07-23] MEDS: THEOPHYLLINE ER 300 MG TABLET PO SCH ×2 (09:35→17:05)
[2017-07-23] MEDS: NEBIVOLOL 10 MG TABLET PO SCH (09:36)
[2017-07-23] MEDS: CYANOCOBALAMIN 500 MCG TABLET PO SCH (09:36)
[2017-07-23] MEDS: GLIMEPIRIDE 2 MG TABLET PO SCH (09:37)
[2017-07-23] MEDS: FLUTICASONE 50 MCG NASAL SPRAY 16 GM BOTTLE BOTH NARES SCH ×2 (09:37→20:44)
[2017-07-23] MEDS: BUDESONIDE/FORMOTEROL 160-4.5 INHALER 6 GM INH SCH ×2 (09:37→20:44)
[2017-07-23] MEDS: ASPIRIN 325 MG TABLET PO SCH (09:37)
[2017-07-23] MEDS: POTASSIUM CHLORIDE 20 MEQ TABLET PO SCH (09:37)
[2017-07-23] MEDS: MAGNESIUM OXIDE 400 MG TABLET PO SCH (09:37)
[2017-07-23] MEDS: CLOPIDOGREL 75 MG TABLET PO SCH (09:37)
[2017-07-23] MEDS: INSULIN GLARGINE 100 UNIT/ML SUBCUT SCH ×2 (09:38→18:17)
[2017-07-23] MEDS: NYSTATIN CREAM 15 GM TUBE TOP SCH ×2 (09:39→20:45)
--- NOTE | 2017-07-23 10:55 | Hospitalist Progress Note ---
Assessment and Plan (1) COPD exacerbation Status: Acute Assessment and plan: Continue antibiotics, bronchodilators, corticosteroids. Dr. Pearson following. Current Visit: Yes (2) Insulin dependent diabetes mellitus Status: Acute Assessment and plan: Continue sliding scale insulin and Accu-Cheks. Current Visit: Yes (3) CAD (coronary artery disease) Status: Chronic Current Visit: No (4) GERD (gastroesophageal reflux disease) Status: Chronic Current Visit: Yes (5) Hypertension Status: Chronic Current Visit: Yes Qualifiers: Hypertension type: essential hypertension Qualified Code(s): I10 - Essential (primary) hypertension Hospitalist: Subjective Interval history: Ms. Rosenbaum is a 61-year-old female with COPD that is hospitalized for an acute exacerbation of COPD with shortness of breath and productive cough and continued wheezing. She is receiving DuoNeb treatments and steroids. She is being followed by pulmonary. She is slowly improving. She complains of sore throat and glandular swelling. Sputum cultures are positive for [place]. Exam - Constitutional Vitals: Period Temp Pulse Resp BP Sys/Callahan Pulse Ox Last 24 Hr 96.9 F-98.1 F 74-90 16-28 117-152/67-86 93-99 Exam: Constitutional System: No distress. No tremulousness. Morbidly obese white female Head: Normocephalic, atraumatic. Ears, Nose and Throat System: No pain or tenderness. No epistaxis or discharge Eyes System: Pupils equal, round, and reactive. Extraocular muscles intact. Neck: Supple, without adenopathy, No jugular venous distention. Respiratory System: Chest with scattered wheezing. Minimal rhonchi. Cardiovascular System: Heart with regular rate and rhythm. No murmur. GI System: Abdomen soft, nontender. Normo active bowel sounds present. Musculoskeletal System: limbs with no pedal edema. Full distal pulses. Normal capillary refill. Neurological System: No discernable sensory deficit. No aphasia Psychiatric System: Conversation is rational Results - Labs CBC & BMP: 07/22/17 03:09 07/22/17 03:09 Lab Results: I have reviewed the past 24 hour labs Quality Measures - VTE Contraindication to Pharmacological VTE Prophylaxis: Already on Theraputic Agent , No Prophylaxis Needed Specialty Discharge - Follow Up or Referrals
[2017-07-23] MEDS: guaiFENesin/CODEINE 5 ML LIQUID PO PRN ×2 (12:04→21:59)
--- NOTE | 2017-07-23 14:44 | Physician Query Form ---
CLICK EDIT DOCUMENT TO SELECT QUERY ANSWER --> OK --> SIGN Crista Parra RN, CCDS Certified Clinical Comparative Sociology Professor W) [phone] (f) [phone] [email or web address] PROVIDERS: Make your selection(s) from the choices in EACH section by typing an "x" and enter comments in the comment section. Please use your independent medical judgment in providing your response. This request does not imply that any particular answer is desired or expected. CLINICAL INDICATORS: (Providers should not edit this section) The medical record indicates that the patient was admitted with COPD exacerbation, asthma exacerbation and on the 6th: "continues to have moderate air trapping and bilateral wheezing". Patient is on Proventil/ Duoneb/ Theophylline: Based on documentation of Asthma, can you please provide further specificity regarding the diagnosis? ( ) Mild intermittent extrinsic asthma with acute exacerbation ( ) Mild persistent extrinsic asthma with acute exacerbation ( x) Moderate persistent extrinsic asthma with acute exacerbation ( ) Severe persistent extrinsic asthma with acute exacerbation ( ) Mild intermittent extrinsic asthma with status asthmaticus ( ) Mild persistent extrinsic asthma with status asthmaticus ( ) Moderate persistent extrinsic asthma with status asthmaticus ( ) Severe intermittent extrinsic asthma with status asthmaticus ( ) Other, please specify: ( ) Clinically unable to determine COMMENTS: PLEASE ALSO DOCUMENT RESPONSE IN PROGRESS NOTES AND/OR DISCHARGE SUMMARY Use of terms such as suspected, likely, or probable (associated with a specific diagnosis that is being evaluated, monitored, or treated as if it exists) are acceptable and can be restated in the discharge summary if not ruled out. MTDD
[2017-07-23] MEDS: DOCUSATE SODIUM 100 MG CAPSULE PO PRN (20:43)
[2017-07-23] MEDS: ATORVASTATIN 40 MG TABLET PO SCH (20:43)
[2017-07-23] MEDS: FLUoxetine 20 MG CAPSULE PO SCH (20:43)
[2017-07-24] MEDS: ALBUTEROL/IPRATROPIUM 3 ML NEB RESP TX SCH ×6 (03:32→23:36)
[2017-07-24] MEDS: INSULIN LISPRO 100 UNIT/ML SUBCUT SCH ×4 (08:33→20:46)
[2017-07-24] MEDS: INSULIN GLARGINE 100 UNIT/ML SUBCUT SCH ×2 (09:36→19:09)
[2017-07-24] MEDS: CYANOCOBALAMIN 500 MCG TABLET PO SCH (09:37)
[2017-07-24] MEDS: THEOPHYLLINE ER 300 MG TABLET PO SCH ×2 (09:38→16:17)
[2017-07-24] MEDS: ALPRAZolam 0.5 MG TABLET PO SCH ×2 (09:38→20:45)
[2017-07-24] MEDS: GLIMEPIRIDE 2 MG TABLET PO SCH (09:38)
[2017-07-24] MEDS: CLOPIDOGREL 75 MG TABLET PO SCH (09:38)
[2017-07-24] MEDS: POTASSIUM CHLORIDE 20 MEQ TABLET PO SCH (09:39)
[2017-07-24] MEDS: FUROSEMIDE 80 MG TABLET PO SCH ×2 (09:39→16:18)
[2017-07-24] MEDS: ACETAMINOPHEN 325 MG TABLET PO PRN (09:40)
[2017-07-24] MEDS: PANTOPRAZOLE 40 MG TABLET PO SCH (09:40)
[2017-07-24] MEDS: DOCUSATE SODIUM 100 MG CAPSULE PO PRN (09:40)
[2017-07-24] MEDS: NEBIVOLOL 10 MG TABLET PO SCH (09:41)
[2017-07-24] MEDS: ASPIRIN 325 MG TABLET PO SCH (09:41)
[2017-07-24] MEDS: predniSONE 20 MG TABLET PO SCH (09:41)
[2017-07-24] MEDS: MAGNESIUM OXIDE 400 MG TABLET PO SCH (09:41)
[2017-07-24] MEDS: GABAPENTIN 600 MG TABLET PO SCH ×4 (09:41→20:45)
[2017-07-24] MEDS: NYSTATIN CREAM 15 GM TUBE TOP SCH ×2 (09:42→20:47)
[2017-07-24] MEDS: FLUTICASONE 50 MCG NASAL SPRAY 16 GM BOTTLE BOTH NARES SCH ×2 (09:42→20:45)
[2017-07-24] MEDS: NYSTATIN 500,000 UNIT/5 ML UDCUP SWISH/SWAL SCH ×4 (09:42→20:44)
[2017-07-24] MEDS: BUDESONIDE/FORMOTEROL 160-4.5 INHALER 6 GM INH SCH ×2 (09:42→20:45)
[2017-07-24] MEDS: NICOTINE 21 MG/24 HR PATCH TRANSDERM SCH (09:43)
--- NOTE | 2017-07-24 13:16 | Pulmonology Progress Note ---
Pulmonary - PN: Subj Interval history: Patient is a 61-year-old white lady that has significant coronary disease and COPD. She comes in with a flareup due to bronchitis. She feels like she is doing better today and her cough and wheezing are better. She is eating a little more. She looks like she feels better overall. Exam (Progress Note) - Constitutional Vitals: Period Temp Pulse Resp BP Sys/Callahan Pulse Ox Last 24 Hr 97.2 F-98.4 F 70-136 16-20 105-154/58-98 92-99 Exam: General appearance: no distress (She is sitting up in a chair and looks reasonably comfortable. She looks like she feels better. Her breathing is much better.), over weight - Head Head exam: Present: normal inspection, normocephalic - Eye Eye exam: Present: EOMI. Absent: scleral icterus Pupils: Present: ROSETTA - ENT ENT exam: Present: normal exam, her voice is better. The left parotid gland is less swollen. Her throat is better. - Neck Neck exam: Absent: lymphadenopathy, thyromegaly - Respiratory Respiratory exam: Present: She has good breath sounds bilaterally she is moving air fairly well. Her lungs are much clearer with no wheezing now. - Cardiovascular Cardiovascular exam: Present: regular rate and rhythm. Absent: gallop, systolic murmur - GI/Abdominal GI/Abdominal exam: Present: normal bowel sounds, soft. Absent: distended, organomegaly, tenderness - Extremities Exam Extremities exam: Present: Her legs are nontender and not swollen now. - Back Exam Back exam: Present: normal inspection - Neurological Exam Neurological exam: Present: alert, oriented X3, CN II-XII intact - Psychiatric Psychiatric exam: Present: She looks more comfortable - Skin Skin exam: Present: warm, dry Results - Labs CBC & BMP: 07/22/17 03:09 07/22/17 03:09 Assessment and Plan (1) Insulin dependent diabetes mellitus Status: Acute Assessment and plan: The patient's glucoses are better after cutting back on steroids. Her glucose is 129 this morning. Current Visit: Yes (2) YOSHI (obstructive sleep apnea) Status: Chronic Assessment and plan: She does use her CPAP at night. Current Visit: No (3) Morbid obesity Status: Chronic Assessment and plan: She is overweight and has had trouble losing weight. Current Visit: No (4) COPD exacerbation Status: Acute Assessment and plan: She feels like she has a URI and comes in with coughing and wheezing. She mainly has asthmatic bronchitis. She does have recurrent problems but she seems to be better now. She will need to continue inhaled steroids and bronchodilator therapy. Current Visit: Yes (5) Ischemic cardiomyopathy Status: Acute Assessment and plan: The patient has an ejection fraction of around 30-35% and could have some mild overload. Her weight is down today. Current Visit: No (6) Tobacco abuse Status: Chronic Assessment and plan: She certainly needs to quit smoking. Current Visit: No (7) GERD (gastroesophageal reflux disease) Status: Chronic Assessment and plan: She will continue with antireflux measures. Current Visit: Yes Specialty Discharge - Follow Up or Referrals
[2017-07-24] MEDS ORDERED: MAGNESIUM HYDROXIDE SUSP 30 ML UDCUP PO ONE (13:22)
[2017-07-24] MEDS ORDERED: POLYETHYLENE GLYCOL POWDER 17 GM PACK PO PRN (13:22)
--- NOTE | 2017-07-24 13:24 | Hospitalist Progress Note ---
Assessment and Plan (1) COPD exacerbation Status: Acute Assessment and plan: Continue antibiotics, bronchodilators, corticosteroids. Dr. Pearson following. Current Visit: Yes (2) Insulin dependent diabetes mellitus Status: Acute Assessment and plan: Continue sliding scale insulin and Accu-Cheks. Current Visit: Yes (3) CAD (coronary artery disease) Status: Chronic Current Visit: No (4) GERD (gastroesophageal reflux disease) Status: Chronic Current Visit: Yes (5) Hypertension Status: Chronic Current Visit: Yes Qualifiers: Hypertension type: essential hypertension Qualified Code(s): I10 - Essential (primary) hypertension (6) Constipation Status: Acute Assessment and plan: Add milk of magnesia and lactulose as needed Current Visit: Yes Hospitalist: Subjective Interval history: Ms. Rosenbaum reports constipation. She denies having a bowel movement since admission. She feels very tired today. Her breathing has improved. Her wheezing is improved. She will likely be discharged home tomorrow. Exam - Constitutional Vitals: Period Temp Pulse Resp BP Sys/Callahan Pulse Ox Last 24 Hr 97.2 F-98.4 F 70-136 16-20 105-154/58-98 92-99 Exam: Constitutional System: No distress. No tremulousness. Morbidly obese white female Head: Normocephalic, atraumatic. Ears, Nose and Throat System: No pain or tenderness. No epistaxis or discharge Eyes System: Pupils equal, round, and reactive. Extraocular muscles intact. Neck: Supple, without adenopathy, No jugular venous distention. Respiratory System: Chest clear to auscultation bilaterally Cardiovascular System: Heart with regular rate and rhythm. No murmur. GI System: Abdomen soft, nontender. Normo active bowel sounds present. Musculoskeletal System: limbs with no pedal edema. Full distal pulses. Normal capillary refill. Neurological System: No discernable sensory deficit. No aphasia Psychiatric System: Conversation is rational Results - Labs CBC & BMP: 07/22/17 03:09 07/22/17 03:09 Lab Results: I have reviewed the past 24 hour labs Quality Measures - VTE Contraindication to Pharmacological VTE Prophylaxis: Already on Theraputic Agent , No Prophylaxis Needed Specialty Discharge - Follow Up or Referrals
[2017-07-24] MEDS: DOCUSATE SODIUM 100 MG CAPSULE PO SCH ×2 (13:46→20:45)
[2017-07-24] MEDS: LACTULOSE 20 GM/30 ML UDCUP PO SCH ×2 (16:16→20:45)
[2017-07-24] MEDS: FLUoxetine 20 MG CAPSULE PO SCH (20:45)
[2017-07-24] MEDS: ATORVASTATIN 40 MG TABLET PO SCH (20:45)
[2017-07-25] MEDS: ALBUTEROL/IPRATROPIUM 3 ML NEB RESP TX SCH ×6 (03:14→23:37)
[2017-07-25] MEDS: ACETAMINOPHEN 325 MG TABLET PO PRN (05:06)
[2017-07-25] MEDS: LACTULOSE 20 GM/30 ML UDCUP PO SCH ×4 (05:11→21:32)
[2017-07-25] MEDS: INSULIN GLARGINE 100 UNIT/ML SUBCUT SCH ×2 (08:36→18:19)
[2017-07-25] MEDS: NICOTINE 21 MG/24 HR PATCH TRANSDERM SCH (08:38)
[2017-07-25] MEDS: NYSTATIN 500,000 UNIT/5 ML UDCUP SWISH/SWAL SCH ×4 (08:39→21:29)
[2017-07-25] MEDS: BUDESONIDE/FORMOTEROL 160-4.5 INHALER 6 GM INH SCH ×2 (08:42→21:29)
[2017-07-25] MEDS: FLUTICASONE 50 MCG NASAL SPRAY 16 GM BOTTLE BOTH NARES SCH ×2 (08:42→21:29)
[2017-07-25] MEDS: CLOPIDOGREL 75 MG TABLET PO SCH (08:43)
[2017-07-25] MEDS: CYANOCOBALAMIN 500 MCG TABLET PO SCH (08:44)
[2017-07-25] MEDS: POTASSIUM CHLORIDE 20 MEQ TABLET PO SCH (08:44)
[2017-07-25] MEDS: NEBIVOLOL 10 MG TABLET PO SCH (08:45)
[2017-07-25] MEDS: ASPIRIN 325 MG TABLET PO SCH (08:45)
[2017-07-25] MEDS: THEOPHYLLINE ER 300 MG TABLET PO SCH ×2 (08:45→18:18)
[2017-07-25] MEDS: GABAPENTIN 600 MG TABLET PO SCH ×4 (08:45→21:31)
[2017-07-25] MEDS: MAGNESIUM OXIDE 400 MG TABLET PO SCH (08:45)
[2017-07-25] MEDS: predniSONE 20 MG TABLET PO SCH (08:46)
[2017-07-25] MEDS: FUROSEMIDE 80 MG TABLET PO SCH ×2 (08:46→18:17)
[2017-07-25] MEDS: PANTOPRAZOLE 40 MG TABLET PO SCH (08:46)
[2017-07-25] MEDS: ALPRAZolam 0.5 MG TABLET PO SCH ×2 (08:46→21:31)
[2017-07-25] MEDS: DOCUSATE SODIUM 100 MG CAPSULE PO SCH ×2 (08:47→21:32)
[2017-07-25] MEDS: INSULIN LISPRO 100 UNIT/ML SUBCUT SCH ×4 (08:47→20:17)
[2017-07-25] MEDS: GLIMEPIRIDE 2 MG TABLET PO SCH (08:47)
--- NOTE | 2017-07-25 08:49 | Pulmonology Progress Note ---
Pulmonary - PN: Subj Interval history: Patient is a 61-year-old white lady that has significant coronary disease and COPD. She comes in with a flareup due to bronchitis. She complains of a sore tongue but is able to eat okay. She still has a little bit of a cough but her breathing is much better. Her wheezing is much improved. Overall she is much better and can go home at any time. Exam (Progress Note) - Constitutional Vitals: Period Temp Pulse Resp BP Sys/Callahan Pulse Ox Last 24 Hr 96.7 F-98.4 F 67-85 16-20 105-144/55-87 94-100 Exam: General appearance: no distress (She is sitting up in a chair and is in no distress and looks quite comfortable now.) - Head Head exam: Present: normal inspection, normocephalic - Eye Eye exam: Present: EOMI. Absent: scleral icterus Pupils: Present: ROSETTA - ENT ENT exam: Present: normal exam, her voice is better. The left parotid gland is less swollen. Her throat is better. She has raw tongue. - Neck Neck exam: Absent: lymphadenopathy, thyromegaly - Respiratory Respiratory exam: Present: She has good breath sounds bilaterally she is moving air fairly well. Her lungs are much clearer with no wheezing now. - Cardiovascular Cardiovascular exam: Present: regular rate and rhythm. Absent: gallop, systolic murmur - GI/Abdominal GI/Abdominal exam: Present: normal bowel sounds, soft. Absent: distended, organomegaly, tenderness - Extremities Exam Extremities exam: Present: Her legs are nontender and not swollen now. - Back Exam Back exam: Present: normal inspection - Neurological Exam Neurological exam: Present: alert, oriented X3, CN II-XII intact - Psychiatric Psychiatric exam: Present: She looks more comfortable - Skin Skin exam: Present: warm, dry Results - Labs CBC & BMP: 07/22/17 03:09 07/22/17 03:09 Assessment and Plan (1) Insulin dependent diabetes mellitus Status: Acute Assessment and plan: The patient's glucoses are better after cutting back on steroids. Her glucoses are little better. Current Visit: Yes (2) YOSHI (obstructive sleep apnea) Status: Chronic Assessment and plan: She does use her CPAP at night. Current Visit: No (3) Morbid obesity Status: Chronic Assessment and plan: She is overweight and has had trouble losing weight. Current Visit: No (4) COPD exacerbation Status: Acute Assessment and plan: She feels like she has a URI and comes in with coughing and wheezing. She mainly has asthmatic bronchitis. She does have recurrent problems but she seems to be better now. She will need to continue inhaled steroids and bronchodilator therapy. She can probably go at any time. Current Visit: Yes (5) Ischemic cardiomyopathy Status: Acute Assessment and plan: The patient has an ejection fraction of around 30-35% and could have some mild overload. Her weight is down today. Current Visit: No (6) Tobacco abuse Status: Chronic Assessment and plan: She certainly needs to quit smoking. Current Visit: No (7) GERD (gastroesophageal reflux disease) Status: Chronic Assessment and plan: She will continue with antireflux measures. Current Visit: Yes Specialty Discharge - Follow Up or Referrals
[2017-07-25] MEDS: NYSTATIN CREAM 15 GM TUBE TOP SCH ×2 (09:01→21:32)
--- NOTE | 2017-07-25 09:47 | Physician Query Form ---
CLICK EDIT DOCUMENT TO SELECT QUERY ANSWER --> OK --> SIGN Crista Parra RN, CCDS Certified Clinical Food Service Substitute W) [phone] (f) [phone] [email or web address]: Make your selection(s) from the choices in EACH section by typing an "x" and enter comments in the comment section. Please use your independent medical judgment in providing your response. This request does not imply that any particular answer is desired or expected. CLINICAL INDICATORS: (Providers should not edit this section) The below diagnosis was documented in the record, but is not consistently noted in subsequent documentation. The medical record indicates that the patient was admitted with COPD exacerbation, early in the chart "COPD exacerbation and pneumonia" is mentioned , normal WBC & the patient is on antibiotics. Diagnosis: PNEUMONIA Please clarify the following: ( ) The above diagnosis was monitored, evaluated, and/or treated and is a confirmed diagnosis ( X) The above diagnosis was ruled out ( ) The above diagnosis is still a likely, suspected, probable diagnosis ( ) Other, please specify: ( ) Clinically unable to determine COMMENTS: PLEASE ALSO DOCUMENT RESPONSE IN PROGRESS NOTES AND/OR DISCHARGE SUMMARY Use of terms such as suspected, likely, or probable (associated with a specific diagnosis that is being evaluated, monitored, or treated as if it exists) are acceptable and can be restated in the discharge summary if not ruled out. MTDD
--- NOTE | 2017-07-25 10:25 | Hospitalist Progress Note ---
Assessment and Plan (1) COPD exacerbation Status: Acute Assessment and plan: Continue antibiotics, bronchodilators, corticosteroids. Dr. Pearson following. Home tomorrow morning Current Visit: Yes (2) Insulin dependent diabetes mellitus Status: Acute Assessment and plan: Continue sliding scale insulin and Accu-Cheks. Current Visit: Yes (3) CAD (coronary artery disease) Status: Chronic Current Visit: No (4) GERD (gastroesophageal reflux disease) Status: Chronic Current Visit: Yes (5) Hypertension Status: Chronic Current Visit: Yes Qualifiers: Hypertension type: essential hypertension Qualified Code(s): I10 - Essential (primary) hypertension (6) Constipation Status: Acute Assessment and plan: Add milk of magnesia and lactulose as needed Current Visit: Yes Hospitalist: Subjective Interval history: Patient seen and examined. No acute events overnight. Case discussed with nursing staff. Labs reviewed. Ms. Rosnebaum is pleading to stay another day. She reports no bowel movements in over 4-5 days. She also complains of a sore tongue and reports that it was bleeding this morning. She has dry mucous membranes and otherwise feels generally debilitated. Exam - Constitutional Vitals: Period Temp Pulse Resp BP Sys/Callahan Pulse Ox Last 24 Hr 96.7 F-98.4 F 67-85 16-20 105-144/55-87 94-100 Exam: Constitutional System: No distress. No tremulousness. Morbidly obese white female Head: Normocephalic, atraumatic. Ears, Nose and Throat System: No pain or tenderness. No epistaxis or discharge Eyes System: Pupils equal, round, and reactive. Extraocular muscles intact. Neck: Supple, without adenopathy, No jugular venous distention. Respiratory System: Chest clear to auscultation bilaterally Cardiovascular System: Heart with regular rate and rhythm. No murmur. GI System: Abdomen soft, nontender. Normo active bowel sounds present. Musculoskeletal System: limbs with no pedal edema. Full distal pulses. Normal capillary refill. Neurological System: No discernable sensory deficit. No aphasia Psychiatric System: Conversation is rational Results - Labs CBC & BMP: 07/22/17 03:09 07/22/17 03:09 Lab Results: I have reviewed the past 24 hour labs Quality Measures - VTE Contraindication to Pharmacological VTE Prophylaxis: Already on Theraputic Agent , No Prophylaxis Needed Specialty Discharge - Follow Up or Referrals
[2017-07-25] MEDS: LORazepam 0.5 MG TABLET PO PRN (18:24)
[2017-07-25] MEDS: FLUoxetine 20 MG CAPSULE PO SCH (21:31)
[2017-07-25] MEDS: ATORVASTATIN 40 MG TABLET PO SCH (21:31)
[2017-07-25] MEDS: guaiFENesin/DM ER 600-30 MG TABLET PO PRN (21:31)
[2017-07-25] MEDS: guaiFENesin/CODEINE 5 ML LIQUID PO PRN (21:41)
[2017-07-26] MEDS: guaiFENesin/CODEINE 5 ML LIQUID PO PRN (01:51)
[2017-07-26] MEDS: ALBUTEROL/IPRATROPIUM 3 ML NEB RESP TX SCH ×6 (03:00→23:54)
[2017-07-26] MEDS: LACTULOSE 20 GM/30 ML UDCUP PO SCH ×4 (03:00→21:00)
--- NOTE | 2017-07-26 09:13 | Pulmonology Progress Note ---
Pulmonary - PN: Subj Interval history: Patient is a 61-year-old white lady that has significant coronary disease and COPD. She comes in with a flareup due to bronchitis. She complains of a sore tongue but is able to eat okay. She still has a little bit of a cough but her breathing is much better. Her wheezing is much improved. She feels like her breathing is okay but she is weak and slow moving. She may be better off going to a swing bed. Exam (Progress Note) - Constitutional Vitals: Period Temp Pulse Resp BP Sys/Callahan Pulse Ox Last 24 Hr 96.9 F-99.5 F 67-87 18-22 88-161/40-86 92-99 Exam: General appearance: no distress (She is sitting up in a chair and is in no distress and looks quite comfortable now.) - Head Head exam: Present: normal inspection, normocephalic - Eye Eye exam: Present: EOMI. Absent: scleral icterus Pupils: Present: ROSETTA - ENT ENT exam: Present: normal exam, her voice is better. The left parotid gland is less swollen. Her throat is better. Her sore tongue is getting better. - Neck Neck exam: Absent: lymphadenopathy, thyromegaly - Respiratory Respiratory exam: Present: She has good breath sounds bilaterally she is moving air fairly well. Her lungs are much clearer with no wheezing now. She does have minimal rhonchi at times. - Cardiovascular Cardiovascular exam: Present: regular rate and rhythm. Absent: gallop, systolic murmur - GI/Abdominal GI/Abdominal exam: Present: normal bowel sounds, soft. Absent: distended, organomegaly, tenderness - Extremities Exam Extremities exam: Present: Her legs are nontender and not swollen now. - Back Exam Back exam: Present: normal inspection - Neurological Exam Neurological exam: Present: alert, oriented X3, CN II-XII intact - Psychiatric Psychiatric exam: Present: She looks more comfortable - Skin Skin exam: Present: warm, dry Results - Labs CBC & BMP: 07/22/17 03:09 07/22/17 03:09 Assessment and Plan (1) Insulin dependent diabetes mellitus Status: Acute Assessment and plan: The patient's glucoses are better after cutting back on steroids. Her glucoses are little better. Her glucose is 156 this morning. Current Visit: Yes (2) YOSHI (obstructive sleep apnea) Status: Chronic Assessment and plan: She does use her CPAP at night. Current Visit: No (3) Morbid obesity Status: Chronic Assessment and plan: She is overweight and has had trouble losing weight. Current Visit: No (4) COPD exacerbation Status: Acute Assessment and plan: She feels like she has a URI and comes in with coughing and wheezing. She mainly has asthmatic bronchitis. She does have recurrent problems but she seems to be better now. Her respiratory status is a little better. She can probably go but may need to go to a swing bed. Current Visit: Yes (5) Ischemic cardiomyopathy Status: Acute Assessment and plan: The patient has an ejection fraction of around 30-35% and could have some mild overload. She does not have any leg swelling. Current Visit: No (6) Tobacco abuse Status: Chronic Assessment and plan: She certainly needs to quit smoking. Current Visit: No (7) GERD (gastroesophageal reflux disease) Status: Chronic Assessment and plan: She will continue with antireflux measures. Current Visit: Yes Specialty Discharge - Follow Up or Referrals
[2017-07-26] MEDS: INSULIN GLARGINE 100 UNIT/ML SUBCUT SCH ×2 (09:19→18:47)
[2017-07-26] MEDS: FLUTICASONE 50 MCG NASAL SPRAY 16 GM BOTTLE BOTH NARES SCH ×2 (09:21→21:13)
[2017-07-26] MEDS: BUDESONIDE/FORMOTEROL 160-4.5 INHALER 6 GM INH SCH ×2 (09:21→21:12)
[2017-07-26] MEDS: NICOTINE 21 MG/24 HR PATCH TRANSDERM SCH (09:27)
[2017-07-26] MEDS: DOCUSATE SODIUM 100 MG CAPSULE PO SCH ×2 (09:29→21:11)
[2017-07-26] MEDS: GABAPENTIN 600 MG TABLET PO SCH ×4 (09:30→21:11)
[2017-07-26] MEDS: ASPIRIN 325 MG TABLET PO SCH (09:30)
[2017-07-26] MEDS: NEBIVOLOL 10 MG TABLET PO SCH (09:30)
[2017-07-26] MEDS: THEOPHYLLINE ER 300 MG TABLET PO SCH ×2 (09:31→16:17)
[2017-07-26] MEDS: MAGNESIUM OXIDE 400 MG TABLET PO SCH (09:31)
[2017-07-26] MEDS: POTASSIUM CHLORIDE 20 MEQ TABLET PO SCH (09:31)
[2017-07-26] MEDS: PANTOPRAZOLE 40 MG TABLET PO SCH (09:32)
[2017-07-26] MEDS: FUROSEMIDE 80 MG TABLET PO SCH ×2 (09:32→16:18)
[2017-07-26] MEDS: ALPRAZolam 0.5 MG TABLET PO SCH ×2 (09:32→21:11)
[2017-07-26] MEDS: GLIMEPIRIDE 2 MG TABLET PO SCH (09:32)
[2017-07-26] MEDS: predniSONE 20 MG TABLET PO SCH (09:32)
[2017-07-26] MEDS: CLOPIDOGREL 75 MG TABLET PO SCH (09:33)
[2017-07-26] MEDS: NYSTATIN 500,000 UNIT/5 ML UDCUP SWISH/SWAL SCH ×4 (09:33→21:00)
[2017-07-26] MEDS: NYSTATIN CREAM 15 GM TUBE TOP SCH ×2 (09:34→21:00)
[2017-07-26] MEDS: INSULIN LISPRO 100 UNIT/ML SUBCUT SCH ×4 (10:19→21:05)
[2017-07-26] MEDS: CYANOCOBALAMIN 500 MCG TABLET PO SCH (10:32)
--- NOTE | 2017-07-26 14:11 | Hospitalist Progress Note ---
Assessment and Plan (1) COPD exacerbation Status: Acute Assessment and plan: Continue antibiotics, bronchodilators, corticosteroids. Dr. Pearson following. Referral to swing bed Current Visit: Yes (2) Insulin dependent diabetes mellitus Status: Acute Assessment and plan: Continue sliding scale insulin and Accu-Cheks. Current Visit: Yes (3) CAD (coronary artery disease) Status: Chronic Current Visit: No (4) GERD (gastroesophageal reflux disease) Status: Chronic Current Visit: Yes (5) Hypertension Status: Chronic Current Visit: Yes Qualifiers: Hypertension type: essential hypertension Qualified Code(s): I10 - Essential (primary) hypertension (6) Constipation Status: Acute Assessment and plan: Add milk of magnesia and lactulose as needed Current Visit: Yes (7) Debility Status: Acute Assessment and plan: Referral to swing bed Current Visit: Yes Hospitalist: Subjective Interval history: Patient seen and examined. No acute events overnight. Case discussed with nursing staff. Labs reviewed. Patient suffered a fall yesterday afternoon. She feels generally weak and is requesting swing bed placement. I agree and have made the referral for social services specialist. Exam - Constitutional Vitals: Period Temp Pulse Resp BP Sys/Callahan Pulse Ox Last 24 Hr 96.9 F-98.3 F 67-92 20-22 88-161/40-88 92-99 Exam: Constitutional System: No distress. No tremulousness. Morbidly obese white female Head: Normocephalic, atraumatic. Ears, Nose and Throat System: No pain or tenderness. No epistaxis or discharge Eyes System: Pupils equal, round, and reactive. Extraocular muscles intact. Neck: Supple, without adenopathy, No jugular venous distention. Respiratory System: Chest clear to auscultation bilaterally Cardiovascular System: Heart with regular rate and rhythm. No murmur. GI System: Abdomen soft, nontender. Normo active bowel sounds present. Musculoskeletal System: limbs with no pedal edema. Full distal pulses. Normal capillary refill. Neurological System: No discernable sensory deficit. No aphasia Psychiatric System: Conversation is rational Results - Labs CBC & BMP: 07/22/17 03:09 07/22/17 03:09 Lab Results: I have reviewed the past 24 hour labs Quality Measures - VTE Contraindication to Pharmacological VTE Prophylaxis: Already on Theraputic Agent , No Prophylaxis Needed Specialty Discharge - Follow Up or Referrals
[2017-07-26] MEDS ORDERED: INSULIN LISPRO 100 UNIT/ML SUBCUT ONE (14:50)
--- NOTE | 2017-07-26 15:16 | XRay Report ---
Exam: XR chest 1V Date: 07/26/2017 2:35 PM Comparison: None Indication: Shortness of breath Technique:[Single view chest] Findings: The heart is minimally enlarged with uncoiling of the aorta. Chronic scarring in the lungs with reduced parenchymal findings. Stable mediastinum and osseous structures. Impression: Persistent cardiomegaly with improved CHF/pneumonitis. Underlying chronic scarring. PROCEDURE INTERPRETED AT [facility] DEPARTMENT OF RADIOLOGY Final Report Signed by: Dr. Stacey Bettencourt
[2017-07-26] MEDS: FLUoxetine 20 MG CAPSULE PO SCH (21:00)
[2017-07-26] MEDS: guaiFENesin/DM ER 600-30 MG TABLET PO PRN (21:11)
[2017-07-26] MEDS: ATORVASTATIN 40 MG TABLET PO SCH (21:11)
[2017-07-27] MEDS: ALBUTEROL/IPRATROPIUM 3 ML NEB RESP TX SCH ×5 (02:12→20:08)
[2017-07-27] MEDS: ACETAMINOPHEN 325 MG TABLET PO PRN (02:59)
[2017-07-27] MEDS: LACTULOSE 20 GM/30 ML UDCUP PO SCH ×4 (03:02→21:00)
--- NOTE | 2017-07-27 09:11 | Pulmonology Progress Note ---
Pulmonary - PN: Subj Interval history: Patient is a 61-year-old white lady that has significant coronary disease and COPD. She comes in with a flareup due to bronchitis. She has been slow to clear up but is much better today. She says her shortness of breath is better and her cough is much improved. Her sore mouth has resolved and she is eating. She is walking around a little better. Overall she is much improved and think she can go home. Exam (Progress Note) - Constitutional Vitals: Period Temp Pulse Resp BP Sys/Callahan Pulse Ox Last 24 Hr 96.7 F-98.3 F 62-92 12-20 117-150/62-88 94-100 Exam: General appearance: no distress (She is sitting up in a chair and is in no distress and looks quite comfortable now. She looks like she feels better.) - Head Head exam: Present: normal inspection, normocephalic - Eye Eye exam: Present: EOMI. Absent: scleral icterus Pupils: Present: ROSETTA - ENT ENT exam: Present: normal exam, her voice is better. Her sore mouth is better and her parotid gland is much better. - Neck Neck exam: Absent: lymphadenopathy, thyromegaly - Respiratory Respiratory exam: Present: She has good breath sounds bilaterally she is moving air fairly well. Her lungs sound much clearer now she is not having any wheezing now. - Cardiovascular Cardiovascular exam: Present: regular rate and rhythm. Absent: gallop, systolic murmur - GI/Abdominal GI/Abdominal exam: Present: normal bowel sounds, soft. Absent: distended, organomegaly, tenderness - Extremities Exam Extremities exam: Present: Her legs are nontender and not swollen now. - Back Exam Back exam: Present: normal inspection - Neurological Exam Neurological exam: Present: alert, oriented X3, CN II-XII intact - Psychiatric Psychiatric exam: Present: She looks more comfortable - Skin Skin exam: Present: warm, dry Results - Labs CBC & BMP: 07/22/17 03:09 07/22/17 03:09 - Diagnostic Findings Procedure: Chest x-ray: image reviewed by me, report reviewed by me (Chest x- ray is stable, she has slight increased markings in the bases.) Assessment and Plan (1) Insulin dependent diabetes mellitus Status: Acute Assessment and plan: The patient's glucoses are better after cutting back on steroids. Her glucoses are little better. Her glucose is 71 this morning. Current Visit: Yes (2) YOSHI (obstructive sleep apnea) Status: Chronic Assessment and plan: She does use her CPAP at night. Current Visit: No (3) Morbid obesity Status: Chronic Assessment and plan: She is overweight and has had trouble losing weight. Current Visit: No (4) COPD exacerbation Status: Acute Assessment and plan: She feels like she has a URI and comes in with coughing and wheezing. She mainly has asthmatic bronchitis. Coughing and wheezing are better and she feels much better. Her lungs are clear now. She can go home from my standpoint. Current Visit: Yes (5) Ischemic cardiomyopathy Status: Acute Assessment and plan: The patient has an ejection fraction of around 30-35% but she has no signs of heart failure now. Current Visit: No (6) Tobacco abuse Status: Chronic Assessment and plan: She certainly needs to quit smoking. Current Visit: No (7) GERD (gastroesophageal reflux disease) Status: Chronic Assessment and plan: She will continue with antireflux measures. Current Visit: Yes Specialty Discharge - Follow Up or Referrals
[2017-07-27] MEDS: NICOTINE 21 MG/24 HR PATCH TRANSDERM SCH (10:00)
[2017-07-27] MEDS: NEBIVOLOL 10 MG TABLET PO SCH (10:02)
[2017-07-27] MEDS: PANTOPRAZOLE 40 MG TABLET PO SCH (10:02)
[2017-07-27] MEDS: GABAPENTIN 600 MG TABLET PO SCH ×4 (10:02→21:00)
[2017-07-27] MEDS: NYSTATIN 500,000 UNIT/5 ML UDCUP SWISH/SWAL SCH ×4 (10:02→21:00)
[2017-07-27] MEDS: ALPRAZolam 0.5 MG TABLET PO SCH ×2 (10:03→21:01)
[2017-07-27] MEDS: ASPIRIN 325 MG TABLET PO SCH (10:03)
[2017-07-27] MEDS: CYANOCOBALAMIN 500 MCG TABLET PO SCH (10:03)
[2017-07-27] MEDS: THEOPHYLLINE ER 300 MG TABLET PO SCH ×2 (10:03→16:19)
[2017-07-27] MEDS: DOCUSATE SODIUM 100 MG CAPSULE PO SCH ×2 (10:03→21:01)
[2017-07-27] MEDS: POTASSIUM CHLORIDE 20 MEQ TABLET PO SCH (10:03)
[2017-07-27] MEDS: GLIMEPIRIDE 2 MG TABLET PO SCH (10:03)
[2017-07-27] MEDS: CLOPIDOGREL 75 MG TABLET PO SCH (10:03)
[2017-07-27] MEDS: predniSONE 20 MG TABLET PO SCH (10:04)
[2017-07-27] MEDS: MAGNESIUM OXIDE 400 MG TABLET PO SCH (10:04)
[2017-07-27] MEDS: FUROSEMIDE 80 MG TABLET PO SCH ×2 (10:04→16:20)
[2017-07-27] MEDS: FLUTICASONE 50 MCG NASAL SPRAY 16 GM BOTTLE BOTH NARES SCH ×2 (10:06→21:01)
[2017-07-27] MEDS: BUDESONIDE/FORMOTEROL 160-4.5 INHALER 6 GM INH SCH ×2 (10:06→21:01)
[2017-07-27] MEDS: INSULIN LISPRO 100 UNIT/ML SUBCUT SCH ×4 (10:07→22:33)
[2017-07-27] MEDS: INSULIN GLARGINE 100 UNIT/ML SUBCUT SCH ×2 (11:04→19:59)
[2017-07-27] MEDS: NYSTATIN CREAM 15 GM TUBE TOP SCH ×2 (11:11→22:34)
--- NOTE | 2017-07-27 12:45 | Hospitalist Progress Note ---
Assessment and Plan (1) COPD exacerbation Status: Acute Assessment and plan: Continue antibiotics, bronchodilators, corticosteroids. Dr. Pearson following. Referral to swing bed Current Visit: Yes (2) Insulin dependent diabetes mellitus Status: Acute Assessment and plan: Continue sliding scale insulin and Accu-Cheks. Current Visit: Yes (3) CAD (coronary artery disease) Status: Chronic Current Visit: No (4) GERD (gastroesophageal reflux disease) Status: Chronic Current Visit: Yes (5) Hypertension Status: Chronic Current Visit: Yes Qualifiers: Hypertension type: essential hypertension Qualified Code(s): I10 - Essential (primary) hypertension (6) Constipation Status: Acute Assessment and plan: Add milk of magnesia and lactulose as needed Current Visit: Yes (7) Debility Status: Acute Assessment and plan: Referral to swing bed Current Visit: Yes Hospitalist: Subjective Interval history: Patient seen and examined. No acute events overnight. Case discussed with nursing staff. Labs reviewed. Awaiting swing bed placement. Referrals made and chest x-ray done. Awaiting PT OT notes Exam - Constitutional Vitals: Period Temp Pulse Resp BP Sys/Callahan Pulse Ox Last 24 Hr 96.7 F-98.4 F 62-92 12-20 117-150/62-88 94-100 Exam: Constitutional System: No distress. No tremulousness. Morbidly obese white female Head: Normocephalic, atraumatic. Ears, Nose and Throat System: No pain or tenderness. No epistaxis or discharge Eyes System: Pupils equal, round, and reactive. Extraocular muscles intact. Neck: Supple, without adenopathy, No jugular venous distention. Respiratory System: Chest clear to auscultation bilaterally Cardiovascular System: Heart with regular rate and rhythm. No murmur. GI System: Abdomen soft, nontender. Normo active bowel sounds present. Musculoskeletal System: limbs with no pedal edema. Full distal pulses. Normal capillary refill. Neurological System: No discernable sensory deficit. No aphasia Psychiatric System: Conversation is rational Results - Labs CBC & BMP: 07/22/17 03:09 07/22/17 03:09 Lab Results: I have reviewed the past 24 hour labs Quality Measures - VTE Contraindication to Pharmacological VTE Prophylaxis: Already on Theraputic Agent , No Prophylaxis Needed Specialty Discharge - Follow Up or Referrals
[2017-07-27] MEDS: guaiFENesin/DM ER 600-30 MG TABLET PO PRN (13:01)
[2017-07-27] MEDS: FLUoxetine 20 MG CAPSULE PO SCH (21:00)
[2017-07-27] MEDS: ATORVASTATIN 40 MG TABLET PO SCH (21:01)
[2017-07-28] MEDS: ALBUTEROL/IPRATROPIUM 3 ML NEB RESP TX SCH ×4 (00:32→11:58)
[2017-07-28] MEDS: LACTULOSE 20 GM/30 ML UDCUP PO SCH ×2 (03:53→09:15)
[2017-07-28] MEDS: FLUTICASONE 50 MCG NASAL SPRAY 16 GM BOTTLE BOTH NARES SCH (09:11)
[2017-07-28] MEDS: THEOPHYLLINE ER 300 MG TABLET PO SCH (09:12)
[2017-07-28] MEDS: FUROSEMIDE 80 MG TABLET PO SCH (09:12)
[2017-07-28] MEDS: BUDESONIDE/FORMOTEROL 160-4.5 INHALER 6 GM INH SCH (09:12)
[2017-07-28] MEDS: NEBIVOLOL 10 MG TABLET PO SCH (09:13)
[2017-07-28] MEDS: NYSTATIN 500,000 UNIT/5 ML UDCUP SWISH/SWAL SCH (09:13)
[2017-07-28] MEDS: INSULIN GLARGINE 100 UNIT/ML SUBCUT SCH (09:14)
[2017-07-28] MEDS: GLIMEPIRIDE 2 MG TABLET PO SCH (09:15)
[2017-07-28] MEDS: PANTOPRAZOLE 40 MG TABLET PO SCH (09:15)
[2017-07-28] MEDS: CYANOCOBALAMIN 500 MCG TABLET PO SCH (09:15)
[2017-07-28] MEDS: MAGNESIUM OXIDE 400 MG TABLET PO SCH (09:16)
[2017-07-28] MEDS: CLOPIDOGREL 75 MG TABLET PO SCH (09:16)
[2017-07-28] MEDS: GABAPENTIN 600 MG TABLET PO SCH (09:16)
[2017-07-28] MEDS: predniSONE 20 MG TABLET PO SCH (09:16)
[2017-07-28] MEDS: ASPIRIN 325 MG TABLET PO SCH (09:17)
[2017-07-28] MEDS: DOCUSATE SODIUM 100 MG CAPSULE PO SCH (09:17)
[2017-07-28] MEDS: POTASSIUM CHLORIDE 20 MEQ TABLET PO SCH (09:18)
[2017-07-28] MEDS: NICOTINE 21 MG/24 HR PATCH TRANSDERM SCH (09:18)
[2017-07-28] MEDS: ALPRAZolam 0.5 MG TABLET PO SCH (09:18)
--- NOTE | 2017-07-28 11:10 | Discharge Summary ---
Hospital Course - Hospital Course Hospital Course: Assessment and Plan - Time spent with patient Time spent with patient: Greater than 30 minutes (1) Asthma with exacerbation Status: Acute Assessment and plan: 61-year-old white female with history of hypertension, diabetes, CHF, CAD status post stents in April on Plavix, ischemic cardiomyopathy with an EF of 45% , hyperlipidemia, GERD, YOSHI on CPAP, tobacco abuse, and chronic pain admitted by the hospitalist service as a direct admit from Dr. Celaya's office with shortness of breath and wheezing. Patient's labs, x-rays, etc. are all pending. Will treat patient for asthma/COPD exacerbation and pneumonia as well. Will restart her home medications once medicines have been verified in the system. She will be on sliding scale insulin for her diabetes and will be monitored closely. We will consult Dr. Pearson from pulmonology since she is a patient of his. Will wait and see what her labs are to see if Dr. Daly from cardiology needs to be consulted as well. Will go ahead and get lower extremity ultrasound to rule out DVT due to her extensive peripheral edema. Current Visit: No (2) COPD exacerbation Status: Acute Current Visit: No (3) Chronic obstructive pulmonary disease with bronchospasm Status: Acute Current Visit: No (4) Peripheral edema Status: Acute Current Visit: No (5) s/p coronary PCI Problem details: PCI with stenting and some POBA of the left anterior descending artery Status: Acute Current Visit: No (6) CAD (coronary artery disease) Status: Chronic Current Visit: No (7) Chronic pain Status: Chronic Current Visit: No (8) Congestive heart failure Status: Chronic Current Visit: No Qualifiers: Congestive heart failure type: systolic Congestive heart failure chronicity : acute on chronic Qualified Code(s): I50.23 - Acute on chronic systolic ( congestive) heart failure (9) Diabetes Status: Chronic Current Visit: No (10) Dyslipidemia Status: Chronic Current Visit: No (11) Ischemic cardiomyopathy Status: Chronic Current Visit: No (12) Medical non-compliance Status: Chronic Current Visit: No (13) YOSHI (obstructive sleep apnea) Status: Chronic Current Visit: No (14) Tobacco abuse Status: Chronic Current Visit: No History of Present Illness Chief complaint: Shortness of breath and cough History of present illness: Ms. Roy is a 61 year old white female with history of hypertension, diabetes , chronic pain, CHF, medical noncompliance, CAD status post stents in April on Plavix, dyslipidemia, GERD, YOSHI on CPAP nightly, tobacco abuse, and ischemic cardiomyopathy with an EF of 40-45% direct admitted by the hospitalist from Dr. Celaya's office with shortness of breath and wheezing. Patient states she has been battling an upper respiratory infection with cough chest tightness and wheezing for approximately 1 week. She states she went to see Dr. Pearson from pulmonary for follow-up visit and he gave her a shot of something but she does not know what. She went to see Dr. Celaya this morning who listened to her chest and heard her wheezing and had her directly admitted to the hospital. Patient states she has been short of breath especially with activity, she cannot lie flat, cough with thick sputum production, and increased lower extremity edema. Patient states she is taking her medications as instructed but she does not know what they are. Patient was recently admitted in April with shortness of breath and chest pain where she underwent a left heart cath with stents placed. She is on Plavix. An echo at that time showed an EF of 30% . Patient was readmitted on 06/06/2017 where another left heart cath was performed that showed patent stents. Her EF at that time was 40-45%. Patient' s lab work and x-rays etc. are pending at this time. Upon exam, patient has moderate air trapping and bilateral moderate wheezing. She has 2+ pitting edema of bilateral lower extremities with left greater than the right. The above was taken from the history and physical on admission. Hospital course: 61-year-old female admitted to the hospital with acute COPD exacerbation. She was seen in consultation by her line up worker Dr. Pearson. She improved with treatment with IV antibiotics, IV steroids, [id number] nebulizer treatments. There were no complications during the course of the hospitalization. Her lower extremity Dopplers were negative. Her cultures remain negative. Her chest x-ray has improved. She did complain of significant weakness throughout the hospital stay and received physical therapy and Occupational Therapy. We try to get her into swing bed but it turns out that she does not have swing bed benefits through her insurance. She is now being discharged home with home health with stay home. She received instructions prior to discharge as well as new prescriptions for her chronic home medications. She is encouraged to follow-up with her primary care physician as soon as possible. - Time spent with patient Time with patient DS: Greater than 30 minutes (Total discharge time for this patient, including [id number] time, clinical documentation, medication reconciliation, and discharge planning was 45 minutes.) Diagnosis - Discharge Diagnosis (1) COPD exacerbation Status: Acute (2) Insulin dependent diabetes mellitus Status: Acute (3) CAD (coronary artery disease) Status: Chronic (4) GERD (gastroesophageal reflux disease) Status: Chronic (5) Hypertension Status: Chronic (6) Constipation Status: Acute (7) Debility Status: Acute Specialty Discharge - Follow Up or Referrals Discharge Plan - Discharge Data Disposition: Home Health Service Condition at Discharge: Stable Discharge Diet: diabetic diet Activity: resume usual activities as tolerated Hygiene: no restrictions Contact your physician if you experience:: fever over 101, Shortness of breath - Discharge Medications New ALPRAZolam [Xanax] 0.5 mg PO BID #60 tablet Fluticasone 50 Mcg Nasal Almond [Flonase Nasal Almond] 1 spray BOTH NARES BID spray Nicotine 21 mg/24 Hr Patch [Nicoderm CQ 21 mg/24 hr Patch] 1 patch TRANSDERM DAILY patch predniSONE TAB [PredniSONE] 20 mg PO DAILY #14 tablet Continue Cyanocobalamin (Vitamin B-12) [Vitamin B-12] 2,000 mcg PO QAM Clopidogrel [Plavix] 75 mg PO QAM Fluoxetine HCl [Prozac] 40 mg PO BEDTIME Omeprazole 20 mg PO QAM HYDROcodone/ACETAMIN 10-325 [Butte 10-325] 1 tablet PO Q6H PRN PRN Reason: Pain Aspirin Tab 325 mg PO DAILY #30 tablet Nitroglycerin [Nitroglycerin SL Tab] 0.4 mg SL DIRECTED PRN PRN Reason: Chest Pain Guaifenesin/Dextromethorphan [Tussin Dm Liquid] 10 ml PO Q4H PRN PRN Reason: Cough Budesonide/Formoterol 160-4.5 [Symbicort 160-4.5] 2 puff INH BID #1 Cyclobenzaprine [Flexeril] 10 mg PO TID PRN #90 PRN Reason: MUSCLE SPASMS Furosemide Tab [Lasix Tab] 40 mg PO BID DIURETIC #60 tablet Gabapentin Cap/Tab [Neurontin Cap/Tab] 600 mg PO QID #120 Insulin Glargine,Hum.rec.anlog [Lantus SoloStar] 10 unit SUBCUT QPM #1 Nebivolol HCl [Bystolic] 20 mg PO QAM #30 Potassium Chloride Cap/Tab [K Dur] 20 meq PO QAM #30 Theophylline ER Tab 300 mg PO BID W/MEALS #60 Glimepiride 2 mg PO QAM Magnesium Oxide 400 mg PO DAILY Atorvastatin [Lipitor] 40 mg PO BEDTIME #30 Insulin Glargine [Lantus] 15 unit SUBCUT QAM #1 - Follow Up or Referral - Forms/Instructions Instructions: How to Stop Smoking (GEN), Cigarette Smoking and Your Health (GEN ), Chronic Obstructive Pulmonary Disease (GEN), COPD Exacerbation, Fine Hairer (GEN) Exam - Constitutional Vitals: Period Temp Pulse Resp BP Sys/Callahan Pulse Ox Last 24 Hr 96.4 F-98.4 F 66-88 16-22 105-140/57-76 91-100 Discharge Results Labs on day of discharge: Labs from last 24 hours 07/28/17 07/27/17 07/27/17 07:39 20:08 16:18 POC Glucose 176 H 189 H 243 H 07/27/17 11:09 POC Glucose 175 H DS: Provider Date of admission: 07/18/17 13:06 Primary care physician: Krysta Celaya MD Attending physician on admission: Smiley Bello MD Consults: 07/18/17 15:01 Consult to Physician [CONS] Routine Comment: pt of yours adm w copd [facility] Consulting Provider: Lee Pearson When should Consulting Provider be notified: Now Person Notified: ERNESTO Date Notified: 07/18/17 Time Notified: 15:21 07/18/17 15:07 Consult to Pulmonary Rehabilitation [CONS] Routine Reason for Pulmonary Rehabilitation: COPD 07/20/17 15:40 Consult to Case Mgmt/Social Srvs [CONS] Routine Reason for Case Mgmt/Social Srvs: Swingbed/SNF/Skilled Nursing Consult Comment: homehealth 07/26/17 16:33 Consult to Occupational Therapy [CONS] Routine Reason for Occupational Therapy: Weakness Consult to Physical Therapy [CONS] Routine Reason for Physical Therapy: Other Discharging clinician: Amparo Vizcarra MD Expected date of discharge: 07/28/17
--- NOTE | 2017-07-28 11:43 | Pulmonology Progress Note ---
Pulmonary - PN: Subj Interval history: This is a 61-year-old female whom I am seeing for Dr. Percy Pearson. This patient has COPD. She was admitted with exacerbation. She is improved. She complains of being weak. He seems a bit nervous. Chest x-ray 07/26/2017. Cardiomegaly. Mild increased interstitial markings at the right base Lab. Glucoses are under fairly good control. Physical exam. Vital signs. See below Psychiatric. Oriented 3. Anxious. Face. Symmetrical. No edema lips and tongue. Neck. Symmetrical. No meningismus. Chest. Decreased inspiratory excursion secondary to body habitus. Slight large airway congestion. I do not hear any wheezing. Heart. Heart sounds are distant. I did not hear a gallop Abdomen. Massively obese. Nontender. Positive bowel sounds Lower extremities. No edema. I did not see any clinical evidence of deep venous thrombophlebitis. Neurologic. Cranial nerves are intact. Patient moves all 4 extremities. Sensory exam was not done and I did not examine her gait. The remainder the physical exam is negative Plan. 1. Left main no changes in her regimen. Exam (Progress Note) - Constitutional Vitals: Period Temp Pulse Resp BP Sys/Callahan Pulse Ox Last 24 Hr 96.4 F-98.4 F 66-88 16-22 105-140/57-76 91-100 Results - Labs CBC & BMP: 07/22/17 03:09 07/22/17 03:09 Specialty Discharge - Follow Up or Referrals
[2017-07-28] MEDS: INSULIN LISPRO 100 UNIT/ML SUBCUT SCH ×2 (12:17→12:28)
[2017-07-28] MEDS: NYSTATIN CREAM 15 GM TUBE TOP SCH (12:29)
[2017-07-28 12:59] VITALS: BP 128/80
== END 2017-07-28 13:15 | disposition home health service (06) | DRG 140 ==
LOC: N.2E 13:06 → SUATTDRO 13:06
PROVIDERS: ADMIT Internal Medicine; ATTEND Family Medicine

== ENCOUNTER 2017-10-24 09:22 | Inpatient (IN) ==
[2017-10-24] MEDS ORDERED: SODIUM CHLORIDE 0.9% 1,000 ML IV STA (09:40)
[2017-10-24] MEDS ORDERED: metroNIDAZOLE INJ 500 MG in PREMIX 1 EACH IV STA (09:40)
[2017-10-24] MEDS ORDERED: LOPERAMIDE 2 MG CAPSULE PO STA ×2 (09:40→13:33)
[2017-10-24] MEDS ORDERED: ONDANSETRON 4 MG/2 ML VIAL IV STA ×2 (09:40→13:33)
[2017-10-24] MEDS ORDERED: PANTOPRAZOLE 40 MG VIAL IV STA (09:40)
[2017-10-24 10:10] LABS: Basophils # 0.1 10*3/uL (0.0-0.2); Basophils % 0.7 % (0.0-0.8); Eosinophils # 0.1 10*3/uL (0.0-0.87); Eosinophils % 0.6 % (0.00-10.9); Hematocrit 43.5 VOL% (35.7-47.0); Hemoglobin 14.1 GM/DL (12.0-16.0); Immature Granulocytes % 0.6 %; Immature Granulocytes Absolute 0.07 #; Lymphocytes # 1.6 10*3/uL (1.4-4.0); Lymphocytes % 14.6 % (21.3-54.2); Mean Corpuscular HGB Conc 32.4 GM/DL (32-36); Mean Corpuscular Hemoglobin 26 PG (27-34); Mean Corpuscular Volume 79.5 FL (87-102); Mean Platelet Volume 9.8 FL (9.6-12.0); Monocytes # 0.7 10*3/uL (0.11-0.8); Monocytes % 6.6 % (1.7-12.7); Neutrophils # 8.4 10*3/uL (1.4-7.4); Neutrophils % 76.9 % (38.7-73.9); Platelet Count 317 T/CUMM (130-400); Red Blood Count 5.47 MC/CUMM (3.8-5.5); Red Cell Distribution Width 14.4 % (9.3-17.3); White Blood Count 10.9 T/CUMM (4-12)
[2017-10-24] MEDS ORDERED: PANTOPRAZOLE 40 MG VIAL IV ONE (10:17)
[2017-10-24] MEDS ORDERED: LOPERAMIDE 2 MG CAPSULE ONE ×2 (10:17→13:36)
[2017-10-24] MEDS ORDERED: ONDANSETRON 4 MG/2 ML VIAL ONE ×2 (10:18→13:36)
[2017-10-24] MEDS ORDERED: metroNIDAZOLE 500 MG/100 ML PREMIX IV ONE (10:18)
[2017-10-24] MEDS ORDERED: hydrALAZINE 20 MG/1 ML VIAL IV STA ×2 (10:34→15:57)
[2017-10-24] MEDS ORDERED: hydrALAZINE 20 MG/1 ML VIAL ONE ×2 (10:34→15:52)
[2017-10-24 10:48] LABS: Alanine Aminotransferase 14 U/L (13-56); Alkaline Phosphatase 132 U/L (45-117); Amylase 28 U/L (25-115); Aspartate Amino Transferase 14 U/L (0-37); Blood Urea Nitrogen 10 MG/DL (7-18); Calcium 10.2 MG/DL (8.5-10.1); Glucose 153 MG/DL (74-106); Osmolality,Calculated 274.8 MOS/KG (273-304); Potassium 3.5 MMOL/L (3.5-5.1); Sodium 137 MMOL/L (136-145); Total Protein 7.6 G/DL (6.4-8.3); Troponin I Only < 0.015 NG/ML (0.00-0.045)
[2017-10-24 10:56] LABS: Lactic Acid 2.4 MMOL/L (0.4-2.0)
[2017-10-24 12:32] LABS: Apearance,Urine CLEAR (Clear); Bacteria,Urine Occasional /HPF (Few); Bilirubin,Urine Negative (Negative); Blood, Urine Negative (Negative); Glucose,Urine (UA) Negative (Negative); Ketones,Urine Negative (Negative); Mucus,Urine Occasional /LPF (Occasional); Nitrite,Urine Negative (Negative); Protein,Urine Negative; RBC,Urine 1 /HPF (0-4); Squamous Epithelial Cell,Urine Occasional /HPF (0-10); Urine Color Yellow (Yellow); Urine Specific Gravity 1.006 (1.001-1.035); Urine Urobilinogen < 2.0 EU/DL (0.2-1.0); WBC,Urine 1 /HPF (0-6)
[2017-10-24] MEDS ORDERED: METOCLOPRAMIDE 10 MG/2 ML VIAL IV STA (13:33)
[2017-10-24] MEDS ORDERED: METOCLOPRAMIDE 10 MG/2 ML VIAL ONE (13:36)
[2017-10-24] MEDS ORDERED: ACETAMINOPHEN 325 MG TABLET PO PRN (14:59)
[2017-10-24] MEDS ORDERED: GLUCAGON 1 MG VIAL IM PRN (15:05)
[2017-10-24] MEDS ORDERED: DEXTROSE 50% 25 GM/50 ML VIAL IV PRN (15:05)
[2017-10-24] MEDS: ASPIRIN 325 MG TABLET PO SCH (15:45)
[2017-10-24] MEDS: SODIUM CHLORIDE 0.9% 1,000 ML IV SCH (15:48)
[2017-10-24] MEDS ORDERED: GABAPENTIN 300 MG CAPSULE ONE (19:23)
[2017-10-24] MEDS: GABAPENTIN 300 MG CAPSULE PO SCH ×2 (19:31→22:06)
[2017-10-24] MEDS: INSULIN REGULAR 100 UNIT/ML SUBCUT SCH (21:29)
[2017-10-24] MEDS: BUDESONIDE/FORMOTEROL 160-4.5 INHALER 6 GM INH SCH (22:06)
[2017-10-24] MEDS: FLUTICASONE 50 MCG NASAL SPRAY 16 GM BOTTLE BOTH NARES SCH (22:06)
[2017-10-24] MEDS: ALPRAZolam 0.5 MG TABLET PO SCH (22:07)
[2017-10-24] MEDS: ATORVASTATIN 40 MG TABLET PO SCH (22:07)
[2017-10-24] MEDS: FLUoxetine 20 MG CAPSULE PO SCH (22:07)
[2017-10-24] MEDS: INSULIN GLARGINE 100 UNIT/ML SUBCUT SCH (22:08)
[2017-10-25] MEDS: INSULIN REGULAR 100 UNIT/ML SUBCUT SCH ×4 (00:04→18:26)
[2017-10-25] MEDS: ONDANSETRON 4 MG/2 ML VIAL IV PRN ×3 (00:47→15:06)
[2017-10-25 06:41] LABS: Basophils # 0.1 10*3/uL (0.0-0.2); Basophils % 0.7 % (0.0-0.8); Eosinophils # 0.2 10*3/uL (0.0-0.87); Eosinophils % 1.9 % (0.00-10.9); Hematocrit 36.4 VOL% (35.7-47.0); Immature Granulocytes % 0.5 %; Immature Granulocytes Absolute 0.04 #; Lymphocytes # 1.9 10*3/uL (1.4-4.0); Lymphocytes % 23.8 % (21.3-54.2); Mean Corpuscular HGB Conc 32.4 GM/DL (32-36); Mean Corpuscular Hemoglobin 26 PG (27-34); Mean Corpuscular Volume 80.5 FL (87-102); Mean Platelet Volume 10.4 FL (9.6-12.0); Monocytes # 0.8 10*3/uL (0.11-0.8); Neutrophils # 5.1 10*3/uL (1.4-7.4); Neutrophils % 63.1 % (38.7-73.9); Platelet Count 284 T/CUMM (130-400); Red Blood Count 4.52 MC/CUMM (3.8-5.5); Red Cell Distribution Width 14.8 % (9.3-17.3)
[2017-10-25 07:09] LABS: Hemoglobin 11.8 GM/DL (12.0-16.0)
[2017-10-25 07:33] LABS: Calcium 9.4 MG/DL (8.5-10.1); Osmolality,Calculated 279.3 MOS/KG (273-304); Potassium 3.6 MMOL/L (3.5-5.1)
[2017-10-25] MEDS: NICOTINE 21 MG/24 HR PATCH TRANSDERM SCH (08:35)
[2017-10-25] MEDS: FLUTICASONE 50 MCG NASAL SPRAY 16 GM BOTTLE BOTH NARES SCH ×2 (08:36→21:50)
[2017-10-25] MEDS: BUDESONIDE/FORMOTEROL 160-4.5 INHALER 6 GM INH SCH ×2 (08:36→21:49)
[2017-10-25] MEDS: SODIUM CHLORIDE 0.9% 1,000 ML IV SCH (08:51)
[2017-10-25] MEDS: NEBIVOLOL 10 MG TABLET PO SCH (08:51)
[2017-10-25] MEDS: GABAPENTIN 300 MG CAPSULE PO SCH ×4 (08:52→21:47)
[2017-10-25] MEDS: INSULIN GLARGINE 100 UNIT/ML SUBCUT SCH ×2 (08:52→21:48)
[2017-10-25] MEDS: ASPIRIN 325 MG TABLET PO SCH (08:52)
[2017-10-25] MEDS: CLOPIDOGREL 75 MG TABLET PO SCH (08:52)
[2017-10-25] MEDS: PANTOPRAZOLE 40 MG TABLET PO SCH (08:52)
[2017-10-25] MEDS: ALPRAZolam 0.5 MG TABLET PO SCH ×2 (08:52→21:47)
[2017-10-25] MEDS: DESITIN 4OZ/NYSTATIN 15 GRAM MIXTURE PASTE TOP SCH ×2 (08:53→21:56)
[2017-10-25] MEDS: FLUoxetine 20 MG CAPSULE PO SCH (15:06)
[2017-10-25] MEDS: ATORVASTATIN 40 MG TABLET PO SCH (21:47)
[2017-10-25] MEDS: CYCLOBENZAPRINE 10 MG TABLET PO PRN (21:55)
[2017-10-26] MEDS: INSULIN REGULAR 100 UNIT/ML SUBCUT SCH ×4 (00:59→17:29)
[2017-10-26] MEDS: NICOTINE 21 MG/24 HR PATCH TRANSDERM SCH (09:07)
[2017-10-26] MEDS: NEBIVOLOL 10 MG TABLET PO SCH (09:08)
[2017-10-26] MEDS: INSULIN GLARGINE 100 UNIT/ML SUBCUT SCH ×2 (09:08→22:02)
[2017-10-26] MEDS: ASPIRIN 325 MG TABLET PO SCH (09:08)
[2017-10-26] MEDS: GABAPENTIN 300 MG CAPSULE PO SCH ×4 (09:08→22:01)
[2017-10-26] MEDS: FLUTICASONE 50 MCG NASAL SPRAY 16 GM BOTTLE BOTH NARES SCH ×2 (09:08→22:02)
[2017-10-26] MEDS: CLOPIDOGREL 75 MG TABLET PO SCH (09:08)
[2017-10-26] MEDS: FLUoxetine 20 MG CAPSULE PO SCH (09:08)
[2017-10-26] MEDS: PANTOPRAZOLE 40 MG TABLET PO SCH (09:08)
[2017-10-26] MEDS: ALPRAZolam 0.5 MG TABLET PO SCH (09:09)
[2017-10-26] MEDS: BUDESONIDE/FORMOTEROL 160-4.5 INHALER 6 GM INH SCH ×2 (09:09→22:02)
[2017-10-26] MEDS: DESITIN 4OZ/NYSTATIN 15 GRAM MIXTURE PASTE TOP SCH ×2 (09:09→22:02)
[2017-10-26] MEDS ORDERED: DEXTROSE 50% 25 GM/50 ML VIAL IV PRN (15:40)
[2017-10-26] MEDS ORDERED: GLUCAGON 1 MG VIAL IM PRN (15:40)
[2017-10-26] MEDS: SODIUM CHLORIDE 0.9% 1,000 ML IV SCH (18:53)
[2017-10-26] MEDS ORDERED: oxyCODONE/ACETAMINOPHEN 5-325 MG TABLET PO PRN (21:07)
[2017-10-26] MEDS: ATORVASTATIN 40 MG TABLET PO SCH (22:01)
[2017-10-26] MEDS: CYCLOBENZAPRINE 10 MG TABLET PO PRN (22:01)
[2017-10-27] MEDS: INSULIN REGULAR 100 UNIT/ML SUBCUT SCH ×3 (00:19→13:46)
[2017-10-27] MEDS ORDERED: FUROSEMIDE 80 MG TABLET PO SCH (08:00)
[2017-10-27] MEDS: ASPIRIN 325 MG TABLET PO SCH (11:23)
[2017-10-27] MEDS: GABAPENTIN 300 MG CAPSULE PO SCH (11:23)
[2017-10-27] MEDS: CLOPIDOGREL 75 MG TABLET PO SCH (11:23)
[2017-10-27] MEDS: NEBIVOLOL 10 MG TABLET PO SCH (11:23)
[2017-10-27] MEDS: NICOTINE 21 MG/24 HR PATCH TRANSDERM SCH (11:24)
[2017-10-27] MEDS: PANTOPRAZOLE 40 MG TABLET PO SCH (11:24)
[2017-10-27] MEDS: FLUoxetine 20 MG CAPSULE PO SCH (11:24)
[2017-10-27] MEDS: BUDESONIDE/FORMOTEROL 160-4.5 INHALER 6 GM INH SCH (11:25)
[2017-10-27] MEDS: INSULIN GLARGINE 100 UNIT/ML SUBCUT SCH (11:25)
[2017-10-27] MEDS: FLUTICASONE 50 MCG NASAL SPRAY 16 GM BOTTLE BOTH NARES SCH (11:25)
[2017-10-27] MEDS: SODIUM CHLORIDE 0.9% 1,000 ML IV SCH (11:32)
[2017-10-27] MEDS: DESITIN 4OZ/NYSTATIN 15 GRAM MIXTURE PASTE TOP SCH (11:32)
[2017-10-27 13:06] VITALS: BP 156/93
== END 2017-10-27 13:58 | disposition home or self-care (01) | DRG 249 ==
LOC: N.ED 09:22 → SUATTDRO 14:08 → N.EDINP 14:08 → N.5E 19:16
PROVIDERS: ADMIT Internal Medicine Cardiovascular Disease; ATTEND Internal Medicine

== ENCOUNTER 2018-01-08 17:16 | Inpatient (IN) ==
[2018-01-08] MEDS ORDERED: ONDANSETRON 4 MG/2 ML VIAL IV STA (18:16)
[2018-01-08] MEDS ORDERED: ASPIRIN 325 MG TABLET PO STA (18:16)
[2018-01-08] MEDS ORDERED: FUROSEMIDE 20 MG/2 ML VIAL IV STA (18:21)
[2018-01-08] MEDS ORDERED: FUROSEMIDE 20 MG/2 ML VIAL ONE (18:27)
[2018-01-08] MEDS ORDERED: ASPIRIN 325 MG TABLET ONE (18:27)
[2018-01-08] MEDS ORDERED: ONDANSETRON 4 MG/2 ML VIAL ONE (18:27)
[2018-01-08] MEDS ORDERED: ALBUTEROL/IPRATROPIUM 3 ML NEB RESP TX STA (18:47)
[2018-01-08] MEDS ORDERED: ALUM/MAG/SIMETH/LIDO VISC 1:1 30 ML BOTTLE PO STA (18:47)
[2018-01-08 18:52] LABS: Basophils # 0.1 10*3/uL (0.0-0.2); Basophils % 0.8 % (0.0-0.8); Eosinophils # 0.1 10*3/uL (0.0-0.87); Eosinophils % 0.7 % (0.00-10.9); Hematocrit 35.6 VOL% (35.7-47.0); Hemoglobin 11.4 GM/DL (12.0-16.0); Immature Granulocytes % 0.5 %; Immature Granulocytes Absolute 0.04 #; Lymphocytes # 1.3 10*3/uL (1.4-4.0); Lymphocytes % 17.2 % (21.3-54.2); Mean Corpuscular Hemoglobin 25 PG (27-34); Mean Corpuscular Volume 78.9 FL (87-102); Mean Platelet Volume 10.4 FL (9.6-12.0); Monocytes # 0.6 10*3/uL (0.11-0.8); Monocytes % 7.8 % (1.7-12.7); Neutrophils # 5.5 10*3/uL (1.4-7.4); Platelet Count 306 T/CUMM (130-400); Red Blood Count 4.51 MC/CUMM (3.8-5.5); Red Cell Distribution Width 13.9 % (9.3-17.3); White Blood Count 7.6 T/CUMM (4-12)
[2018-01-08] MEDS ORDERED: ALUM/MAG/SIMETH/LIDO VISC 1:1 30 ML BOTTLE PO ONE (18:52)
[2018-01-08 19:02] LABS: PT Patient Result 10.7 SECS
[2018-01-08 19:20] LABS: Albumin 3.2 G/DL (3.4-5.0); Bilirubin,Total 1.6 MG/DL (0.2-1.0); Calcium 9.1 MG/DL (8.5-10.1); Osmolality,Calculated 281.5 MOS/KG (273-304); Potassium 3.3 MMOL/L (3.5-5.1); Total Protein 6.5 G/DL (6.4-8.3)
[2018-01-08 19:23] LABS: Apearance,Urine CLEAR (Clear); Bacteria,Urine Occasional /HPF (Few); Bilirubin,Urine Negative (Negative); Blood, Urine Negative (Negative); Glucose,Urine (UA) Negative (Negative); Hyaline Casts,Urine 6 /LPF (0-3); Ketones,Urine Negative (Negative); Mucus,Urine Occasional /LPF (Occasional); Nitrite,Urine Negative (Negative); Protein,Urine Negative; RBC,Urine 1 /HPF (0-4); Squamous Epithelial Cell,Urine Occasional /HPF (0-10); Urine Color Yellow (Yellow); WBC,Urine 2 /HPF (0-6)
[2018-01-08] MEDS ORDERED: FUROSEMIDE 40 MG/4 ML VIAL IV STA (21:45)
[2018-01-08] MEDS ORDERED: MORPHINE 2 MG/1 ML SYRINGE IV STA (21:45)
[2018-01-08] MEDS ORDERED: MORPHINE 2 MG/1 ML SYRINGE ONE (22:02)
[2018-01-08] MEDS ORDERED: FUROSEMIDE 100 MG/10 ML VIAL ONE (22:02)
[2018-01-09] MEDS ORDERED: MORPHINE 2 MG/1 ML SYRINGE ONE ×2 (00:23→03:30)
[2018-01-09] MEDS ORDERED: ONDANSETRON 4 MG/2 ML VIAL ONE (00:23)
[2018-01-09] MEDS: MORPHINE 2 MG/1 ML SYRINGE IV PRN ×2 (00:30→03:38)
[2018-01-09] MEDS ORDERED: CYCLOBENZAPRINE 10 MG TABLET PO PRN (02:24)
[2018-01-09] MEDS ORDERED: NITROGLYCERIN SL 0.4 MG TABLET SL PRN (02:24)
[2018-01-09] MEDS ORDERED: GLUCAGON 1 MG VIAL IM PRN (02:27)
[2018-01-09] MEDS ORDERED: ACETAMINOPHEN 325 MG TABLET PO PRN (02:27)
[2018-01-09] MEDS ORDERED: ONDANSETRON 4 MG/2 ML VIAL IV PRN (02:27)
[2018-01-09] MEDS ORDERED: DEXTROSE 50% 25 GM/50 ML VIAL IV PRN (02:27)
[2018-01-09 05:54] LABS: Basophils # 0.1 10*3/uL (0.0-0.2); Basophils % 0.7 % (0.0-0.8); Eosinophils # 0.1 10*3/uL (0.0-0.87); Eosinophils % 1.5 % (0.00-10.9); Hematocrit 39.3 VOL% (35.7-47.0); Hemoglobin 12.7 GM/DL (12.0-16.0); Immature Granulocytes % 0.6 %; Immature Granulocytes Absolute 0.05 #; Lymphocytes # 1.8 10*3/uL (1.4-4.0); Lymphocytes % 22.4 % (21.3-54.2); Mean Corpuscular HGB Conc 32.3 GM/DL (32-36); Mean Corpuscular Hemoglobin 25 PG (27-34); Mean Corpuscular Volume 77.7 FL (87-102); Mean Platelet Volume 10.2 FL (9.6-12.0); Monocytes # 0.6 10*3/uL (0.11-0.8); Monocytes % 7.6 % (1.7-12.7); Neutrophils # 5.5 10*3/uL (1.4-7.4); Neutrophils % 67.2 % (38.7-73.9); Platelet Count 324 T/CUMM (130-400); Red Blood Count 5.06 MC/CUMM (3.8-5.5); White Blood Count 8.2 T/CUMM (4-12)
[2018-01-09 06:22] LABS: Calcium 9.6 MG/DL (8.5-10.1); Osmolality,Calculated 280.5 MOS/KG (273-304); Potassium 3.3 MMOL/L (3.5-5.1)
[2018-01-09] MEDS: ALBUTEROL/IPRATROPIUM 3 ML NEB RESP TX SCH ×4 (07:39→20:33)
[2018-01-09] MEDS ORDERED: POTASSIUM CHLORIDE 20 MEQ TABLET PO SCH (09:00)
[2018-01-09] MEDS: INSULIN GLARGINE 100 UNIT/ML SUBCUT SCH ×2 (09:11→20:56)
[2018-01-09] MEDS: INSULIN LISPRO 100 UNIT/ML SUBCUT SCH ×4 (09:11→20:55)
[2018-01-09] MEDS: CYANOCOBALAMIN 500 MCG TABLET PO SCH ×2 (10:00→10:11)
[2018-01-09] MEDS: GLIMEPIRIDE 2 MG TABLET PO SCH (10:00)
[2018-01-09] MEDS: CLOPIDOGREL 75 MG TABLET PO SCH (10:00)
[2018-01-09] MEDS: predniSONE 20 MG TABLET PO SCH (10:01)
[2018-01-09] MEDS: LOSARTAN 25 MG TABLET PO SCH (10:01)
[2018-01-09] MEDS: ASPIRIN 325 MG TABLET PO SCH (10:01)
[2018-01-09] MEDS: GABAPENTIN 600 MG TABLET PO SCH ×4 (10:01→20:49)
[2018-01-09] MEDS: THEOPHYLLINE ER 300 MG TABLET PO SCH ×2 (10:01→16:36)
[2018-01-09] MEDS: POTASSIUM CHLORIDE 20 MEQ TABLET PO SCH ×2 (10:02→20:59)
[2018-01-09] MEDS: PANTOPRAZOLE 40 MG TABLET PO SCH (10:02)
[2018-01-09] MEDS: NEBIVOLOL 10 MG TABLET PO SCH (10:03)
[2018-01-09] MEDS: MAGNESIUM GLUCONATE 500 MG TABLET PO SCH (10:04)
[2018-01-09] MEDS: FLUTICASONE 50 MCG NASAL SPRAY 16 GM BOTTLE BOTH NARES SCH ×2 (10:05→20:53)
[2018-01-09] MEDS: BUDESONIDE/FORMOTEROL 160-4.5 INHALER 6 GM INH SCH ×2 (10:05→20:52)
[2018-01-09] MEDS: ENOXAPARIN 40 MG/0.4 ML SYRINGE SUBCUT SCH (10:05)
[2018-01-09] MEDS: FUROSEMIDE 40 MG/4 ML VIAL IV SCH ×2 (10:06→16:38)
[2018-01-09] MEDS: MUPIROCIN 2% OINT 22 GM TUBE TOP SCH ×2 (12:16→20:56)
[2018-01-09] MEDS: FLUoxetine 20 MG CAPSULE PO SCH (20:49)
[2018-01-09] MEDS: ATORVASTATIN 40 MG TABLET PO SCH (20:49)
[2018-01-10 06:02] LABS: Calcium 9.8 MG/DL (8.5-10.1); Potassium 3.7 MMOL/L (3.5-5.1)
[2018-01-10] MEDS: ALBUTEROL/IPRATROPIUM 3 ML NEB RESP TX SCH ×4 (07:10→19:11)
[2018-01-10] MEDS: PANTOPRAZOLE 40 MG TABLET PO SCH (08:45)
[2018-01-10] MEDS: ENOXAPARIN 40 MG/0.4 ML SYRINGE SUBCUT SCH (08:57)
[2018-01-10] MEDS: MAGNESIUM GLUCONATE 500 MG TABLET PO SCH (08:58)
[2018-01-10] MEDS: THEOPHYLLINE ER 300 MG TABLET PO SCH ×2 (08:59→17:15)
[2018-01-10] MEDS: NEBIVOLOL 10 MG TABLET PO SCH (08:59)
[2018-01-10] MEDS: GABAPENTIN 600 MG TABLET PO SCH ×4 (08:59→23:20)
[2018-01-10] MEDS: CYANOCOBALAMIN 500 MCG TABLET PO SCH (09:01)
[2018-01-10] MEDS: ASPIRIN 325 MG TABLET PO SCH (09:02)
[2018-01-10] MEDS: LOSARTAN 25 MG TABLET PO SCH (09:02)
[2018-01-10] MEDS: predniSONE 20 MG TABLET PO SCH (09:08)
[2018-01-10] MEDS: GLIMEPIRIDE 2 MG TABLET PO SCH (09:09)
[2018-01-10] MEDS: POTASSIUM CHLORIDE 20 MEQ TABLET PO SCH (09:09)
[2018-01-10] MEDS: CLOPIDOGREL 75 MG TABLET PO SCH (09:09)
[2018-01-10] MEDS: BUDESONIDE/FORMOTEROL 160-4.5 INHALER 6 GM INH SCH ×2 (09:11→23:22)
[2018-01-10] MEDS: INSULIN LISPRO 100 UNIT/ML SUBCUT SCH ×4 (09:12→23:22)
[2018-01-10] MEDS: INSULIN GLARGINE 100 UNIT/ML SUBCUT SCH ×2 (09:12→23:20)
[2018-01-10] MEDS: FUROSEMIDE 40 MG/4 ML VIAL IV SCH (09:12)
[2018-01-10] MEDS: FLUTICASONE 50 MCG NASAL SPRAY 16 GM BOTTLE BOTH NARES SCH ×2 (09:17→23:22)
[2018-01-10] MEDS: MUPIROCIN 2% OINT 22 GM TUBE TOP SCH ×2 (09:20→23:22)
[2018-01-10] MEDS: ATORVASTATIN 40 MG TABLET PO SCH (23:18)
[2018-01-10] MEDS: FLUoxetine 20 MG CAPSULE PO SCH (23:20)
[2018-01-11] MEDS ORDERED: KETOROLAC 30 MG/1 ML VIAL IV ONE (06:39)
[2018-01-11 06:42] LABS: Basophils % 0.3 % (0.0-0.8); Eosinophils % 0.2 % (0.00-10.9); Hemoglobin 11.6 GM/DL (12.0-16.0); Immature Granulocytes % 0.7 %; Immature Granulocytes Absolute 0.08 #; Lymphocytes # 1.4 10*3/uL (1.4-4.0); Lymphocytes % 13.1 % (21.3-54.2); Mean Corpuscular HGB Conc 32.2 GM/DL (32-36); Mean Corpuscular Hemoglobin 25 PG (27-34); Mean Corpuscular Volume 78.6 FL (87-102); Mean Platelet Volume 9.9 FL (9.6-12.0); Monocytes # 0.9 10*3/uL (0.11-0.8); Monocytes % 7.8 % (1.7-12.7); Neutrophils # 8.5 10*3/uL (1.4-7.4); Neutrophils % 77.9 % (38.7-73.9); Platelet Count 424 T/CUMM (130-400); Red Blood Count 4.58 MC/CUMM (3.8-5.5); Red Cell Distribution Width 13.9 % (9.3-17.3); White Blood Count 10.9 T/CUMM (4-12)
[2018-01-11 07:05] LABS: Calcium 9.7 MG/DL (8.5-10.1); Osmolality,Calculated 278.8 MOS/KG (273-304); Potassium 3.7 MMOL/L (3.5-5.1)
[2018-01-11] MEDS: ALBUTEROL/IPRATROPIUM 3 ML NEB RESP TX SCH ×4 (07:37→19:27)
[2018-01-11 07:50] LABS: Calcium 9.3 MG/DL (8.5-10.1); Potassium 3.7 MMOL/L (3.5-5.1); Risk Ratio 3.63; VLDL CHOLESTEROL 15.4 MG/DL
[2018-01-11] MEDS: INSULIN GLARGINE 100 UNIT/ML SUBCUT SCH ×2 (09:32→20:51)
[2018-01-11] MEDS: MAGNESIUM GLUCONATE 500 MG TABLET PO SCH (09:33)
[2018-01-11] MEDS: THEOPHYLLINE ER 300 MG TABLET PO SCH ×2 (09:33→16:43)
[2018-01-11] MEDS: predniSONE 20 MG TABLET PO SCH (09:33)
[2018-01-11] MEDS: GABAPENTIN 600 MG TABLET PO SCH ×4 (09:33→20:48)
[2018-01-11] MEDS: GLIMEPIRIDE 2 MG TABLET PO SCH (09:33)
[2018-01-11] MEDS: NEBIVOLOL 10 MG TABLET PO SCH (09:33)
[2018-01-11] MEDS: CLOPIDOGREL 75 MG TABLET PO SCH (09:33)
[2018-01-11] MEDS: ENOXAPARIN 40 MG/0.4 ML SYRINGE SUBCUT SCH (09:33)
[2018-01-11] MEDS: FUROSEMIDE 40 MG TABLET PO SCH ×2 (09:34→16:43)
[2018-01-11] MEDS: PANTOPRAZOLE 40 MG TABLET PO SCH (09:34)
[2018-01-11] MEDS: ASPIRIN 325 MG TABLET PO SCH (09:34)
[2018-01-11] MEDS: FLUTICASONE 50 MCG NASAL SPRAY 16 GM BOTTLE BOTH NARES SCH ×2 (09:34→20:49)
[2018-01-11] MEDS: MUPIROCIN 2% OINT 22 GM TUBE TOP SCH ×2 (09:34→20:49)
[2018-01-11] MEDS: INSULIN LISPRO 100 UNIT/ML SUBCUT SCH ×4 (09:34→20:50)
[2018-01-11] MEDS: LOSARTAN 25 MG TABLET PO SCH (09:34)
[2018-01-11] MEDS: CYANOCOBALAMIN 500 MCG TABLET PO SCH (09:37)
[2018-01-11] MEDS: BUDESONIDE/FORMOTEROL 160-4.5 INHALER 6 GM INH SCH ×2 (09:38→20:49)
[2018-01-11] MEDS ORDERED: MORPHINE 4 MG/1 ML VIAL IV PRN (12:00)
[2018-01-11] MEDS ORDERED: BISACODYL 5 MG TABLET PO ONE (17:20)
[2018-01-11] MEDS: FLUoxetine 20 MG CAPSULE PO SCH (20:48)
[2018-01-11] MEDS: ATORVASTATIN 40 MG TABLET PO SCH (20:48)
[2018-01-12] MEDS: INSULIN LISPRO 100 UNIT/ML SUBCUT SCH ×4 (07:44→21:46)
[2018-01-12] MEDS: ALBUTEROL/IPRATROPIUM 3 ML NEB RESP TX SCH ×4 (07:47→20:03)
[2018-01-12] MEDS: INSULIN GLARGINE 100 UNIT/ML SUBCUT SCH ×2 (08:51→21:47)
[2018-01-12] MEDS: ENOXAPARIN 40 MG/0.4 ML SYRINGE SUBCUT SCH (08:52)
[2018-01-12] MEDS: GLIMEPIRIDE 2 MG TABLET PO SCH (08:52)
[2018-01-12] MEDS: CYANOCOBALAMIN 500 MCG TABLET PO SCH (08:52)
[2018-01-12] MEDS: MAGNESIUM GLUCONATE 500 MG TABLET PO SCH (08:52)
[2018-01-12] MEDS: ASPIRIN 325 MG TABLET PO SCH (08:52)
[2018-01-12] MEDS: predniSONE 20 MG TABLET PO SCH (08:53)
[2018-01-12] MEDS: GABAPENTIN 600 MG TABLET PO SCH ×4 (08:53→21:45)
[2018-01-12] MEDS: THEOPHYLLINE ER 300 MG TABLET PO SCH ×2 (08:53→17:20)
[2018-01-12] MEDS: CLOPIDOGREL 75 MG TABLET PO SCH (08:53)
[2018-01-12] MEDS: LOSARTAN 25 MG TABLET PO SCH (08:53)
[2018-01-12] MEDS: NEBIVOLOL 10 MG TABLET PO SCH (08:53)
[2018-01-12] MEDS: FUROSEMIDE 40 MG TABLET PO SCH ×2 (08:53→17:15)
[2018-01-12] MEDS: BUDESONIDE/FORMOTEROL 160-4.5 INHALER 6 GM INH SCH ×2 (08:54→21:47)
[2018-01-12] MEDS: PANTOPRAZOLE 40 MG TABLET PO SCH (08:54)
[2018-01-12] MEDS: FLUTICASONE 50 MCG NASAL SPRAY 16 GM BOTTLE BOTH NARES SCH ×2 (08:54→21:47)
[2018-01-12] MEDS: MUPIROCIN 2% OINT 22 GM TUBE TOP SCH ×2 (08:54→21:47)
[2018-01-12] MEDS ORDERED: POLYETHYLENE GLYCOL POWDER 17 GM PACK PO PRN (12:53)
[2018-01-12] MEDS: POLYETHYLENE GLYCOL POWDER 17 GM PACK PO SCH (14:14)
[2018-01-12] MEDS: ATORVASTATIN 40 MG TABLET PO SCH (21:45)
[2018-01-12] MEDS: FLUoxetine 20 MG CAPSULE PO SCH (21:45)
[2018-01-13] MEDS: ALBUTEROL/IPRATROPIUM 3 ML NEB RESP TX SCH ×4 (07:36→19:01)
[2018-01-13] MEDS: FUROSEMIDE 40 MG TABLET PO SCH ×2 (09:56→16:54)
[2018-01-13] MEDS: GLIMEPIRIDE 2 MG TABLET PO SCH (09:56)
[2018-01-13] MEDS: PANTOPRAZOLE 40 MG TABLET PO SCH (09:57)
[2018-01-13] MEDS: predniSONE 20 MG TABLET PO SCH (09:57)
[2018-01-13] MEDS: CLOPIDOGREL 75 MG TABLET PO SCH (09:57)
[2018-01-13] MEDS: LOSARTAN 25 MG TABLET PO SCH (09:57)
[2018-01-13] MEDS: GABAPENTIN 600 MG TABLET PO SCH ×4 (09:57→21:59)
[2018-01-13] MEDS: THEOPHYLLINE ER 300 MG TABLET PO SCH ×2 (09:57→16:54)
[2018-01-13] MEDS: ASPIRIN 325 MG TABLET PO SCH (09:57)
[2018-01-13] MEDS: MAGNESIUM GLUCONATE 500 MG TABLET PO SCH (09:58)
[2018-01-13] MEDS: NEBIVOLOL 10 MG TABLET PO SCH (09:58)
[2018-01-13] MEDS: CYANOCOBALAMIN 500 MCG TABLET PO SCH (09:58)
[2018-01-13] MEDS: ENOXAPARIN 40 MG/0.4 ML SYRINGE SUBCUT SCH (09:59)
[2018-01-13] MEDS: BUDESONIDE/FORMOTEROL 160-4.5 INHALER 6 GM INH SCH ×2 (10:00→22:00)
[2018-01-13] MEDS: FLUTICASONE 50 MCG NASAL SPRAY 16 GM BOTTLE BOTH NARES SCH ×2 (10:00→22:00)
[2018-01-13] MEDS: MUPIROCIN 2% OINT 22 GM TUBE TOP SCH ×2 (10:00→22:01)
[2018-01-13] MEDS: INSULIN LISPRO 100 UNIT/ML SUBCUT SCH ×4 (10:05→21:59)
[2018-01-13] MEDS: INSULIN GLARGINE 100 UNIT/ML SUBCUT SCH ×2 (10:06→22:00)
[2018-01-13] MEDS: POLYETHYLENE GLYCOL POWDER 17 GM PACK PO SCH (10:06)
[2018-01-13] MEDS ORDERED: BISACODYL 10 MG SUPP RECTAL ONE (12:52)
[2018-01-13] MEDS ORDERED: BISACODYL 5 MG TABLET PO PRN (12:53)
[2018-01-13] MEDS: FLUoxetine 20 MG CAPSULE PO SCH (21:59)
[2018-01-13] MEDS: ATORVASTATIN 40 MG TABLET PO SCH (21:59)
[2018-01-14] MEDS: ALBUTEROL/IPRATROPIUM 3 ML NEB RESP TX SCH ×4 (07:17→19:40)
[2018-01-14] MEDS: NEBIVOLOL 10 MG TABLET PO SCH (08:53)
[2018-01-14] MEDS: INSULIN LISPRO 100 UNIT/ML SUBCUT SCH ×4 (08:53→22:23)
[2018-01-14] MEDS: GLIMEPIRIDE 2 MG TABLET PO SCH (08:53)
[2018-01-14] MEDS: INSULIN GLARGINE 100 UNIT/ML SUBCUT SCH ×2 (08:53→22:25)
[2018-01-14] MEDS: MAGNESIUM GLUCONATE 500 MG TABLET PO SCH (08:54)
[2018-01-14] MEDS: CYANOCOBALAMIN 500 MCG TABLET PO SCH (08:54)
[2018-01-14] MEDS: FUROSEMIDE 40 MG TABLET PO SCH ×2 (08:55→17:45)
[2018-01-14] MEDS: LOSARTAN 25 MG TABLET PO SCH (08:55)
[2018-01-14] MEDS: PANTOPRAZOLE 40 MG TABLET PO SCH (08:55)
[2018-01-14] MEDS: THEOPHYLLINE ER 300 MG TABLET PO SCH ×2 (08:55→17:45)
[2018-01-14] MEDS: ASPIRIN 325 MG TABLET PO SCH (08:55)
[2018-01-14] MEDS: GABAPENTIN 600 MG TABLET PO SCH ×4 (08:55→22:25)
[2018-01-14] MEDS: CLOPIDOGREL 75 MG TABLET PO SCH (08:55)
[2018-01-14] MEDS: predniSONE 20 MG TABLET PO SCH (08:55)
[2018-01-14] MEDS: POLYETHYLENE GLYCOL POWDER 17 GM PACK PO SCH (08:56)
[2018-01-14] MEDS: MUPIROCIN 2% OINT 22 GM TUBE TOP SCH ×2 (08:56→22:26)
[2018-01-14] MEDS: ENOXAPARIN 40 MG/0.4 ML SYRINGE SUBCUT SCH (08:56)
[2018-01-14] MEDS: FLUTICASONE 50 MCG NASAL SPRAY 16 GM BOTTLE BOTH NARES SCH ×2 (08:56→22:26)
[2018-01-14] MEDS: BUDESONIDE/FORMOTEROL 160-4.5 INHALER 6 GM INH SCH ×2 (08:56→22:27)
[2018-01-14] MEDS ORDERED: MELATONIN 3 MG TABLET PO SCH (21:00)
[2018-01-14] MEDS: ATORVASTATIN 40 MG TABLET PO SCH (22:25)
[2018-01-14] MEDS: FLUoxetine 20 MG CAPSULE PO SCH (22:25)
[2018-01-15] MEDS: ALBUTEROL/IPRATROPIUM 3 ML NEB RESP TX SCH ×3 (07:07→14:00)
[2018-01-15] MEDS: INSULIN LISPRO 100 UNIT/ML SUBCUT SCH ×2 (08:24→12:55)
[2018-01-15] MEDS: MAGNESIUM GLUCONATE 500 MG TABLET PO SCH (09:03)
[2018-01-15] MEDS: predniSONE 20 MG TABLET PO SCH (09:03)
[2018-01-15] MEDS: NEBIVOLOL 10 MG TABLET PO SCH (09:03)
[2018-01-15] MEDS: THEOPHYLLINE ER 300 MG TABLET PO SCH (09:03)
[2018-01-15] MEDS: CLOPIDOGREL 75 MG TABLET PO SCH (09:04)
[2018-01-15] MEDS: LOSARTAN 25 MG TABLET PO SCH (09:04)
[2018-01-15] MEDS: MUPIROCIN 2% OINT 22 GM TUBE TOP SCH (09:04)
[2018-01-15] MEDS: PANTOPRAZOLE 40 MG TABLET PO SCH (09:04)
[2018-01-15] MEDS: POLYETHYLENE GLYCOL POWDER 17 GM PACK PO SCH (09:04)
[2018-01-15] MEDS: FUROSEMIDE 40 MG TABLET PO SCH (09:04)
[2018-01-15] MEDS: ASPIRIN 325 MG TABLET PO SCH (09:04)
[2018-01-15] MEDS: INSULIN GLARGINE 100 UNIT/ML SUBCUT SCH (09:04)
[2018-01-15] MEDS: ENOXAPARIN 40 MG/0.4 ML SYRINGE SUBCUT SCH (09:04)
[2018-01-15] MEDS: GABAPENTIN 600 MG TABLET PO SCH ×2 (09:04→12:58)
[2018-01-15] MEDS: GLIMEPIRIDE 2 MG TABLET PO SCH (09:04)
[2018-01-15] MEDS: CYANOCOBALAMIN 500 MCG TABLET PO SCH (09:06)
[2018-01-15] MEDS: BUDESONIDE/FORMOTEROL 160-4.5 INHALER 6 GM INH SCH (09:06)
[2018-01-15] MEDS: FLUTICASONE 50 MCG NASAL SPRAY 16 GM BOTTLE BOTH NARES SCH (09:06)
[2018-01-15] MEDS ORDERED: LACTULOSE 20 GM/30 ML UDCUP PO PRN (10:25)
[2018-01-15 13:43] VITALS: BP 125/79
[2018-01-15] MEDS ORDERED: SODIUM PHOSPHATE ENEMA 133 ML BOTTLE RECTAL ONE (14:15)
== END 2018-01-15 16:01 | disposition swing bed (61) | DRG 194 ==
LOC: N.ED 17:16 → N.EDINP 01-09 02:23 → SUATTDRO 01-09 02:23 → N.CC 01-09 03:13 → N.5E 01-10 18:03
PROVIDERS: ADMIT Internal Medicine; ATTEND Internal Medicine

== ENCOUNTER 2018-04-30 09:55 | Inpatient (IN) ==
[2018-05-04 12:07] VITALS: BP 167/82
== END 2018-05-04 16:33 | disposition home or self-care (01) | DRG 347 ==
LOC: EDBD → EDUNIT# → N.ED 09:55 → N.EDINP 09:55 → N.2W 14:55 → N.TELEN 16:33 → SUATTDRO 05-01 12:18
PROVIDERS: ADMIT Internal Medicine; ATTEND Hospitalist

== ENCOUNTER 2018-10-22 13:53 | Inpatient (IN) ==
[2018-10-22 14:40] LABS: Basophils # 0.1 10*3/uL (0.0-0.2); Basophils % 1.1 % (0.0-0.8); Eosinophils # 0.1 10*3/uL (0.0-0.87); Eosinophils % 1.1 % (0.00-10.9); Hemoglobin 12.5 GM/DL (12.0-16.0); Immature Granulocytes % 1.3 %; Immature Granulocytes Absolute 0.06 #; Lymphocytes # 1.3 10*3/uL (1.4-4.0); Mean Corpuscular HGB Conc 32.1 GM/DL (32-36); Mean Corpuscular Hemoglobin 27 PG (27-34); Mean Corpuscular Volume 82.6 FL (87-102); Mean Platelet Volume 8.9 FL (9.6-12.0); Monocytes # 0.5 10*3/uL (0.11-0.8); Monocytes % 10.9 % (1.7-12.7); Neutrophils # 2.6 10*3/uL (1.4-7.4); Neutrophils % 57.6 % (38.7-73.9); Platelet Count 178 T/CUMM (130-400); Red Blood Count 4.72 MC/CUMM (3.8-5.5); Red Cell Distribution Width 15.7 % (9.3-17.3); White Blood Count 4.6 T/CUMM (4-12)
[2018-10-22 14:58] LABS: Albumin 3.3 G/DL (3.4-5.0); Bilirubin,Total 1.2 MG/DL (0.2-1.0); Calcium 9.1 MG/DL (8.5-10.1); INR 0.9; Osmolality,Calculated 281.3 MOS/KG (273-304); PT Patient Result 9.9 SECS; Potassium 3.9 MMOL/L (3.5-5.1); Total Protein 6.4 G/DL (6.4-8.3)
[2018-10-22] MEDS ORDERED: MORPHINE 4 MG/1 ML VIAL IV STA (15:14)
[2018-10-22] MEDS ORDERED: ONDANSETRON 4 MG/2 ML VIAL IV STA (15:14)
[2018-10-22 15:30] LABS: Apearance,Urine CLEAR (Clear); Bilirubin,Urine Negative (Negative); Blood, Urine Negative (Negative); Glucose,Urine (UA) Negative (Negative); Hyaline Casts,Urine 11 /LPF (0-3); Ketones,Urine Negative (Negative); Mucus,Urine Occasional /LPF (Occasional); Nitrite,Urine Negative (Negative); Protein,Urine Negative; RBC,Urine <1 /HPF (0-4); Squamous Epithelial Cell,Urine Occasional /HPF (0-10); Urine Color Straw (Yellow); Urine Specific Gravity 1.009 (1.001-1.035); Urine Urobilinogen < 2.0 EU/DL (0.2-1.0); WBC,Urine <1 /HPF (0-6)
[2018-10-22] MEDS ORDERED: ZALEPLON 5 MG CAPSULE PO PRN (16:04)
[2018-10-22] MEDS ORDERED: guaiFENesin/DM ER 600-30 MG TABLET PO PRN (16:04)
[2018-10-22] MEDS ORDERED: diphenhydrAMINE CAP 25 MG CAPSULE PO PRN (16:04)
[2018-10-22] MEDS ORDERED: PROMETHAZINE 25 MG/1 ML VIAL IM PRN (16:04)
[2018-10-22] MEDS ORDERED: MAGNESIUM SULF RIDER 4 GM in PREMIX 1 EACH IV PRN (16:04)
[2018-10-22] MEDS ORDERED: MAGNESIUM SULF RIDER 2 GM in PREMIX 1 EACH IV PRN (16:04)
[2018-10-22] MEDS ORDERED: DOCUSATE SODIUM 100 MG CAPSULE PO PRN (16:04)
[2018-10-22] MEDS ORDERED: GABAPENTIN 600 MG TABLET PO PRN (17:03)
[2018-10-22] MEDS ORDERED: CYCLOBENZAPRINE 10 MG TABLET PO PRN (17:03)
[2018-10-22] MEDS ORDERED: hydrALAZINE 20 MG/1 ML VIAL IV PRN (17:07)
[2018-10-22] MEDS ORDERED: FUROSEMIDE 40 MG/4 ML VIAL IV ONE (17:57)
[2018-10-22 18:53] LABS: Troponin I < 0.015 NG/ML (0.00-0.045)
[2018-10-22] MEDS: ALBUTEROL/IPRATROPIUM 3 ML NEB RESP TX SCH (19:10)
[2018-10-22] MEDS ORDERED: INFLUENZA VIRUS VACCINE 0.5 ML SYRINGE IM ONE (19:43)
[2018-10-22] MEDS ORDERED: PNEUMOCOCCAL VACCINE (13 VALENT) 0.5 ML SYRINGE IM ONE (19:43)
[2018-10-22] MEDS: FLUTICASONE 50 MCG NASAL SPRAY 16 GM BOTTLE BOTH NARES SCH (20:39)
[2018-10-22] MEDS: BUDESONIDE/FORMOTEROL 160-4.5 INHALER 6 GM INH SCH (20:39)
[2018-10-22] MEDS: FLUoxetine 20 MG CAPSULE PO SCH (20:42)
[2018-10-22] MEDS: ENOXAPARIN 40 MG/0.4 ML SYRINGE SUBCUT SCH (20:42)
[2018-10-22] MEDS: INSULIN GLARGINE 100 UNIT/ML SUBCUT SCH (20:43)
[2018-10-22] MEDS: oxyCODONE/ACETAMINOPHEN 5-325 MG TABLET PO SCH (20:43)
[2018-10-22] MEDS: INSULIN REGULAR 100 UNIT/ML SUBCUT SCH (22:08)
[2018-10-23 04:42] LABS: Basophils % 0.7 % (0.0-0.8); Eosinophils # 0.1 10*3/uL (0.0-0.87); Eosinophils % 1.1 % (0.00-10.9); Hematocrit 39.3 VOL% (35.7-47.0); Hemoglobin 12.1 GM/DL (12.0-16.0); Immature Granulocytes % 0.9 %; Immature Granulocytes Absolute 0.05 #; Lymphocytes # 1.5 10*3/uL (1.4-4.0); Lymphocytes % 27.2 % (21.3-54.2); Mean Corpuscular HGB Conc 30.8 GM/DL (32-36); Mean Corpuscular Hemoglobin 26 PG (27-34); Mean Corpuscular Volume 83.3 FL (87-102); Mean Platelet Volume 9.1 FL (9.6-12.0); Monocytes # 0.6 10*3/uL (0.11-0.8); Monocytes % 11.6 % (1.7-12.7); Neutrophils # 3.1 10*3/uL (1.4-7.4); Neutrophils % 58.5 % (38.7-73.9); Platelet Count 187 T/CUMM (130-400); Red Blood Count 4.72 MC/CUMM (3.8-5.5); Red Cell Distribution Width 16.1 % (9.3-17.3); White Blood Count 5.4 T/CUMM (4-12)
[2018-10-23 05:16] LABS: Albumin 3.2 G/DL (3.4-5.0); Bilirubin,Total 1.5 MG/DL (0.2-1.0); Calcium 8.9 MG/DL (8.5-10.1); Osmolality,Calculated 275.7 MOS/KG (273-304); Potassium 3.2 MMOL/L (3.5-5.1); Total Protein 6.6 G/DL (6.4-8.3)
[2018-10-23] MEDS: POTASSIUM CHLORIDE 20 MEQ TABLET PO PRN ×4 (06:05→17:11)
[2018-10-23] MEDS: ALBUTEROL/IPRATROPIUM 3 ML NEB RESP TX SCH ×4 (07:28→19:28)
[2018-10-23] MEDS: FUROSEMIDE 40 MG/4 ML VIAL IV SCH ×2 (08:57→16:24)
[2018-10-23] MEDS: ONDANSETRON 4 MG/2 ML VIAL IV PRN (08:58)
[2018-10-23] MEDS: INSULIN REGULAR 100 UNIT/ML SUBCUT SCH ×4 (09:02→21:33)
[2018-10-23] MEDS: CYANOCOBALAMIN 500 MCG TABLET PO SCH (10:29)
[2018-10-23] MEDS: THEOPHYLLINE ER 300 MG TABLET PO SCH ×2 (10:29→16:24)
[2018-10-23] MEDS: CLOPIDOGREL 75 MG TABLET PO SCH (10:29)
[2018-10-23] MEDS: GLIMEPIRIDE 2 MG TABLET PO SCH (10:29)
[2018-10-23] MEDS: POTASSIUM CHLORIDE 20 MEQ TABLET PO SCH (10:30)
[2018-10-23] MEDS: PANTOPRAZOLE 40 MG TABLET PO SCH (10:30)
[2018-10-23] MEDS: NEBIVOLOL 10 MG TABLET PO SCH (10:30)
[2018-10-23] MEDS: MAGNESIUM OXIDE 400 MG TABLET PO SCH (10:30)
[2018-10-23] MEDS: ASPIRIN 325 MG TABLET PO SCH (10:30)
[2018-10-23] MEDS: oxyCODONE/ACETAMINOPHEN 5-325 MG TABLET PO SCH ×2 (10:30→21:34)
[2018-10-23] MEDS: INSULIN GLARGINE 100 UNIT/ML SUBCUT SCH ×2 (10:31→21:33)
[2018-10-23] MEDS: FLUTICASONE 50 MCG NASAL SPRAY 16 GM BOTTLE BOTH NARES SCH ×2 (10:34→21:33)
[2018-10-23] MEDS: BUDESONIDE/FORMOTEROL 160-4.5 INHALER 6 GM INH SCH ×2 (10:34→21:34)
[2018-10-23 17:30] LABS: Apearance,Urine CLEAR (Clear); Bacteria,Urine Occasional /HPF (Few); Bilirubin,Urine Negative (Negative); Blood, Urine Negative (Negative); Glucose,Urine (UA) Negative (Negative); Hyaline Casts,Urine 20 /LPF (0-3); Ketones,Urine Negative (Negative); Mucus,Urine Occasional /LPF (Occasional); Nitrite,Urine Negative (Negative); Protein,Urine Negative; RBC,Urine 1 /HPF (0-4); Squamous Epithelial Cell,Urine Occasional /HPF (0-10); Urine Color Yellow (Yellow); Urine Specific Gravity 1.011 (1.001-1.035); Urine Urobilinogen < 2.0 EU/DL (0.2-1.0); WBC,Urine <1 /HPF (0-6)
[2018-10-23] MEDS: ENOXAPARIN 40 MG/0.4 ML SYRINGE SUBCUT SCH (21:33)
[2018-10-23] MEDS: FLUoxetine 20 MG CAPSULE PO SCH (21:34)
[2018-10-24 04:50] LABS: Calcium 8.9 MG/DL (8.5-10.1); Osmolality,Calculated 274.7 MOS/KG (273-304); Potassium 3.6 MMOL/L (3.5-5.1)
[2018-10-24] MEDS: POTASSIUM CHLORIDE 20 MEQ TABLET PO PRN ×3 (06:56→12:37)
[2018-10-24] MEDS: ALBUTEROL/IPRATROPIUM 3 ML NEB RESP TX SCH ×4 (07:43→20:03)
[2018-10-24] MEDS: ONDANSETRON 4 MG/2 ML VIAL IV PRN ×2 (08:31→21:02)
[2018-10-24] MEDS: FUROSEMIDE 40 MG/4 ML VIAL IV SCH ×2 (08:48→16:30)
[2018-10-24] MEDS: INSULIN REGULAR 100 UNIT/ML SUBCUT SCH ×4 (08:51→20:29)
[2018-10-24] MEDS: FLUTICASONE 50 MCG NASAL SPRAY 16 GM BOTTLE BOTH NARES SCH ×2 (08:52→21:00)
[2018-10-24] MEDS: BUDESONIDE/FORMOTEROL 160-4.5 INHALER 6 GM INH SCH ×2 (08:52→21:01)
[2018-10-24] MEDS: ASPIRIN 325 MG TABLET PO SCH (08:53)
[2018-10-24] MEDS: NEBIVOLOL 10 MG TABLET PO SCH (08:53)
[2018-10-24] MEDS: CYANOCOBALAMIN 500 MCG TABLET PO SCH (08:53)
[2018-10-24] MEDS: THEOPHYLLINE ER 300 MG TABLET PO SCH ×2 (08:53→16:30)
[2018-10-24] MEDS: oxyCODONE/ACETAMINOPHEN 5-325 MG TABLET PO SCH ×2 (08:53→21:01)
[2018-10-24] MEDS: GLIMEPIRIDE 2 MG TABLET PO SCH (08:53)
[2018-10-24] MEDS: INSULIN GLARGINE 100 UNIT/ML SUBCUT SCH ×2 (08:54→21:01)
[2018-10-24] MEDS: MAGNESIUM OXIDE 400 MG TABLET PO SCH (08:54)
[2018-10-24] MEDS: PANTOPRAZOLE 40 MG TABLET PO SCH (08:54)
[2018-10-24] MEDS: CLOPIDOGREL 75 MG TABLET PO SCH (08:54)
[2018-10-24] MEDS: POTASSIUM CHLORIDE 20 MEQ TABLET PO SCH (08:54)
[2018-10-24] MEDS: FLUoxetine 20 MG CAPSULE PO SCH (21:01)
[2018-10-25] MEDS: ALBUTEROL/IPRATROPIUM 3 ML NEB RESP TX SCH ×4 (07:26→19:35)
[2018-10-25] MEDS: INSULIN REGULAR 100 UNIT/ML SUBCUT SCH ×3 (08:13→18:21)
[2018-10-25] MEDS ORDERED: ONDANSETRON 4 MG/2 ML VIAL ONE ×2 (09:46→10:00)
[2018-10-25] MEDS: ONDANSETRON 4 MG/2 ML VIAL IV PRN ×2 (09:47→18:18)
[2018-10-25] MEDS ORDERED: LIDOCAINE 2% TOP JELLY 5 ML TUBE TOP ONE (10:00)
[2018-10-25] MEDS ORDERED: PROPOFOL 200 MG/20 ML VIAL IV ONE (10:00)
[2018-10-25] MEDS ORDERED: ETOMIDATE 20 MG/10 ML VIAL IV ONE (10:00)
[2018-10-25] MEDS: FUROSEMIDE 40 MG/4 ML VIAL IV SCH ×2 (11:09→16:45)
[2018-10-25] MEDS: FLUTICASONE 50 MCG NASAL SPRAY 16 GM BOTTLE BOTH NARES SCH (11:09)
[2018-10-25] MEDS: BUDESONIDE/FORMOTEROL 160-4.5 INHALER 6 GM INH SCH (11:10)
[2018-10-25] MEDS: THEOPHYLLINE ER 300 MG TABLET PO SCH ×2 (17:24→18:20)
[2018-10-25] MEDS: ASPIRIN 325 MG TABLET PO SCH (18:19)
[2018-10-25] MEDS: oxyCODONE/ACETAMINOPHEN 5-325 MG TABLET PO SCH (18:19)
[2018-10-25] MEDS: CLOPIDOGREL 75 MG TABLET PO SCH (18:20)
[2018-10-25] MEDS: NEBIVOLOL 10 MG TABLET PO SCH (18:20)
[2018-10-25] MEDS: CYANOCOBALAMIN 500 MCG TABLET PO SCH (18:20)
[2018-10-25] MEDS: POTASSIUM CHLORIDE 20 MEQ TABLET PO SCH (18:20)
[2018-10-25] MEDS: PANTOPRAZOLE 40 MG TABLET PO SCH (18:21)
[2018-10-25] MEDS: GLIMEPIRIDE 2 MG TABLET PO SCH (18:21)
[2018-10-25] MEDS: INSULIN GLARGINE 100 UNIT/ML SUBCUT SCH (18:21)
[2018-10-25] MEDS: MAGNESIUM OXIDE 400 MG TABLET PO SCH (18:21)
[2018-10-25] MEDS: PROMETHAZINE 25 MG TABLET PO PRN (20:00)
[2018-10-26] MEDS: FLUTICASONE 50 MCG NASAL SPRAY 16 GM BOTTLE BOTH NARES SCH ×3 (03:14→20:55)
[2018-10-26] MEDS: oxyCODONE/ACETAMINOPHEN 5-325 MG TABLET PO SCH ×3 (03:15→20:54)
[2018-10-26] MEDS: INSULIN GLARGINE 100 UNIT/ML SUBCUT SCH ×3 (03:15→20:54)
[2018-10-26] MEDS: INSULIN REGULAR 100 UNIT/ML SUBCUT SCH ×5 (03:15→20:54)
[2018-10-26] MEDS: FLUoxetine 20 MG CAPSULE PO SCH ×2 (03:17→20:53)
[2018-10-26] MEDS: BUDESONIDE/FORMOTEROL 160-4.5 INHALER 6 GM INH SCH ×3 (03:18→20:55)
[2018-10-26 03:53] LABS: Basophils # 0.1 10*3/uL (0.0-0.2); Eosinophils # 0.1 10*3/uL (0.0-0.87); Eosinophils % 1.2 % (0.00-10.9); Hematocrit 40.5 VOL% (35.7-47.0); Hemoglobin 12.8 GM/DL (12.0-16.0); Immature Granulocytes Absolute 0.05 #; Lymphocytes % 38.4 % (21.3-54.2); Mean Corpuscular HGB Conc 31.6 GM/DL (32-36); Mean Corpuscular Hemoglobin 26 PG (27-34); Mean Corpuscular Volume 82.3 FL (87-102); Mean Platelet Volume 9.2 FL (9.6-12.0); Monocytes # 0.7 10*3/uL (0.11-0.8); Monocytes % 13.8 % (1.7-12.7); Neutrophils # 2.3 10*3/uL (1.4-7.4); Neutrophils % 44.6 % (38.7-73.9); Platelet Count 251 T/CUMM (130-400); Red Blood Count 4.92 MC/CUMM (3.8-5.5); White Blood Count 5.2 T/CUMM (4-12)
[2018-10-26 04:12] LABS: Calcium 9.3 MG/DL (8.5-10.1); Osmolality,Calculated 277.8 MOS/KG (273-304); Potassium 3.4 MMOL/L (3.5-5.1)
[2018-10-26] MEDS: ALBUTEROL/IPRATROPIUM 3 ML NEB RESP TX SCH ×4 (07:56→19:44)
[2018-10-26] MEDS: MAGNESIUM OXIDE 400 MG TABLET PO SCH (09:12)
[2018-10-26] MEDS: NEBIVOLOL 10 MG TABLET PO SCH (09:12)
[2018-10-26] MEDS: POTASSIUM CHLORIDE 20 MEQ TABLET PO SCH (09:13)
[2018-10-26] MEDS: FUROSEMIDE 40 MG TABLET PO SCH ×2 (09:13→17:09)
[2018-10-26] MEDS: PANTOPRAZOLE 40 MG TABLET PO SCH (09:13)
[2018-10-26] MEDS: GLIMEPIRIDE 2 MG TABLET PO SCH (09:13)
[2018-10-26] MEDS: CLOPIDOGREL 75 MG TABLET PO SCH (09:13)
[2018-10-26] MEDS: THEOPHYLLINE ER 300 MG TABLET PO SCH ×2 (09:13→17:10)
[2018-10-26] MEDS: ASPIRIN 325 MG TABLET PO SCH (09:13)
[2018-10-26] MEDS: PROMETHAZINE 25 MG TABLET PO PRN (09:14)
[2018-10-26] MEDS: CYANOCOBALAMIN 500 MCG TABLET PO SCH (09:14)
[2018-10-26] MEDS: POTASSIUM CHLORIDE 20 MEQ TABLET PO PRN ×2 (11:02→12:22)
[2018-10-26] MEDS: ONDANSETRON 4 MG/2 ML VIAL IV PRN (12:21)
[2018-10-26] MEDS: ATORVASTATIN 40 MG TABLET PO SCH (17:10)
[2018-10-27 03:52] LABS: Basophils # 0.1 10*3/uL (0.0-0.2); Basophils % 0.9 % (0.0-0.8); Eosinophils # 0.1 10*3/uL (0.0-0.87); Eosinophils % 1.3 % (0.00-10.9); Hematocrit 39.2 VOL% (35.7-47.0); Hemoglobin 12.1 GM/DL (12.0-16.0); Immature Granulocytes % 1.3 %; Immature Granulocytes Absolute 0.07 #; Lymphocytes % 36.8 % (21.3-54.2); Mean Corpuscular HGB Conc 30.9 GM/DL (32-36); Mean Corpuscular Hemoglobin 26 PG (27-34); Mean Corpuscular Volume 82.7 FL (87-102); Mean Platelet Volume 9.2 FL (9.6-12.0); Monocytes # 0.8 10*3/uL (0.11-0.8); Neutrophils # 2.5 10*3/uL (1.4-7.4); Neutrophils % 44.7 % (38.7-73.9); Platelet Count 278 T/CUMM (130-400); Red Blood Count 4.74 MC/CUMM (3.8-5.5); White Blood Count 5.5 T/CUMM (4-12)
[2018-10-27 04:18] LABS: Calcium 9.2 MG/DL (8.5-10.1); Potassium 3.5 MMOL/L (3.5-5.1)
[2018-10-27] MEDS: ALBUTEROL/IPRATROPIUM 3 ML NEB RESP TX SCH ×4 (08:03→19:29)
[2018-10-27] MEDS: CYANOCOBALAMIN 500 MCG TABLET PO SCH (09:00)
[2018-10-27] MEDS: BISACODYL 5 MG TABLET PO PRN (09:00)
[2018-10-27] MEDS: POTASSIUM CHLORIDE 20 MEQ TABLET PO SCH (09:00)
[2018-10-27] MEDS: ATORVASTATIN 40 MG TABLET PO SCH (09:00)
[2018-10-27] MEDS: PANTOPRAZOLE 40 MG TABLET PO SCH (09:01)
[2018-10-27] MEDS: GLIMEPIRIDE 2 MG TABLET PO SCH (09:01)
[2018-10-27] MEDS: oxyCODONE/ACETAMINOPHEN 5-325 MG TABLET PO SCH ×2 (09:01→20:47)
[2018-10-27] MEDS: FUROSEMIDE 40 MG TABLET PO SCH ×2 (09:01→16:52)
[2018-10-27] MEDS: MAGNESIUM OXIDE 400 MG TABLET PO SCH (09:01)
[2018-10-27] MEDS: ASPIRIN 325 MG TABLET PO SCH (09:01)
[2018-10-27] MEDS: THEOPHYLLINE ER 300 MG TABLET PO SCH ×2 (09:01→16:52)
[2018-10-27] MEDS: INSULIN GLARGINE 100 UNIT/ML SUBCUT SCH ×2 (09:02→20:48)
[2018-10-27] MEDS: BUDESONIDE/FORMOTEROL 160-4.5 INHALER 6 GM INH SCH ×2 (09:02→20:48)
[2018-10-27] MEDS: FLUTICASONE 50 MCG NASAL SPRAY 16 GM BOTTLE BOTH NARES SCH ×2 (09:02→20:48)
[2018-10-27] MEDS: INSULIN REGULAR 100 UNIT/ML SUBCUT SCH ×4 (09:02→20:48)
[2018-10-27] MEDS: NEBIVOLOL 10 MG TABLET PO SCH (09:04)
[2018-10-27] MEDS: CLOPIDOGREL 75 MG TABLET PO SCH (09:04)
[2018-10-27] MEDS: PROMETHAZINE 25 MG TABLET PO PRN ×2 (11:56→17:16)
[2018-10-27] MEDS: POTASSIUM CHLORIDE 20 MEQ TABLET PO PRN (11:56)
[2018-10-27] MEDS: ONDANSETRON 4 MG/2 ML VIAL IV PRN ×2 (16:51→18:38)
[2018-10-27] MEDS: FLUoxetine 20 MG CAPSULE PO SCH (20:47)
[2018-10-28 03:58] LABS: Basophils # 0.1 10*3/uL (0.0-0.2); Basophils % 0.9 % (0.0-0.8); Eosinophils # 0.1 10*3/uL (0.0-0.87); Eosinophils % 1.1 % (0.00-10.9); Hematocrit 37.8 VOL% (35.7-47.0); Hemoglobin 11.9 GM/DL (12.0-16.0); Immature Granulocytes % 1.1 %; Immature Granulocytes Absolute 0.06 #; Lymphocytes # 2.2 10*3/uL (1.4-4.0); Mean Corpuscular HGB Conc 31.5 GM/DL (32-36); Mean Corpuscular Hemoglobin 26 PG (27-34); Mean Corpuscular Volume 83.3 FL (87-102); Mean Platelet Volume 9.5 FL (9.6-12.0); Monocytes # 0.6 10*3/uL (0.11-0.8); Monocytes % 10.9 % (1.7-12.7); Neutrophils # 2.8 10*3/uL (1.4-7.4); Platelet Count 272 T/CUMM (130-400); Red Blood Count 4.54 MC/CUMM (3.8-5.5); Red Cell Distribution Width 15.8 % (9.3-17.3); White Blood Count 5.7 T/CUMM (4-12)
[2018-10-28 04:28] LABS: Calcium 9.3 MG/DL (8.5-10.1); Potassium 3.6 MMOL/L (3.5-5.1)
[2018-10-28] MEDS: ALBUTEROL/IPRATROPIUM 3 ML NEB RESP TX SCH ×4 (07:16→20:01)
[2018-10-28] MEDS: INSULIN REGULAR 100 UNIT/ML SUBCUT SCH ×4 (08:25→21:04)
[2018-10-28] MEDS: INSULIN GLARGINE 100 UNIT/ML SUBCUT SCH ×2 (08:26→21:05)
[2018-10-28] MEDS: NEBIVOLOL 10 MG TABLET PO SCH (08:26)
[2018-10-28] MEDS: ASPIRIN 325 MG TABLET PO SCH (08:26)
[2018-10-28] MEDS: FUROSEMIDE 40 MG TABLET PO SCH ×2 (08:26→16:05)
[2018-10-28] MEDS: oxyCODONE/ACETAMINOPHEN 5-325 MG TABLET PO SCH ×2 (08:27→21:05)
[2018-10-28] MEDS: PANTOPRAZOLE 40 MG TABLET PO SCH (08:27)
[2018-10-28] MEDS: GLIMEPIRIDE 2 MG TABLET PO SCH (08:27)
[2018-10-28] MEDS: POTASSIUM CHLORIDE 20 MEQ TABLET PO SCH (08:27)
[2018-10-28] MEDS: ATORVASTATIN 40 MG TABLET PO SCH (08:27)
[2018-10-28] MEDS: MAGNESIUM OXIDE 400 MG TABLET PO SCH (08:27)
[2018-10-28] MEDS: THEOPHYLLINE ER 300 MG TABLET PO SCH ×2 (08:27→16:05)
[2018-10-28] MEDS: CLOPIDOGREL 75 MG TABLET PO SCH (08:27)
[2018-10-28] MEDS: CYANOCOBALAMIN 500 MCG TABLET PO SCH (08:28)
[2018-10-28] MEDS: FLUTICASONE 50 MCG NASAL SPRAY 16 GM BOTTLE BOTH NARES SCH ×2 (08:28→21:07)
[2018-10-28] MEDS: BUDESONIDE/FORMOTEROL 160-4.5 INHALER 6 GM INH SCH ×2 (08:29→21:07)
[2018-10-28] MEDS: POLYETHYLENE GLYCOL POWDER 17 GM PACK PO SCH (10:44)
[2018-10-28] MEDS: ENOXAPARIN 40 MG/0.4 ML SYRINGE SUBCUT SCH (10:44)
[2018-10-28] MEDS: ONDANSETRON 4 MG/2 ML VIAL IV PRN (20:00)
[2018-10-28] MEDS: FLUoxetine 20 MG CAPSULE PO SCH (21:05)
[2018-10-29] MEDS: ALBUTEROL/IPRATROPIUM 3 ML NEB RESP TX SCH ×4 (07:40→19:12)
[2018-10-29] MEDS: INSULIN REGULAR 100 UNIT/ML SUBCUT SCH ×4 (08:51→21:03)
[2018-10-29] MEDS: ENOXAPARIN 40 MG/0.4 ML SYRINGE SUBCUT SCH (09:10)
[2018-10-29] MEDS: POLYETHYLENE GLYCOL POWDER 17 GM PACK PO SCH (09:11)
[2018-10-29] MEDS: NEBIVOLOL 10 MG TABLET PO SCH (09:11)
[2018-10-29] MEDS: THEOPHYLLINE ER 300 MG TABLET PO SCH ×2 (09:12→17:11)
[2018-10-29] MEDS: POTASSIUM CHLORIDE 20 MEQ TABLET PO SCH (09:12)
[2018-10-29] MEDS: PANTOPRAZOLE 40 MG TABLET PO SCH (09:12)
[2018-10-29] MEDS: FUROSEMIDE 40 MG TABLET PO SCH ×2 (09:12→17:12)
[2018-10-29] MEDS: GLIMEPIRIDE 2 MG TABLET PO SCH (09:12)
[2018-10-29] MEDS: ATORVASTATIN 40 MG TABLET PO SCH (09:13)
[2018-10-29] MEDS: FLUTICASONE 50 MCG NASAL SPRAY 16 GM BOTTLE BOTH NARES SCH ×2 (09:13→21:09)
[2018-10-29] MEDS: CLOPIDOGREL 75 MG TABLET PO SCH (09:13)
[2018-10-29] MEDS: MAGNESIUM OXIDE 400 MG TABLET PO SCH (09:13)
[2018-10-29] MEDS: oxyCODONE/ACETAMINOPHEN 5-325 MG TABLET PO SCH ×2 (09:13→21:04)
[2018-10-29] MEDS: BUDESONIDE/FORMOTEROL 160-4.5 INHALER 6 GM INH SCH ×2 (09:14→21:45)
[2018-10-29] MEDS: INSULIN GLARGINE 100 UNIT/ML SUBCUT SCH ×2 (09:14→22:07)
[2018-10-29 09:28] LABS: Basophils # 0.1 10*3/uL (0.0-0.2); Basophils % 1.4 % (0.0-0.8); Eosinophils # 0.1 10*3/uL (0.0-0.87); Eosinophils % 1.2 % (0.00-10.9); Hematocrit 38.7 VOL% (35.7-47.0); Hemoglobin 12.5 GM/DL (12.0-16.0); Immature Granulocytes Absolute 0.05 #; Lymphocytes # 1.9 10*3/uL (1.4-4.0); Lymphocytes % 38.2 % (21.3-54.2); Mean Corpuscular HGB Conc 32.3 GM/DL (32-36); Mean Corpuscular Hemoglobin 27 PG (27-34); Mean Platelet Volume 9.2 FL (9.6-12.0); Monocytes # 0.6 10*3/uL (0.11-0.8); Monocytes % 11.8 % (1.7-12.7); Neutrophils # 2.3 10*3/uL (1.4-7.4); Neutrophils % 46.4 % (38.7-73.9); Platelet Count 298 T/CUMM (130-400); Red Blood Count 4.72 MC/CUMM (3.8-5.5); Red Cell Distribution Width 15.5 % (9.3-17.3); White Blood Count 4.9 T/CUMM (4-12)
[2018-10-29 09:39] LABS: Calcium 9.6 MG/DL (8.5-10.1); Osmolality,Calculated 276.8 MOS/KG (273-304); Potassium 3.8 MMOL/L (3.5-5.1)
[2018-10-29] MEDS ORDERED: LACTULOSE 20 GM/30 ML UDCUP PO ONE (11:19)
[2018-10-29] MEDS: FLUoxetine 20 MG CAPSULE PO SCH (21:04)
[2018-10-30 04:54] LABS: Basophils # 0.1 10*3/uL (0.0-0.2); Eosinophils # 0.1 10*3/uL (0.0-0.87); Eosinophils % 1.2 % (0.00-10.9); Hematocrit 38.4 VOL% (35.7-47.0); Hemoglobin 12.6 GM/DL (12.0-16.0); Immature Granulocytes Absolute 0.06 #; Lymphocytes # 2.3 10*3/uL (1.4-4.0); Lymphocytes % 39.9 % (21.3-54.2); Mean Corpuscular HGB Conc 32.8 GM/DL (32-36); Mean Corpuscular Hemoglobin 27 PG (27-34); Mean Corpuscular Volume 82.9 FL (87-102); Mean Platelet Volume 9.7 FL (9.6-12.0); Monocytes # 0.7 10*3/uL (0.11-0.8); Monocytes % 11.4 % (1.7-12.7); Neutrophils # 2.6 10*3/uL (1.4-7.4); Neutrophils % 45.5 % (38.7-73.9); Platelet Count 315 T/CUMM (130-400); Red Blood Count 4.63 MC/CUMM (3.8-5.5); Red Cell Distribution Width 15.6 % (9.3-17.3); White Blood Count 5.8 T/CUMM (4-12)
[2018-10-30 05:16] LABS: Calcium 9.6 MG/DL (8.5-10.1); Osmolality,Calculated 276.1 MOS/KG (273-304); Potassium 3.5 MMOL/L (3.5-5.1)
[2018-10-30] MEDS: ALBUTEROL/IPRATROPIUM 3 ML NEB RESP TX SCH ×5 (07:05→19:02)
[2018-10-30] MEDS: INSULIN REGULAR 100 UNIT/ML SUBCUT SCH ×4 (08:30→22:31)
[2018-10-30] MEDS: INSULIN GLARGINE 100 UNIT/ML SUBCUT SCH ×2 (08:30→22:32)
[2018-10-30] MEDS: PANTOPRAZOLE 40 MG TABLET PO SCH (10:17)
[2018-10-30] MEDS: GLIMEPIRIDE 2 MG TABLET PO SCH (10:17)
[2018-10-30] MEDS: FUROSEMIDE 40 MG TABLET PO SCH ×2 (10:17→17:00)
[2018-10-30] MEDS: POLYETHYLENE GLYCOL POWDER 17 GM PACK PO SCH (10:17)
[2018-10-30] MEDS: ATORVASTATIN 40 MG TABLET PO SCH (10:18)
[2018-10-30] MEDS: MAGNESIUM OXIDE 400 MG TABLET PO SCH (10:18)
[2018-10-30] MEDS: ENOXAPARIN 40 MG/0.4 ML SYRINGE SUBCUT SCH (10:18)
[2018-10-30] MEDS: THEOPHYLLINE ER 300 MG TABLET PO SCH ×2 (10:18→17:00)
[2018-10-30] MEDS: NEBIVOLOL 10 MG TABLET PO SCH (10:18)
[2018-10-30] MEDS: POTASSIUM CHLORIDE 20 MEQ TABLET PO SCH (10:18)
[2018-10-30] MEDS: CLOPIDOGREL 75 MG TABLET PO SCH (10:20)
[2018-10-30] MEDS: FLUTICASONE 50 MCG NASAL SPRAY 16 GM BOTTLE BOTH NARES SCH ×2 (10:20→22:33)
[2018-10-30] MEDS: BUDESONIDE/FORMOTEROL 160-4.5 INHALER 6 GM INH SCH ×2 (10:20→22:33)
[2018-10-30] MEDS: oxyCODONE/ACETAMINOPHEN 5-325 MG TABLET PO SCH ×2 (10:21→22:32)
[2018-10-30 10:23] LABS: ABG Base Excess 6.7 MMOL/L (-2.5-2.5); ABG HCO3 31.6 MMOL/L (20-26); ABG PCO2 45.8 MM HG (35-48); ABG PH 7.456 (7.35-7.45); ABG PO2 96.5 MM HG (80-95); Allen Test Positive
[2018-10-30] MEDS: BISACODYL 5 MG TABLET PO PRN (13:27)
[2018-10-30] MEDS: DOCUSATE SODIUM 100 MG CAPSULE PO SCH ×2 (13:27→22:33)
[2018-10-30] MEDS: ONDANSETRON 4 MG/2 ML VIAL IV PRN (14:41)
[2018-10-30] MEDS: FLUoxetine 20 MG CAPSULE PO SCH (22:33)
[2018-10-31] MEDS: ALBUTEROL/IPRATROPIUM 3 ML NEB RESP TX SCH ×4 (01:08→19:48)
[2018-10-31 05:12] LABS: Basophils # 0.1 10*3/uL (0.0-0.2); Eosinophils # 0.1 10*3/uL (0.0-0.87); Eosinophils % 1.1 % (0.00-10.9); Hematocrit 38.7 VOL% (35.7-47.0); Hemoglobin 12.1 GM/DL (12.0-16.0); Immature Granulocytes % 1.1 %; Immature Granulocytes Absolute 0.07 #; Lymphocytes # 2.2 10*3/uL (1.4-4.0); Lymphocytes % 36.2 % (21.3-54.2); Mean Corpuscular HGB Conc 31.3 GM/DL (32-36); Mean Corpuscular Hemoglobin 26 PG (27-34); Mean Corpuscular Volume 82.2 FL (87-102); Mean Platelet Volume 9.6 FL (9.6-12.0); Monocytes # 0.7 10*3/uL (0.11-0.8); Monocytes % 11.9 % (1.7-12.7); Neutrophils % 48.7 % (38.7-73.9); Platelet Count 336 T/CUMM (130-400); Red Blood Count 4.71 MC/CUMM (3.8-5.5); Red Cell Distribution Width 15.3 % (9.3-17.3); White Blood Count 6.1 T/CUMM (4-12)
[2018-10-31 05:44] LABS: Calcium 10.2 MG/DL (8.5-10.1); Osmolality,Calculated 272.2 MOS/KG (273-304); Potassium 3.3 MMOL/L (3.5-5.1)
[2018-10-31] MEDS: INSULIN REGULAR 100 UNIT/ML SUBCUT SCH ×4 (08:26→21:35)
[2018-10-31] MEDS: INSULIN GLARGINE 100 UNIT/ML SUBCUT SCH ×2 (08:58→21:33)
[2018-10-31] MEDS: ENOXAPARIN 40 MG/0.4 ML SYRINGE SUBCUT SCH (08:58)
[2018-10-31] MEDS: POLYETHYLENE GLYCOL POWDER 17 GM PACK PO SCH (08:59)
[2018-10-31] MEDS: MAGNESIUM OXIDE 400 MG TABLET PO SCH (08:59)
[2018-10-31] MEDS: CLOPIDOGREL 75 MG TABLET PO SCH (08:59)
[2018-10-31] MEDS: FUROSEMIDE 40 MG TABLET PO SCH ×2 (08:59→17:37)
[2018-10-31] MEDS: THEOPHYLLINE ER 300 MG TABLET PO SCH ×2 (08:59→17:38)
[2018-10-31] MEDS: GLIMEPIRIDE 2 MG TABLET PO SCH (09:00)
[2018-10-31] MEDS: NEBIVOLOL 10 MG TABLET PO SCH (09:00)
[2018-10-31] MEDS: DOCUSATE SODIUM 100 MG CAPSULE PO SCH ×2 (09:00→21:34)
[2018-10-31] MEDS: POTASSIUM CHLORIDE 20 MEQ TABLET PO SCH (09:02)
[2018-10-31] MEDS: PANTOPRAZOLE 40 MG TABLET PO SCH (09:02)
[2018-10-31] MEDS: ATORVASTATIN 40 MG TABLET PO SCH (09:02)
[2018-10-31] MEDS: BUDESONIDE/FORMOTEROL 160-4.5 INHALER 6 GM INH SCH ×2 (09:06→21:35)
[2018-10-31] MEDS: FLUTICASONE 50 MCG NASAL SPRAY 16 GM BOTTLE BOTH NARES SCH ×2 (09:06→21:35)
[2018-10-31] MEDS: oxyCODONE/ACETAMINOPHEN 5-325 MG TABLET PO SCH ×2 (09:07→21:34)
[2018-10-31] MEDS ORDERED: BISACODYL 10 MG SUPP RECTAL ONE (10:53)
[2018-10-31] MEDS: FLUoxetine 20 MG CAPSULE PO SCH (21:34)
[2018-10-31] MEDS: LACTULOSE 20 GM/30 ML UDCUP PO SCH (21:35)
[2018-11-01] MEDS: ALBUTEROL/IPRATROPIUM 3 ML NEB RESP TX SCH ×4 (00:42→19:57)
[2018-11-01 05:25] LABS: Basophils # 0.1 10*3/uL (0.0-0.2); Basophils % 1.3 % (0.0-0.8); Eosinophils # 0.1 10*3/uL (0.0-0.87); Hematocrit 39.1 VOL% (35.7-47.0); Hemoglobin 12.1 GM/DL (12.0-16.0); Immature Granulocytes % 1.3 %; Immature Granulocytes Absolute 0.08 #; Lymphocytes # 2.3 10*3/uL (1.4-4.0); Lymphocytes % 37.6 % (21.3-54.2); Mean Corpuscular HGB Conc 30.9 GM/DL (32-36); Mean Corpuscular Hemoglobin 26 PG (27-34); Mean Platelet Volume 9.6 FL (9.6-12.0); Monocytes # 0.7 10*3/uL (0.11-0.8); Monocytes % 11.1 % (1.7-12.7); Neutrophils # 2.9 10*3/uL (1.4-7.4); Neutrophils % 47.7 % (38.7-73.9); Platelet Count 324 T/CUMM (130-400); Red Blood Count 4.71 MC/CUMM (3.8-5.5); Red Cell Distribution Width 15.2 % (9.3-17.3); White Blood Count 6.1 T/CUMM (4-12)
[2018-11-01 05:42] LABS: Calcium 9.6 MG/DL (8.5-10.1); Osmolality,Calculated 277.8 MOS/KG (273-304); Potassium 3.2 MMOL/L (3.5-5.1)
[2018-11-01] MEDS ORDERED: TUBERCULIN SKIN TEST 0.1 ML SYRINGE INTRADERM ONE (08:07)
[2018-11-01] MEDS: INSULIN REGULAR 100 UNIT/ML SUBCUT SCH ×4 (08:39→20:39)
[2018-11-01] MEDS: ENOXAPARIN 40 MG/0.4 ML SYRINGE SUBCUT SCH (09:22)
[2018-11-01] MEDS: INSULIN GLARGINE 100 UNIT/ML SUBCUT SCH ×2 (09:22→20:39)
[2018-11-01] MEDS: POLYETHYLENE GLYCOL POWDER 17 GM PACK PO SCH (09:22)
[2018-11-01] MEDS: GLIMEPIRIDE 2 MG TABLET PO SCH (09:22)
[2018-11-01] MEDS: NEBIVOLOL 10 MG TABLET PO SCH (09:22)
[2018-11-01] MEDS: FUROSEMIDE 40 MG TABLET PO SCH ×2 (09:22→17:09)
[2018-11-01] MEDS: oxyCODONE/ACETAMINOPHEN 5-325 MG TABLET PO SCH ×2 (09:23→20:39)
[2018-11-01] MEDS: PANTOPRAZOLE 40 MG TABLET PO SCH (09:23)
[2018-11-01] MEDS: ATORVASTATIN 40 MG TABLET PO SCH (09:23)
[2018-11-01] MEDS: CLOPIDOGREL 75 MG TABLET PO SCH (09:23)
[2018-11-01] MEDS: DOCUSATE SODIUM 100 MG CAPSULE PO SCH ×2 (09:23→20:38)
[2018-11-01] MEDS: LACTULOSE 20 GM/30 ML UDCUP PO SCH ×3 (09:23→20:42)
[2018-11-01] MEDS: THEOPHYLLINE ER 300 MG TABLET PO SCH ×2 (09:23→17:09)
[2018-11-01] MEDS: MAGNESIUM OXIDE 400 MG TABLET PO SCH (09:23)
[2018-11-01] MEDS: POTASSIUM CHLORIDE 20 MEQ TABLET PO SCH ×2 (09:23→20:39)
[2018-11-01] MEDS: FLUTICASONE 50 MCG NASAL SPRAY 16 GM BOTTLE BOTH NARES SCH ×2 (09:29→20:48)
[2018-11-01] MEDS: BUDESONIDE/FORMOTEROL 160-4.5 INHALER 6 GM INH SCH ×2 (09:29→20:48)
[2018-11-01] MEDS: ONDANSETRON 4 MG/2 ML VIAL IV PRN (11:53)
[2018-11-01] MEDS ORDERED: POTASSIUM CHLORIDE 20 MEQ TABLET PO ONE (12:00)
[2018-11-01] MEDS ORDERED: CLORAZEPATE 3.75 MG TABLET PO PRN (14:32)
[2018-11-01] MEDS: FLUoxetine 20 MG CAPSULE PO SCH (20:38)
[2018-11-02] MEDS: ALBUTEROL/IPRATROPIUM 3 ML NEB RESP TX SCH ×2 (01:32→07:50)
[2018-11-02 04:32] LABS: Basophils # 0.1 10*3/uL (0.0-0.2); Basophils % 1.5 % (0.0-0.8); Eosinophils # 0.1 10*3/uL (0.0-0.87); Hematocrit 38.2 VOL% (35.7-47.0); Hemoglobin 12.1 GM/DL (12.0-16.0); Immature Granulocytes % 2.1 %; Immature Granulocytes Absolute 0.14 #; Lymphocytes # 2.5 10*3/uL (1.4-4.0); Lymphocytes % 36.9 % (21.3-54.2); Mean Corpuscular HGB Conc 31.7 GM/DL (32-36); Mean Corpuscular Hemoglobin 26 PG (27-34); Mean Corpuscular Volume 82.7 FL (87-102); Mean Platelet Volume 9.7 FL (9.6-12.0); Monocytes # 0.8 10*3/uL (0.11-0.8); Monocytes % 11.9 % (1.7-12.7); Neutrophils # 3.2 10*3/uL (1.4-7.4); Neutrophils % 46.6 % (38.7-73.9); Platelet Count 349 T/CUMM (130-400); Red Blood Count 4.62 MC/CUMM (3.8-5.5); Red Cell Distribution Width 15.4 % (9.3-17.3); White Blood Count 6.8 T/CUMM (4-12)
[2018-11-02 05:01] LABS: Calcium 9.7 MG/DL (8.5-10.1); Osmolality,Calculated 276.7 MOS/KG (273-304); Potassium 3.8 MMOL/L (3.5-5.1)
[2018-11-02 07:35] VITALS: BP 133/92
[2018-11-02] MEDS: INSULIN REGULAR 100 UNIT/ML SUBCUT SCH (08:33)
[2018-11-02] MEDS: NEBIVOLOL 10 MG TABLET PO SCH (09:15)
[2018-11-02] MEDS: LACTULOSE 20 GM/30 ML UDCUP PO SCH (09:15)
[2018-11-02] MEDS: GLIMEPIRIDE 2 MG TABLET PO SCH (09:15)
[2018-11-02] MEDS: THEOPHYLLINE ER 300 MG TABLET PO SCH (09:15)
[2018-11-02] MEDS: FUROSEMIDE 40 MG TABLET PO SCH (09:15)
[2018-11-02] MEDS: ATORVASTATIN 40 MG TABLET PO SCH (09:16)
[2018-11-02] MEDS: POTASSIUM CHLORIDE 20 MEQ TABLET PO SCH (09:16)
[2018-11-02] MEDS: MAGNESIUM OXIDE 400 MG TABLET PO SCH (09:16)
[2018-11-02] MEDS: FLUTICASONE 50 MCG NASAL SPRAY 16 GM BOTTLE BOTH NARES SCH (09:16)
[2018-11-02] MEDS: DOCUSATE SODIUM 100 MG CAPSULE PO SCH (09:16)
[2018-11-02] MEDS: INSULIN GLARGINE 100 UNIT/ML SUBCUT SCH (09:16)
[2018-11-02] MEDS: oxyCODONE/ACETAMINOPHEN 5-325 MG TABLET PO SCH (09:17)
[2018-11-02] MEDS: CLOPIDOGREL 75 MG TABLET PO SCH (09:17)
[2018-11-02] MEDS: ENOXAPARIN 40 MG/0.4 ML SYRINGE SUBCUT SCH (09:17)
[2018-11-02] MEDS: POLYETHYLENE GLYCOL POWDER 17 GM PACK PO SCH (09:17)
[2018-11-02] MEDS: PANTOPRAZOLE 40 MG TABLET PO SCH (09:17)
[2018-11-02] MEDS: BUDESONIDE/FORMOTEROL 160-4.5 INHALER 6 GM INH SCH (09:17)
== END 2018-11-02 10:53 | disposition home or self-care (01) | DRG 391 ==
LOC: EDUNIT# → EDBD → N.TELEN 13:53 → N.ED 13:53 → N.TELEN 19:27 → N.3E 10-28 22:28
PROVIDERS: ADMIT Internal Medicine Cardiovascular Disease; ATTEND Internal Medicine Cardiovascular Disease

== ENCOUNTER 2018-11-28 14:00 | Inpatient (IN) ==
[2018-11-28] MEDS ORDERED: ALBUTEROL/IPRATROPIUM 3 ML NEB RESP TX STA ×2 (14:18→14:22)
[2018-11-28] MEDS ORDERED: methylPREDNISolone SOD SUC 125 MG/2 ML VIAL IV STA (14:22)
[2018-11-28 14:50] LABS: Basophils # 0.1 10*3/uL (0.0-0.2); Basophils % 0.7 % (0.0-0.8); Eosinophils # 0.2 10*3/uL (0.0-0.87); Eosinophils % 2.2 % (0.00-10.9); Hematocrit 37.9 VOL% (35.7-47.0); Hemoglobin 12.1 GM/DL (12.0-16.0); Immature Granulocytes % 0.4 %; Immature Granulocytes Absolute 0.03 #; Lymphocytes # 1.4 10*3/uL (1.4-4.0); Lymphocytes % 18.8 % (21.3-54.2); Mean Corpuscular HGB Conc 31.9 GM/DL (32-36); Mean Corpuscular Hemoglobin 26 PG (27-34); Mean Corpuscular Volume 82.8 FL (87-102); Mean Platelet Volume 9.4 FL (9.6-12.0); Monocytes # 0.6 10*3/uL (0.11-0.8); Monocytes % 7.8 % (1.7-12.7); Neutrophils # 5.1 10*3/uL (1.4-7.4); Neutrophils % 70.1 % (38.7-73.9); Platelet Count 333 T/CUMM (130-400); Red Blood Count 4.58 MC/CUMM (3.8-5.5); Red Cell Distribution Width 15.1 % (9.3-17.3); White Blood Count 7.3 T/CUMM (4-12)
[2018-11-28 15:08] LABS: Albumin 3.7 G/DL (3.4-5.0); Bilirubin,Total 1.9 MG/DL (0.2-1.0); Calcium 9.6 MG/DL (8.5-10.1); Osmolality,Calculated 275.8 MOS/KG (273-304); Potassium 4.4 MMOL/L (3.5-5.1); Total Protein 7.2 G/DL (6.4-8.3)
[2018-11-28] MEDS ORDERED: DEXTROSE 50% 25 GM/50 ML VIAL IV PRN ×2 (16:00)
[2018-11-28] MEDS ORDERED: ALBUTEROL 2.5 MG/3 ML NEB RESP TX PRN (16:00)
[2018-11-28] MEDS ORDERED: GLUCAGON 1 MG VIAL IM PRN ×2 (16:00)
[2018-11-28] MEDS ORDERED: LEVOFLOXACIN INJ 750 MG in PREMIX 1 EACH IV STA (16:02)
[2018-11-28 16:34] LABS: Apearance,Urine Slightly Hazy (Clear); Bacteria,Urine Many /HPF (Few); Bilirubin,Urine Negative (Negative); Blood, Urine Small mg/dL (Negative); Glucose,Urine (UA) Negative (Negative); Hyaline Casts,Urine 1 /LPF (0-3); Ketones,Urine Negative (Negative); Mucus,Urine Occasional /LPF (Occasional); Nitrite,Urine Positive (Negative); Protein,Urine Negative; RBC,Urine 3 /HPF (0-4); Urine Color Yellow (Yellow); Urine Specific Gravity 1.015 (1.001-1.035); WBC,Urine 3 /HPF (0-6)
[2018-11-28] MEDS ORDERED: GABAPENTIN 600 MG TABLET PO PRN (17:21)
[2018-11-28] MEDS ORDERED: DOCUSATE SODIUM 100 MG CAPSULE PO PRN (17:21)
[2018-11-28] MEDS ORDERED: NITROGLYCERIN SL 0.4 MG TABLET SL PRN (17:21)
[2018-11-28] MEDS ORDERED: PROMETHAZINE 25 MG TABLET PO PRN (17:21)
[2018-11-28] MEDS: INSULIN REGULAR 100 UNIT/ML SUBCUT SCH ×2 (17:55→22:48)
[2018-11-28] MEDS: THEOPHYLLINE ER 300 MG TABLET PO SCH (18:12)
[2018-11-28] MEDS: CYCLOBENZAPRINE 10 MG TABLET PO PRN (18:12)
[2018-11-28] MEDS: NYSTATIN CREAM 15 GM TUBE TOP SCH ×2 (18:14→23:58)
[2018-11-28] MEDS: ALBUTEROL/IPRATROPIUM 3 ML NEB RESP TX SCH (20:12)
[2018-11-28] MEDS: SPIRONOLACTONE 25 MG TABLET PO SCH (22:47)
[2018-11-28] MEDS: busPIRone 15 MG TABLET PO SCH (22:47)
[2018-11-28] MEDS: methylPREDNISolone SOD SUC 40 MG/1 ML VIAL IV SCH (22:47)
[2018-11-28] MEDS: FLUoxetine 20 MG CAPSULE PO SCH (22:47)
[2018-11-28] MEDS: INSULIN GLARGINE 100 UNIT/ML SUBCUT SCH (22:48)
[2018-11-28] MEDS: oxyCODONE/ACETAMINOPHEN 5-325 MG TABLET PO SCH (22:49)
[2018-11-28] MEDS: ENOXAPARIN 40 MG/0.4 ML SYRINGE SUBCUT SCH (22:49)
[2018-11-28] MEDS: FLUTICASONE 50 MCG NASAL SPRAY 16 GM BOTTLE BOTH NARES SCH (22:49)
[2018-11-29] MEDS: ALBUTEROL/IPRATROPIUM 3 ML NEB RESP TX SCH ×4 (01:44→20:50)
[2018-11-29 05:56] LABS: Basophils % 0.3 % (0.0-0.8); Hematocrit 37.6 VOL% (35.7-47.0); Hemoglobin 11.8 GM/DL (12.0-16.0); Immature Granulocytes % 1.6 %; Immature Granulocytes Absolute 0.11 #; Lymphocytes # 0.5 10*3/uL (1.4-4.0); Lymphocytes % 7.9 % (21.3-54.2); Mean Corpuscular HGB Conc 31.4 GM/DL (32-36); Mean Corpuscular Hemoglobin 26 PG (27-34); Mean Platelet Volume 9.5 FL (9.6-12.0); Monocytes # 0.1 10*3/uL (0.11-0.8); Monocytes % 1.3 % (1.7-12.7); Neutrophils # 5.9 10*3/uL (1.4-7.4); Neutrophils % 88.9 % (38.7-73.9); Platelet Count 353 T/CUMM (130-400); Red Blood Count 4.53 MC/CUMM (3.8-5.5); White Blood Count 6.7 T/CUMM (4-12)
[2018-11-29] MEDS: methylPREDNISolone SOD SUC 40 MG/1 ML VIAL IV SCH ×2 (06:03→21:33)
[2018-11-29 06:22] LABS: Albumin 3.2 G/DL (3.4-5.0); Bilirubin,Total 1.9 MG/DL (0.2-1.0); Calcium 9.5 MG/DL (8.5-10.1); Osmolality,Calculated 278.2 MOS/KG (273-304); Potassium 4.1 MMOL/L (3.5-5.1); Total Protein 7.1 G/DL (6.4-8.3)
[2018-11-29] MEDS: INSULIN REGULAR 100 UNIT/ML SUBCUT SCH ×4 (09:05→21:34)
[2018-11-29] MEDS: INSULIN GLARGINE 100 UNIT/ML SUBCUT SCH ×2 (09:06→21:34)
[2018-11-29] MEDS: CYANOCOBALAMIN 500 MCG TABLET PO SCH (09:07)
[2018-11-29] MEDS: THEOPHYLLINE ER 300 MG TABLET PO SCH ×2 (09:07→16:00)
[2018-11-29] MEDS: busPIRone 15 MG TABLET PO SCH ×2 (09:07→21:35)
[2018-11-29] MEDS: GLIMEPIRIDE 2 MG TABLET PO SCH (09:08)
[2018-11-29] MEDS: CLOPIDOGREL 75 MG TABLET PO SCH (09:08)
[2018-11-29] MEDS: FUROSEMIDE 80 MG TABLET PO SCH ×2 (09:08→16:00)
[2018-11-29] MEDS: CHOLECALCIFEROL 5,000 UNIT TABLET PO SCH (09:08)
[2018-11-29] MEDS: MAGNESIUM OXIDE 400 MG TABLET PO SCH (09:09)
[2018-11-29] MEDS: NEBIVOLOL 10 MG TABLET PO SCH (09:09)
[2018-11-29] MEDS: SPIRONOLACTONE 25 MG TABLET PO SCH ×2 (09:09→21:35)
[2018-11-29] MEDS: ATORVASTATIN 40 MG TABLET PO SCH (09:09)
[2018-11-29] MEDS: ASPIRIN EC 325 MG TABLET PO SCH (09:09)
[2018-11-29] MEDS: PANTOPRAZOLE 40 MG TABLET PO SCH (09:09)
[2018-11-29] MEDS: oxyCODONE/ACETAMINOPHEN 5-325 MG TABLET PO SCH ×2 (09:09→21:35)
[2018-11-29] MEDS: POTASSIUM CHLORIDE 20 MEQ TABLET PO SCH (09:10)
[2018-11-29] MEDS: NYSTATIN CREAM 15 GM TUBE TOP SCH ×2 (09:10→21:36)
[2018-11-29] MEDS: POLYETHYLENE GLYCOL POWDER 17 GM PACK PO SCH (09:10)
[2018-11-29] MEDS: FLUTICASONE 50 MCG NASAL SPRAY 16 GM BOTTLE BOTH NARES SCH ×2 (09:10→21:36)
[2018-11-29] MEDS: LEVOFLOXACIN INJ 750 MG in PREMIX 1 EACH IV SCH (16:00)
[2018-11-29] MEDS: ENOXAPARIN 40 MG/0.4 ML SYRINGE SUBCUT SCH (21:34)
[2018-11-29] MEDS: FLUoxetine 20 MG CAPSULE PO SCH (21:35)
[2018-11-29] MEDS: CYCLOBENZAPRINE 10 MG TABLET PO PRN (21:39)
[2018-11-29] MEDS: CLORAZEPATE 3.75 MG TABLET PO PRN (21:46)
[2018-11-30] MEDS: ALBUTEROL/IPRATROPIUM 3 ML NEB RESP TX SCH ×4 (01:54→19:55)
[2018-11-30] MEDS: methylPREDNISolone SOD SUC 40 MG/1 ML VIAL IV SCH (06:03)
[2018-11-30 06:07] LABS: Basophils % 0.1 % (0.0-0.8); Hematocrit 36.3 VOL% (35.7-47.0); Hemoglobin 11.7 GM/DL (12.0-16.0); Immature Granulocytes % 1.2 %; Immature Granulocytes Absolute 0.18 #; Lymphocytes # 0.6 10*3/uL (1.4-4.0); Lymphocytes % 3.9 % (21.3-54.2); Mean Corpuscular HGB Conc 32.2 GM/DL (32-36); Mean Corpuscular Hemoglobin 27 PG (27-34); Mean Corpuscular Volume 82.5 FL (87-102); Mean Platelet Volume 9.9 FL (9.6-12.0); Monocytes # 0.4 10*3/uL (0.11-0.8); Monocytes % 2.4 % (1.7-12.7); Neutrophils # 14.1 10*3/uL (1.4-7.4); Neutrophils % 92.4 % (38.7-73.9); Platelet Count 394 T/CUMM (130-400); Red Cell Distribution Width 15.2 % (9.3-17.3); White Blood Count 15.3 T/CUMM (4-12)
[2018-11-30 06:22] LABS: Calcium 9.7 MG/DL (8.5-10.1); Osmolality,Calculated 280.4 MOS/KG (273-304); Potassium 3.9 MMOL/L (3.5-5.1)
[2018-11-30 06:54] LABS: Anisocytosis 1+; Band Neutrophils 5 % (0-10); Lymphocytes 6 % (20-55); Platelet Estimate Normal; Segmented Neutrophils 86 % (50-85); Total Cells Counted 100
[2018-11-30] MEDS: INSULIN REGULAR 100 UNIT/ML SUBCUT SCH ×4 (09:47→21:13)
[2018-11-30] MEDS: busPIRone 15 MG TABLET PO SCH ×2 (09:53→21:13)
[2018-11-30] MEDS: THEOPHYLLINE ER 300 MG TABLET PO SCH ×3 (09:54→17:05)
[2018-11-30] MEDS: MAGNESIUM OXIDE 400 MG TABLET PO SCH (09:54)
[2018-11-30] MEDS: ATORVASTATIN 40 MG TABLET PO SCH (09:54)
[2018-11-30] MEDS: NEBIVOLOL 10 MG TABLET PO SCH (09:54)
[2018-11-30] MEDS: GLIMEPIRIDE 2 MG TABLET PO SCH (09:54)
[2018-11-30] MEDS: CLOPIDOGREL 75 MG TABLET PO SCH (09:54)
[2018-11-30] MEDS: PANTOPRAZOLE 40 MG TABLET PO SCH (09:54)
[2018-11-30] MEDS: FUROSEMIDE 80 MG TABLET PO SCH ×2 (09:54→15:51)
[2018-11-30] MEDS: SPIRONOLACTONE 25 MG TABLET PO SCH ×2 (09:54→21:13)
[2018-11-30] MEDS: CYANOCOBALAMIN 500 MCG TABLET PO SCH (09:54)
[2018-11-30] MEDS: CHOLECALCIFEROL 5,000 UNIT TABLET PO SCH (09:54)
[2018-11-30] MEDS: ASPIRIN EC 325 MG TABLET PO SCH (09:55)
[2018-11-30] MEDS: INSULIN GLARGINE 100 UNIT/ML SUBCUT SCH ×2 (09:55→21:14)
[2018-11-30] MEDS: oxyCODONE/ACETAMINOPHEN 5-325 MG TABLET PO SCH ×2 (09:55→21:15)
[2018-11-30] MEDS: FLUTICASONE 50 MCG NASAL SPRAY 16 GM BOTTLE BOTH NARES SCH ×2 (09:55→21:14)
[2018-11-30] MEDS: POTASSIUM CHLORIDE 20 MEQ TABLET PO SCH (09:55)
[2018-11-30] MEDS: NYSTATIN CREAM 15 GM TUBE TOP SCH ×2 (09:56→21:14)
[2018-11-30] MEDS: POLYETHYLENE GLYCOL POWDER 17 GM PACK PO SCH (09:56)
[2018-11-30] MEDS: LEVOFLOXACIN INJ 750 MG in PREMIX 1 EACH IV SCH (16:23)
[2018-11-30] MEDS: ENOXAPARIN 40 MG/0.4 ML SYRINGE SUBCUT SCH (21:12)
[2018-11-30] MEDS: CYCLOBENZAPRINE 10 MG TABLET PO PRN (21:13)
[2018-11-30] MEDS: FLUoxetine 20 MG CAPSULE PO SCH (21:13)
[2018-11-30] MEDS: CLORAZEPATE 3.75 MG TABLET PO PRN (21:13)
[2018-12-01] MEDS: ALBUTEROL/IPRATROPIUM 3 ML NEB RESP TX SCH ×4 (00:23→19:58)
[2018-12-01 05:45] LABS: Basophils % 0.1 % (0.0-0.8); Eosinophils % 0.1 % (0.00-10.9); Hematocrit 38.2 VOL% (35.7-47.0); Immature Granulocytes Absolute 0.14 #; Lymphocytes # 2.4 10*3/uL (1.4-4.0); Lymphocytes % 17.7 % (21.3-54.2); Mean Corpuscular HGB Conc 31.4 GM/DL (32-36); Mean Corpuscular Hemoglobin 26 PG (27-34); Mean Corpuscular Volume 82.7 FL (87-102); Mean Platelet Volume 9.8 FL (9.6-12.0); Monocytes # 1.3 10*3/uL (0.11-0.8); Monocytes % 9.4 % (1.7-12.7); Neutrophils # 9.6 10*3/uL (1.4-7.4); Neutrophils % 71.7 % (38.7-73.9); Platelet Count 414 T/CUMM (130-400); Red Blood Count 4.62 MC/CUMM (3.8-5.5); Red Cell Distribution Width 15.5 % (9.3-17.3); White Blood Count 13.4 T/CUMM (4-12)
[2018-12-01 05:51] LABS: Calcium 9.4 MG/DL (8.5-10.1); Potassium 3.4 MMOL/L (3.5-5.1)
[2018-12-01] MEDS: INSULIN REGULAR 100 UNIT/ML SUBCUT SCH ×4 (08:52→21:48)
[2018-12-01] MEDS: ASPIRIN EC 325 MG TABLET PO SCH (08:58)
[2018-12-01] MEDS: CYANOCOBALAMIN 500 MCG TABLET PO SCH (08:58)
[2018-12-01] MEDS: GLIMEPIRIDE 2 MG TABLET PO SCH (08:58)
[2018-12-01] MEDS: busPIRone 15 MG TABLET PO SCH ×2 (08:59→21:47)
[2018-12-01] MEDS: CLOPIDOGREL 75 MG TABLET PO SCH (08:59)
[2018-12-01] MEDS: oxyCODONE/ACETAMINOPHEN 5-325 MG TABLET PO SCH ×2 (08:59→21:47)
[2018-12-01] MEDS: ATORVASTATIN 40 MG TABLET PO SCH (08:59)
[2018-12-01] MEDS: NEBIVOLOL 10 MG TABLET PO SCH (08:59)
[2018-12-01] MEDS: POTASSIUM CHLORIDE 20 MEQ TABLET PO SCH (08:59)
[2018-12-01] MEDS: FUROSEMIDE 80 MG TABLET PO SCH ×2 (08:59→17:35)
[2018-12-01] MEDS: MAGNESIUM OXIDE 400 MG TABLET PO SCH (08:59)
[2018-12-01] MEDS: SPIRONOLACTONE 25 MG TABLET PO SCH ×2 (08:59→21:47)
[2018-12-01] MEDS: THEOPHYLLINE ER 300 MG TABLET PO SCH ×2 (08:59→17:35)
[2018-12-01] MEDS: PANTOPRAZOLE 40 MG TABLET PO SCH (09:00)
[2018-12-01] MEDS ORDERED: AZITHROMYCIN 250 MG TABLET PO SCH (09:00)
[2018-12-01] MEDS: CHOLECALCIFEROL 5,000 UNIT TABLET PO SCH (09:00)
[2018-12-01] MEDS: POLYETHYLENE GLYCOL POWDER 17 GM PACK PO SCH (09:01)
[2018-12-01] MEDS: NYSTATIN CREAM 15 GM TUBE TOP SCH ×2 (09:01→21:48)
[2018-12-01] MEDS: FLUTICASONE 50 MCG NASAL SPRAY 16 GM BOTTLE BOTH NARES SCH ×2 (09:01→21:48)
[2018-12-01] MEDS: predniSONE 20 MG TABLET PO SCH (09:46)
[2018-12-01] MEDS: INSULIN GLARGINE 100 UNIT/ML SUBCUT SCH ×2 (09:46→21:48)
[2018-12-01] MEDS: cefTRIAXone 1,000 MG in SYRINGE 1 EACH IV SCH (09:47)
[2018-12-01] MEDS: ENOXAPARIN 40 MG/0.4 ML SYRINGE SUBCUT SCH (21:46)
[2018-12-01] MEDS: FLUoxetine 20 MG CAPSULE PO SCH (21:47)
[2018-12-01] MEDS: CLORAZEPATE 3.75 MG TABLET PO PRN (21:51)
[2018-12-02] MEDS: ALBUTEROL/IPRATROPIUM 3 ML NEB RESP TX SCH ×2 (00:30→07:09)
[2018-12-02 05:01] LABS: Basophils % 0.2 % (0.0-0.8); Eosinophils % 0.1 % (0.00-10.9); Hematocrit 37.9 VOL% (35.7-47.0); Immature Granulocytes Absolute 0.11 #; Lymphocytes % 18.1 % (21.3-54.2); Mean Corpuscular HGB Conc 31.7 GM/DL (32-36); Mean Corpuscular Hemoglobin 26 PG (27-34); Mean Corpuscular Volume 83.1 FL (87-102); Mean Platelet Volume 9.5 FL (9.6-12.0); Monocytes # 1.3 10*3/uL (0.11-0.8); Monocytes % 11.4 % (1.7-12.7); Neutrophils # 7.8 10*3/uL (1.4-7.4); Neutrophils % 69.2 % (38.7-73.9); Platelet Count 370 T/CUMM (130-400); Red Blood Count 4.56 MC/CUMM (3.8-5.5); White Blood Count 11.2 T/CUMM (4-12)
[2018-12-02 05:27] LABS: Calcium 9.3 MG/DL (8.5-10.1); Osmolality,Calculated 281.2 MOS/KG (273-304); Potassium 3.5 MMOL/L (3.5-5.1)
[2018-12-02] MEDS: INSULIN REGULAR 100 UNIT/ML SUBCUT SCH (08:13)
[2018-12-02] MEDS: NEBIVOLOL 10 MG TABLET PO SCH (08:55)
[2018-12-02] MEDS: POLYETHYLENE GLYCOL POWDER 17 GM PACK PO SCH (08:55)
[2018-12-02] MEDS: GLIMEPIRIDE 2 MG TABLET PO SCH (08:56)
[2018-12-02] MEDS: ATORVASTATIN 40 MG TABLET PO SCH (08:56)
[2018-12-02] MEDS: THEOPHYLLINE ER 300 MG TABLET PO SCH (08:56)
[2018-12-02] MEDS: predniSONE 20 MG TABLET PO SCH (08:56)
[2018-12-02] MEDS: ASPIRIN EC 325 MG TABLET PO SCH (08:56)
[2018-12-02] MEDS: SPIRONOLACTONE 25 MG TABLET PO SCH (08:56)
[2018-12-02] MEDS: POTASSIUM CHLORIDE 20 MEQ TABLET PO SCH (08:56)
[2018-12-02] MEDS: CYANOCOBALAMIN 500 MCG TABLET PO SCH (08:57)
[2018-12-02] MEDS: MAGNESIUM OXIDE 400 MG TABLET PO SCH (08:57)
[2018-12-02] MEDS: FUROSEMIDE 80 MG TABLET PO SCH (08:57)
[2018-12-02] MEDS: oxyCODONE/ACETAMINOPHEN 5-325 MG TABLET PO SCH (08:57)
[2018-12-02] MEDS: INSULIN GLARGINE 100 UNIT/ML SUBCUT SCH (08:58)
[2018-12-02] MEDS: PANTOPRAZOLE 40 MG TABLET PO SCH (08:58)
[2018-12-02] MEDS: busPIRone 15 MG TABLET PO SCH (08:58)
[2018-12-02] MEDS: CLOPIDOGREL 75 MG TABLET PO SCH (08:58)
[2018-12-02] MEDS: CHOLECALCIFEROL 5,000 UNIT TABLET PO SCH (08:58)
[2018-12-02] MEDS ORDERED: AZITHROMYCIN 250 MG TABLET PO SCH (09:00)
[2018-12-02] MEDS: cefTRIAXone 1,000 MG in SYRINGE 1 EACH IV SCH (09:05)
[2018-12-02] MEDS: NYSTATIN CREAM 15 GM TUBE TOP SCH (09:20)
[2018-12-02] MEDS: FLUTICASONE 50 MCG NASAL SPRAY 16 GM BOTTLE BOTH NARES SCH (09:25)
[2018-12-02 13:15] VITALS: BP 126/67
== END 2018-12-02 12:00 | disposition home health service (06) | DRG 194 ==
LOC: N.ED 14:00 → N.EDINP 14:00 → N.5E 16:33
PROVIDERS: ADMIT Internal Medicine; ATTEND Internal Medicine

== ENCOUNTER 2019-01-10 22:39 | Inpatient (IN) ==
[2019-01-10] MEDS ORDERED: NITROGLYCERIN 2% OINT 1 INCH/GM PACK TOP STA (23:17)
[2019-01-10] MEDS ORDERED: NITROGLYCERIN SL 0.4 MG TABLET SL STA (23:17)
[2019-01-11] MEDS ORDERED: MAGNESIUM SULF RIDER 2 GM in PREMIX 1 EACH IV PRN (01:14)
[2019-01-11] MEDS ORDERED: ACETAMINOPHEN 325 MG TABLET PO PRN (01:14)
[2019-01-11] MEDS ORDERED: MAGNESIUM SULF RIDER 4 GM in PREMIX 1 EACH IV PRN (01:14)
[2019-01-11] MEDS ORDERED: GLUCAGON 1 MG VIAL IM PRN (01:14)
[2019-01-11] MEDS ORDERED: DEXTROSE 50% 25 GM/50 ML SYRINGE IV PRN (01:14)
[2019-01-11] MEDS ORDERED: ONDANSETRON 4 MG/2 ML VIAL IV PRN (01:14)
[2019-01-11] MEDS ORDERED: CYCLOBENZAPRINE 10 MG TABLET PO PRN (01:22)
[2019-01-11] MEDS ORDERED: traZODone 50 MG TABLET PO PRN (01:22)
[2019-01-11] MEDS ORDERED: PROMETHAZINE 25 MG TABLET PO PRN (01:22)
[2019-01-11] MEDS ORDERED: GABAPENTIN 600 MG TABLET PO PRN (01:22)
[2019-01-11] MEDS ORDERED: CLORAZEPATE 3.75 MG TABLET PO PRN (01:22)
[2019-01-11] MEDS ORDERED: DOCUSATE SODIUM 100 MG CAPSULE PO PRN (01:22)
[2019-01-11 01:56] LABS: Basophils # 0.1 10*3/uL (0.0-0.2); Basophils % 0.9 % (0.0-0.8); Eosinophils # 0.2 10*3/uL (0.0-0.87); Eosinophils % 2.1 % (0.00-10.9); Hematocrit 41.2 VOL% (35.7-47.0); Hemoglobin 12.5 GM/DL (12.0-16.0); Immature Granulocytes % 0.6 %; Immature Granulocytes Absolute 0.06 #; Lymphocytes # 1.8 10*3/uL (1.4-4.0); Lymphocytes % 16.9 % (21.3-54.2); Mean Corpuscular HGB Conc 30.3 GM/DL (32-36); Mean Corpuscular Hemoglobin 26 PG (27-34); Mean Corpuscular Volume 85.7 FL (87-102); Mean Platelet Volume 9.9 FL (9.6-12.0); Monocytes # 0.8 10*3/uL (0.11-0.8); Monocytes % 7.7 % (1.7-12.7); Neutrophils # 7.8 10*3/uL (1.4-7.4); Neutrophils % 71.8 % (38.7-73.9); Platelet Count 357 T/CUMM (130-400); Red Blood Count 4.81 MC/CUMM (3.8-5.5); Red Cell Distribution Width 13.2 % (9.3-17.3); White Blood Count 10.9 T/CUMM (4-12)
[2019-01-11] MEDS ORDERED: PNEUMOCOCCAL VACCINE (13 VALENT) 0.5 ML SYRINGE IM ONE (02:27)
[2019-01-11] MEDS ORDERED: INFLUENZA VIRUS VACCINE 0.5 ML SYRINGE IM ONE (02:27)
[2019-01-11] MEDS: INSULIN REGULAR 100 UNIT/ML SUBCUT SCH ×5 (04:06→21:51)
[2019-01-11] MEDS: ENOXAPARIN 40 MG/0.4 ML SYRINGE SUBCUT SCH (04:06)
[2019-01-11] MEDS: ALBUTEROL/IPRATROPIUM 3 ML NEB RESP TX SCH ×3 (07:06→19:51)
[2019-01-11 07:29] LABS: Basophils # 0.1 10*3/uL (0.0-0.2); Basophils % 0.6 % (0.0-0.8); Eosinophils # 0.3 10*3/uL (0.0-0.87); Eosinophils % 2.5 % (0.00-10.9); Hemoglobin 11.7 GM/DL (12.0-16.0); Immature Granulocytes % 0.7 %; Immature Granulocytes Absolute 0.07 #; Lymphocytes # 2.1 10*3/uL (1.4-4.0); Lymphocytes % 19.6 % (21.3-54.2); Mean Corpuscular HGB Conc 31.6 GM/DL (32-36); Mean Corpuscular Hemoglobin 27 PG (27-34); Mean Corpuscular Volume 83.7 FL (87-102); Mean Platelet Volume 9.8 FL (9.6-12.0); Monocytes # 0.8 10*3/uL (0.11-0.8); Monocytes % 7.7 % (1.7-12.7); Neutrophils # 7.2 10*3/uL (1.4-7.4); Neutrophils % 68.9 % (38.7-73.9); Platelet Count 340 T/CUMM (130-400); Red Blood Count 4.42 MC/CUMM (3.8-5.5); Red Cell Distribution Width 13.2 % (9.3-17.3); White Blood Count 10.5 T/CUMM (4-12)
[2019-01-11 07:58] LABS: Albumin 3.4 G/DL (3.4-5.0); Bilirubin,Total 1.1 MG/DL (0.2-1.0); Osmolality,Calculated 287.3 MOS/KG (273-304); Potassium 2.9 MMOL/L (3.5-5.1); Total Protein 6.8 G/DL (6.4-8.3)
[2019-01-11] MEDS: FUROSEMIDE 40 MG/4 ML VIAL IV SCH ×2 (08:51→15:43)
[2019-01-11] MEDS: oxyCODONE/ACETAMINOPHEN 5-325 MG TABLET PO SCH ×2 (08:51→21:35)
[2019-01-11] MEDS: ATORVASTATIN 40 MG TABLET PO SCH (08:52)
[2019-01-11] MEDS: busPIRone 5 MG TABLET PO SCH ×2 (08:52→21:34)
[2019-01-11] MEDS: NEBIVOLOL 10 MG TABLET PO SCH (08:52)
[2019-01-11] MEDS: CYANOCOBALAMIN 500 MCG TABLET PO SCH (08:53)
[2019-01-11] MEDS: CLOPIDOGREL 75 MG TABLET PO SCH (08:53)
[2019-01-11] MEDS: MAGNESIUM GLUCONATE 500 MG TABLET PO SCH (08:53)
[2019-01-11] MEDS: CHOLECALCIFEROL 5,000 UNIT TABLET PO SCH (08:53)
[2019-01-11] MEDS: THEOPHYLLINE ER 300 MG TABLET PO SCH ×2 (08:53→16:18)
[2019-01-11] MEDS: POLYETHYLENE GLYCOL POWDER 17 GM PACK PO SCH (08:54)
[2019-01-11] MEDS: FLUTICASONE 50 MCG NASAL SPRAY 16 GM BOTTLE BOTH NARES SCH ×2 (08:54→21:35)
[2019-01-11] MEDS: SPIRONOLACTONE 25 MG TABLET PO SCH ×2 (08:54→21:33)
[2019-01-11] MEDS: PANTOPRAZOLE 40 MG TABLET PO SCH (08:54)
[2019-01-11] MEDS: ASPIRIN EC 325 MG TABLET PO SCH (08:54)
[2019-01-11] MEDS: predniSONE 20 MG TABLET PO SCH (08:54)
[2019-01-11] MEDS: POTASSIUM CHLORIDE 20 MEQ TABLET PO SCH (08:54)
[2019-01-11] MEDS ORDERED: INSULIN GLARGINE 100 UNIT/ML SUBCUT SCH (09:00)
[2019-01-11] MEDS: POTASSIUM CHLORIDE 20 MEQ TABLET PO PRN ×4 (12:00→21:35)
[2019-01-11 16:37] LABS: ABG Base Excess 2.6 MMOL/L (-2.5-2.5); ABG HCO3 26.7 MMOL/L (20-26); ABG Oxygen Saturation 96.1 % (95-100); ABG PCO2 42.4 MM HG (35-48); ABG PH 7.419 (7.35-7.45); ABG PO2 80.8 MM HG (80-95); ABG TCO2 24.1 MMOL/L (23-27)
[2019-01-11] MEDS: FLUoxetine 20 MG CAPSULE PO SCH (21:35)
[2019-01-11] MEDS: MIRTAZAPINE 30 MG TABLET PO SCH (21:35)
[2019-01-12] MEDS: ALBUTEROL/IPRATROPIUM 3 ML NEB RESP TX SCH ×4 (01:34→20:03)
[2019-01-12] MEDS: ENOXAPARIN 40 MG/0.4 ML SYRINGE SUBCUT SCH (04:29)
[2019-01-12 05:04] LABS: Calcium 9.1 MG/DL (8.5-10.1); Osmolality,Calculated 289.3 MOS/KG (273-304); Potassium 3.7 MMOL/L (3.5-5.1)
[2019-01-12] MEDS: INSULIN REGULAR 100 UNIT/ML SUBCUT SCH ×4 (08:30→20:29)
[2019-01-12] MEDS: SPIRONOLACTONE 25 MG TABLET PO SCH ×2 (08:54→20:27)
[2019-01-12] MEDS: FLUTICASONE 50 MCG NASAL SPRAY 16 GM BOTTLE BOTH NARES SCH ×2 (08:54→20:29)
[2019-01-12] MEDS: NEBIVOLOL 10 MG TABLET PO SCH (08:54)
[2019-01-12] MEDS: FUROSEMIDE 40 MG/4 ML VIAL IV SCH ×2 (08:54→15:47)
[2019-01-12] MEDS: busPIRone 5 MG TABLET PO SCH ×2 (08:54→20:27)
[2019-01-12] MEDS: THEOPHYLLINE ER 300 MG TABLET PO SCH ×2 (08:54→16:46)
[2019-01-12] MEDS: POTASSIUM CHLORIDE 20 MEQ TABLET PO SCH (08:54)
[2019-01-12] MEDS: ASPIRIN EC 325 MG TABLET PO SCH (08:54)
[2019-01-12] MEDS: oxyCODONE/ACETAMINOPHEN 5-325 MG TABLET PO SCH ×2 (08:55→20:27)
[2019-01-12] MEDS: PANTOPRAZOLE 40 MG TABLET PO SCH (08:55)
[2019-01-12] MEDS: POLYETHYLENE GLYCOL POWDER 17 GM PACK PO SCH (08:55)
[2019-01-12] MEDS: MAGNESIUM GLUCONATE 500 MG TABLET PO SCH (08:55)
[2019-01-12] MEDS: ATORVASTATIN 40 MG TABLET PO SCH (08:55)
[2019-01-12] MEDS: predniSONE 20 MG TABLET PO SCH (08:55)
[2019-01-12] MEDS: CLOPIDOGREL 75 MG TABLET PO SCH (08:55)
[2019-01-12] MEDS: INSULIN GLARGINE 100 UNIT/ML SUBCUT SCH (08:55)
[2019-01-12] MEDS: CYANOCOBALAMIN 500 MCG TABLET PO SCH (08:56)
[2019-01-12] MEDS: CHOLECALCIFEROL 5,000 UNIT TABLET PO SCH (08:56)
[2019-01-12] MEDS: MIRTAZAPINE 30 MG TABLET PO SCH (20:28)
[2019-01-12] MEDS: FLUoxetine 20 MG CAPSULE PO SCH (20:28)
[2019-01-13] MEDS: ALBUTEROL/IPRATROPIUM 3 ML NEB RESP TX SCH ×2 (00:45→07:15)
[2019-01-13] MEDS: ENOXAPARIN 40 MG/0.4 ML SYRINGE SUBCUT SCH (02:02)
[2019-01-13] MEDS: POLYETHYLENE GLYCOL POWDER 17 GM PACK PO SCH (09:45)
[2019-01-13] MEDS: INSULIN GLARGINE 100 UNIT/ML SUBCUT SCH (09:46)
[2019-01-13] MEDS: INSULIN REGULAR 100 UNIT/ML SUBCUT SCH ×2 (09:46→12:28)
[2019-01-13] MEDS: THEOPHYLLINE ER 300 MG TABLET PO SCH (09:49)
[2019-01-13] MEDS: SPIRONOLACTONE 25 MG TABLET PO SCH (09:50)
[2019-01-13] MEDS: ASPIRIN EC 325 MG TABLET PO SCH (09:50)
[2019-01-13] MEDS: busPIRone 5 MG TABLET PO SCH (09:50)
[2019-01-13] MEDS: POTASSIUM CHLORIDE 20 MEQ TABLET PO SCH (09:51)
[2019-01-13] MEDS: FLUTICASONE 50 MCG NASAL SPRAY 16 GM BOTTLE BOTH NARES SCH (09:51)
[2019-01-13] MEDS: NEBIVOLOL 10 MG TABLET PO SCH (09:51)
[2019-01-13] MEDS: oxyCODONE/ACETAMINOPHEN 5-325 MG TABLET PO SCH (09:52)
[2019-01-13] MEDS: MAGNESIUM GLUCONATE 500 MG TABLET PO SCH (09:52)
[2019-01-13] MEDS: ATORVASTATIN 40 MG TABLET PO SCH (09:52)
[2019-01-13] MEDS: CLOPIDOGREL 75 MG TABLET PO SCH (09:53)
[2019-01-13] MEDS: CYANOCOBALAMIN 500 MCG TABLET PO SCH (09:54)
[2019-01-13] MEDS: CHOLECALCIFEROL 5,000 UNIT TABLET PO SCH (09:54)
[2019-01-13] MEDS: PANTOPRAZOLE 40 MG TABLET PO SCH (09:54)
[2019-01-13] MEDS: predniSONE 20 MG TABLET PO SCH (09:54)
[2019-01-13] MEDS: FUROSEMIDE 40 MG/4 ML VIAL IV SCH (09:54)
[2019-01-13 11:48] VITALS: BP 142/94
== END 2019-01-13 12:32 | disposition home health service (06) | DRG 291 ==
LOC: EDBD → EDUNIT# → N.ED 22:39 → N.EDINP 01-11 01:14 → N.3E 01-11 02:03
PROVIDERS: ADMIT Internal Medicine; ATTEND Internal Medicine

== ENCOUNTER 2019-04-11 12:53 | Inpatient (IN) ==
[2019-04-11] MEDS ORDERED: ONDANSETRON 4 MG/2 ML VIAL IV STA (13:13)
[2019-04-11] MEDS ORDERED: DICYCLOMINE 20 MG/2 ML AMP IM ONE (13:13)
[2019-04-11] MEDS ORDERED: METOCLOPRAMIDE 10 MG/2 ML VIAL IV STA (13:13)
[2019-04-11] MEDS ORDERED: LEVOFLOXACIN INJ 750 MG in PREMIX 1 EACH IV STA (14:02)
[2019-04-11 14:05] LABS: Basophils % 0.4 % (0.0-0.8); Eosinophils % 0.3 % (0.00-10.9); Hematocrit 39.9 VOL% (35.7-47.0); Immature Granulocytes % 0.6 %; Immature Granulocytes Absolute 0.06 #; Lymphocytes # 1.1 10*3/uL (1.4-4.0); Lymphocytes % 11.5 % (21.3-54.2); Mean Corpuscular HGB Conc 30.1 GM/DL (32-36); Mean Corpuscular Volume 81.4 FL (87-102); Monocytes % 8.5 % (1.7-12.7); Neutrophils % 78.7 % (38.7-73.9); Platelet Count 249 T/CUMM (130-400); Red Cell Distribution Width 15.1 % (9.3-17.3); White Blood Count 9.5 T/CUMM (4-12)
[2019-04-11 14:15] LABS: INR 0.9; Partial Thromboplastin Time 24.2 SECS (0-40)
[2019-04-11 14:16] LABS: Apearance,Urine CLEAR (Clear); Bilirubin,Urine Negative (Negative); Blood, Urine Moderate mg/dL (Negative); Glucose,Urine (UA) >=500 mg/dL (Negative); Hyaline Casts,Urine 1 /LPF (0-3); Ketones,Urine Negative (Negative); Mucus,Urine Occasional /LPF (Occasional); Nitrite,Urine Negative (Negative); Protein,Urine 30 MG/DL; RBC,Urine 90 /HPF (0-4); Squamous Epithelial Cell,Urine Occasional /HPF (0-10); Urine Color Yellow (Yellow); Urine Urobilinogen < 2.0 EU/DL (0.2-1.0); WBC,Urine 2 /HPF (0-6)
[2019-04-11 14:38] LABS: Alanine Aminotransferase 22 U/L (13-56); Albumin 3.5 G/DL (3.4-5.0); Alkaline Phosphatase 126 U/L (45-117); Amylase 26 U/L (25-115); Aspartate Amino Transferase 21 U/L (0-37); Blood Urea Nitrogen 16 MG/DL (7-18); Calcium 9.4 MG/DL (8.5-10.1); Glucose 248 MG/DL (74-106); Osmolality,Calculated 281.8 MOS/KG (273-304); Total Protein 6.8 G/DL (6.4-8.3); Troponin I 0.028 NG/ML (0.00-0.045)
[2019-04-11] MEDS ORDERED: GLUCAGON 1 MG VIAL IM PRN (15:29)
[2019-04-11] MEDS ORDERED: guaiFENesin/DM ER 600-30 MG TABLET PO PRN (15:29)
[2019-04-11] MEDS ORDERED: MAGNESIUM SULF RIDER 2 GM in PREMIX 1 EACH IV PRN (15:29)
[2019-04-11] MEDS ORDERED: ACETAMINOPHEN 325 MG TABLET PO PRN (15:29)
[2019-04-11] MEDS ORDERED: POTASSIUM CHLORIDE RIDER 10 MEQ in PREMIX 1 EACH IV PRN (15:29)
[2019-04-11] MEDS ORDERED: NICOTINE 21 MG/24 HR PATCH TRANSDERM PRN (15:29)
[2019-04-11] MEDS ORDERED: diphenhydrAMINE CAP 25 MG CAPSULE PO PRN (15:29)
[2019-04-11] MEDS ORDERED: PROMETHAZINE 25 MG/1 ML VIAL IM PRN (15:29)
[2019-04-11] MEDS ORDERED: DEXTROSE 50% 25 GM/50 ML VIAL IV PRN (15:29)
[2019-04-11] MEDS ORDERED: PROMETHAZINE 25 MG TABLET PO PRN (15:29)
[2019-04-11] MEDS ORDERED: MAGNESIUM SULF RIDER 4 GM in PREMIX 1 EACH IV PRN (15:29)
[2019-04-11] MEDS ORDERED: BISACODYL 5 MG TABLET PO PRN (15:29)
[2019-04-11] MEDS ORDERED: LEVOFLOXACIN INJ 500 MG in PREMIX 1 EACH IV SCH (15:30)
[2019-04-11] MEDS: SODIUM CHLORIDE 0.45% 1,000 ML IV SCH (16:48)
[2019-04-11] MEDS: ONDANSETRON 4 MG/2 ML VIAL IV PRN ×2 (16:48→21:36)
[2019-04-11] MEDS: INSULIN REGULAR 100 UNIT/ML SUBCUT SCH ×2 (16:48→21:27)
[2019-04-11] MEDS ORDERED: hydrALAZINE 20 MG/1 ML VIAL IV PRN (19:48)
[2019-04-11] MEDS: DOCUSATE SODIUM 100 MG CAPSULE PO SCH (21:34)
[2019-04-12 05:29] LABS: Basophils # 0.1 10*3/uL (0.0-0.2); Basophils % 0.6 % (0.0-0.8); Eosinophils # 0.1 10*3/uL (0.0-0.87); Eosinophils % 1.1 % (0.00-10.9); Hematocrit 36.1 VOL% (35.7-47.0); Hemoglobin 11.1 GM/DL (12.0-16.0); Immature Granulocytes % 0.7 %; Immature Granulocytes Absolute 0.06 #; Lymphocytes # 1.1 10*3/uL (1.4-4.0); Lymphocytes % 13.1 % (21.3-54.2); Mean Corpuscular HGB Conc 30.7 GM/DL (32-36); Mean Corpuscular Volume 81.3 FL (87-102); Mean Platelet Volume 10.3 FL (9.6-12.0); Monocytes % 10.3 % (1.7-12.7); Neutrophils % 74.2 % (38.7-73.9); Platelet Count 221 T/CUMM (130-400); Red Blood Count 4.44 MC/CUMM (3.8-5.5); Red Cell Distribution Width 15.3 % (9.3-17.3); White Blood Count 8.4 T/CUMM (4-12)
[2019-04-12] MEDS: ONDANSETRON 4 MG/2 ML VIAL IV PRN (05:47)
[2019-04-12 06:07] LABS: Bilirubin,Total 1.5 MG/DL (0.2-1.0); Calcium 9.3 MG/DL (8.5-10.1); Osmolality,Calculated 281.5 MOS/KG (273-304); Risk Ratio 2.33; Thyroid Stimulating Hormone 0.559 uIU/ml (0.358-3.74); VLDL CHOLESTEROL 22.2 MG/DL
[2019-04-12] MEDS: INSULIN REGULAR 100 UNIT/ML SUBCUT SCH ×4 (07:53→21:06)
[2019-04-12] MEDS: DOCUSATE SODIUM 100 MG CAPSULE PO SCH ×2 (08:05→21:07)
[2019-04-12] MEDS ORDERED: FUROSEMIDE 40 MG/4 ML VIAL IV SCH (09:00)
[2019-04-12] MEDS: SODIUM CHLORIDE 0.45% 1,000 ML IV SCH (12:56)
[2019-04-12] MEDS ORDERED: NITROGLYCERIN SL 0.4 MG TABLET SL PRN (14:44)
[2019-04-12] MEDS: LEVOFLOXACIN INJ 500 MG in PREMIX 1 EACH IV SCH (15:03)
[2019-04-12] MEDS ORDERED: ALBUTEROL/IPRATROPIUM 3 ML NEB RESP TX ONE (17:29)
[2019-04-12] MEDS ORDERED: SEVOFLURANE 1 UNIT/15 MINUTE INH ONE (18:12)
[2019-04-12] MEDS ORDERED: PROPOFOL 200 MG/20 ML VIAL IV ONE (18:12)
[2019-04-12] MEDS ORDERED: ETOMIDATE 40 MG/20 ML VIAL IV ONE (18:12)
[2019-04-12] MEDS ORDERED: fentaNYL 100 MCG/2 ML VIAL ONE (18:12)
[2019-04-12] MEDS ORDERED: HYDROCORTISONE 100 MG VIAL ONE (18:12)
[2019-04-12] MEDS ORDERED: ONDANSETRON 4 MG/2 ML VIAL ONE (18:12)
[2019-04-12] MEDS ORDERED: ROCURONIUM 100 MG/10 ML VIAL IV ONE (18:13)
[2019-04-12] MEDS ORDERED: PHENYLEPHRINE 1 MG/10 ML SYRINGE IV ONE (18:13)
[2019-04-12] MEDS ORDERED: SUCCINYLCHOLINE 200 MG/10 ML VIAL ONE (18:13)
[2019-04-12] MEDS: ATORVASTATIN 40 MG TABLET PO SCH (21:06)
[2019-04-12] MEDS: OXYBUTYNIN XL 15 MG TABLET PO SCH (21:06)
[2019-04-12] MEDS: SPIRONOLACTONE 25 MG TABLET PO SCH (21:07)
[2019-04-13] MEDS: SODIUM CHLORIDE 0.45% 1,000 ML IV SCH (05:33)
[2019-04-13 05:44] LABS: Basophils % 0.4 % (0.0-0.8); Eosinophils # 0.1 10*3/uL (0.0-0.87); Eosinophils % 0.6 % (0.00-10.9); Hematocrit 34.2 VOL% (35.7-47.0); Hemoglobin 10.4 GM/DL (12.0-16.0); Immature Granulocytes % 0.4 %; Immature Granulocytes Absolute 0.03 #; Lymphocytes # 1.4 10*3/uL (1.4-4.0); Lymphocytes % 17.5 % (21.3-54.2); Mean Corpuscular HGB Conc 30.4 GM/DL (32-36); Mean Corpuscular Volume 81.6 FL (87-102); Mean Platelet Volume 10.6 FL (9.6-12.0); Monocytes % 10.5 % (1.7-12.7); Neutrophils % 70.6 % (38.7-73.9); Platelet Count 221 T/CUMM (130-400); Red Blood Count 4.19 MC/CUMM (3.8-5.5); Red Cell Distribution Width 15.5 % (9.3-17.3); White Blood Count 7.8 T/CUMM (4-12)
[2019-04-13 06:05] LABS: Albumin 2.6 G/DL (3.4-5.0); Bilirubin,Total 1.4 MG/DL (0.2-1.0); Calcium 9.1 MG/DL (8.5-10.1); Osmolality,Calculated 284.5 MOS/KG (273-304); Total Protein 5.6 G/DL (6.4-8.3)
[2019-04-13] MEDS: INSULIN REGULAR 100 UNIT/ML SUBCUT SCH ×4 (09:05→21:34)
[2019-04-13] MEDS: SPIRONOLACTONE 25 MG TABLET PO SCH ×2 (09:06→21:34)
[2019-04-13] MEDS: NEBIVOLOL 10 MG TABLET PO SCH (09:06)
[2019-04-13] MEDS: FUROSEMIDE 80 MG TABLET PO SCH (09:06)
[2019-04-13] MEDS: DOCUSATE SODIUM 100 MG CAPSULE PO SCH ×2 (09:06→21:34)
[2019-04-13] MEDS: LEVOFLOXACIN INJ 500 MG in PREMIX 1 EACH IV SCH (15:27)
[2019-04-13] MEDS ORDERED: PHENOL 1.4% THROAT SPRAY 177 ML BOTTLE PO PRN (20:10)
[2019-04-13] MEDS: ATORVASTATIN 40 MG TABLET PO SCH (21:33)
[2019-04-13] MEDS: OXYBUTYNIN XL 15 MG TABLET PO SCH (21:33)
[2019-04-13] MEDS: traZODone 50 MG TABLET PO PRN (23:52)
[2019-04-14] MEDS: SODIUM CHLORIDE 0.45% 1,000 ML IV SCH ×2 (00:42→21:13)
[2019-04-14 05:20] LABS: Basophils # 0.1 10*3/uL (0.0-0.2); Basophils % 0.9 % (0.0-0.8); Eosinophils # 0.2 10*3/uL (0.0-0.87); Eosinophils % 4.2 % (0.00-10.9); Hematocrit 36.1 VOL% (35.7-47.0); Hemoglobin 10.9 GM/DL (12.0-16.0); Immature Granulocytes % 0.5 %; Immature Granulocytes Absolute 0.03 #; Lymphocytes # 1.8 10*3/uL (1.4-4.0); Mean Corpuscular HGB Conc 30.2 GM/DL (32-36); Mean Corpuscular Volume 82.2 FL (87-102); Mean Platelet Volume 10.5 FL (9.6-12.0); Monocytes % 10.2 % (1.7-12.7); Neutrophils % 53.2 % (38.7-73.9); Platelet Count 221 T/CUMM (130-400); Red Blood Count 4.39 MC/CUMM (3.8-5.5); Red Cell Distribution Width 15.5 % (9.3-17.3); White Blood Count 5.7 T/CUMM (4-12)
[2019-04-14 05:40] LABS: Albumin 2.8 G/DL (3.4-5.0); Bilirubin,Total 1.5 MG/DL (0.2-1.0); Calcium 9.4 MG/DL (8.5-10.1); Osmolality,Calculated 285.4 MOS/KG (273-304); Total Protein 5.8 G/DL (6.4-8.3)
[2019-04-14] MEDS: INSULIN REGULAR 100 UNIT/ML SUBCUT SCH ×4 (08:38→21:07)
[2019-04-14] MEDS: NEBIVOLOL 10 MG TABLET PO SCH (08:58)
[2019-04-14] MEDS: SPIRONOLACTONE 25 MG TABLET PO SCH ×2 (08:58→21:07)
[2019-04-14] MEDS: FUROSEMIDE 80 MG TABLET PO SCH (08:58)
[2019-04-14] MEDS: DOCUSATE SODIUM 100 MG CAPSULE PO SCH ×2 (08:59→21:07)
[2019-04-14] MEDS: ONDANSETRON 4 MG/2 ML VIAL IV PRN ×2 (10:59→17:24)
[2019-04-14] MEDS ORDERED: POTASSIUM CHLORIDE 20 MEQ TABLET PO ONE (11:00)
[2019-04-14] MEDS: LEVOFLOXACIN INJ 500 MG in PREMIX 1 EACH IV SCH (14:12)
[2019-04-14] MEDS: OXYBUTYNIN XL 15 MG TABLET PO SCH (21:07)
[2019-04-14] MEDS: ATORVASTATIN 40 MG TABLET PO SCH (21:07)
[2019-04-14] MEDS: traZODone 50 MG TABLET PO PRN (21:09)
[2019-04-15 05:05] LABS: Basophils # 0.1 10*3/uL (0.0-0.2); Basophils % 0.9 % (0.0-0.8); Eosinophils # 0.2 10*3/uL (0.0-0.87); Eosinophils % 4.2 % (0.00-10.9); Hematocrit 35.9 VOL% (35.7-47.0); Hemoglobin 11.2 GM/DL (12.0-16.0); Immature Granulocytes % 0.5 %; Immature Granulocytes Absolute 0.03 #; Lymphocytes # 1.6 10*3/uL (1.4-4.0); Lymphocytes % 28.2 % (21.3-54.2); Mean Corpuscular HGB Conc 31.2 GM/DL (32-36); Mean Corpuscular Volume 80.7 FL (87-102); Mean Platelet Volume 10.2 FL (9.6-12.0); Monocytes % 10.4 % (1.7-12.7); Neutrophils % 55.8 % (38.7-73.9); Platelet Count 245 T/CUMM (130-400); Red Blood Count 4.45 MC/CUMM (3.8-5.5); Red Cell Distribution Width 15.3 % (9.3-17.3); White Blood Count 5.5 T/CUMM (4-12)
[2019-04-15 05:23] LABS: Calcium 9.8 MG/DL (8.5-10.1); Osmolality,Calculated 284.5 MOS/KG (273-304)
[2019-04-15] MEDS: INSULIN REGULAR 100 UNIT/ML SUBCUT SCH ×4 (08:28→20:59)
[2019-04-15] MEDS: FUROSEMIDE 80 MG TABLET PO SCH (08:28)
[2019-04-15] MEDS: NEBIVOLOL 10 MG TABLET PO SCH (08:28)
[2019-04-15] MEDS: SPIRONOLACTONE 25 MG TABLET PO SCH ×2 (08:28→20:59)
[2019-04-15] MEDS: DOCUSATE SODIUM 100 MG CAPSULE PO SCH ×2 (08:28→20:59)
[2019-04-15] MEDS ORDERED: MAGNESIUM CITRATE 300 ML BOTTLE PO ONE (12:21)
[2019-04-15] MEDS: POLYETHYLENE GLYCOL POWDER 17 GM PACK PO SCH (12:40)
[2019-04-15] MEDS: LEVOFLOXACIN INJ 500 MG in PREMIX 1 EACH IV SCH (13:51)
[2019-04-15] MEDS: SODIUM CHLORIDE 0.45% 1,000 ML IV SCH (17:36)
[2019-04-15] MEDS: traZODone 50 MG TABLET PO PRN (20:59)
[2019-04-15] MEDS: ATORVASTATIN 40 MG TABLET PO SCH (20:59)
[2019-04-15] MEDS: OXYBUTYNIN XL 15 MG TABLET PO SCH (20:59)
[2019-04-16] MEDS: POLYETHYLENE GLYCOL POWDER 17 GM PACK PO SCH (08:06)
[2019-04-16] MEDS: NEBIVOLOL 10 MG TABLET PO SCH (08:06)
[2019-04-16] MEDS: INSULIN REGULAR 100 UNIT/ML SUBCUT SCH ×4 (08:07→21:21)
[2019-04-16] MEDS: FUROSEMIDE 80 MG TABLET PO SCH (08:07)
[2019-04-16] MEDS: SPIRONOLACTONE 25 MG TABLET PO SCH ×2 (08:07→21:21)
[2019-04-16] MEDS: DOCUSATE SODIUM 100 MG CAPSULE PO SCH ×2 (08:07→21:21)
[2019-04-16] MEDS: LEVOFLOXACIN 500 MG TABLET PO SCH (11:37)
[2019-04-16] MEDS: SODIUM CHLORIDE 0.45% 1,000 ML IV SCH (12:38)
[2019-04-16] MEDS ORDERED: SODIUM PHOSPHATE ENEMA 133 ML BOTTLE RECTAL ONE (16:26)
[2019-04-16] MEDS: OXYBUTYNIN XL 15 MG TABLET PO SCH (21:21)
[2019-04-16] MEDS: traZODone 50 MG TABLET PO PRN (21:21)
[2019-04-16] MEDS: ATORVASTATIN 40 MG TABLET PO SCH (21:21)
[2019-04-17] MEDS: FUROSEMIDE 80 MG TABLET PO SCH (08:09)
[2019-04-17] MEDS: LEVOFLOXACIN 500 MG TABLET PO SCH ×2 (08:09→11:11)
[2019-04-17] MEDS: DOCUSATE SODIUM 100 MG CAPSULE PO SCH ×2 (08:09→22:02)
[2019-04-17] MEDS: SPIRONOLACTONE 25 MG TABLET PO SCH ×2 (08:09→22:01)
[2019-04-17] MEDS: POLYETHYLENE GLYCOL POWDER 17 GM PACK PO SCH (08:10)
[2019-04-17] MEDS: NEBIVOLOL 10 MG TABLET PO SCH (08:10)
[2019-04-17] MEDS: INSULIN REGULAR 100 UNIT/ML SUBCUT SCH ×4 (08:10→22:02)
[2019-04-17] MEDS: SODIUM CHLORIDE 0.45% 1,000 ML IV SCH (08:19)
[2019-04-17] MEDS ORDERED: ALBUTEROL/IPRATROPIUM 3 ML NEB RESP TX ONE (10:42)
[2019-04-17] MEDS ORDERED: ALBUTEROL/IPRATROPIUM 3 ML NEB RESP TX PRN (10:42)
[2019-04-17] MEDS: ONDANSETRON 4 MG/2 ML VIAL IV PRN ×2 (11:42→22:03)
[2019-04-17] MEDS ORDERED: FUROSEMIDE 40 MG TABLET PO SCH (16:30)
[2019-04-17] MEDS: METOCLOPRAMIDE 10 MG/10 ML UDCUP PO SCH (17:13)
[2019-04-17] MEDS ORDERED: INSULIN GLARGINE 100 UNIT/ML SUBCUT SCH (21:00)
[2019-04-17] MEDS: traZODone 50 MG TABLET PO PRN (22:01)
[2019-04-17] MEDS: OXYBUTYNIN XL 15 MG TABLET PO SCH (22:01)
[2019-04-17] MEDS: ATORVASTATIN 40 MG TABLET PO SCH (22:02)
[2019-04-18] MEDS: SPIRONOLACTONE 25 MG TABLET PO SCH (08:48)
[2019-04-18] MEDS: DOCUSATE SODIUM 100 MG CAPSULE PO SCH (08:48)
[2019-04-18] MEDS: SODIUM CHLORIDE 0.45% 1,000 ML IV SCH (08:49)
[2019-04-18] MEDS: METOCLOPRAMIDE 10 MG/10 ML UDCUP PO SCH ×3 (08:49→15:50)
[2019-04-18] MEDS: NEBIVOLOL 10 MG TABLET PO SCH (08:49)
[2019-04-18] MEDS: INSULIN REGULAR 100 UNIT/ML SUBCUT SCH ×3 (08:49→15:50)
[2019-04-18] MEDS: POLYETHYLENE GLYCOL POWDER 17 GM PACK PO SCH (08:50)
[2019-04-18] MEDS: LEVOFLOXACIN 500 MG TABLET PO SCH (11:34)
[2019-04-18 12:01] VITALS: BP 138/79
== END 2019-04-18 16:19 | disposition swing bed (61) | DRG 660 ==
LOC: EDUNIT# → EDBD → N.EDINP 12:53 → N.ED 12:53 → SUATTDRO 15:29 → N.5E 16:15
PROVIDERS: ADMIT Hospitalist; ATTEND Internal Medicine

== ENCOUNTER 2019-08-23 14:34 | Inpatient (IN) ==
[2019-08-23] MEDS: methylPREDNISolone SOD SUC 40 MG/1 ML VIAL IV SCH ×2 (14:49→14:50)
[2019-08-23] MEDS ORDERED: ONDANSETRON 4 MG/2 ML VIAL IV STA (14:56)
[2019-08-23] MEDS ORDERED: cefTRIAXone 1,000 MG in SODIUM CHLORIDE 0.9% 100 ML IV STA (14:56)
[2019-08-23] MEDS ORDERED: methylPREDNISolone SOD SUC 125 MG/2 ML VIAL IV STA (14:56)
[2019-08-23] MEDS ORDERED: AZITHROMYCIN INJ 500 MG in SODIUM CHLORIDE 0.9% 250 ML IV STA (14:56)
[2019-08-23] MEDS ORDERED: ALBUTEROL NEB SOLN 5 MG/ML 20 ML/BOTTLE RESP TX SCH (15:00)
[2019-08-23 15:12] LABS: Basophils % 0.5 % (0.0-0.8); Eosinophils # 0.1 10*3/uL (0.0-0.87); Eosinophils % 1.3 % (0.00-10.9); Hematocrit 33.9 VOL% (35.7-47.0); Hemoglobin 10.6 GM/DL (12.0-16.0); Immature Granulocytes % 0.4 %; Immature Granulocytes Absolute 0.03 #; Lymphocytes % 13.2 % (21.3-54.2); Mean Corpuscular HGB Conc 31.3 GM/DL (32-36); Mean Corpuscular Volume 81.1 FL (87-102); Mean Platelet Volume 9.7 FL (9.6-12.0); Neutrophils % 76.6 % (38.7-73.9); Platelet Count 245 T/CUMM (130-400); Red Blood Count 4.18 MC/CUMM (3.8-5.5); Red Cell Distribution Width 14.5 % (9.3-17.3); White Blood Count 7.9 T/CUMM (4-12)
[2019-08-23] MEDS ORDERED: FUROSEMIDE 40 MG/4 ML VIAL IV STA (15:16)
[2019-08-23 15:32] LABS: Alanine Aminotransferase 10 U/L (13-56); Albumin 3.6 G/DL (3.4-5.0); Alkaline Phosphatase 107 U/L (45-117); Aspartate Amino Transferase 18 U/L (0-37); Blood Urea Nitrogen 14 MG/DL (7-18); Estimated Glom Filtration Rate 74 ML/MIN; Glucose 126 MG/DL (74-106); Osmolality,Calculated 279.5 MOS/KG (273-304); Total Protein 8.1 G/DL (6.4-8.3); Troponin I < 0.015 NG/ML (0.00-0.045)
[2019-08-23 15:49] LABS: PT Patient Result 10.6 SECS (9.6-12.2); Partial Thromboplastin Time 23.6 SECS (20.8-36.0)
[2019-08-23] MEDS ORDERED: KETOROLAC 30 MG/1 ML VIAL IV STA (16:48)
[2019-08-23 16:51] LABS: Barbiturates Screen,Urine Negative (Negative); Benzodiazepines Screen,Urine Negative (Negative); Cannabinoid Screen,Urine Negative (Negative); Opiate Screen,Urine Negative (Negative); Phencyclidine Screen,Urine Negative (Negative)
[2019-08-23 16:53] LABS: Apearance,Urine CLEAR (Clear); Bacteria,Urine Many /HPF (Few); Bilirubin,Urine Negative (Negative); Blood, Urine Moderate mg/dL (Negative); Glucose,Urine (UA) Negative (Negative); Ketones,Urine Negative (Negative); Nitrite,Urine Positive (Negative); Protein,Urine >=500 MG/DL; RBC,Urine 24 /HPF (0-4); Urine Color Yellow (Yellow); Urine Specific Gravity 1.012 (1.001-1.035); Urine Urobilinogen < 2.0 EU/DL (0.2-1.0); WBC,Urine 41 /HPF (0-6)
[2019-08-23] MEDS ORDERED: DOCUSATE SODIUM 100 MG CAPSULE PO PRN (17:17)
[2019-08-23] MEDS ORDERED: DEXTROSE 50% 25 GM/50 ML VIAL IV PRN (17:17)
[2019-08-23] MEDS ORDERED: ONDANSETRON 4 MG/2 ML VIAL IV PRN (17:17)
[2019-08-23] MEDS ORDERED: GLUCAGON 1 MG VIAL IM PRN (17:17)
[2019-08-23] MEDS ORDERED: LACTULOSE 20 GM/30 ML UDCUP PO PRN (17:17)
[2019-08-23] MEDS ORDERED: NICOTINE 21 MG/24 HR PATCH TRANSDERM PRN (17:17)
[2019-08-23] MEDS: ALBUTEROL/IPRATROPIUM 3 ML NEB RESP TX SCH (21:03)
[2019-08-23] MEDS: SPIRONOLACTONE 25 MG TABLET PO SCH (22:03)
[2019-08-23] MEDS: INSULIN LISPRO 100 UNIT/ML SUBCUT SCH (22:04)
[2019-08-23] MEDS: ATORVASTATIN 40 MG TABLET PO SCH (22:04)
[2019-08-23] MEDS: GABAPENTIN 600 MG TABLET PO SCH (22:04)
[2019-08-23] MEDS: ENOXAPARIN 40 MG/0.4 ML SYRINGE SUBCUT SCH (22:04)
[2019-08-23] MEDS: INSULIN GLARGINE 100 UNIT/ML SUBCUT SCH (22:52)
[2019-08-24] MEDS: ALBUTEROL/IPRATROPIUM 3 ML NEB RESP TX SCH ×4 (00:18→20:27)
[2019-08-24] MEDS: methylPREDNISolone SOD SUC 40 MG/1 ML VIAL IV SCH ×3 (02:07→16:27)
[2019-08-24 04:32] LABS: Basophils % 0.1 % (0.0-0.8); Hematocrit 34.2 VOL% (35.7-47.0); Hemoglobin 10.8 GM/DL (12.0-16.0); Immature Granulocytes % 0.6 %; Immature Granulocytes Absolute 0.05 #; Lymphocytes # 0.3 10*3/uL (1.4-4.0); Lymphocytes % 3.6 % (21.3-54.2); Mean Corpuscular HGB Conc 31.6 GM/DL (32-36); Mean Corpuscular Volume 80.5 FL (87-102); Mean Platelet Volume 10.2 FL (9.6-12.0); Monocytes % 1.4 % (1.7-12.7); Neutrophils % 94.3 % (38.7-73.9); Platelet Count 219 T/CUMM (130-400); Red Blood Count 4.25 MC/CUMM (3.8-5.5); Red Cell Distribution Width 14.4 % (9.3-17.3); White Blood Count 8.1 T/CUMM (4-12)
[2019-08-24 05:03] LABS: Calcium 9.9 MG/DL (8.5-10.1); Osmolality,Calculated 285.8 MOS/KG (273-304); Risk Ratio 1.95; Thyroid Stimulating Hormone 0.303 uIU/ml (0.358-3.74)
[2019-08-24 06:11] LABS: Lymphocytes 5 % (20-55); Segmented Neutrophils 95 % (50-85); Total Cells Counted 100
[2019-08-24 06:12] LABS: Platelet Estimate Normal
[2019-08-24] MEDS ORDERED: MAGNESIUM SULF RIDER 2 GM in PREMIX 1 EACH IV PRN (07:10)
[2019-08-24] MEDS ORDERED: MAGNESIUM SULF RIDER 4 GM in PREMIX 1 EACH IV PRN (07:10)
[2019-08-24] MEDS: FUROSEMIDE 40 MG TABLET PO SCH (09:44)
[2019-08-24] MEDS: GABAPENTIN 600 MG TABLET PO SCH ×4 (09:44→21:19)
[2019-08-24] MEDS: PANTOPRAZOLE 40 MG TABLET PO SCH (09:44)
[2019-08-24] MEDS: CLOPIDOGREL 75 MG TABLET PO SCH (09:44)
[2019-08-24] MEDS: SPIRONOLACTONE 25 MG TABLET PO SCH ×2 (09:44→21:20)
[2019-08-24] MEDS: INSULIN LISPRO 100 UNIT/ML SUBCUT SCH ×4 (09:45→21:21)
[2019-08-24] MEDS: INSULIN GLARGINE 100 UNIT/ML SUBCUT SCH ×2 (09:46→21:20)
[2019-08-24] MEDS ORDERED: PNEUMOCOCCAL VACCINE (13 VALENT) 0.5 ML SYRINGE IM ONE (11:00)
[2019-08-24] MEDS ORDERED: INFLUENZA VIRUS VACCINE 0.5 ML SYRINGE IM ONE (11:00)
[2019-08-24] MEDS ORDERED: AZITHROMYCIN INJ 500 MG in SODIUM CHLORIDE 0.9% 250 ML IV SCH (16:00)
[2019-08-24] MEDS: cefTRIAXone 1,000 MG in SYRINGE 1 EACH IV SCH (16:29)
[2019-08-24] MEDS: BUDESONIDE 0.5 MG/2 ML NEB RESP TX SCH (20:27)
[2019-08-24] MEDS: ATORVASTATIN 40 MG TABLET PO SCH (21:20)
[2019-08-24] MEDS: ENOXAPARIN 40 MG/0.4 ML SYRINGE SUBCUT SCH (21:21)
[2019-08-24] MEDS: MORPHINE 4 MG/1 ML VIAL IV PRN (21:23)
[2019-08-25] MEDS: methylPREDNISolone SOD SUC 40 MG/1 ML VIAL IV SCH ×3 (00:45→15:24)
[2019-08-25] MEDS: ALBUTEROL/IPRATROPIUM 3 ML NEB RESP TX SCH ×5 (00:52→19:05)
[2019-08-25] MEDS: MORPHINE 4 MG/1 ML VIAL IV PRN ×3 (02:11→15:23)
[2019-08-25 06:05] LABS: Basophils % 0.2 % (0.0-0.8); Hematocrit 35.2 VOL% (35.7-47.0); Hemoglobin 10.9 GM/DL (12.0-16.0); Immature Granulocytes % 1.3 %; Immature Granulocytes Absolute 0.15 #; Lymphocytes # 0.4 10*3/uL (1.4-4.0); Lymphocytes % 3.6 % (21.3-54.2); Mean Corpuscular Volume 81.9 FL (87-102); Monocytes % 2.4 % (1.7-12.7); Neutrophils % 92.5 % (38.7-73.9); Platelet Count 232 T/CUMM (130-400); Red Cell Distribution Width 14.7 % (9.3-17.3); White Blood Count 11.8 T/CUMM (4-12)
[2019-08-25 06:31] LABS: Calcium 9.6 MG/DL (8.5-10.1); Osmolality,Calculated 292.8 MOS/KG (273-304)
[2019-08-25 06:53] LABS: Hypochromasia 1+; Lymphocytes 3 % (20-55); Ovalocytes Slight; Platelet Estimate Adequate; Segmented Neutrophils 94 % (50-85); Total Cells Counted 100
[2019-08-25] MEDS: BUDESONIDE 0.5 MG/2 ML NEB RESP TX SCH ×2 (07:08→19:05)
[2019-08-25] MEDS: INSULIN LISPRO 100 UNIT/ML SUBCUT SCH ×4 (09:28→21:56)
[2019-08-25] MEDS: AZITHROMYCIN 250 MG TABLET PO SCH (09:29)
[2019-08-25] MEDS: GABAPENTIN 600 MG TABLET PO SCH ×4 (09:29→21:58)
[2019-08-25] MEDS: FUROSEMIDE 40 MG TABLET PO SCH (09:29)
[2019-08-25] MEDS: INSULIN GLARGINE 100 UNIT/ML SUBCUT SCH ×2 (09:30→21:54)
[2019-08-25] MEDS: SPIRONOLACTONE 25 MG TABLET PO SCH ×2 (09:30→22:02)
[2019-08-25] MEDS: PANTOPRAZOLE 40 MG TABLET PO SCH (09:30)
[2019-08-25] MEDS: CLOPIDOGREL 75 MG TABLET PO SCH (09:30)
[2019-08-25] MEDS: cefTRIAXone 1,000 MG in SYRINGE 1 EACH IV SCH (15:25)
[2019-08-25] MEDS: POLYETHYLENE GLYCOL POWDER 17 GM PACK PO SCH (19:15)
[2019-08-25] MEDS: ATORVASTATIN 40 MG TABLET PO SCH (21:58)
[2019-08-25] MEDS: ENOXAPARIN 40 MG/0.4 ML SYRINGE SUBCUT SCH (22:01)
[2019-08-26] MEDS: methylPREDNISolone SOD SUC 40 MG/1 ML VIAL IV SCH ×3 (00:45→16:33)
[2019-08-26] MEDS: ALBUTEROL/IPRATROPIUM 3 ML NEB RESP TX SCH ×7 (00:58→23:58)
[2019-08-26] MEDS: MORPHINE 4 MG/1 ML VIAL IV PRN ×4 (01:37→22:29)
[2019-08-26] MEDS: BUDESONIDE 0.5 MG/2 ML NEB RESP TX SCH ×2 (07:07→19:16)
[2019-08-26 08:54] LABS: Basophils % 0.1 % (0.0-0.8); Hematocrit 37.4 VOL% (35.7-47.0); Hemoglobin 11.5 GM/DL (12.0-16.0); Immature Granulocytes % 1.8 %; Immature Granulocytes Absolute 0.19 #; Lymphocytes # 0.7 10*3/uL (1.4-4.0); Lymphocytes % 6.4 % (21.3-54.2); Mean Corpuscular HGB Conc 30.7 GM/DL (32-36); Mean Corpuscular Volume 82.9 FL (87-102); Mean Platelet Volume 9.9 FL (9.6-12.0); Monocytes % 2.8 % (1.7-12.7); Neutrophils % 88.9 % (38.7-73.9); Platelet Count 255 T/CUMM (130-400); Red Blood Count 4.51 MC/CUMM (3.8-5.5); Red Cell Distribution Width 14.6 % (9.3-17.3); White Blood Count 10.4 T/CUMM (4-12)
[2019-08-26 09:29] LABS: Osmolality,Calculated 294.7 MOS/KG (273-304)
[2019-08-26] MEDS: INSULIN LISPRO 100 UNIT/ML SUBCUT SCH ×4 (09:40→22:25)
[2019-08-26] MEDS: INSULIN GLARGINE 100 UNIT/ML SUBCUT SCH ×2 (09:40→22:25)
[2019-08-26] MEDS: AZITHROMYCIN 250 MG TABLET PO SCH (09:41)
[2019-08-26] MEDS: PANTOPRAZOLE 40 MG TABLET PO SCH (09:41)
[2019-08-26] MEDS: GABAPENTIN 600 MG TABLET PO SCH ×3 (09:41→22:23)
[2019-08-26] MEDS: NEBIVOLOL 10 MG TABLET PO SCH (09:41)
[2019-08-26] MEDS: FUROSEMIDE 40 MG TABLET PO SCH (09:41)
[2019-08-26] MEDS: SPIRONOLACTONE 25 MG TABLET PO SCH ×2 (09:41→22:24)
[2019-08-26] MEDS: POLYETHYLENE GLYCOL POWDER 17 GM PACK PO SCH (09:41)
[2019-08-26] MEDS: CLOPIDOGREL 75 MG TABLET PO SCH (09:41)
[2019-08-26] MEDS: cefTRIAXone 1,000 MG in SYRINGE 1 EACH IV SCH (16:32)
[2019-08-26] MEDS: ENOXAPARIN 40 MG/0.4 ML SYRINGE SUBCUT SCH (22:24)
[2019-08-26] MEDS: ATORVASTATIN 40 MG TABLET PO SCH (22:29)
[2019-08-27] MEDS: methylPREDNISolone SOD SUC 40 MG/1 ML VIAL IV SCH ×2 (00:48→09:05)
[2019-08-27] MEDS: ALBUTEROL/IPRATROPIUM 3 ML NEB RESP TX SCH ×4 (03:11→14:32)
[2019-08-27] MEDS: BUDESONIDE 0.5 MG/2 ML NEB RESP TX SCH (07:19)
[2019-08-27 08:16] LABS: Basophils % 0.1 % (0.0-0.8); Hemoglobin 11.3 GM/DL (12.0-16.0); Immature Granulocytes % 1.5 %; Immature Granulocytes Absolute 0.15 #; Lymphocytes # 1.2 10*3/uL (1.4-4.0); Lymphocytes % 11.8 % (21.3-54.2); Mean Corpuscular HGB Conc 31.4 GM/DL (32-36); Mean Corpuscular Volume 81.4 FL (87-102); Monocytes % 7.8 % (1.7-12.7); Neutrophils % 78.8 % (38.7-73.9); Platelet Count 258 T/CUMM (130-400); Red Blood Count 4.42 MC/CUMM (3.8-5.5); Red Cell Distribution Width 14.5 % (9.3-17.3); White Blood Count 9.8 T/CUMM (4-12)
[2019-08-27] MEDS: GABAPENTIN 600 MG TABLET PO SCH ×3 (08:17→12:23)
[2019-08-27 08:43] LABS: Calcium 9.8 MG/DL (8.5-10.1); Osmolality,Calculated 288.5 MOS/KG (273-304)
[2019-08-27] MEDS ORDERED: amLODIPine 10 MG TABLET PO SCH (09:00)
[2019-08-27] MEDS: PANTOPRAZOLE 40 MG TABLET PO SCH (09:00)
[2019-08-27] MEDS: SPIRONOLACTONE 25 MG TABLET PO SCH (09:00)
[2019-08-27] MEDS: FUROSEMIDE 40 MG TABLET PO SCH (09:00)
[2019-08-27] MEDS: AZITHROMYCIN 250 MG TABLET PO SCH (09:00)
[2019-08-27] MEDS: CLOPIDOGREL 75 MG TABLET PO SCH (09:00)
[2019-08-27] MEDS: NEBIVOLOL 10 MG TABLET PO SCH (09:00)
[2019-08-27] MEDS: INSULIN GLARGINE 100 UNIT/ML SUBCUT SCH (09:01)
[2019-08-27] MEDS: INSULIN LISPRO 100 UNIT/ML SUBCUT SCH ×2 (09:01→11:51)
[2019-08-27] MEDS: POLYETHYLENE GLYCOL POWDER 17 GM PACK PO SCH (10:47)
[2019-08-27] MEDS: MORPHINE 4 MG/1 ML VIAL IV PRN (10:52)
[2019-08-27] MEDS ORDERED: hydrALAZINE 20 MG/1 ML VIAL IV ONE (11:24)
[2019-08-27] MEDS: cefTRIAXone 1,000 MG in SYRINGE 1 EACH IV SCH (15:17)
[2019-08-27 16:14] VITALS: BP 146/81
== END 2019-08-27 16:17 | disposition swing bed (61) | DRG 190 ==
LOC: EDBD → EDUNIT# → N.ED 14:34 → N.EDINP 16:34 → N.4E 19:03
PROVIDERS: ADMIT Family Medicine; ATTEND Family Medicine

== ENCOUNTER 2022-07-20 22:00 | Inpatient (IN) ==
[2022-07-20] MEDS ORDERED: ASPIRIN 325 MG TABLET PO STA (22:41)
[2022-07-20] MEDS ORDERED: NITROGLYCERIN 2% OINT 1 INCH/GM PACK TOP STA (22:41)
[2022-07-20] MEDS ORDERED: methylPREDNISolone SOD SUC 125 MG/2 ML VIAL IV STA (22:41)
[2022-07-20] MEDS ORDERED: ONDANSETRON 4 MG/2 ML VIAL IV STA (22:41)
[2022-07-20] MEDS ORDERED: FUROSEMIDE 100 MG/10 ML VIAL IV STA (22:41)
[2022-07-20] MEDS ORDERED: MORPHINE 2 MG/1 ML SYRINGE IV STA (22:41)
[2022-07-20] MEDS ORDERED: ALBUTEROL NEB SOLN 5 MG/ML 20 ML/BOTTLE CONT NEB SCH (23:00)
[2022-07-20 23:22] LABS: Arterial Base Excess iSTAT 7 MMOL/L (-2.5-2.5); Arterial Bicarbonate iSTAT 32.8 MMOL/L (20-26); Arterial O2 Saturation iSTAT 99 % (95-100); Arterial PCO2 iSTAT 50 MM HG (35-48); Arterial PO2 iSTAT 137 MM HG (80-95); Arterial Total CO2 iSTAT 34 MMO/L (23-27); Arterial pH iSTAT 7.423 (7.35-7.45)
[2022-07-20 23:36] LABS: INR 0.9; PT Patient Result 10.1 SECS (10.1-12.1)
[2022-07-20 23:47] LABS: Albumin 3.2 G/DL (3.4-5.0); Bilirubin,Total 0.8 MG/DL (0.20-1.00); Calcium 9.9 MG/DL (8.5-10.1); Osmolality,Calculated 281.7 MOS/KG (273-304); Potassium 3.9 MMOL/L (3.5-5.1); Total Protein 6.6 G/DL (6.4-8.2)
[2022-07-21 01:15] LABS: Basophils # 0.1 10*3/uL (0.0-0.2); Basophils % 0.6 % (0.0-0.8); Eosinophils # 0.1 10*3/uL (0.0-0.87); Eosinophils % 0.5 % (0.00-10.9); Hemoglobin 14.8 GM/DL (12.0-16.0); Immature Granulocytes % 0.8 %; Immature Granulocytes Absolute 0.12 #; Lymphocytes # 2.1 10*3/uL (1.4-4.0); Lymphocytes % 13.7 % (21.3-54.2); Mean Corpuscular HGB Conc 32.2 GM/DL (32-36); Mean Corpuscular Volume 87.5 FL (87-102); Mean Platelet Volume 9.6 FL (9.6-12.0); Monocytes # 0.4 10*3/uL (0.11-0.8); Monocytes % 2.8 % (1.7-12.7); Neutrophils % 81.6 % (38.7-73.9); Platelet Count 335 T/CUMM (130-400); Red Blood Count 5.26 MC/CUMM (3.8-5.5); Red Cell Distribution Width 12.6 % (9.3-17.3); White Blood Count 15.4 T/CUMM (4-12)
[2022-07-21] MEDS ORDERED: ONDANSETRON 4 MG/2 ML VIAL IV PRN (01:22)
[2022-07-21] MEDS ORDERED: ACETAMINOPHEN 325 MG TABLET PO PRN (01:22)
[2022-07-21] MEDS: LEVOFLOXACIN INJ 500 MG/100 ML PREMIX IV SCH (04:00)
[2022-07-21] MEDS: ENOXAPARIN 40 MG/0.4 ML SYRINGE SUBCUT SCH (04:03)
[2022-07-21] MEDS ORDERED: INSULIN REGULAR 100 UNIT/ML SUBCUT ONE (04:45)
[2022-07-21] MEDS ORDERED: INFLUENZA VIRUS VACCINE 0.5 ML SYRINGE IM ONE (05:00)
[2022-07-21 05:40] LABS: Bacteria,Urine Occasional /HPF (Few); Hyaline Casts,Urine 4 /LPF (0-3); Mucus,Urine Occasional /LPF (Occasional); Squamous Epithelial Cell,Urine Few /HPF (0-10)
[2022-07-21 05:41] LABS: Bilirubin,Urine Negative (Negative); Blood, Urine Negative (Negative); Glucose,Urine (UA) >1000 mg/dL (Negative); Ketones,Urine Negative (Negative); Nitrite,Urine Negative (Negative); Protein,Urine Negative (Negative); Urine Appearance Clear (Clear); Urine Color Yellow (Yellow); Urine Specific Gravity < 1.005 (1.001-1.035); Urine Urobilinogen 0.2 eU/dL (<2.0)
[2022-07-21 07:26] LABS: Basophils % 0.2 % (0.0-0.8); Hematocrit 43.4 VOL% (35.7-47.0); Hemoglobin 13.9 GM/DL (12.0-16.0); Immature Granulocytes Absolute 0.09 #; Lymphocytes # 0.4 10*3/uL (1.4-4.0); Lymphocytes % 4.6 % (21.3-54.2); Mean Corpuscular Volume 86.3 FL (87-102); Mean Platelet Volume 9.9 FL (9.6-12.0); Monocytes # 0.1 10*3/uL (0.11-0.8); Monocytes % 0.5 % (1.7-12.7); Neutrophils % 93.7 % (38.7-73.9); Platelet Count 291 T/CUMM (130-400); Red Blood Count 5.03 MC/CUMM (3.8-5.5); Red Cell Distribution Width 12.7 % (9.3-17.3); White Blood Count 9.3 T/CUMM (4-12)
[2022-07-21 07:48] LABS: Anisocytosis Slight; Band Neutrophils 2 % (0-10); Lymphocytes 6 % (20-55); Platelet Estimate Normal; Total Cells Counted 100
[2022-07-21 07:55] LABS: Albumin 3.4 G/DL (3.4-5.0); Bilirubin,Total 0.8 MG/DL (0.20-1.00); Calcium 10.3 MG/DL (8.5-10.1); Osmolality,Calculated 296.8 MOS/KG (273-304); Potassium 4.4 MMOL/L (3.5-5.1); Total Protein 6.9 G/DL (6.4-8.2)
[2022-07-21] MEDS: INSULIN REGULAR 100 UNIT/ML SUBCUT SCH ×5 (08:37→21:53)
[2022-07-21] MEDS: METOPROLOL TARTRATE 25 MG TABLET PO SCH ×2 (08:37→21:52)
[2022-07-21] MEDS: POTASSIUM CHLORIDE 20 MEQ TABLET PO SCH (08:38)
[2022-07-21] MEDS: ASPIRIN EC 81 MG TABLET PO SCH (08:38)
[2022-07-21] MEDS: busPIRone 5 MG TABLET PO SCH ×2 (08:38→21:52)
[2022-07-21] MEDS: FENOFIBRATE 145 MG TABLET PO SCH (08:38)
[2022-07-21] MEDS: ISOSORBIDE MONONITRATE 30 MG TABLET PO SCH ×2 (08:38→21:51)
[2022-07-21] MEDS: SACUBITRIL/VALSARTAN 49-51 MG TABLET PO SCH ×2 (08:38→21:51)
[2022-07-21] MEDS: THEOPHYLLINE ER 300 MG TABLET PO SCH ×2 (08:38→16:36)
[2022-07-21] MEDS: DULoxetine 30 MG CAPSULE PO SCH (08:38)
[2022-07-21] MEDS: FUROSEMIDE 40 MG TABLET PO SCH ×2 (08:39→21:51)
[2022-07-21] MEDS: predniSONE 20 MG TABLET PO SCH (08:39)
[2022-07-21] MEDS: PANTOPRAZOLE 40 MG TABLET PO SCH (08:39)
[2022-07-21] MEDS: GABAPENTIN 600 MG TABLET PO SCH ×4 (08:39→21:51)
[2022-07-21] MEDS: CYCLOBENZAPRINE 10 MG TABLET PO SCH (08:39)
[2022-07-21] MEDS: BUDESONIDE/FORMOTEROL 160-4.5 INHALER 6 GM INH SCH ×2 (08:40→21:53)
[2022-07-21] MEDS ORDERED: NITROGLYCERIN SL 0.4 MG TABLET SL PRN (14:23)
[2022-07-21] MEDS: DAPAGLIFLOZIN 10 MG TABLET PO SCH (15:29)
[2022-07-21] MEDS ORDERED: ALBUTEROL/IPRATROPIUM 3 ML NEB RESP TX ONE (20:13)
[2022-07-21] MEDS: sitaGLIPtin 25 MG TABLET PO SCH (21:50)
[2022-07-21] MEDS: ATORVASTATIN 40 MG TABLET PO SCH (21:50)
[2022-07-21] MEDS: INSULIN GLARGINE 100 UNIT/ML SUBCUT SCH (21:53)
[2022-07-22] MEDS: ALBUTEROL/IPRATROPIUM 3 ML NEB RESP TX SCH ×4 (00:32→18:58)
[2022-07-22] MEDS: LEVOFLOXACIN INJ 500 MG/100 ML PREMIX IV SCH (02:46)
[2022-07-22 05:35] LABS: Basophils % 0.2 % (0.0-0.8); Eosinophils % 0.1 % (0.00-10.9); Hematocrit 42.8 VOL% (35.7-47.0); Hemoglobin 14.1 GM/DL (12.0-16.0); Immature Granulocytes % 0.8 %; Immature Granulocytes Absolute 0.12 #; Lymphocytes # 2.2 10*3/uL (1.4-4.0); Mean Corpuscular HGB Conc 32.9 GM/DL (32-36); Mean Corpuscular Volume 85.9 FL (87-102); Mean Platelet Volume 9.8 FL (9.6-12.0); Monocytes # 1.6 10*3/uL (0.11-0.8); Neutrophils % 74.9 % (38.7-73.9); Platelet Count 330 T/CUMM (130-400); Red Blood Count 4.98 MC/CUMM (3.8-5.5); Red Cell Distribution Width 13.2 % (9.3-17.3); White Blood Count 15.6 T/CUMM (4-12)
[2022-07-22 05:57] LABS: Calcium 10.5 MG/DL (8.5-10.1); Osmolality,Calculated 283.7 MOS/KG (273-304); Potassium 3.7 MMOL/L (3.5-5.1)
[2022-07-22] MEDS: INSULIN REGULAR 100 UNIT/ML SUBCUT SCH ×4 (08:45→21:33)
[2022-07-22] MEDS: GABAPENTIN 600 MG TABLET PO SCH ×4 (08:46→21:28)
[2022-07-22] MEDS: PANTOPRAZOLE 40 MG TABLET PO SCH (08:46)
[2022-07-22] MEDS: DAPAGLIFLOZIN 10 MG TABLET PO SCH (08:46)
[2022-07-22] MEDS: ISOSORBIDE MONONITRATE 30 MG TABLET PO SCH ×2 (08:46→21:30)
[2022-07-22] MEDS: ASPIRIN EC 81 MG TABLET PO SCH (08:46)
[2022-07-22] MEDS: ENOXAPARIN 40 MG/0.4 ML SYRINGE SUBCUT SCH (08:46)
[2022-07-22] MEDS: DULoxetine 30 MG CAPSULE PO SCH (08:46)
[2022-07-22] MEDS: FENOFIBRATE 145 MG TABLET PO SCH (08:46)
[2022-07-22] MEDS: THEOPHYLLINE ER 300 MG TABLET PO SCH ×2 (08:46→16:37)
[2022-07-22] MEDS: busPIRone 5 MG TABLET PO SCH (08:47)
[2022-07-22] MEDS: POTASSIUM CHLORIDE 20 MEQ TABLET PO SCH (08:47)
[2022-07-22] MEDS: SACUBITRIL/VALSARTAN 49-51 MG TABLET PO SCH ×2 (08:47→21:29)
[2022-07-22] MEDS: CYCLOBENZAPRINE 10 MG TABLET PO SCH (08:47)
[2022-07-22] MEDS: EZETIMIBE 10 MG TABLET PO SCH (08:47)
[2022-07-22] MEDS: predniSONE 20 MG TABLET PO SCH (08:47)
[2022-07-22] MEDS: METOPROLOL TARTRATE 25 MG TABLET PO SCH ×2 (08:49→21:28)
[2022-07-22] MEDS: FUROSEMIDE 40 MG TABLET PO SCH ×2 (08:49→21:28)
[2022-07-22] MEDS: BUDESONIDE/FORMOTEROL 160-4.5 INHALER 6 GM INH SCH ×2 (08:49→21:28)
[2022-07-22] MEDS: GLIMEPIRIDE 4 MG TABLET PO SCH (08:50)
[2022-07-22] MEDS ORDERED: GLUCAGON 1 MG VIAL IM PRN (13:32)
[2022-07-22] MEDS ORDERED: DEXTROSE 10% 250 ML BAG IV PRN (13:34)
[2022-07-22] MEDS: ATORVASTATIN 40 MG TABLET PO SCH (21:28)
[2022-07-22] MEDS: busPIRone 15 MG TABLET PO SCH (21:28)
[2022-07-22] MEDS: sitaGLIPtin 25 MG TABLET PO SCH (21:29)
[2022-07-22] MEDS: INSULIN GLARGINE 100 UNIT/ML SUBCUT SCH (21:33)
[2022-07-23] MEDS: ALBUTEROL/IPRATROPIUM 3 ML NEB RESP TX SCH ×4 (00:20→19:14)
[2022-07-23] MEDS: LEVOFLOXACIN INJ 500 MG/100 ML PREMIX IV SCH (05:04)
[2022-07-23 06:05] LABS: Basophils % 0.3 % (0.0-0.8); Eosinophils # 0.1 10*3/uL (0.0-0.87); Eosinophils % 0.6 % (0.00-10.9); Hematocrit 43.4 VOL% (35.7-47.0); Hemoglobin 14.2 GM/DL (12.0-16.0); Immature Granulocytes % 0.5 %; Immature Granulocytes Absolute 0.06 #; Lymphocytes # 3.1 10*3/uL (1.4-4.0); Lymphocytes % 27.5 % (21.3-54.2); Mean Corpuscular HGB Conc 32.7 GM/DL (32-36); Mean Corpuscular Volume 87.7 FL (87-102); Monocytes # 0.9 10*3/uL (0.11-0.8); Monocytes % 7.8 % (1.7-12.7); Neutrophils % 63.3 % (38.7-73.9); Platelet Count 313 T/CUMM (130-400); Red Blood Count 4.95 MC/CUMM (3.8-5.5); Red Cell Distribution Width 13.3 % (9.3-17.3); White Blood Count 11.3 T/CUMM (4-12)
[2022-07-23] MEDS ORDERED: diphenhydrAMINE CAP 25 MG CAPSULE PO PRN (06:17)
[2022-07-23 06:25] LABS: Calcium 10.2 MG/DL (8.5-10.1); Osmolality,Calculated 286.3 MOS/KG (273-304); Potassium 3.1 MMOL/L (3.5-5.1)
[2022-07-23 06:35] LABS: Risk Ratio 2.19; VLDL Cholesterol 21.4 MG/DL
[2022-07-23] MEDS: INSULIN REGULAR 100 UNIT/ML SUBCUT SCH ×4 (08:09→21:28)
[2022-07-23] MEDS: POTASSIUM CHLORIDE 20 MEQ TABLET PO SCH (09:27)
[2022-07-23] MEDS: predniSONE 20 MG TABLET PO SCH (09:27)
[2022-07-23] MEDS: DULoxetine 30 MG CAPSULE PO SCH (09:28)
[2022-07-23] MEDS: DAPAGLIFLOZIN 10 MG TABLET PO SCH (09:28)
[2022-07-23] MEDS: ASPIRIN EC 81 MG TABLET PO SCH (09:28)
[2022-07-23] MEDS: GLIMEPIRIDE 4 MG TABLET PO SCH (09:28)
[2022-07-23] MEDS: THEOPHYLLINE ER 300 MG TABLET PO SCH ×2 (09:28→17:10)
[2022-07-23] MEDS: PANTOPRAZOLE 40 MG TABLET PO SCH (09:29)
[2022-07-23] MEDS: DOXYCYCLINE HYCLATE INJ 100 MG in SODIUM CHLORIDE 0.9% 100 ML IV SCH ×2 (09:29→21:29)
[2022-07-23] MEDS: busPIRone 15 MG TABLET PO SCH ×2 (09:29→21:26)
[2022-07-23] MEDS: ENOXAPARIN 40 MG/0.4 ML SYRINGE SUBCUT SCH (09:29)
[2022-07-23] MEDS: BUDESONIDE/FORMOTEROL 160-4.5 INHALER 6 GM INH SCH ×2 (09:30→21:33)
[2022-07-23] MEDS: CYCLOBENZAPRINE 10 MG TABLET PO SCH (09:41)
[2022-07-23] MEDS: GABAPENTIN 600 MG TABLET PO SCH ×4 (09:41→21:27)
[2022-07-23] MEDS: FUROSEMIDE 40 MG TABLET PO SCH ×2 (09:41→21:26)
[2022-07-23] MEDS: SACUBITRIL/VALSARTAN 49-51 MG TABLET PO SCH ×2 (09:42→21:25)
[2022-07-23] MEDS: ISOSORBIDE MONONITRATE 30 MG TABLET PO SCH ×2 (09:42→21:25)
[2022-07-23] MEDS: FENOFIBRATE 145 MG TABLET PO SCH (09:43)
[2022-07-23] MEDS: METOPROLOL TARTRATE 25 MG TABLET PO SCH ×2 (09:43→21:26)
[2022-07-23] MEDS: EZETIMIBE 10 MG TABLET PO SCH (09:43)
[2022-07-23] MEDS ORDERED: POTASSIUM CHLORIDE 20 MEQ TABLET PO ONE (13:46)
[2022-07-23] MEDS: ATORVASTATIN 40 MG TABLET PO SCH (21:25)
[2022-07-23] MEDS: MAGNESIUM OXIDE 400 MG TABLET PO SCH (21:26)
[2022-07-23] MEDS: INSULIN GLARGINE 100 UNIT/ML SUBCUT SCH (21:27)
[2022-07-24] MEDS: ALBUTEROL/IPRATROPIUM 3 ML NEB RESP TX SCH ×2 (00:03→07:36)
[2022-07-24 06:16] LABS: Basophils % 0.4 % (0.0-0.8); Eosinophils # 0.1 10*3/uL (0.0-0.87); Eosinophils % 0.8 % (0.00-10.9); Hematocrit 45.8 VOL% (35.7-47.0); Hemoglobin 14.6 GM/DL (12.0-16.0); Immature Granulocytes % 0.9 %; Immature Granulocytes Absolute 0.09 #; Lymphocytes # 2.7 10*3/uL (1.4-4.0); Lymphocytes % 26.4 % (21.3-54.2); Mean Corpuscular HGB Conc 31.9 GM/DL (32-36); Mean Corpuscular Volume 87.7 FL (87-102); Mean Platelet Volume 9.9 FL (9.6-12.0); Monocytes % 9.4 % (1.7-12.7); Neutrophils % 62.1 % (38.7-73.9); Platelet Count 313 T/CUMM (130-400); Red Blood Count 5.22 MC/CUMM (3.8-5.5); Red Cell Distribution Width 13.2 % (9.3-17.3); White Blood Count 10.2 T/CUMM (4-12)
[2022-07-24 06:43] LABS: Calcium 9.9 MG/DL (8.5-10.1); Osmolality,Calculated 286.3 MOS/KG (273-304); Potassium 3.2 MMOL/L (3.5-5.1)
[2022-07-24] MEDS: INSULIN REGULAR 100 UNIT/ML SUBCUT SCH ×2 (08:08→12:07)
[2022-07-24] MEDS: predniSONE 20 MG TABLET PO SCH (08:59)
[2022-07-24] MEDS: FENOFIBRATE 145 MG TABLET PO SCH (08:59)
[2022-07-24] MEDS: ISOSORBIDE MONONITRATE 30 MG TABLET PO SCH (09:00)
[2022-07-24] MEDS ORDERED: CHOLECALCIFEROL 1,000 UNIT TABLET PO SCH (09:00)
[2022-07-24] MEDS: PANTOPRAZOLE 40 MG TABLET PO SCH (09:00)
[2022-07-24] MEDS: THEOPHYLLINE ER 300 MG TABLET PO SCH (09:00)
[2022-07-24] MEDS: EZETIMIBE 10 MG TABLET PO SCH (09:00)
[2022-07-24] MEDS: busPIRone 15 MG TABLET PO SCH (09:00)
[2022-07-24] MEDS ORDERED: POTASSIUM CHLORIDE 20 MEQ TABLET PO SCH (09:00)
[2022-07-24] MEDS: GLIMEPIRIDE 4 MG TABLET PO SCH (09:00)
[2022-07-24] MEDS: DULoxetine 30 MG CAPSULE PO SCH (09:00)
[2022-07-24] MEDS: GABAPENTIN 600 MG TABLET PO SCH ×2 (09:00→13:23)
[2022-07-24] MEDS: CYCLOBENZAPRINE 10 MG TABLET PO SCH (09:01)
[2022-07-24] MEDS: DAPAGLIFLOZIN 10 MG TABLET PO SCH (09:01)
[2022-07-24] MEDS: METOPROLOL TARTRATE 25 MG TABLET PO SCH (09:01)
[2022-07-24] MEDS: ASPIRIN EC 81 MG TABLET PO SCH (09:01)
[2022-07-24] MEDS: SACUBITRIL/VALSARTAN 49-51 MG TABLET PO SCH (09:01)
[2022-07-24] MEDS: MAGNESIUM OXIDE 400 MG TABLET PO SCH (09:01)
[2022-07-24] MEDS: ENOXAPARIN 40 MG/0.4 ML SYRINGE SUBCUT SCH (09:01)
[2022-07-24] MEDS: FUROSEMIDE 40 MG TABLET PO SCH (09:01)
[2022-07-24] MEDS: DOXYCYCLINE HYCLATE INJ 100 MG in SODIUM CHLORIDE 0.9% 100 ML IV SCH (09:12)
[2022-07-24] MEDS: BUDESONIDE/FORMOTEROL 160-4.5 INHALER 6 GM INH SCH (09:14)
[2022-07-24] MEDS ORDERED: DOXYCYCLINE HYCLATE 100 MG CAPSULE PO SCH (09:45)
[2022-07-24] MEDS: POTASSIUM CHLORIDE 20 MEQ TABLET PO ONE ×2 (10:32→12:07)
[2022-07-24 12:04] VITALS: BP 118/58
== END 2022-07-24 13:45 | disposition home or self-care (01) | DRG 191 ==
LOC: N.3E 22:00 → N.ED 22:00 → N.3E 07-21 01:06 → SUATTDRO 07-21 01:22
PROVIDERS: ADMIT Internal Medicine; ATTEND Hospitalist